=== PATIENT | male | born 1945 | race Caucasian/White ===

== ENCOUNTER 2016-03-27 18:28 | Inpatient (IN) | payer MEDICARE ==
[2016-03-27 18:58] LABS: ABSOLUTE EOSINOPHILS # (AUTO) 0.4 10^3/uL (0.0-0.6); ABSOLUTE LYMPHOCYTES (AUTO) 0.7 10^3/uL (0.5-4.7); ABSOLUTE MONOCYTES (AUTO) 0.3 10^3/uL (0.1-1.4); BASOPHILS % (AUTO) 0.5 % (0-2); EOSINOPHILS % (AUTO) 5.6 % (0-6); HEMATOCRIT 31.3 % (37.9-51.0); HEMOGLOBIN 9.9 g/dL (13.5-17.0); HGB HCT DIFFERENCE -1.6; LYMPHOCYTES % (AUTO) 9.7 % (13-45); MEAN CORPUSCULAR HEMOGLOBIN 27.8 pg (27.0-33.4); MEAN CORPUSCULAR HGB CONC 31.6 g/dL (32.0-36.0); MEAN CORPUSCULAR VOLUME 88 fl (80-97); MONOCYTES % (AUTO) 4.6 % (3-13); RED BLOOD COUNT 3.55 10^6/uL (4.35-5.55); RED CELL DISTRIBUTION WIDTH 18.8 % (11.5-14.0); SEGMENTED NEUTROPHILS % (AUTO) 79.6 % (42-78); WHITE BLOOD COUNT 7.5 10^3/uL (4.0-10.5)
[2016-03-27 19:14] LABS: ALANINE AMINOTRANSFERASE 18 U/L (21-72); ALKALINE PHOSPHATASE 86 U/L (38-126); ASPARTATE AMINO TRANSFERASE 13 U/L (17-59); BILIRUBIN,TOTAL 0.4 mg/dL (0.2-1.3); CALCIUM 8.6 mg/dL (8.4-10.2); CREATININE RESULT 7.34 mg/dL (0.52-1.25); GLUCOSE 103 mg/dL (75-110); LIPASE 347.8 U/L (23-300)
[2016-03-27 19:21] LABS: BLOOD UREA NITROGEN 122 mg/dL (7-20)
[2016-03-27 19:33] LABS: ANION GAP 19 (5-19); CARBON DIOXIDE 13 mmol/L (22-30); CHLORIDE 114 mmol/L (98-107); POTASSIUM 5.1 mmol/L (3.6-5.0); SODIUM 146.1 mmol/L (137-145)
[2016-03-27] MEDS ORDERED: NORMAL SALINE 1000 ML 2,000 ML IV PRN (19:41)
--- NOTE | 2016-03-27 20:00 | ER Document Report ---
ED General - General Chief Complaint: Pain All Over Stated Complaint: ALL OVER PAIN Time seen by provider: 19:57 Mode of Arrival: Ambulatory Information source: Patient TRAVEL OUTSIDE OF THE [place] IN LAST 30 DAYS: No - HPI Patient complains to provider of: generalized weakness Onset: Other - 2-3 days Onset/Duration: Persistent, Worse Quality of pain: Achy Severity: Mild Pain Level: 1 Associated symptoms: Body/muscle aches Exacerbated by: Denies Relieved by: Denies Similar symptoms previously: No Recently seen / treated by doctor: No Notes: Patient is a 70-year-old male presenting to the emergency room complaining of generalized weakness with general body aches, this is been gone on for the past week approximately, he also reports some "knots on rectum", which is been there for at least a year, he states they have been evaluated by a physician previously, he is unsure what the diagnosis is, they are painful at the present time, he reports bilateral leg pain, a nonhealing ulcer to the left foot, and is noted to have a blood pressure of 83/58 at time of my initial evaluation - Related Data Allergies/Adverse Reactions: No Known Allergies Allergy (Verified 03/27/16 18:42) Past Medical History - General Information source: Patient - Social History Smoking Status: Former Smoker Family History: DM, Hypertension - Past Medical History Cardiac Medical History: Reports: Hx Atrial Fibrillation, Hx Congestive Heart Failure, Hx Hypertension Endocrine Medical History: Reports: Hx Diabetes Mellitus Type 2 GI Medical History: Reports: Hx Diverticulitis Past Surgical History: Reports: Hx Abdominal Surgery - diverticulitis and lost about 10 inches of colon and second time unsure wha - Immunizations Hx Diphtheria, Pertussis, Tetanus Vaccination: Yes Review of Systems - Review of Systems Constitutional: See HPI EENT: No symptoms reported Cardiovascular: No symptoms reported Respiratory: No symptoms reported Gastrointestinal: No symptoms reported Genitourinary: No symptoms reported Male Genitourinary: No symptoms reported Musculoskeletal: See HPI Skin: See HPI Hematologic/Lymphatic: No symptoms reported Neurological/Psychological: No symptoms reported -: Yes All other systems reviewed and negative Physical Exam - Vital signs Vitals: Temp Pulse Resp BP Pulse Ox 97.9 F 90 20 92/49 L 98 03/27/16 18:30 03/27/16 18:30 03/27/16 18:30 03/27/16 18:30 03/27/16 18:30 Interpretation: Hypotensive - General General appearance: Alert - HEENT Head: Normocephalic, Atraumatic Eyes: Normal Pupils: PERRL - Respiratory Respiratory status: No respiratory distress Chest status: Nontender Breath sounds: Normal Chest palpation: Normal - Cardiovascular Rhythm: Regular Heart sounds: Normal auscultation Murmur: No - Abdominal Inspection: Other - Nonhealing wound to midline incision, approximately 1 cm, scabbed, no erythema or tenderness Distension: No distension Bowel sounds: Normal Tenderness: Nontender Organomegaly: No organomegaly - Back Back: Normal, Nontender - Extremities General upper extremity: Nontender, Normal ROM, Normal temperature, Other - Diffuse ecchymosis with excoriated skin General lower extremity: Edema, Normal ROM. No: Tarik's sign Foot: Other - Nonhealing ulcer to left foot - Neurological Neuro grossly intact: Yes Cognition: Normal Orientation: AAOx4 [place] Coma Scale Eye Opening: Spontaneous [place] Coma Scale Verbal: Oriented [place] Coma Scale Motor: Obeys Commands [place] Coma Scale Total: 15 Speech: Normal Motor strength normal: LUE, RUE, LLE, RLE Sensory: Normal - Psychological Associated symptoms: Normal affect, Normal mood - Skin Skin Temperature: Warm Skin Moisture: Dry Skin Color: Normal Course - Re-evaluation Re-evalutation: 03/27/16 22:11 Patient was discussed with primary care provider, Dr. Ng, specifically we discussed labs including acute renal failure with BUN/creatinine of 122 and 7.3 , he suggested we continue to hydrate patient, provide antibiotics for urinary tract infection, admit to telemetry floor for further evaluation and treatment - Vital Signs Vital signs: Temp Pulse Resp BP Pulse Ox 97.4 F 96 16 128/67 H 100 03/28/16 01:00 03/28/16 01:00 03/28/16 01:00 03/28/16 01:00 03/28/16 01:00 - Laboratory Result Diagrams: 03/27/16 18:45 03/27/16 18:45 Laboratory results interpreted by me: 03/27/16 03/27/16 03/27/16 18:45 18:45 21:32 RBC 3.55 L Hgb 9.9 L Hct 31.3 L MCHC 31.6 L RDW 18.8 H Seg Neutrophils % 79.6 H Lymphocytes % 9.7 L Sodium 146.1 H Potassium 5.1 H Chloride 114 H Carbon Dioxide 13 L BUN 122 H Creatinine 7.34 H Est GFR ( Amer) 9 L Est GFR (Non-Af Amer) 7 L AST 13 L ALT 18 L Total Protein 6.0 L Albumin 3.0 L Lipase 347.8 H Urine Blood MODERATE H Ur Leukocyte Esterase LARGE H - Diagnostic Test Radiology reviewed: Image reviewed, Reports reviewed Critical Care Note - Critical Care Note Total time excluding time spent on procedures (mins): 45 Comments: Patient persistently hypotensive with IV fluids administered, acute renal failure requiring admission for further evaluation and treatment Discharge - Discharge Clinical Impression: Acute renal failure Qualifiers: Acute renal failure type: unspecified Qualified Code(s): N17.9 - Acute kidney failure, unspecified Hypotension Qualifiers: Hypotension type: unspecified hypotension type Qualified Code(s): I95.9 - Hypotension, unspecified Urinary tract infection Qualifiers: Urinary tract infection type: site unspecified Hematuria presence: without hematuria Qualified Code(s): N39.0 - Urinary tract infection, site not specified Condition: Fair Disposition: ADMITTED INPATIENT Admitting Provider: Ng Unit Admitted: Telemetry
[2016-03-27 21:53] LABS: APPEARANCE,URINE SLIGHTLY-CLOUDY; BILIRUBIN,URINE NEGATIVE (NEGATIVE); GLUCOSE, URINE NEGATIVE (NEGATIVE); KETONES,URINE NEGATIVE (NEGATIVE); LEUKOCYTE ESTERASE,URINE LARGE (NEGATIVE); NITRITE,URINE NEGATIVE (NEGATIVE); PROTEIN,URINE NEGATIVE (NEGATIVE); URINE SPECIFIC GRAVITY 1.008; UROBILINOGEN,URINE NEGATIVE mg/dL (<2.0)
[2016-03-27] MEDS ORDERED: NORMAL SALINE 1000 ML 1,000 ML IV PRN (22:12)
[2016-03-27] MEDS ORDERED: CEFTRIAXONE INJ 1000 MG VIAL IV ONE (22:12)
[2016-03-28] MEDS ORDERED: 1/2 NORMAL SALINE 1,000 ML IV PRN ×2 (04:08→05:50)
[2016-03-28] MEDS ORDERED: DEXTROSE 50%-WATER SYRINGE 12.5 GM/25 ML DOSE IV PRN (04:16)
[2016-03-28] MEDS ORDERED: DEXTROSE 50%-WATER SYRINGE 25 GM/50 ML DOSE IV PRN (04:16)
[2016-03-28] MEDS ORDERED: DEXTROSE 40% GEL 15 GM TUBE X 2 PO PRN (04:16)
[2016-03-28] MEDS ORDERED: DEXTROSE 40% GEL 15 GM TUBE PO PRN (04:16)
[2016-03-28] MEDS ORDERED: INSULIN REG, HUMAN 100 UNIT/ML 3 ML VIAL (PYX) SUBCUT PRN (04:16)
[2016-03-28] MEDS ORDERED: GLUCAGON,HUMAN RECOMB 1 MG INJ IM PRN (04:16)
[2016-03-28] MEDS ORDERED: SODIUM BICARBONATE 8.4% INJ 50 MEQ/50 ML DISP.SYRIN ONE (06:15)
[2016-03-28] MEDS: DEXTROSE 5%-WATER 1000 ML 1,000 ML with SODIUM BICARBONATE 50 MEQ IV PRN ×4 (06:26→18:15)
--- NOTE | 2016-03-28 08:51 | PDOC H&P ---
History of Present Illness Admission Date/PCP: 03/28/16 04:33 BLANCHE BROWER MD Patient complains of: hurt all over History of Present Illness: AISHA PABLO is a 70 year old male with diffuse pain and weakness. Has been on diclofenac from ortho recently. ER found familia. 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 [id number] Malignancy Medical History: Reports: None GI Medical History: Reports: Diverticulitis, Gastroesophageal Reflux Disease, Peptic Ulcer Disease Musculoskeltal Medical History: Reports: Arthritis - severe djd RK. [place] say surgury too risky. Skin Medical History: Reports: Other - venous leg ulcers. Now home health unna booting L Psychiatric Medical History: Reports: None Traumatic Medical History: Reports: None Hematology: Reports: Anemia - iron. July Infectious Medical History: Reports: None Past Surgical History Past Surgical History: Reports: Other - diverticulitis, ventral hernia, Rcolectomy, cataracts, dorsal slit Social History Information Source: Dr. Rehman Lives with: Alone Smoking Status: Former Smoker Cigarettes Packs Per Day: 1 Number of Years Smokin Last Time Smoked: 1995 Frequency of Alcohol Use: None Hx Recreational Drug Use: No Drugs: None Hx Prescription Drug Abuse: No - Advance Directive Resuscitation Status: Do Not Resuscitate Family History Family History: DM, Hypertension Parental Family History Reviewed: Yes Children Family History Reviewed: Yes Sibling(s) Family History Reviewed.: Yes Medication/Allergy Home Medications: Misoprostol [Cytotec 0.2 mg Tablet] 200 mcg PO BID 01/08/14 Omeprazole 20 mg PO DAILY 01/08/14 Simvastatin 20 mg PO DAILY 01/08/14 Furosemide [Lasix 40 mg Tablet] 40 mg PO BID 08/08/15 Gabapentin 300 mg PO BID 08/08/15 Hydromorphone HCl 4 mg PO TID 08/08/15 Insulin Glargine,Hum.rec.anlog [Lantus] 10 unit SQ DAILY 08/08/15 Allopurinol [Zyloprim 300 mg Tablet] 300 mg PO DAILY 03/28/16 Clonidine HCl [Catapres] 0.1 mg PO Q12 03/28/16 Cyanocobalamin (Vitamin B-12) [Vitamin B-12 1000 Mcg Tablet] 1 tab PO DAILY Diclofenac Sodium [Voltaren 50 mg Tablet.dr] 50 mg PO BID 03/28/16 Ferrous Sulfate [Iron] 325 mg PO DAILY 03/28/16 Lisinopril [Prinivil 40 mg Tablet] 40 mg PO DAILY 03/28/16 Allergies/Adverse Reactions: No Known Allergies Allergy (Verified 03/27/16 18:42) Review of Systems Constitutional: PRESENT: chills, fatigue, weakness. ABSENT: weight loss Nose, Mouth, and Throat: ABSENT: sore throat Cardiovascular: PRESENT: dyspnea on exertion. ABSENT: chest pain, orthropnea Respiratory: ABSENT: cough Gastrointestinal: ABSENT: abdominal pain, constipation, diarrhea, hematochezia, melena, vomiting Genitourinary: PRESENT: dysuria. ABSENT: difficulty urinating, hematuria Musculoskeletal: PRESENT: as per HPI Integumentary: PRESENT: other - L ankle ulc 3cm under unna. ABSENT: rash Physical Exam Vital Signs: Temp Pulse Resp BP Pulse Ox 98.4 F 91 18 102/48 L 98 03/28/16 04:00 03/28/16 04:00 03/28/16 04:00 03/28/16 04:00 03/28/16 04:00 Intake & Output 03/26/16 03/27/16 03/28/16 07:59 07:59 07:59 Intake Total 379 Balance 379 General appearance: PRESENT: no acute distress Mouth exam: PRESENT: moist Neck exam: ABSENT: lymphadenopathy, tenderness, thyromegaly, tracheal deviation Respiratory exam: PRESENT: clear to auscultation dina Cardiovascular exam: ABSENT: diastolic murmur, irregular rhythm, systolic murmur GI/Abdominal exam: ABSENT: mass, organolmegaly, tenderness Extremities exam: ABSENT: pedal edema Neurological exam: PRESENT: oriented to situation Psychiatric exam: PRESENT: appropriate affect Skin exam: PRESENT: other - osterior L leg ulcer 3cm Results Laboratory Results: Abnormal - 24 hr 03/27/16 03/27/16 03/27/16 18:45 18:45 21:32 RBC 3.55 L Hgb 9.9 L Hct 31.3 L MCHC 31.6 L RDW 18.8 H Seg Neutrophils % 79.6 H Lymphocytes % 9.7 L Sodium 146.1 H Potassium 5.1 H Chloride 114 H Carbon Dioxide 13 L BUN 122 H Creatinine 7.34 H Est GFR ( Amer) 9 L Est GFR (Non-Af Amer) 7 L AST 13 L ALT 18 L Total Protein 6.0 L Albumin 3.0 L Lipase 347.8 H Urine Blood MODERATE H Ur Leukocyte Esterase LARGE H Impressions: Acute Abdomen Series 03/27/16 19:56 IMPRESSION: Nonspecific pattern. No significant bowel distention, however there are scattered air-fluid levels. Assessment & Plan - Diagnosis (1) Acute kidney failure with tubular necrosis Is this a current diagnosis for this admission?: YesPlan: Stop diclofenac & furosemide. A0baksks. Consult nephrology. (2) Acute tubulo-interstitial nephritis Is this a current diagnosis for this admission?: YesPlan: ceftriaxone
[2016-03-28] MEDS: FAMOTIDINE 20 MG TABLET PO SCH ×2 (11:05→22:15)
[2016-03-28] MEDS: HYDROMORPHONE HCL 2 MG TABLET PO SCH ×3 (11:06→18:15)
[2016-03-28] MEDS: CEFTRIAXONE 1 GM/D5W RTU 1 GM/50 ML RTUPB IV SCH (11:07)
[2016-03-28] MEDS: ENOXAPARIN SODIUM INJ 30 MG/0.3 ML DISP.SYRIN SUBCUT SCH (11:09)
[2016-03-28] MEDS ORDERED: NORMAL SALINE 1000 ML 1,000 ML IV PRN (18:54)
--- NOTE | 2016-03-28 19:37 | PDOC CONSULTATION ---
Consultation Consult Date: 03/28/16 Consult reason:: Acute on chronic kidney disease History of Present Illness Admission Date/PCP: 03/28/16 04:33 BLANCHE NG MD History of Present Illness: Rufus condon is 70 years old male with a history of long-standing, complicated diabetes mellitus with history of neuropathy and nephropathy the base creatinine of 1.5 last year, other comorbidities which includes sleep apnea , hypertension, congestive heart failure comes in with history of generalized weakness. He also got severe osteoarthritis for which she has been taking diclofenac 100 mg daily for the last many years. He denies any history of chest pain shortness of breath nausea and abdominal pains no history to indicate an GI bleeds. He denies orthostasis. He has got active diabetic ulcer affecting his right foot for the last 4-6 weeks and is being treated and by Dr. Kong Chadwick at the wound clinic. Evaluations in the hospital reveals that he is in acute renal failure with this creatinine at 7+. He states he has been feeling poorly over the last 1-2 weeks. He states he's been eating lately well and his fluid intake has been fair. He says his blood sugars are pretty well controlled and fasting sugars are around 100 to 120s. Past Medical History Cardiac Medical History: Reports: Atrial Fibrillation, Hyperlipidemia, Hypertension-primary Pulmonary Medical History: Reports: Sleep Apnea, Other - 1998 restrictive lung from bmi40 EENT Medical History: Reports: Nose - allergic rhinitis Neurological Medical History: Reports: Other - diabetic neuropathy Endocrine Medical History: Reports: Diabetes Mellitus Type 2 - 1997 Complications of Diabetes: Reports: Diabetic Foot Ulcer, Nephropathy, Other - Neuropathy Renal/ Medical History: Reports: Chronic Kidney Disease Stage III Malignancy Medical History: Reports: None GI Medical History: Reports: Diverticulitis, Gastroesophageal Reflux Disease, Peptic Ulcer Disease Musculoskeltal Medical History: Reports: Arthritis - severe djd RK. [place] say surgury too risky. Skin Medical History: Reports: Other - venous leg ulcers. Now home health unna booting L Psychiatric Medical History: Reports: None Traumatic Medical History: Reports: None Infectious Medical History: Reports: None Past Surgical History Past Surgical History: Reports: Other - diverticulitis, ventral hernia, Rcolectomy, cataracts, dorsal slit Social History Lives with: Alone Smoking Status: Former Smoker Cigarettes Packs Per Day: 1 Number of Years Smokin Last Time Smoked: 1995 Frequency of Alcohol Use: None Hx Recreational Drug Use: No Drugs: None Hx Prescription Drug Abuse: No - Advance Directive Resuscitation Status: Do Not Resuscitate Family History Parental Family History Reviewed: Yes - negative for ESRD Children Family History Reviewed: No Sibling(s) Family History Reviewed.: No Medication/Allergy Home Medications: Misoprostol [Cytotec 0.2 mg Tablet] 200 mcg PO BID 01/08/14 Omeprazole 20 mg PO DAILY 01/08/14 Simvastatin 20 mg PO DAILY 01/08/14 Furosemide [Lasix 40 mg Tablet] 40 mg PO BID 08/08/15 Gabapentin 300 mg PO BID 08/08/15 Hydromorphone HCl 4 mg PO TID 08/08/15 Insulin Glargine,Hum.rec.anlog [Lantus] 10 unit SQ DAILY 08/08/15 Allopurinol [Zyloprim 300 mg Tablet] 300 mg PO DAILY 03/28/16 Clonidine HCl [Catapres] 0.1 mg PO Q12 03/28/16 Cyanocobalamin (Vitamin B-12) [Vitamin B-12 1000 Mcg Tablet] 1 tab PO DAILY Diclofenac Sodium [Voltaren 50 mg Tablet.dr] 50 mg PO BID 03/28/16 Ferrous Sulfate [Iron] 325 mg PO DAILY 03/28/16 Lisinopril [Prinivil 40 mg Tablet] 40 mg PO DAILY 03/28/16 Allergies/Adverse Reactions: No Known Allergies Allergy (Verified 03/27/16 18:42) Review of Systems Review of Systems: Constitutional: PRESENT: as per HPI. ABSENT: chills, fever(s), headache(s), weight gain, weight loss Eyes: ABSENT: visual disturbances Ears: ABSENT: hearing changes Cardiovascular: ABSENT: chest pain, dyspnea on exertion, edema, orthropnea, palpitations Respiratory: ABSENT: cough, hemoptysis Gastrointestinal: ABSENT: abdominal pain, constipation, diarrhea, hematemesis, hematochezia, nausea, vomiting Genitourinary: ABSENT: dysuria, hematuria Musculoskeletal: ABSENT: joint swelling Integumentary: ABSENT: wounds Neurological: ABSENT: abnormal gait, abnormal speech, confusion, dizziness, focal weakness, syncope Psychiatric: ABSENT: anxiety, depression, homicidal ideation, suicidal ideation Endocrine: ABSENT: cold intolerance, heat intolerance, menstrual abnormalities, polydipsia, polyuria Hematologic/Lymphatic: ABSENT: easy bleeding, easy bruising, lymphadenopathy Physical Exam Vital Signs: Temp Pulse Resp BP Pulse Ox 98.1 F 88 18 109/55 L 100 03/28/16 16:48 03/28/16 16:48 03/28/16 16:48 03/28/16 16:48 03/28/16 16:48 Intake & Output 03/27/16 03/28/16 03/29/16 06:59 06:59 06:59 Intake Total 559 1072 Output Total 1075 Balance -516 1072 Weight 122.2 kg General appearance: PRESENT: no acute distress, disheveled Head exam: PRESENT: atraumatic Eye exam: PRESENT: conjunctiva pink, EOMI, PERRLA. ABSENT: nystagmus, periorbital swelling, scleral icterus Ear exam: PRESENT: normal external ear exam Mouth exam: PRESENT: moist, neck supple. ABSENT: dry mucosa Neck exam: ABSENT: lymphadenopathy, meningismus, tenderness, thyromegaly, tracheal deviation Respiratory exam: PRESENT: clear to auscultation dina, symmetrical, unlabored. ABSENT: crackles Cardiovascular exam: PRESENT: +S1, +S2, systolic murmur GI/Abdominal exam: PRESENT: soft. ABSENT: distended, firm, guarding, mass, tenderness Extremities exam: PRESENT: +2 edema Neurological exam: PRESENT: alert, awake, oriented to person, oriented to place , oriented to time, CN II-XII grossly intact Psychiatric exam: PRESENT: flat affect Skin exam: PRESENT: erythema, mottled - His venous stasis of both lower extremities. He has also got severe intertrigo., rash, vesicles Results Impressions: Acute Abdomen Series 03/27/16 19:56 IMPRESSION: Nonspecific pattern. No significant bowel distention, however there are scattered air-fluid levels. Assessment & Plan - Diagnosis (1) Diabetic foot infection Plan: Going to leave this to Dr. Ng. (2) Acute renal failure Qualifiers: Acute renal failure type: unspecified Qualified Code(s): N17.9 - Acute kidney failure, unspecified Plan: His last creatinine last last year was 1.6 indicating that he has diabetic nephropathy given his other complications. Obviously he has come in with an acute kidney injury on top of his underlying ckd stage III. Differentials includes NSAID nephropathy from usage of diclofenac, ATN from his diabetic foot , and acute rhabdo. Given his age and his other issues needs to rule out obstructive uropathy. We'll order appropriate labs and a renal ultrasound. Needs a Frank catheter introduced and I've given orders to the nurse. Electrolytes are stable. However has metabolic acidosis. Convert fluids to normal saline and start him on by mouth bicarbonate. (3) Hypotension Qualifiers: Hypotension type: unspecified hypotension type Qualified Code(s): I95.9 - Hypotension, unspecified Plan: Probably related to sepsis from his diabetic foot. Start him on normal saline. Monitor. (6) Eczema intertrigo Plan: Start him on nystatin and monitor. (7) Anemia Plan: Initiate workup (8) Metabolic acidosis Plan: Starting him on by mouth bicarbonate instead of the earlier orders (9) Acute renal failure due to rhabdomyolysis Plan: Treatment as for acute kidney injury.
[2016-03-28] MEDS: NORMAL SALINE 1000 ML 1,000 ML IV PRN (22:28)
[2016-03-29 05:39] LABS: ANION GAP 16 (5-19); BLOOD UREA NITROGEN 93 mg/dL (7-20); CALCIUM 8.6 mg/dL (8.4-10.2); CARBON DIOXIDE 16 mmol/L (22-30); CHLORIDE 115 mmol/L (98-107); CHOLESTEROL 76.06 mg/dL (0-200); CREATINE KINASE 172 U/L (55-170); CREATININE RESULT 4.86 mg/dL (0.52-1.25); Direct HDL 31 mg/dL (>40); GLUCOSE 92 mg/dL (75-110); LIPASE 694.7 U/L (23-300); MAGNESIUM 1.3 mg/dL (1.6-2.3); PHOSPHORUS 7.4 mg/dL (2.5-4.5); POTASSIUM 4.6 mmol/L (3.6-5.0); SODIUM 147.1 mmol/L (137-145); TRIGLYCERIDES 71 mg/dL (<150)
[2016-03-29 05:52] LABS: DIRECT LDL < 30 mg/dL (<100)
--- NOTE | 2016-03-29 08:02 | PDOC PROGRESS REPORT ---
Subjective Progress Note for:: 03/29/16 Subjective:: same. L lateral leg ulcer dressing was schuled for yesterday. Voltaren for 2y Physical Exam Vital Signs: Temp Pulse Resp BP Pulse Ox 97.9 F 90 20 100/59 L 100 03/29/16 05:09 03/29/16 05:09 03/29/16 05:09 03/29/16 05:09 03/29/16 05:09 Intake & Output 03/27/16 03/28/16 03/29/16 07:59 07:59 07:59 Intake Total 559 2692 Output Total 1075 1999 Balance -516 692 Weight 276 lb 0.3 oz General appearance: PRESENT: no acute distress, morbidly obese Respiratory exam: PRESENT: clear to auscultation dina Cardiovascular exam: ABSENT: diastolic murmur, irregular rhythm, systolic murmur GI/Abdominal exam: ABSENT: mass, organolmegaly, tenderness Rectal exam: PRESENT: other - L buttock soft irregular nodule 1cm ?old cyst scar. No tenderness or induration Extremities exam: ABSENT: pedal edema Neurological exam: PRESENT: oriented to situation Psychiatric exam: PRESENT: appropriate affect Results Laboratory Results: 03/29/16 05:03 03/29/16 03/29/16 03/29/16 05:03 05:03 05:03 Retic Count (auto) 0.61 L Absolute Retic 0.020 L Sodium 147.1 H Potassium 4.6 Chloride 115 H Carbon Dioxide 16 L Anion Gap 16 BUN 93 H Creatinine 4.86 H Est GFR ( Amer) 14 L Est GFR (Non-Af Amer) 12 L Glucose 92 Calcium 8.6 Phosphorus 7.4 H Magnesium 1.3 L Iron 74.1 TIBC 202 L % Saturation 37 Ferritin 62.30 Triglycerides 71 Cholesterol 76.06 LDL Cholesterol Direct < 30 VLDL Cholesterol 14.0 HDL Cholesterol 31 L Lipase 694.7 H Vitamin B12 > 1000.0 H Folate 12.70 TSH 2.72 03/29/16 05:03 Creatine Kinase 172 H Impressions: Acute Abdomen Series 03/27/16 19:56 IMPRESSION: Nonspecific pattern. No significant bowel distention, however there are scattered air-fluid levels. Renal Ultrasound 03/28/16 00:00 IMPRESSION: LIMITED STUDY WITH GROSSLY NORMAL RIGHT KIDNEY WITHOUT OBSTRUCTIVE UROPATHY. LEFT KIDNEY NOT VISUALIZED. Assessment & Plan - Diagnosis (1) Acute kidney failure with tubular necrosis Is this a current diagnosis for this admission?: YesPlan: no R hydronephrosis. CK almost normal. Improving. Continue NS125 (2) Acute tubulo-interstitial nephritis Is this a current diagnosis for this admission?: YesPlan: afebrile on ceftriaxone
[2016-03-29] MEDS: ENOXAPARIN SODIUM INJ 30 MG/0.3 ML DISP.SYRIN SUBCUT SCH (08:35)
[2016-03-29] MEDS: SODIUM BICARBONATE 650 MG TABLET PO SCH ×3 (08:35→16:15)
[2016-03-29] MEDS ORDERED: HYDROMORPHONE HCL 2 MG TABLET PO ONE (09:15)
[2016-03-29] MEDS: CEFTRIAXONE 1 GM/D5W RTU 1 GM/50 ML RTUPB IV SCH (12:03)
[2016-03-29] MEDS: FAMOTIDINE 20 MG TABLET PO SCH ×2 (12:07→21:38)
[2016-03-29] MEDS: NYSTATIN CREAM 15 GM TP SCH ×2 (12:08→17:12)
[2016-03-29] MEDS: NORMAL SALINE 1000 ML 1,000 ML IV PRN ×3 (15:37→21:38)
[2016-03-29] MEDS: HYDROMORPHONE HCL 2 MG TABLET PO SCH ×2 (15:40→23:13)
[2016-03-29] MEDS ORDERED: MAGNESIUM SULFATE INJ 8 MEQ/2 ML IV ONE (16:19)
--- NOTE | 2016-03-29 16:20 | PDOC PROGRESS REPORT ---
Subjective Progress Note for:: 03/29/16 Subjective:: He says he is feeling better today. He feels he has more energy and is less weak than before. He denies any history of chest pain shortness of breath no history of any fever chills. Making good urine output. Physical Exam Vital Signs: Temp Pulse Resp BP Pulse Ox 98.2 F 95 18 116/63 100 03/29/16 08:15 03/29/16 08:15 03/29/16 08:15 03/29/16 08:15 03/29/16 08:15 Intake & Output 03/28/16 03/29/16 03/30/16 06:59 06:59 06:59 Intake Total 559 2692 Output Total 1075 2000 Balance -516 692 Weight 125.2 kg General appearance: PRESENT: no acute distress Respiratory exam: PRESENT: clear to auscultation dina, symmetrical. ABSENT: crackles, rhonchi Cardiovascular exam: PRESENT: +S1, +S2, systolic murmur GI/Abdominal exam: PRESENT: soft. ABSENT: distended, firm, guarding, mass, tenderness Extremities exam: PRESENT: pedal edema - Trace Neurological exam: PRESENT: alert, awake, oriented to person, oriented to place , oriented to time Results Laboratory Results: 03/29/16 05:03 03/29/16 03/29/16 03/29/16 05:03 05:03 05:03 Retic Count (auto) 0.61 L Absolute Retic 0.020 L Sodium 147.1 H Potassium 4.6 Chloride 115 H Carbon Dioxide 16 L Anion Gap 16 BUN 93 H Creatinine 4.86 H Est GFR ( Amer) 14 L Est GFR (Non-Af Amer) 12 L Glucose 92 Calcium 8.6 Phosphorus 7.4 H Magnesium 1.3 L Iron 74.1 TIBC 202 L % Saturation 37 Ferritin 62.30 Triglycerides 71 Cholesterol 76.06 LDL Cholesterol Direct < 30 VLDL Cholesterol 14.0 HDL Cholesterol 31 L Lipase 694.7 H Vitamin B12 > 1000.0 H Folate 12.70 TSH 2.72 03/29/16 05:03 Creatine Kinase 172 H Impressions: Acute Abdomen Series 03/27/16 19:56 IMPRESSION: Nonspecific pattern. No significant bowel distention, however there are scattered air-fluid levels. Renal Ultrasound 03/28/16 00:00 IMPRESSION: LIMITED STUDY WITH GROSSLY NORMAL RIGHT KIDNEY WITHOUT OBSTRUCTIVE UROPATHY. LEFT KIDNEY NOT VISUALIZED. Assessment & Plan - Diagnosis (2) Acute renal failure Qualifiers: Acute renal failure type: unspecified Qualified Code(s): N17.9 - Acute kidney failure, unspecified Plan: Renal numbers are definitely improving with current plans. His blood pressure is still on the low end of the normal range and sometimes becomes hypotensive. We will adjust IV fluids accordingly. (3) Hypotension Qualifiers: Hypotension type: unspecified hypotension type Qualified Code(s): I95.9 - Hypotension, unspecified Plan: Adjust IV fluids. Do not see any need for pressors at the moment. Urine output is good (6) Eczema intertrigo Plan: Start Diflucan (8) Metabolic acidosis Plan: Stable. Continue on bicarbonate. (10) Hypomagnesemia Plan: Replace and monitor.
[2016-03-29] MEDS ORDERED: FLUCONAZOLE 100 MG TABLET PO ONE (16:30)
[2016-03-29] MEDS ORDERED: MAGNESIUM SULFATE/D5W 1 GM/100 ML RTUPB IV ONE (16:45)
[2016-03-30] MEDS: HYDROMORPHONE HCL 2 MG TABLET PO SCH (06:04)
[2016-03-30 07:21] LABS: ANION GAP 12 (5-19); BLOOD UREA NITROGEN 71 mg/dL (7-20); CALCIUM 8.6 mg/dL (8.4-10.2); CARBON DIOXIDE 19 mmol/L (22-30); CHLORIDE 118 mmol/L (98-107); CREATININE RESULT 3.44 mg/dL (0.52-1.25); GLUCOSE 75 mg/dL (75-110); MAGNESIUM 1.6 mg/dL (1.6-2.3); POTASSIUM 4.1 mmol/L (3.6-5.0); SODIUM 148.8 mmol/L (137-145)
--- NOTE | 2016-03-30 07:43 | PDOC PROGRESS REPORT ---
Subjective Progress Note for:: 03/30/16 Subjective:: better. No dyspnea or abdominal pain. Physical Exam Vital Signs: Temp Pulse Resp BP Pulse Ox 97.9 F 66 16 95/58 L 100 03/30/16 00:00 03/30/16 07:00 03/30/16 00:00 03/30/16 00:00 03/30/16 00:00 Intake & Output 03/28/16 03/29/16 03/30/16 07:59 07:59 07:59 Intake Total 559 2692 5400 Output Total 1075 2000 3650 Balance -119 531 7542 Weight 276 lb 0.3 oz 274 lb 4.081 oz General appearance: PRESENT: no acute distress Respiratory exam: PRESENT: wheezes - slight Cardiovascular exam: ABSENT: diastolic murmur, irregular rhythm, systolic murmur GI/Abdominal exam: ABSENT: mass, organolmegaly, tenderness Extremities exam: ABSENT: pedal edema Neurological exam: PRESENT: oriented to situation Psychiatric exam: PRESENT: appropriate affect Results Laboratory Results: 03/30/16 05:20 03/30/16 05:20 Sodium 148.8 H Potassium 4.1 Chloride 118 H Carbon Dioxide 19 L Anion Gap 12 BUN 71 H Creatinine 3.44 H Est GFR ( Amer) 21 L Est GFR (Non-Af Amer) 18 L Glucose 75 Calcium 8.6 Magnesium 1.6 Lipase 1087.0 H 03/29/16 05:03 Creatine Kinase 172 H Impressions: Acute Abdomen Series 03/27/16 19:56 IMPRESSION: Nonspecific pattern. No significant bowel distention, however there are scattered air-fluid levels. Renal Ultrasound 03/28/16 00:00 IMPRESSION: LIMITED STUDY WITH GROSSLY NORMAL RIGHT KIDNEY WITHOUT OBSTRUCTIVE UROPATHY. LEFT KIDNEY NOT VISUALIZED. Assessment & Plan - Diagnosis (1) Acute kidney failure with tubular necrosis Is this a current diagnosis for this admission?: YesPlan: bun & creatinine improving slowly. Slight wheeze on NS150 but denies dyspnea. (2) Acute tubulo-interstitial nephritis Is this a current diagnosis for this admission?: YesPlan: culture pending. Afebrile on ceftriaxone (3) Pancreatitis, acute Qualifiers: Pancreatitis type: idiopathic Acute pancreatitis complication: no infection or necrosis Qualified Code(s): K85.00 - Idiopathic acute pancreatitis without necrosis or infection Is this a current diagnosis for this admission?: YesPlan: lipase climbing. ?ct with oral contrast only. Furosemide can cause it. Will try USgb first
[2016-03-30] MEDS: ENOXAPARIN SODIUM INJ 30 MG/0.3 ML DISP.SYRIN SUBCUT SCH (09:31)
[2016-03-30] MEDS: SODIUM BICARBONATE 650 MG TABLET PO SCH ×3 (09:31→17:31)
[2016-03-30] MEDS: CEFTRIAXONE 1 GM/D5W RTU 1 GM/50 ML RTUPB IV SCH (09:32)
[2016-03-30] MEDS: FLUCONAZOLE 100 MG TABLET PO SCH (09:35)
[2016-03-30] MEDS: NYSTATIN CREAM 15 GM TP SCH ×2 (09:35→17:32)
[2016-03-30] MEDS: FAMOTIDINE 20 MG TABLET PO SCH ×2 (09:35→21:52)
[2016-03-30] MEDS: NORMAL SALINE 1000 ML 1,000 ML IV PRN ×2 (12:32→21:52)
--- NOTE | 2016-03-30 17:11 | PDOC PROGRESS REPORT ---
Subjective Progress Note for:: 03/30/16 Subjective:: Patient was seen in the hospital today. He remains quite asymptomatic. He denies any history of chest pain shortness of breath. He denies any history of abdominal pains. He is tolerating p.o. food without any complaints of nausea vomiting abdominal pains fever or chills. However noted that his lipase is increasing and I reviewed the ultrasound of the abdomen ordered by Dr. Ng. It shows he has got dilated bile ducts and CBD suggestive of possible stricture/ gallstone at the end of the CBD. However it is quite surprising that the patient remains quite asymptomatic and it continues to tolerate normal diet. Meanwhile he has developed diarrhea. No history of any bloody stools. Obviously he is also on antibiotics and one needs to exclude the possibility of C. difficile. Physical Exam Vital Signs: Temp Pulse Resp BP Pulse Ox 97.9 F 78 18 97/57 L 99 03/30/16 16:12 03/30/16 16:12 03/30/16 16:12 03/30/16 16:12 03/30/16 16:12 Intake & Output 03/29/16 03/30/16 03/31/16 06:59 06:59 06:59 Intake Total 2692 5400 1111 Output Total 1999 3650 1400 Balance 692 1750 -289 Weight 125.2 kg 124.4 kg General appearance: PRESENT: no acute distress Respiratory exam: PRESENT: clear to auscultation dina, symmetrical. ABSENT: crackles, rhonchi Cardiovascular exam: PRESENT: +S1, +S2, systolic murmur GI/Abdominal exam: PRESENT: normal bowel sounds, soft. ABSENT: distended, firm , guarding, mass, organomegaly, tenderness Extremities exam: ABSENT: pedal edema Neurological exam: PRESENT: alert, awake, oriented to person, oriented to place , oriented to time Results Laboratory Results: 03/30/16 05:20 03/30/16 05:20 Sodium 148.8 H Potassium 4.1 Chloride 118 H Carbon Dioxide 19 L Anion Gap 12 BUN 71 H Creatinine 3.44 H Est GFR ( Amer) 21 L Est GFR (Non-Af Amer) 18 L Glucose 75 Calcium 8.6 Magnesium 1.6 Lipase 1087.0 H 03/29/16 05:03 Creatine Kinase 172 H Impressions: Acute Abdomen Series 03/27/16 19:56 IMPRESSION: Nonspecific pattern. No significant bowel distention, however there are scattered air-fluid levels. Renal Ultrasound 03/28/16 00:00 IMPRESSION: LIMITED STUDY WITH GROSSLY NORMAL RIGHT KIDNEY WITHOUT OBSTRUCTIVE UROPATHY. LEFT KIDNEY NOT VISUALIZED. Abdomen Ultrasound 03/30/16 00:00 IMPRESSION: Intra and extrahepatic biliary ductal dilatation. Distal most common duct not well seen due to midline bowel gas. Distal ductal stone or stricture could not be excluded. 2 cm stone in the gallbladder without gallbladder wall thickening or pericholecystic fluid. Pancreas not visualized Assessment & Plan - Diagnosis (2) Acute renal failure Qualifiers: Acute renal failure type: unspecified Qualified Code(s): N17.9 - Acute kidney failure, unspecified Plan: Renal numbers are definitely improving with current plans. His blood pressure is still on the low end of the normal range and sometimes becomes hypotensive.This could be now because of his progressive pancreatitis. Needs to be looked at by gastroenterology/surgery. It needs further delineation by a CT scan without IV contrast but okay with oral contrast. He obviously would need to have an ERCP ideally. We will adjust IV fluids accordingly. (3) Hypotension Qualifiers: Hypotension type: unspecified hypotension type Qualified Code(s): I95.9 - Hypotension, unspecified Plan: As mentioned earlier this is possibly compounded by his pancreatitis which shows progressive rising lipase.Monitor (8) Metabolic acidosis Plan: Stable on replacements. Continue on the same. (10) Hypomagnesemia Plan: Stable (11) Pancreatitis, acute Qualifiers: Pancreatitis type: idiopathic Acute pancreatitis complication: no infection or necrosis Qualified Code(s): K85.00 - Idiopathic acute pancreatitis without necrosis or infection Is this a current diagnosis for this admission?: YesPlan: Reviewed the abdominal ultrasound which shows dilated bile ducts and CBD. Will place an order for CT scan with oral contrast only. Ideally needs to have an ERCP and will consult with Dr. Moran who I believe is the only one who does want in the hospital. Unsure of others are doing it and will see was dice table person for tomorrow. Meanwhile place him on clear liquids discussed this with patient and the treating nurse. (12) Diarrhea Plan: Rule out C. difficile. Orders placed.
[2016-03-30 17:36] LABS: TRANSFERRIN 152 mg/dL (200-370)
[2016-03-30] MEDS: HYDROMORPHONE HCL 2 MG TABLET PO PRN (23:57)
[2016-03-31] MEDS: NORMAL SALINE 1000 ML 1,000 ML IV PRN ×2 (04:44→21:14)
[2016-03-31 05:34] LABS: ANION GAP 10 (5-19); BLOOD UREA NITROGEN 52 mg/dL (7-20); CALCIUM 8.4 mg/dL (8.4-10.2); CARBON DIOXIDE 19 mmol/L (22-30); CHLORIDE 117 mmol/L (98-107); CREATININE RESULT 2.47 mg/dL (0.52-1.25); GLUCOSE 69 mg/dL (75-110); LIPASE 677.2 U/L (23-300); POTASSIUM 3.8 mmol/L (3.6-5.0); SODIUM 146.4 mmol/L (137-145)
[2016-03-31 05:46] LABS: HEMATOCRIT 26.5 % (37.9-51.0); HEMOGLOBIN 8.5 g/dL (13.5-17.0); MEAN CORPUSCULAR HEMOGLOBIN 28.1 pg (27.0-33.4); MEAN CORPUSCULAR HGB CONC 32.2 g/dL (32.0-36.0); MEAN CORPUSCULAR VOLUME 87 fl (80-97); RED BLOOD COUNT 3.03 10^6/uL (4.35-5.55); RED CELL DISTRIBUTION WIDTH 18.4 % (11.5-14.0); WHITE BLOOD COUNT 7.1 10^3/uL (4.0-10.5)
[2016-03-31 06:38] LABS: ALBUMIN 2.6 g/dL (3.5-5.0); BILIRUBIN,TOTAL 0.4 mg/dL (0.2-1.3)
[2016-03-31 07:12] LABS: PTH INTACT 295 pg/mL (15-65)
--- NOTE | 2016-03-31 07:57 | PDOC PROGRESS REPORT ---
Subjective Progress Note for:: 03/31/16 Subjective:: uncomfortable in regular size bed. No abdominal pain. Smoked 30y till 20y ago Physical Exam Vital Signs: Temp Pulse Resp BP Pulse Ox 97.3 F 63 20 110/56 L 98 03/31/16 04:24 03/31/16 07:00 03/31/16 04:24 03/31/16 04:24 03/31/16 04:24 Intake & Output 03/29/16 03/30/16 03/31/16 07:59 07:59 07:59 Intake Total 2692 5400 5771 Output Total 1999 3650 2950 Balance 692 1750 2821 Weight 276 lb 0.3 oz 274 lb 4.081 oz 279 lb 5.211 oz General appearance: PRESENT: no acute distress Respiratory exam: PRESENT: wheezes - slight Cardiovascular exam: ABSENT: diastolic murmur, irregular rhythm, systolic murmur GI/Abdominal exam: ABSENT: mass, organolmegaly, tenderness Extremities exam: ABSENT: pedal edema Neurological exam: PRESENT: oriented to situation Psychiatric exam: PRESENT: appropriate affect Results Laboratory Results: 03/31/16 03:58 03/31/16 03:58 03/29/16 03/31/16 03/31/16 05:03 03:58 03:58 WBC 7.1 RBC 3.03 L Hgb 8.5 L Hct 26.5 L MCV 87 MCH 28.1 MCHC 32.2 RDW 18.4 H Plt Count 155 Sodium 146.4 H Potassium 3.8 Chloride 117 H Carbon Dioxide 19 L Anion Gap 10 BUN 52 H Creatinine 2.47 H Est GFR ( Amer) 31 L Est GFR (Non-Af Amer) 26 L Glucose 69 L Calcium 8.4 Transferrin 152 L Total Bilirubin AST ALT Alkaline Phosphatase Total Protein Albumin Lipase 677.2 H PTH Intact 295 H 03/31/16 03:58 WBC RBC Hgb Hct MCV MCH MCHC RDW Plt Count Sodium Potassium Chloride Carbon Dioxide Anion Gap BUN Creatinine Est GFR ( Amer) Est GFR (Non-Af Amer) Glucose Calcium Transferrin Total Bilirubin 0.4 AST 18 ALT 21 Alkaline Phosphatase 66 Total Protein 5.0 L Albumin 2.6 L Lipase PTH Intact 03/29/16 05:03 Creatine Kinase 172 H Impressions: Acute Abdomen Series 03/27/16 19:56 IMPRESSION: Nonspecific pattern. No significant bowel distention, however there are scattered air-fluid levels. Renal Ultrasound 03/28/16 00:00 IMPRESSION: LIMITED STUDY WITH GROSSLY NORMAL RIGHT KIDNEY WITHOUT OBSTRUCTIVE UROPATHY. LEFT KIDNEY NOT VISUALIZED. Abdomen Ultrasound 03/30/16 00:00 IMPRESSION: Intra and extrahepatic biliary ductal dilatation. Distal most common duct not well seen due to midline bowel gas. Distal ductal stone or stricture could not be excluded. 2 cm stone in the gallbladder without gallbladder wall thickening or pericholecystic fluid. Pancreas not visualized Abdomen/Pelvis CT 03/30/16 16:05 IMPRESSION: 1. A right lower lobe pulmonary nodule has developed and needs further followup. Full chest CT may be warranted to assess for other lesions. 2. Somewhat limited abdominopelvic evaluation. No suggestion of overt peripancreatic inflammatory changes or pancreatic calcification. This does not exclude pancreatitis. Cholelithiasis is present. FLEISCHNER CRITERIA FOR FOLLOW-UP OF PULMONARY NODULES Incidentally detected new nodules in persons 35 or older. HIGH RISK: History of smoking or other known risk factors. LOW RISK PATIENTS: >8 mm 3, 9, 24 mo. Follow-up. Consider PET/biopsy HIGH RISK PATIENTS: >8 mm same as low risk recommendations above. Assessment & Plan - Diagnosis (1) Acute kidney failure with tubular necrosis Is this a current diagnosis for this admission?: YesPlan: bun,cr coming down (2) Acute tubulo-interstitial nephritis Is this a current diagnosis for this admission?: Yes (3) Pancreatitis, acute Qualifiers: Pancreatitis type: biliary Acute pancreatitis complication: no infection or necrosis Qualified Code(s): K85.10 - Biliary acute pancreatitis without necrosis or infection Is this a current diagnosis for this admission?: YesPlan: US showed 2cm fundal stone. CBD 12mm. CT no pancreatic inflammation. LFT normal. Lipase down to 677. GI consult pending. (4) Nodule of right lung Is this a current diagnosis for this admission?: YesPlan: 15mm. Repeat ct in 3m. Told
[2016-03-31] MEDS: CEFTRIAXONE 1 GM/D5W RTU 1 GM/50 ML RTUPB IV SCH (08:54)
[2016-03-31] MEDS: HYDROMORPHONE HCL 2 MG TABLET PO PRN ×2 (08:54→16:42)
[2016-03-31] MEDS: SODIUM BICARBONATE 650 MG TABLET PO SCH ×3 (08:55→16:38)
[2016-03-31] MEDS: FLUCONAZOLE 100 MG TABLET PO SCH (08:55)
[2016-03-31] MEDS: FAMOTIDINE 20 MG TABLET PO SCH ×2 (08:55→21:13)
[2016-03-31] MEDS: ENOXAPARIN SODIUM INJ 30 MG/0.3 ML DISP.SYRIN SUBCUT SCH (08:55)
[2016-03-31] MEDS: NYSTATIN CREAM 15 GM TP SCH ×2 (08:56→18:20)
[2016-03-31 16:38] LABS: A/G RATIO 1.2 (0.7-1.7); ALPHA-1-GLOBULIN 2 0.2 g/dL (0.0-0.4); GAMMA GLOBULIN 0.7 g/dL (0.4-1.8); PROTEIN TOTAL SERUM 5.5 g/dL (6.0-8.5)
[2016-04-01] MEDS: HYDROMORPHONE HCL 2 MG TABLET PO PRN ×3 (03:39→21:07)
[2016-04-01 05:41] LABS: ANION GAP 9 (5-19); BLOOD UREA NITROGEN 34 mg/dL (7-20); CALCIUM 8.7 mg/dL (8.4-10.2); CARBON DIOXIDE 20 mmol/L (22-30); CHLORIDE 118 mmol/L (98-107); CREATININE RESULT 1.99 mg/dL (0.52-1.25); GLUCOSE 71 mg/dL (75-110); POTASSIUM 3.8 mmol/L (3.6-5.0); SODIUM 147.2 mmol/L (137-145)
--- NOTE | 2016-04-01 06:50 | PDOC PROGRESS REPORT ---
Subjective Progress Note for:: 04/01/16 Subjective:: hungry on clear liquids. No dyspnea or abdominal pain Physical Exam Vital Signs: Temp Pulse Resp BP Pulse Ox 97.4 F 59 L 19 118/62 100 04/01/16 03:24 04/01/16 03:24 04/01/16 03:24 04/01/16 03:24 04/01/16 03:24 Intake & Output 03/30/16 03/31/16 04/01/16 07:59 07:59 07:59 Intake Total 5400 5771 4185 Output Total 3650 2950 1700 Balance 1750 2821 2485 Weight 274 lb 4.081 oz 279 lb 5.211 oz 280 lb 6.848 oz General appearance: PRESENT: no acute distress Respiratory exam: PRESENT: wheezes - slight Cardiovascular exam: ABSENT: diastolic murmur, irregular rhythm, systolic murmur GI/Abdominal exam: ABSENT: mass, organolmegaly, tenderness Extremities exam: ABSENT: pedal edema Neurological exam: PRESENT: oriented to situation Psychiatric exam: PRESENT: appropriate affect Results Laboratory Results: 03/31/16 03:58 04/01/16 04:30 03/29/16 04/01/16 05:03 04:30 Sodium 147.2 H Potassium 3.8 Chloride 118 H Carbon Dioxide 20 L Anion Gap 9 BUN 34 H Creatinine 1.99 H Est GFR ( Amer) 40 L Est GFR (Non-Af Amer) 33 L Glucose 71 L Calcium 8.7 Transferrin 152 L PTH Intact 295 H 03/29/16 05:03 Creatine Kinase 172 H Impressions: Acute Abdomen Series 03/27/16 19:56 IMPRESSION: Nonspecific pattern. No significant bowel distention, however there are scattered air-fluid levels. Renal Ultrasound 03/28/16 00:00 IMPRESSION: LIMITED STUDY WITH GROSSLY NORMAL RIGHT KIDNEY WITHOUT OBSTRUCTIVE UROPATHY. LEFT KIDNEY NOT VISUALIZED. Abdomen Ultrasound 03/30/16 00:00 IMPRESSION: Intra and extrahepatic biliary ductal dilatation. Distal most common duct not well seen due to midline bowel gas. Distal ductal stone or stricture could not be excluded. 2 cm stone in the gallbladder without gallbladder wall thickening or pericholecystic fluid. Pancreas not visualized Abdomen/Pelvis CT 03/30/16 16:05 IMPRESSION: 1. A right lower lobe pulmonary nodule has developed and needs further followup. Full chest CT may be warranted to assess for other lesions. 2. Somewhat limited abdominopelvic evaluation. No suggestion of overt peripancreatic inflammatory changes or pancreatic calcification. This does not exclude pancreatitis. Cholelithiasis is present. FLEISCHNER CRITERIA FOR FOLLOW-UP OF PULMONARY NODULES Incidentally detected new nodules in persons 35 or older. HIGH RISK: History of smoking or other known risk factors. LOW RISK PATIENTS: >8 mm 3, 9, 24 mo. Follow-up. Consider PET/biopsy HIGH RISK PATIENTS: >8 mm same as low risk recommendations above. Assessment & Plan - Diagnosis (1) Acute kidney failure with tubular necrosis Is this a current diagnosis for this admission?: YesPlan: approaching baseline (2) Acute tubulo-interstitial nephritis Is this a current diagnosis for this admission?: YesPlan: cultured 40k mixed. Stop ceftriaxone (3) Pancreatitis, acute Qualifiers: Pancreatitis type: biliary Acute pancreatitis complication: no infection or necrosis Qualified Code(s): K85.10 - Biliary acute pancreatitis without necrosis or infection Is this a current diagnosis for this admission?: YesPlan: lipase down to 677 yesterday. Pending. Resume solid food. (4) Nodule of right lung Is this a current diagnosis for this admission?: Yes
[2016-04-01] MEDS: ENOXAPARIN SODIUM INJ 30 MG/0.3 ML DISP.SYRIN SUBCUT SCH (07:34)
[2016-04-01] MEDS: SODIUM BICARBONATE 650 MG TABLET PO SCH ×3 (07:34→16:48)
[2016-04-01] MEDS: FAMOTIDINE 20 MG TABLET PO SCH ×2 (09:22→21:07)
[2016-04-01] MEDS: FLUCONAZOLE 100 MG TABLET PO SCH (09:22)
[2016-04-01] MEDS: NYSTATIN CREAM 15 GM TP SCH ×2 (11:59→17:36)
[2016-04-01] MEDS: NORMAL SALINE 1000 ML 1,000 ML IV PRN (12:00)
--- NOTE | 2016-04-01 14:16 | PDOC PROGRESS REPORT ---
Subjective Progress Note for:: 04/01/16 Subjective:: Patient is doing better. He denies any chest pain shortness of breath no. No severe abdominal pains nausea vomiting. I note that his pancreatic enzymes are getting better and Dr. Ng has put him back on regular food. Reviewed labs with him which shows renal numbers are almost getting back to baseline. Physical Exam Vital Signs: Temp Pulse Resp BP Pulse Ox 97.4 F 63 19 118/62 100 04/01/16 03:24 04/01/16 07:00 04/01/16 03:24 04/01/16 03:24 04/01/16 03:24 Intake & Output 03/31/16 04/01/16 04/02/16 06:59 06:59 06:59 Intake Total 5771 4185 100 Output Total 2950 1700 500 Balance 2821 2485 -400 Weight 126.7 kg 127.2 kg General appearance: PRESENT: no acute distress Respiratory exam: PRESENT: clear to auscultation dina. ABSENT: crackles, rhonchi Cardiovascular exam: PRESENT: +S1, +S2, systolic murmur GI/Abdominal exam: PRESENT: normal bowel sounds, soft. ABSENT: distended, firm , guarding, mass, organomegaly, tenderness Extremities exam: ABSENT: pedal edema Results Laboratory Results: 03/31/16 03:58 04/01/16 04:30 03/29/16 04/01/16 04/01/16 05:03 04:30 04:30 Sodium 147.2 H Potassium 3.8 Chloride 118 H Carbon Dioxide 20 L Anion Gap 9 BUN 34 H Creatinine 1.99 H Est GFR ( Amer) 40 L Est GFR (Non-Af Amer) 33 L Glucose 71 L Calcium 8.7 Transferrin 152 L Total Protein 5.5 L Albumin 3.0 Lipase 463.1 H PTH Intact 295 H 03/29/16 05:03 Creatine Kinase 172 H Impressions: Acute Abdomen Series 03/27/16 19:56 IMPRESSION: Nonspecific pattern. No significant bowel distention, however there are scattered air-fluid levels. Renal Ultrasound 03/28/16 00:00 IMPRESSION: LIMITED STUDY WITH GROSSLY NORMAL RIGHT KIDNEY WITHOUT OBSTRUCTIVE UROPATHY. LEFT KIDNEY NOT VISUALIZED. Abdomen Ultrasound 03/30/16 00:00 IMPRESSION: Intra and extrahepatic biliary ductal dilatation. Distal most common duct not well seen due to midline bowel gas. Distal ductal stone or stricture could not be excluded. 2 cm stone in the gallbladder without gallbladder wall thickening or pericholecystic fluid. Pancreas not visualized Abdomen/Pelvis CT 03/30/16 16:05 IMPRESSION: 1. A right lower lobe pulmonary nodule has developed and needs further followup. Full chest CT may be warranted to assess for other lesions. 2. Somewhat limited abdominopelvic evaluation. No suggestion of overt peripancreatic inflammatory changes or pancreatic calcification. This does not exclude pancreatitis. Cholelithiasis is present. FLEISCHNER CRITERIA FOR FOLLOW-UP OF PULMONARY NODULES Incidentally detected new nodules in persons 35 or older. HIGH RISK: History of smoking or other known risk factors. LOW RISK PATIENTS: >8 mm 3, 9, 24 mo. Follow-up. Consider PET/biopsy HIGH RISK PATIENTS: >8 mm same as low risk recommendations above. Assessment & Plan - Diagnosis (2) Acute renal failure Qualifiers: Acute renal failure type: unspecified Qualified Code(s): N17.9 - Acute kidney failure, unspecified Plan: Renal numbers are definitely improving with current plans. his renal numbers are almost back to baseline and I am going to sign off and. Please call on a as needed basis. In the meanwhile I am going to cut back his normal saline to 125 an hour. (3) Hypotension Qualifiers: Hypotension type: unspecified hypotension type Qualified Code(s): I95.9 - Hypotension, unspecified (8) Metabolic acidosis Plan: Stable on replacements. Continue on the same. (11) Pancreatitis, acute Qualifiers: Pancreatitis type: biliary Acute pancreatitis complication: no infection or necrosis Qualified Code(s): K85.10 - Biliary acute pancreatitis without necrosis or infection Is this a current diagnosis for this admission?: Yes
[2016-04-02 06:13] LABS: PROTHROMBIN TIME 17.6 SEC (11.4-15.4)
[2016-04-02 06:34] LABS: ANION GAP 10 (5-19); BLOOD UREA NITROGEN 24 mg/dL (7-20); CALCIUM 8.5 mg/dL (8.4-10.2); CARBON DIOXIDE 19 mmol/L (22-30); CHLORIDE 116 mmol/L (98-107); CREATININE RESULT 1.73 mg/dL (0.52-1.25); GLUCOSE 75 mg/dL (75-110); LIPASE 326.2 U/L (23-300); SODIUM 145.3 mmol/L (137-145)
[2016-04-02 06:54] LABS: POTASSIUM 3.9 mmol/L (3.6-5.0)
--- NOTE | 2016-04-02 07:25 | PDOC PROGRESS REPORT ---
Subjective Progress Note for:: 04/02/16 Subjective:: OK but cant walk enough for home alone. PT few steps with 2 assistants. Physical Exam Vital Signs: Temp Pulse Resp BP Pulse Ox 97.8 F 59 L 19 113/87 H 100 04/02/16 04:00 04/02/16 07:00 04/02/16 04:30 04/02/16 04:30 04/02/16 04:30 Intake & Output 03/31/16 04/01/16 04/02/16 07:59 07:59 07:59 Intake Total 5771 4185 3625 Output Total 2950 1700 800 Balance 2821 2485 2825 Weight 279 lb 5.211 oz 280 lb 6.848 oz 285 lb 0.923 oz General appearance: PRESENT: no acute distress Respiratory exam: PRESENT: clear to auscultation dina GI/Abdominal exam: ABSENT: mass, organolmegaly, tenderness Extremities exam: ABSENT: pedal edema Neurological exam: PRESENT: oriented to situation Psychiatric exam: PRESENT: appropriate affect Results Laboratory Results: 03/31/16 03:58 04/02/16 05:06 04/01/16 04/02/16 04/02/16 04:30 05:06 05:06 Sodium 145.3 H Potassium 3.9 Chloride 116 H Carbon Dioxide 19 L Anion Gap 10 BUN 24 H Creatinine 1.73 H Est GFR ( Amer) 47 L Est GFR (Non-Af Amer) 39 L Glucose 75 Calcium 8.5 Lipase 463.1 H 326.2 H Cancelled 03/29/16 05:03 Creatine Kinase 172 H Impressions: Acute Abdomen Series 03/27/16 19:56 IMPRESSION: Nonspecific pattern. No significant bowel distention, however there are scattered air-fluid levels. Renal Ultrasound 03/28/16 00:00 IMPRESSION: LIMITED STUDY WITH GROSSLY NORMAL RIGHT KIDNEY WITHOUT OBSTRUCTIVE UROPATHY. LEFT KIDNEY NOT VISUALIZED. Abdomen Ultrasound 03/30/16 00:00 IMPRESSION: Intra and extrahepatic biliary ductal dilatation. Distal most common duct not well seen due to midline bowel gas. Distal ductal stone or stricture could not be excluded. 2 cm stone in the gallbladder without gallbladder wall thickening or pericholecystic fluid. Pancreas not visualized Abdomen/Pelvis CT 03/30/16 16:05 IMPRESSION: 1. A right lower lobe pulmonary nodule has developed and needs further followup. Full chest CT may be warranted to assess for other lesions. 2. Somewhat limited abdominopelvic evaluation. No suggestion of overt peripancreatic inflammatory changes or pancreatic calcification. This does not exclude pancreatitis. Cholelithiasis is present. FLEISCHNER CRITERIA FOR FOLLOW-UP OF PULMONARY NODULES Incidentally detected new nodules in persons 35 or older. HIGH RISK: History of smoking or other known risk factors. LOW RISK PATIENTS: >8 mm 3, 9, 24 mo. Follow-up. Consider PET/biopsy HIGH RISK PATIENTS: >8 mm same as low risk recommendations above. Assessment & Plan - Diagnosis (1) Acute kidney failure with tubular necrosis Is this a current diagnosis for this admission?: YesPlan: baseline. Stop IVF (2) Acute tubulo-interstitial nephritis Is this a current diagnosis for this admission?: Yes (3) Pancreatitis, acute Qualifiers: Pancreatitis type: biliary Acute pancreatitis complication: no infection or necrosis Qualified Code(s): K85.10 - Biliary acute pancreatitis without necrosis or infection Is this a current diagnosis for this admission?: YesPlan: lipase baseline. Dr Moran planning ercp tonight. (4) Nodule of right lung Is this a current diagnosis for this admission?: Yes (5) Primary osteoarthritis of both knees Is this a current diagnosis for this admission?: YesPlan: rehab. Can barely walk on a good day but resists [facility].
[2016-04-02] MEDS: ENOXAPARIN SODIUM INJ 30 MG/0.3 ML DISP.SYRIN SUBCUT SCH (07:29)
[2016-04-02] MEDS ORDERED: NORMAL SALINE 1000 ML 1,000 ML IV PRN (07:31)
[2016-04-02] MEDS: FLUCONAZOLE 100 MG TABLET PO SCH (11:26)
[2016-04-02] MEDS: HYDROMORPHONE HCL 2 MG TABLET PO PRN ×2 (11:27→19:54)
[2016-04-02] MEDS: FAMOTIDINE 20 MG TABLET PO SCH ×2 (11:27→21:01)
[2016-04-02] MEDS: NYSTATIN CREAM 15 GM TP SCH ×2 (15:37→18:21)
[2016-04-02] MEDS ORDERED: NALOXONE HCL INJ/PF 0.4 MG/1 ML SDV ONE (16:58)
[2016-04-02] MEDS ORDERED: PROMETHAZINE HCL INJ 25 MG/1 ML VIAL ONE (16:59)
[2016-04-02] MEDS ORDERED: MIDAZOLAM 2 MG/2 ML INJ ONE (16:59)
[2016-04-02] MEDS ORDERED: FENTANYL CITRATE INJ/PF 100 MCG/2 ML AMPUL ONE (16:59)
[2016-04-02] MEDS ORDERED: GLUCAGON,HUMAN RECOMB 1 MG INJ ONE (17:00)
[2016-04-02] MEDS ORDERED: EPINEPHRINE INJ 1 MG/10 ML DISP.SYRIN ONE (17:00)
[2016-04-02] MEDS ORDERED: FLUMAZENIL INJ 0.5 MG/5 ML VIAL IV ONE (17:00)
--- NOTE | 2016-04-02 18:31 | PDOC CONSULTATION ---
Consultation Consult Date: 04/02/16 History of Present Illness Admission Date/PCP: 03/28/16 04:33 BLANCHE BROWER MD History of Present Illness: This is a 70-year-old patient who was admitted on 03/28/2016 with diffuse pain, weakness, and acute renal failure. 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 His renal function has improved and he continues to be seen by Dr. Dailey. On admission his lipase was slightly elevated at 380 but it went up to 1087 on 03/30/2016. He had a CAT scan of the abdomen without IV contrast and this did not show evidence for acute pancreatitis. Consultation was requested for possible biliary disease. He had an ultrasound of the abdomen on 03/30/2016 that showed dilation of the proximal common bile duct up to 12 mm, dilated intrahepatic ducts and the distal common bile duct not well seen. A stricture or distal common bile duct stone could not be ruled out. He currently denies abdominal pain. 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 [id number] Malignancy Medical History: Reports: None GI Medical History: Reports: Diverticulitis, Gastroesophageal Reflux Disease, Peptic Ulcer Disease Musculoskeltal Medical History: Reports: Arthritis - severe djd RK. [place] say surgury too risky. Skin Medical History: Reports: Other - venous leg ulcers. Now home health [facility] Psychiatric Medical History: Reports: None Traumatic Medical History: Reports: None Hematology: Reports: Anemia - iron. July Infectious Medical History: Reports: None, Other - Neuropathy Past Surgical History Past Surgical History: Reports: Other - diverticulitis, ventral hernia, Rcolectomy, cataracts, dorsal slit Social History Lives with: Alone Smoking Status: Former Smoker Cigarettes Packs Per Day: 1 Number of Years Smokin Last Time Smoked: 1995 Frequency of Alcohol Use: None Hx Recreational Drug Use: No Drugs: None Hx Prescription Drug Abuse: No - Advance Directive Resuscitation Status: Do Not Resuscitate Family History Family History: DM, Hypertension Parental Family History Reviewed: No Children Family History Reviewed: NA Sibling(s) Family History Reviewed.: NA Medication/Allergy Home Medications: Simvastatin 20 mg PO DAILY 01/08/14 Gabapentin 300 mg PO BID 08/08/15 Hydromorphone HCl 4 mg PO TID 08/08/15 Insulin Glargine,Hum.rec.anlog [Lantus] 10 unit SQ DAILY 08/08/15 Allopurinol [Zyloprim 300 mg Tablet] 300 mg PO DAILY 03/28/16 Cyanocobalamin (Vitamin B-12) [Vitamin B-12 1000 mcg Tablet] 1 tab PO DAILY Ferrous Sulfate [Iron] 325 mg PO DAILY 03/28/16 Famotidine [Pepcid 20 mg Tablet] 20 mg PO Q12 #60 tablet 04/02/16 Nystatin [Mycostatin Cream 15 gm] 1 applic TP BID #2 tube 04/02/16 Allergies/Adverse Reactions: No Known Allergies Allergy (Verified 03/27/16 18:42) Review of Systems All systems: reviewed and no additional remarkable complaints except as stated Physical Exam Vital Signs: Temp Pulse Resp BP Pulse Ox 98.2 F 48 L 20 125/87 H 98 04/02/16 16:00 04/02/16 17:40 04/02/16 17:40 04/02/16 17:40 04/02/16 17:40 Intake & Output 04/01/16 04/02/16 04/03/16 06:59 06:59 06:59 Intake Total 4185 3625 2272 Output Total 1700 800 925 Balance 2485 2825 1347 Weight 127.2 kg 129.3 kg Exam: General: Patient is alert. He is obese HEENT: There is no pallor or jaundice. PERRLA. Oropharynx normal Respiratory: Mild kyphosis. No respiratory distress. Chest wall palpitation was unremarkable. Breath sounds were normal Cardiovascular: Heart sounds 1 and 2 normal with no murmurs. Abdominal: Not distended. Soft and nontender. Difficult to feel for masses. No ascites demonstrated. Bowel sounds active. Rectal examination was deferred. Extremities: No edema Neurological: Alert and oriented x4. Grossly nonfocal. Normal speech Skin: No significant rash Psychological: Normal affect Results Laboratory Results: 03/31/16 03:58 02/22/17 05:06 04/02/16 04/02/16 05:06 05:06 Sodium 145.3 H Potassium 3.9 Chloride 116 H Carbon Dioxide 19 L Anion Gap 10 BUN 24 H Creatinine 1.73 H Est GFR ( Amer) 47 L Est GFR (Non-Af Amer) 39 L Glucose 75 Calcium 8.5 Lipase 326.2 H Cancelled 03/29/16 05:03 Creatine Kinase 172 H Impressions: Acute Abdomen Series 03/27/16 19:56 IMPRESSION: Nonspecific pattern. No significant bowel distention, however there are scattered air-fluid levels. Renal Ultrasound 03/28/16 00:00 IMPRESSION: LIMITED STUDY WITH GROSSLY NORMAL RIGHT KIDNEY WITHOUT OBSTRUCTIVE UROPATHY. LEFT KIDNEY NOT VISUALIZED. Abdomen Ultrasound 03/30/16 00:00 IMPRESSION: Intra and extrahepatic biliary ductal dilatation. Distal most common duct not well seen due to midline bowel gas. Distal ductal stone or stricture could not be excluded. 2 cm stone in the gallbladder without gallbladder wall thickening or pericholecystic fluid. Pancreas not visualized Abdomen/Pelvis CT 03/30/16 16:05 IMPRESSION: 1. A right lower lobe pulmonary nodule has developed and needs further followup. Full chest CT may be warranted to assess for other lesions. 2. Somewhat limited abdominopelvic evaluation. No suggestion of overt peripancreatic inflammatory changes or pancreatic calcification. This does not exclude pancreatitis. Cholelithiasis is present. FLEISCHNER CRITERIA FOR FOLLOW-UP OF PULMONARY NODULES Incidentally detected new nodules in persons 35 or older. HIGH RISK: History of smoking or other known risk factors. LOW RISK PATIENTS: >8 mm 3, 9, 24 mo. Follow-up. Consider PET/biopsy HIGH RISK PATIENTS: >8 mm same as low risk recommendations above. Assessment & Plan - Diagnosis (1) Biliary disease with obstruction Is this a current diagnosis for this admission?: YesPlan: He has dilated intra-and extrahepatic biliary ducts with normal liver function tests. He also had chemical evidence for acute pancreatitis though his pancreas appeared normal on a limited CAT scan. The need for an ERCP was explained to the patient and he is in agreement. Further management will depend the results of the ERCP (2) Abnormal findings on radiological examination of gastrointestinal tract Is this a current diagnosis for this admission?: Yes (3) Pancreatitis, acute Qualifiers: Pancreatitis type: biliary Acute pancreatitis complication: no infection or necrosis Qualified Code(s): K85.10 - Biliary acute pancreatitis without necrosis or infection Is this a current diagnosis for this admission?: Yes (4) Gallstone Is this a current diagnosis for this admission?: YesPlan: He does have a large 2 cm gallstone
--- NOTE | 2016-04-02 18:36 | Operative Report ---
Operative Report DATE OF SURGERY: 04/02/16 Operative Report: Pre-op diagnosis: Dilated biliary tree on ultrasound with gallstone Post-op diagnosis: 1. Marked dilation of the common bile duct and intrahepatic ducts 2. 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 The ERCP endoscope was then inserted into the esophagus blindly and advanced into the stomach. The duodenum was entered and the ampulla was identified. There was a villous lesion involving most of the ampulla and part of the duodenal wall. Using the triple-lumen sphincterotomy catheter the common bile duct was freely cannulated. The opening into the bile duct was wide open. Patient tolerated procedure well. Findings Ampulla: Villous looking sessile polyp extending to involve part of the duodenum. The CBD opening was patulous. Biopsy was taken Common bile duct: There was marked dilation of the common bile duct, hepatic ducts and intrahepatic ducts. No definite filling defects was identified within the bile duct. Intrahepatic ducts: Dilated Pancreatic duct: Not cannulated Plan: Await pathology and refer to [place] or [facility] for further management of his ampullary polyp OPERATION: .
[2016-04-03 04:47] LABS: ANION GAP 10 (5-19); BLOOD UREA NITROGEN 21 mg/dL (7-20); CALCIUM 8.5 mg/dL (8.4-10.2); CARBON DIOXIDE 19 mmol/L (22-30); CHLORIDE 115 mmol/L (98-107); CREATININE RESULT 1.55 mg/dL (0.52-1.25); GLUCOSE 71 mg/dL (75-110); POTASSIUM 3.7 mmol/L (3.6-5.0); SODIUM 143.6 mmol/L (137-145)
[2016-04-03] MEDS: HYDROMORPHONE HCL 2 MG TABLET PO PRN ×2 (05:19→21:14)
[2016-04-03 06:42] LABS: APPEARANCE,URINE CLEAR; BILIRUBIN,URINE NEGATIVE (NEGATIVE); GLUCOSE, URINE NEGATIVE (NEGATIVE); KETONES,URINE TRACE mg/dL (NEGATIVE); LEUKOCYTE ESTERASE,URINE NEGATIVE (NEGATIVE); NITRITE,URINE NEGATIVE (NEGATIVE); PROTEIN,URINE NEGATIVE (NEGATIVE); URINE SPECIFIC GRAVITY 1.009; UROBILINOGEN,URINE NEGATIVE mg/dL (<2.0)
--- NOTE | 2016-04-03 07:30 | PDOC DISCHARGE SUMMARY ---
General - Admit/Disc Date/PCP Admission Date/Primary Care Provider: 03/28/16 04:33 BLANCHE BROWER MD Discharge Date: 04/03/16 - Discharge Diagnosis (1) Acute kidney failure with tubular necrosis Is this a current diagnosis for this admission?: YesSummary: creatinine back to baseline after long IVF resusitation. Voltaren stopped. Warned no more nsaids. (2) Acute tubulo-interstitial nephritis Is this a current diagnosis for this admission?: YesSummary: had pyuria but culture 40k mixed. Stopped ceftriaxone (3) Pancreatitis, acute Is this a current diagnosis for this admission?: YesSummary: lipase went from 348 to 1087 then back to 225. USct showed fundal gall stone & big ducts. 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 Path pending. Suggested [facility] or [place]. (4) Nodule of right lung Is this a current diagnosis for this admission?: YesSummary: 15mm. Suggested 3m ct (5) Primary osteoarthritis of both knees Is this a current diagnosis for this admission?: YesSummary: Could barely walk with bad inoperable djd R knee before. Now needs 2 assistants to transfer. To SNF rehab. - Additional Information Resuscitation Status: Do Not Resuscitate Discharge Diet: Cardiac, Diabetic Discharge Activity: Activity As Tolerated Home Medications: Simvastatin 20 mg PO DAILY 01/08/14 Gabapentin 300 mg PO BID 08/08/15 Insulin Glargine,Hum.rec.anlog [Lantus] 10 unit SQ DAILY 08/08/15 Allopurinol [Zyloprim 300 mg Tablet] 300 mg PO DAILY 03/28/16 Cyanocobalamin (Vitamin B-12) [Vitamin B-12 1000 mcg Tablet] 1 tab PO DAILY Ferrous Sulfate [Iron] 325 mg PO DAILY 03/28/16 Famotidine [Pepcid 20 mg Tablet] 20 mg PO Q12 #60 tablet 04/02/16 Nystatin [Mycostatin Cream 15 gm] 1 applic TP BID #2 tube 04/02/16 Hydromorphone HCl 4 mg PO TID #90 tablet 04/03/16 History of Present Illness Patient complains of: weakness History of Present Illness: AISHA PABLO is a 70 year old male with diffuse pain and weakness. Has been on diclofenac from ortho recently. ER found familia. Hospital Course Hospital Course: see problem list Physical Exam Vital Signs: Temp Pulse Resp BP Pulse Ox 97.8 F 69 19 125/67 98 04/03/16 03:42 04/03/16 03:42 04/03/16 03:42 04/03/16 03:42 04/03/16 03:42 Intake & Output 04/01/16 04/02/16 04/03/16 07:59 07:59 07:59 Intake Total 4185 3625 3418 Output Total 0676 303 8992 Balance 2485 2825 1293 Weight 280 lb 6.848 oz 285 lb 0.923 oz 283 lb 1.176 oz General appearance: PRESENT: no acute distress Respiratory exam: PRESENT: clear to auscultation dina Cardiovascular exam: ABSENT: diastolic murmur, irregular rhythm, systolic murmur GI/Abdominal exam: ABSENT: mass, organolmegaly, tenderness Extremities exam: ABSENT: pedal edema Skin exam: PRESENT: other - lateral venous L leg ulcer 3cm Results Laboratory Results: 03/31/16 03:58 04/03/16 04:13 04/03/16 04/03/16 04/03/16 04:13 04:13 06:02 Sodium 143.6 Potassium 3.7 Chloride 115 H Carbon Dioxide 19 L Anion Gap 10 BUN 21 H Creatinine 1.55 H Est GFR ( Amer) 54 L Est GFR (Non-Af Amer) 44 L Glucose 71 L Calcium 8.5 Lipase 224.8 Urine Color YELLOW Urine Appearance CLEAR Urine pH 5.0 Ur Specific Wing 1.009 Urine Protein NEGATIVE Urine Glucose (UA) NEGATIVE Urine Ketones TRACE H Urine Blood SMALL H Urine Nitrite NEGATIVE Ur Leukocyte Esterase NEGATIVE Urine WBC (Auto) 2 Urine RBC (Auto) 3 03/29/16 05:03 Creatine Kinase 172 H Impressions: Acute Abdomen Series 03/27/16 19:56 IMPRESSION: Nonspecific pattern. No significant bowel distention, however there are scattered air-fluid levels. Renal Ultrasound 03/28/16 00:00 IMPRESSION: LIMITED STUDY WITH GROSSLY NORMAL RIGHT KIDNEY WITHOUT OBSTRUCTIVE UROPATHY. LEFT KIDNEY NOT VISUALIZED. Abdomen Ultrasound 03/30/16 00:00 IMPRESSION: Intra and extrahepatic biliary ductal dilatation. Distal most common duct not well seen due to midline bowel gas. Distal ductal stone or stricture could not be excluded. 2 cm stone in the gallbladder without gallbladder wall thickening or pericholecystic fluid. Pancreas not visualized Abdomen/Pelvis CT 03/30/16 16:05 IMPRESSION: 1. A right lower lobe pulmonary nodule has developed and needs further followup. Full chest CT may be warranted to assess for other lesions. 2. Somewhat limited abdominopelvic evaluation. No suggestion of overt peripancreatic inflammatory changes or pancreatic calcification. This does not exclude pancreatitis. Cholelithiasis is present. FLEISCHNER CRITERIA FOR FOLLOW-UP OF PULMONARY NODULES Incidentally detected new nodules in persons 35 or older. HIGH RISK: History of smoking or other known risk factors. LOW RISK PATIENTS: >8 mm 3, 9, 24 mo. Follow-up. Consider PET/biopsy HIGH RISK PATIENTS: >8 mm same as low risk recommendations above. Catheter Placement 04/02/16 00:00 IMPRESSION: IMAGE(S) OBTAINED DURING PROCEDURE. Fluoroscopy 04/02/16 00:00 IMPRESSION: IMAGE(S) OBTAINED DURING PROCEDURE. Qualifiers PATEINT BEING DISCHARGED WITH ANY OF THE FOLLOWING DIAGNOSIS?: No Plan Discharge Plan: rehab SNF. I will follow. Farida kerns weekly
[2016-04-03] MEDS: FLUCONAZOLE 100 MG TABLET PO SCH (10:13)
[2016-04-03] MEDS: FAMOTIDINE 20 MG TABLET PO SCH ×2 (10:13→21:14)
[2016-04-03] MEDS: NYSTATIN CREAM 15 GM TP SCH ×2 (10:16→17:49)
[2016-04-03 21:00] VITALS: BP 134/54
== END 2016-04-03 22:50 | DRG 682 ==
LOC: ER 18:28 → UNDOADMIN 22:22 → EH 22:22 → 4N 03-28 01:10 → EH 03-28 01:10 → 4N 03-28 04:33 → EH 03-28 04:33
PROVIDERS: ADMIT Family Medicine; ATTEND Family Medicine
PROC: BF101ZZ Fluoroscopy of Bile Ducts using Low Osmolar Contrast (ICD-10-PCS; 2016-04-02)
PROC: 0FBC8ZX Excision of Ampulla of Vater, Via Natural or Artificial Opening Endoscopic, Diagnostic (ICD-10-PCS; principal; 2016-04-02 18:00)
DX: N17.0 Acute kidney failure with tubular necrosis (principal); K85.00 Idiopathic acute pancreatitis without necrosis or infection; E87.2 Acidosis; I13.0 Hypertensive heart and chronic kidney disease with heart failure and stage 1 through stage 4 chronic kidney disease, or unspecified chronic kidney disease; M62.82 Rhabdomyolysis; K31.7 Polyp of stomach and duodenum; E78.5 Hyperlipidemia, unspecified; E11.40 Type 2 diabetes mellitus with diabetic neuropathy, unspecified; E11.621 Type 2 diabetes mellitus with foot ulcer; L97.519 Non-pressure chronic ulcer of other part of right foot with unspecified severity; E11.22 Type 2 diabetes mellitus with diabetic chronic kidney disease; N18.3 Chronic kidney disease, stage 3 (moderate); K21.9 Gastro-esophageal reflux disease without esophagitis; T39.395A Adverse effect of other nonsteroidal anti-inflammatory drugs [NSAID], initial encounter; M19.90 Unspecified osteoarthritis, unspecified site; Z66 Do not resuscitate; I95.9 Hypotension, unspecified; L30.4 Erythema intertrigo; E83.42 Hypomagnesemia; R91.1 Solitary pulmonary nodule; M17.0 Bilateral primary osteoarthritis of knee; E11.21 Type 2 diabetes mellitus with diabetic nephropathy; I50.9 Heart failure, unspecified; I48.91 Unspecified atrial fibrillation; I87.8 Other specified disorders of veins; G47.30 Sleep apnea, unspecified; J30.9 Allergic rhinitis, unspecified; Z87.11 Personal history of peptic ulcer disease; Z90.49 Acquired absence of other specified parts of digestive tract; Z87.891 Personal history of nicotine dependence; Z79.4 Long term (current) use of insulin; Z82.49 Family history of ischemic heart disease and other diseases of the circulatory system; Z83.3 Family history of diabetes mellitus; Z79.899 Other long term (current) drug therapy
CPT/HCPCS: 36415; 43261; 74022; 74176; 74328; 76705; 76775; 80048; 80053; 80061; 80076; 81001; 82550; 82607; 82728; 82746; 82962; 83036; 83540; 83550; 83690; 83735; 83970; 84100; 84165; 84443; 84466; 85025; 85027; 85045; 85610; 87040; 87086; 87493; 88305; 96360; 99291; G8978-GP; G8979-GP; J0171; J0696; J1610; J1650; J2250; J2310; J2550; J3010; J3475; J3490; J7030; J7060

== ENCOUNTER 2016-12-13 11:52 | Inpatient (IN) | payer MEDICARE, OTHER ==
[2016-12-13] MEDS ORDERED: NORMAL SALINE 1000 ML 1,000 ML IV ONE ×2 (12:07→13:00)
[2016-12-13 12:19] LABS: HEMATOCRIT 37.7 % (37.9-51.0); HEMOGLOBIN 12.3 g/dL (13.5-17.0); MEAN CORPUSCULAR HGB CONC 32.6 g/dL (32.0-36.0); MEAN CORPUSCULAR VOLUME 89 fl (80-97); PLATELET COUNT 154 10^3/uL (150-450); RED BLOOD COUNT 4.24 10^6/uL (4.35-5.55); RED CELL DISTRIBUTION WIDTH 17.6 % (11.5-14.0); WHITE BLOOD COUNT 14.8 10^3/uL (4.0-10.5)
[2016-12-13 12:40] LABS: ABSOLUTE LYMPHOCYTES# (MANUAL) 0.4 10^3/uL (0.5-4.7); ABSOLUTE NEUTROPHILS# (MANUAL) 14.4 10^3/uL (1.7-8.2); BASOPHILS % (MANUAL) 0 % (0-2); EOSINOPHILS % (MANUAL) 0 % (0-6); LYMPHOCYTES % (MANUAL) 3 % (13-45); METAMYELOCYTES % (MANUAL) 2 % (0); MONOCYTES % (MANUAL) 0 % (3-13); SEGMENTED NEUTROPHILS % (MAN) 75 % (42-78); TOTAL CELLS COUNTED 100
[2016-12-13 12:41] LABS: ANISOCYTOSIS 1+; HYPOCHROMASIA SLIGHT; OVALOCYTES SLIGHT; POIKILOCYTOSIS SLIGHT
[2016-12-13 12:42] LABS: ALANINE AMINOTRANSFERASE 254 U/L (21-72); ALBUMIN 3.4 g/dL (3.5-5.0); ALKALINE PHOSPHATASE 206 U/L (38-126); ANION GAP 16 (5-19); ASPARTATE AMINO TRANSFERASE 473 U/L (17-59); BAND NEUTROPHILS % (MANUAL) 20 % (3-5); BILIRUBIN,DIRECT 1.2 mg/dL (0.0-0.4); BILIRUBIN,TOTAL 1.6 mg/dL (0.2-1.3); BLOOD UREA NITROGEN 35 mg/dL (7-20); CALCIUM 9.2 mg/dL (8.4-10.2); CARBON DIOXIDE 19 mmol/L (22-30); CHLORIDE 107 mmol/L (98-107); GLUCOSE 135 mg/dL (75-110); LIPASE 181.8 U/L (23-300); PLATELET CLUMPS PRESENT; PLATELET COMMENT ADEQUATE; POTASSIUM 3.1 mmol/L (3.6-5.0); SODIUM 142.4 mmol/L (137-145); TOTAL PROTEIN 6.2 g/dL (6.3-8.2)
[2016-12-13 12:54] LABS: CREATINE KINASE MB 0.77 ng/mL (<4.55)
[2016-12-13 13:01] LABS: TROPONIN I 0.168 ng/mL
[2016-12-13] MEDS ORDERED: CEFTRIAXONE 1 GM/D5W RTU 1 GM/50 ML RTUPB IV ONE (13:01)
[2016-12-13 13:18] LABS: VENOUS BLOOD BASE EXCESS -2.9 mmol/L; VENOUS BLOOD HCO3 19.6 mmol/L (20-32); VENOUS BLOOD PCO2 28.1 mmHg (35-63); VENOUS BLOOD PH 7.46 (7.30-7.42)
[2016-12-13] MEDS ORDERED: DEXTROSE 5%-WATER 250 ML with NOREPINEPHRINE BITARTRATE 4 MG IV PRN ×2 (13:18)
--- NOTE | 2016-12-13 13:22 | RADIOLOGY REPORT (SQ) ---
EXAM DESCRIPTION: CHEST SINGLE VIEW COMPLETED DATE/TIME: 12/13/2016 12:41 pm REASON FOR STUDY: Shortness of breath and low blood pressure, Hx CHF COMPARISON: CT abdomen pelvis 03/30/2016 Three-way abdomen series 03/27/2016 EXAM PARAMETERS: NUMBER OF VIEWS: One view. TECHNIQUE: Single frontal radiographic view of the chest acquired. RADIATION DOSE: NA LIMITATIONS: None. FINDINGS: LUNGS AND PLEURA: Nodule in the right lateral costophrenic sulcus seen on CT exam 7 is not apparent by plain film. There is right basilar airspace disease worrisome for pneumonia. Left lung clear. No right or left pleural effusion. No pneumothorax. MEDIASTINUM AND HILAR STRUCTURES: No masses. Contour normal. HEART AND VASCULAR STRUCTURES: Mild stable cardiomegaly BONES: Osteoporotic with advanced degenerative changes of both shoulders HARDWARE: None in the chest. OTHER: No other significant finding. IMPRESSION: Patchy right basilar airspace disease worrisome for pneumonia TECHNICAL DOCUMENTATION: JOB ID: [id number]- All Rights Reserved
[2016-12-13] MEDS ORDERED: LIDOCAINE 2% URO-JET 5 ML KIT MM ONE (13:57)
--- NOTE | 2016-12-13 14:30 | PDOC CONSULTATION ---
Consultation Consult Date: 12/13/16 Consult reason:: Unable to pass soto History of Present Illness Admission Date/PCP: BLANCHE BROWER MD History of Present Illness: AISHA PABLO is a 71 year old male Past Medical History Cardiac Medical History: Reports: Atrial Fibrillation, Congestive Heart Failure , Hyperlipidema, Hypertension Pulmonary Medical History: Reports: Sleep Apnea Neurological Medical History: Denies: Seizures Endocrine Medical History: Reports: Diabetes Mellitus Type 2 - 1997 GI Medical History: Reports: Diverticulitis, Gastroesophageal Reflux Disease Musculoskeltal Medical History: Reports: Arthritis - severe djd RK. [place] say surgury too risky. Hematology: Reports: Anemia - iron. July Past Surgical History Past Surgical History: Reports: Other - diverticulitis, ventral hernia, Rcolectomy, cataracts, dorsal slit Social History Information Source: Patient Lives with: Other - unknown Smoking Status: Unknown if Ever Smoked Frequency of Alcohol Use: None Hx Recreational Drug Use: No Drugs: None Hx Prescription Drug Abuse: No Family History Family History: DM, Hypertension Parental Family History Reviewed: No Children Family History Reviewed: No Sibling(s) Family History Reviewed.: No Medication/Allergy Home Medications: Simvastatin 20 mg PO DAILY 01/08/14 Gabapentin 300 mg PO BID 08/08/15 Insulin Glargine,Hum.rec.anlog [Lantus] 10 unit SQ DAILY 08/08/15 Allopurinol [Zyloprim 300 mg Tablet] 300 mg PO DAILY 03/28/16 Cyanocobalamin (Vitamin B-12) [Vitamin B-12 1000 mcg Tablet] 1 tab PO DAILY Ferrous Sulfate [Iron] 325 mg PO DAILY 03/28/16 Famotidine [Pepcid 20 mg Tablet] 20 mg PO Q12 #60 tablet 04/02/16 Nystatin [Mycostatin Cream 15 gm] 1 applic TP BID #2 tube 04/02/16 Hydromorphone HCl 4 mg PO TID #90 tablet 04/03/16 Allergies/Adverse Reactions: No Known Allergies Allergy (Verified 03/27/16 18:42) Physical Exam Vital Signs: Temp Pulse Resp BP Pulse Ox 33 H 91/53 L 98 12/13/16 14:16 12/13/16 14:16 12/13/16 14:16 Intake & Output 12/12/16 12/13/16 12/14/16 06:59 06:59 05:59 Weight 119.8 kg Results Laboratory Results: 12/13/16 11:55 12/13/16 11:55 12/13/16 12/13/16 12/13/16 11:55 11:55 11:55 WBC 14.8 H RBC 4.24 L Hgb 12.3 L Hct 37.7 L MCV 89 MCH 29.0 MCHC 32.6 RDW 17.6 H Plt Count 154 Seg Neutrophils % Not Reportable Lymphocytes % Not Reportable Monocytes % Not Reportable Eosinophils % Not Reportable Basophils % Not Reportable Absolute Neutrophils Not Reportable Absolute Lymphocytes Not Reportable Absolute Monocytes Not Reportable Absolute Eosinophils Not Reportable Absolute Basophils Not Reportable VBG pH VBG pCO2 VBG HCO3 VBG Base Excess Sodium 142.4 Potassium 3.1 L Chloride 107 Carbon Dioxide 19 L Anion Gap 16 BUN 35 H Creatinine 1.79 H Est GFR ( Amer) 45 L Est GFR (Non-Af Amer) 37 L Glucose 135 H Lactic Acid 5.0 H Calcium 9.2 Total Bilirubin 1.6 H AST 473 H ALT 254 H Alkaline Phosphatase 206 H Total Protein 6.2 L Albumin 3.4 L Lipase 181.8 12/13/16 11:55 WBC RBC Hgb Hct MCV MCH MCHC RDW Plt Count Seg Neutrophils % Lymphocytes % Monocytes % Eosinophils % Basophils % Absolute Neutrophils Absolute Lymphocytes Absolute Monocytes Absolute Eosinophils Absolute Basophils VBG pH 7.46 H VBG pCO2 28.1 L VBG HCO3 19.6 L VBG Base Excess -2.9 Sodium Potassium Chloride Carbon Dioxide Anion Gap BUN Creatinine Est GFR ( Amer) Est GFR (Non-Af Amer) Glucose Lactic Acid Calcium Total Bilirubin AST ALT Alkaline Phosphatase Total Protein Albumin Lipase 12/13/16 11:55 CK-MB (CK-2) 0.77 Troponin I 0.168 Impressions: Chest X-Ray 12/13/16 12:06 IMPRESSION: Patchy right basilar airspace disease worrisome for pneumonia Assessment & Plan - Diagnosis (1) Acquired phimosis Is this a current diagnosis for this admission?: Yes Plan: The patient was prepped and [place] Sounds were used to dilate the foreskin until an 18F sound could be passed into the urethra. Using a catheter guide, a 16F Soto was placed into the bladder and the balloon inflated. Yellow urine was obtained anf sent for culture
--- NOTE | 2016-12-13 14:39 | ER Document Report ---
ED General - General Chief Complaint: Low Blood Pressure Stated Complaint: ABDOMINAL PAIN Time Seen by Provider: 12/13/16 12:06 Notes: Patient was at home today and had a problem with his lift chair and apparently ended up falling out of the chair and unable to get back into the chair himself so EMS was called to assist him and lifting him back into his chair. When they checked the patient they found his blood pressure to be 80/40 with a heart rate of 140 and they recommended he be evaluated here. Patient denies any symptoms except some epigastric discomfort which he says he has had for years. Denies any chest pains. Denies any difficulty breathing or shortness of breath. Has not been vomiting and had no diarrhea. No cough or cold or chest congestion. Denies any fevers. He has a history of chronic congestive heart failure and bilateral pitting edema both feet which is always there, according to the patient. His pain in his abdomen is located where he has had previous surgery for a hernia with insertion of mesh. Patient has a history of insulin-dependent diabetes, heart disease. TRAVEL OUTSIDE OF THE [place] IN LAST 30 DAYS: No - Related Data Allergies/Adverse Reactions: No Known Allergies Allergy (Verified 03/27/16 18:42) Home Medications: Current Home Medications Furosemide [Lasix 40 mg Tablet] 40 mg PO BID 12/13/16 [History] Gabapentin [Neurontin 300 mg Capsule] 300 mg PO Q12HP 12/13/16 [History] Hydromorphone HCl [Dilaudid] 4 mg PO Q8 12/13/16 [History] Insulin Glargine,Hum.rec.anlog [Lantus] 10 units SQ DAILY 12/13/16 [History] Omeprazole 20 mg PO DAILY 12/13/16 [History] Allopurinol [Zyloprim 300 mg Tablet] 300 mg PO DAILY 12/14/16 [History] Atorvastatin Calcium [Lipitor 10 mg Tablet] 10 mg PO QHS 12/14/16 [History] Past Medical History - Social History Smoking Status: Unknown if Ever Smoked Lives with: Other - unknown Family History: DM, Hypertension - Past Medical History Cardiac Medical History: Reports: Hx Atrial Fibrillation, Hx Congestive Heart Failure, Hx Hypercholesterolemia, Hx Hypertension Pulmonary Medical History: Reports: Hx Sleep Apnea Endocrine Medical History: Reports: Hx Diabetes Mellitus Type 1, Hx Diabetes Mellitus Type 2 - 1997 GI Medical History: Reports: Hx Diverticulitis, Hx Gastroesophageal Reflux Disease Musculoskeltal Medical History: Reports Hx Arthritis - severe djd RK. [place] say surgury too risky. Past Surgical History: Reports: Hx Abdominal Surgery - diverticulitis and lost about 10 inches of colon and second time unsure wha, Hx Herniorrhaphy - Hernia repair with mesh insertion., Other - diverticulitis, ventral hernia, Rcolectomy , cataracts, dorsal slit - Immunizations Hx Diphtheria, Pertussis, Tetanus Vaccination: Yes Hx Pneumococcal Vaccination: 02/09/15 Review of Systems - Review of Systems Notes: REVIEW OF SYSTEMS: CONSTITUTIONAL : Denies fever. EENT: Denies eye, ear, nose or mouth or throat pain or other symptoms. CARDIOVASCULAR: Denies chest pain. RESPIRATORY: Denies cough, chest congestion, or shortness of breath. GASTROINTESTINAL: Epigastric abdominal pain present for years. Denies nausea, vomiting, or diarrhea. GENITOURINARY: Denies difficulty or painful urinating, urinary frequency, blood in urine. MUSCULOSKELETAL: Denies back or neck pain. Denies joint pain or swelling. SKIN: Denies rash or skin lesions. NEUROLOGICAL: Denies LOC or altered mental status. Denies headache. Denies sensory loss or motor deficits. Unable to ambulate due to chronic disease and patient's size. ALL OTHER SYSTEMS REVIEWED AND NEGATIVE. Physical Exam - Vital signs Vitals: Resp 16 12/13/16 11:57 Interpretation: Hypotensive - 80/40, Tachycardic - 100, Febrile - Rectal temp was elevated at about 102. - Notes Notes: PHYSICAL EXAMINATION: GENERAL: Well-appearing, in no acute distress. Patient has no complaints. Color is pink and O2 sat is 97%. HEAD: Atraumatic, normocephalic. EYES: Pupils equal round and reactive to light, extraocular movements intact. ENT: oropharynx clear without exudates. Moist mucous membranes. NECK: Normal range of motion, supple. LUNGS: Breath sounds clear and equal bilaterally. HEART: Regular rate and rhythm without murmurs. Heart sounds are questionable and difficult to hear likely because patient is so obese that he has a large layer of adipose tissue across the anterior chest which is insulating the heart sounds and, the patient has a very large heart which is likely having low contractility, and these 2 factors combining make his heart and audible. He has carotid pulses that I can palpate, even though his blood pressure is only at 90 systolic. His color is pink and these able to hear and answer questions put to him. ABDOMEN: Soft, tender in the epigastrium but nontender anywhere else. No guarding or rebound. No masses. No bruits heard. Scar in the epigastrium from prior surgery. BACK: No tenderness throughout entire back. EXTREMITIES: Normal range of motion without pain. Both lower extremities are very edematous, pitting at +3. Chronic color changes of the ankle regions bilaterally suggest chronic stasis dermatitis. Negative Homans bilaterally. NEUROLOGICAL: Normal speech. Awake, alert, and oriented x3. SKIN: Warm, dry, no rashes. Course - Re-evaluation Re-evalutation: 12/13/16 14:43 Patient's white count with 20 bands suggest infection somewhere so patient has been empirically given a gram of Rocephin IV. Do not have patient's urine back yet because we had to get urology to insert a Frank catheter. Chest x-ray shows patchy infiltrate in the right base, but it is very minimal. Huge heart. No evidence of failure at this time to me. Patient's blood pressure was low in the systolics of 70s and 80s. He was given normal saline 500 mL repeated 500 mL and then 1 L IV. After 2 L of saline, his blood pressure had not responded so he was started on a Levophed drip at 8 mcg, increased to 12, and his blood pressure improved somewhat to a systolic about 90. I spoke with Dr. Ng, patient's private doctor who will admit him to ICU. - Vital Signs Vital signs: Temp Pulse Resp BP Pulse Ox 99.6 F 96 20 107/65 97 12/14/16 10:00 12/14/16 10:00 12/14/16 10:24 12/14/16 10:24 12/14/16 10:24 - Laboratory Result Diagrams: 12/14/16 04:30 12/14/16 04:30 Laboratory results interpreted by me: 12/13/16 12/13/16 12/13/16 11:55 11:55 11:55 WBC 14.8 H RBC 4.24 L Hgb 12.3 L Hct 37.7 L RDW 17.6 H Band Neutrophils % 20 H Lymphocytes % (Manual) 3 L Monocytes % (Manual) 0 L Metamyelocytes % 2 H Abs Neuts (Manual) 14.4 H Abs Lymphs (Manual) 0.4 L Abs Monocytes (Manual) 0.0 L VBG pH VBG pCO2 VBG HCO3 Potassium 3.1 L Carbon Dioxide 19 L BUN 35 H Creatinine 1.79 H Est GFR ( Amer) 45 L Est GFR (Non-Af Amer) 37 L Glucose 135 H Lactic Acid 5.0 H Total Bilirubin 1.6 H Direct Bilirubin 1.2 H AST 473 H ALT 254 H Alkaline Phosphatase 206 H Total Protein 6.2 L Albumin 3.4 L Urine Protein Urine Blood Urine Urobilinogen Ur Leukocyte Esterase 12/13/16 12/13/16 12/13/16 11:55 14:07 15:38 WBC RBC Hgb Hct RDW Band Neutrophils % Lymphocytes % (Manual) Monocytes % (Manual) Metamyelocytes % Abs Neuts (Manual) Abs Lymphs (Manual) Abs Monocytes (Manual) VBG pH 7.46 H VBG pCO2 28.1 L VBG HCO3 19.6 L Potassium Carbon Dioxide BUN Creatinine Est GFR ( Amer) Est GFR (Non-Af Amer) Glucose Lactic Acid 2.3 H Total Bilirubin Direct Bilirubin AST ALT Alkaline Phosphatase Total Protein Albumin Urine Protein 30 H Urine Blood LARGE H Urine Urobilinogen 4.0 H Ur Leukocyte Esterase LARGE H - EKG Interpretation by Id EKG shows normal: Sinus rhythm Rate: Tachycardia Rhythm: NSR [place]/QRS: RBBB Critical Care Note - Critical Care Note Total time excluding time spent on procedures (mins): 85 Discharge - Discharge Clinical Impression: Pneumonia Sepsis Qualifiers: Sepsis type: sepsis due to unspecified organism Qualified Code(s): A41.9 - Sepsis, unspecified organism Condition: Serious Disposition: ADMITTED INPATIENT Admitting Provider: Ng Unit Admitted: ICU
[2016-12-13 14:41] LABS: AMORPHOUS SEDIMENT,URINE TRACE /HPF; APPEARANCE,URINE CLOUDY; BILIRUBIN,URINE NEGATIVE (NEGATIVE); GLUCOSE, URINE NEGATIVE (NEGATIVE); KETONES,URINE NEGATIVE (NEGATIVE); LEUKOCYTE ESTERASE,URINE LARGE (NEGATIVE); NITRITE,URINE NEGATIVE (NEGATIVE); PROTEIN,URINE 30 mg/dL (NEGATIVE); URINE SPECIFIC GRAVITY 1.014
[2016-12-13 14:42] LABS: COLOR,URINE DARK YELLOW
[2016-12-13] MEDS ORDERED: GLUCAGON,HUMAN RECOMB 1 MG INJ SUBCUT PRN (15:55)
[2016-12-13] MEDS ORDERED: DEXTROSE 40% GEL 15 GM TUBE PO PRN ×2 (15:55)
[2016-12-13] MEDS ORDERED: DEXTROSE 50%-WATER 25 GM/50 ML DISP.SYRIN IV PRN ×2 (15:55)
--- NOTE | 2016-12-13 15:55 | PDOC H&P ---
History of Present Illness Admission Date/PCP: 12/13/16 14:50 BLANCHE BROWER MD Patient complains of: slid off lift chair and could not get up today History of Present Illness: AISHA PABLO is a 71 year old male wheel chair bound because of djd R knee for which he has refused surgery many times. [facility] [place] was called to help him up to chair. BP 70s caused them to bring him in. After 2L NS and levophed 12mcg his pressure has come from [address] Saeed placed soto for phimosis and he has pyuria. Ceftri was started. Past Medical History Cardiac Medical History: Reports: Congestive Heart Failure - chronic diastolic and systolic with DDF and ej44, Hyperlipidema, Hypertension Pulmonary Medical History: Reports: Sleep Apnea - 1995 refused CPAP, Other - chronic extrinsic restriction from morbid obesity [id number] EENT Medical History: Reports: Other - allergic rhinitis Neurological Medical History: Reports: Other - diabetic neuropathy vertigo paroxysmal Denies: Seizures Endocrine Medical History: Reports: Diabetes Mellitus Type 1, Diabetes Mellitus Type 2 - 1997 Renal/ Medical History: Reports: None Malignancy Medical History: Reports: None GI Medical History: Reports: Diverticulitis, Gastroesophageal Reflux Disease, Other - may [facility] 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 [place] say surgury too risky. Skin Medical History: Reports: Other - venous leg ulcers Psychiatric Medical History: Reports: None Hematology: Reports: Anemia - iron. July Past Surgical History Past Surgical History: Reports: Herniorrhaphy - Hernia repair with mesh insertion., Other - diverticulitis, ventral hernia, Rcolectomy, cataracts, 2016 dorsal slit Social History Information Source: Dr. Rehman Lives with: Alone, Other - unknown Smoking Status: Unknown if Ever Smoked Number of Years Smokin Last Time Smoked: 1995 Frequency of Alcohol Use: None Hx Recreational Drug Use: No Drugs: None Hx Prescription Drug Abuse: No - Advance Directive Resuscitation Status: Do Not Resuscitate - [id number]:no cpr or vent ever Family History Family History: DM, Hypertension Parental Family History Reviewed: Yes Children Family History Reviewed: Yes Sibling(s) Family History Reviewed.: Yes Medication/Allergy Home Medications: Allopurinol [Zyloprim 300 mg Tablet] 300 mg PO DAILY 12/13/16 Atorvastatin Calcium [Lipitor 10 mg Tablet] 10 mg PO DAILY 12/13/16 Diclofenac Sodium [Voltaren 50 mg Tablet.dr] 50 mg PO BIDBS 12/13/16 Ferrous Sulfate [Feosol 325 mg Tablet] 325 mg PO DAILY 12/13/16 Furosemide [Lasix 40 mg Tablet] 40 mg PO BID 12/13/16 Gabapentin [Neurontin 300 mg Capsule] 300 mg PO Q12HP PRN 12/13/16 Hydromorphone HCl [Dilaudid] 4 mg PO Q8 12/13/16 Insulin Glargine,Hum.rec.anlog [Lantus] 10 units SQ QPM 12/13/16 Misoprostol [Cytotec 0.2 mg Tablet] 0.2 mg PO BID 12/13/16 Omeprazole 20 mg PO DAILY 12/13/16 Triamcinolone Acetonide [Aristocort 0.1% Cream] 1 applic TOP BIDP PRN 12/13/16 Allergies/Adverse Reactions: No Known Allergies Allergy (Verified 03/27/16 18:42) Review of Systems Constitutional: ABSENT: fever(s), headache(s), weight loss Nose, Mouth, and Throat: ABSENT: sore throat Cardiovascular: ABSENT: chest pain, dyspnea on exertion, orthropnea Respiratory: ABSENT: cough, dyspnea Gastrointestinal: ABSENT: abdominal pain, constipation, diarrhea, hematochezia, melena, vomiting Genitourinary: ABSENT: dysuria, hematuria Musculoskeletal: PRESENT: other - R knee Physical Exam Vital Signs: Temp Pulse Resp BP Pulse Ox 23 H 89/53 L 95 12/13/16 15:06 12/13/16 15:06 12/13/16 15:06 General appearance: PRESENT: no acute distress Neck exam: ABSENT: lymphadenopathy, tenderness, thyromegaly, tracheal deviation Respiratory exam: PRESENT: rales - L base Cardiovascular exam: ABSENT: diastolic murmur, irregular rhythm, systolic murmur GI/Abdominal exam: ABSENT: mass, organolmegaly, tenderness Extremities exam: PRESENT: pedal edema - 1+ ankles 2+ feet Musculoskeletal exam: ABSENT: ambulatory Neurological exam: PRESENT: oriented to situation. ABSENT: oriented to time Psychiatric exam: PRESENT: appropriate affect Skin exam: PRESENT: pallor Results Laboratory Results: Abnormal - 24 hr 12/13/16 12/13/16 12/13/16 11:55 11:55 11:55 WBC 14.8 H RBC 4.24 L Hgb 12.3 L Hct 37.7 L RDW 17.6 H Band Neutrophils % 20 H Lymphocytes % (Manual) 3 L Monocytes % (Manual) 0 L Metamyelocytes % 2 H Abs Neuts (Manual) 14.4 H Abs Lymphs (Manual) 0.4 L Abs Monocytes (Manual) 0.0 L VBG pH VBG pCO2 VBG HCO3 Potassium 3.1 L Carbon Dioxide 19 L BUN 35 H Creatinine 1.79 H Est GFR ( Amer) 45 L Est GFR (Non-Af Amer) 37 L Glucose 135 H Lactic Acid 5.0 H Total Bilirubin 1.6 H Direct Bilirubin 1.2 H AST 473 H ALT 254 H Alkaline Phosphatase 206 H Total Protein 6.2 L Albumin 3.4 L Urine Protein Urine Blood Urine Urobilinogen Ur Leukocyte Esterase 12/13/16 12/13/16 11:55 14:07 WBC RBC Hgb Hct RDW Band Neutrophils % Lymphocytes % (Manual) Monocytes % (Manual) Metamyelocytes % Abs Neuts (Manual) Abs Lymphs (Manual) Abs Monocytes (Manual) VBG pH 7.46 H VBG pCO2 28.1 L VBG HCO3 19.6 L Potassium Carbon Dioxide BUN Creatinine Est GFR ( Amer) Est GFR (Non-Af Amer) Glucose Lactic Acid Total Bilirubin Direct Bilirubin AST ALT Alkaline Phosphatase Total Protein Albumin Urine Protein 30 H Urine Blood LARGE H Urine Urobilinogen 4.0 H Ur Leukocyte Esterase LARGE H Impressions: Chest X-Ray 12/13/16 12:06 IMPRESSION: Patchy right basilar airspace disease worrisome for pneumonia Assessment & Plan - Diagnosis (1) Sepsis Qualifiers: Sepsis type: sepsis due to unspecified organism Qualified Code(s): A41.9 - Sepsis, unspecified organism Is this a current diagnosis for this admission?: Yes Plan: 3rd liter NS. Ertapenem. Continue levo 12mcg (2) Type 2 diabetes mellitus with diabetic chronic kidney disease Qualifiers: Diabetes mellitus termination clerk insulin use: with termination clerk use Chronic kidney disease stage: stage 3 (moderate) Qualified Code(s): E11.22 - Type 2 diabetes mellitus with diabetic chronic kidney disease; N18.3 - Chronic kidney disease, stage 3 (moderate); N18.3 - Chronic kidney disease, stage 3 (moderate); Z79.4 - [facility]CC (current) use of insulin; Z79.4 - MCC (current) use of insulin; Z79.4 - MCC (current) use of insulin; Z79.4 - [facility] (current) use of insulin Is this a current diagnosis for this admission?: Yes (3) Chronic combined systolic and diastolic heart failure Is this a current diagnosis for this admission?: Yes (4) Other secondary chronic gout, multiple sites, without tophus (tophi) Is this a current diagnosis for this admission?: Yes - Inpatient Certification Based on my medical assessment, after consideration of the patient's comorbidities, presenting symptoms, or acuity I expect that the services needed warrant INPATIENT care.: Yes I certify that my determination is in accordance with my understanding of Medicare's requirements for reasonable and necessary INPATIENT services [42 CFR 412.3e].: Yes Medical Necessity: Failure to Improve With Outpatient Therapy, Significant Comorbidiites Make Outpatient Treatment Too Risky, Need Close Monitoring Due to Risk of Patient Decompensation, Need For IV Fluids, Need For Continuous Telemetry Monitoring, Need for IV Antibiotics, Risk of Complication if Not Cared For in Hospital, Risk of Diagnosis Which Will Require Inpatient Eval/Care/ Monitoring
[2016-12-13] MEDS: NORMAL SALINE 1000 ML 1,000 ML IV PRN ×2 (16:26→18:30)
[2016-12-13] MEDS ORDERED: FAMOTIDINE INJ/PF 20 MG/2 ML SDV IV ONE (17:00)
[2016-12-13] MEDS: ERTAPENEM SODIUM 1 GM in NORMAL SALINE 50 ML IV SCH (18:15)
[2016-12-13] MEDS ORDERED: PHENYLEPHRINE HCL INJ/PF 10 MG/1 ML SDV ONE ×2 (18:20→20:12)
[2016-12-13] MEDS: DEXTROSE 5%-WATER 250 ML with PHENYLEPHRINE HCL 40 MG IV PRN ×4 (18:28→20:17)
[2016-12-14 04:49] LABS: HEMATOCRIT 36.7 % (37.9-51.0); HEMOGLOBIN 11.9 g/dL (13.5-17.0); MEAN CORPUSCULAR HGB CONC 32.3 g/dL (32.0-36.0); MEAN CORPUSCULAR VOLUME 90 fl (80-97); PLATELET COUNT 110 10^3/uL (150-450); RED BLOOD COUNT 4.09 10^6/uL (4.35-5.55); RED CELL DISTRIBUTION WIDTH 17.1 % (11.5-14.0)
[2016-12-14 04:55] LABS: WHITE BLOOD COUNT 33.7 10^3/uL (4.0-10.5)
[2016-12-14 05:08] LABS: ABSOLUTE NEUTROPHILS# (MANUAL) 29.7 10^3/uL (1.7-8.2); BAND NEUTROPHILS % (MANUAL) 28 % (3-5); BASOPHILS % (MANUAL) 0 % (0-2); EOSINOPHILS % (MANUAL) 0 % (0-6); LYMPHOCYTES % (MANUAL) 3 % (13-45); MONOCYTES % (MANUAL) 9 % (3-13); SEGMENTED NEUTROPHILS % (MAN) 60 % (42-78); TOTAL CELLS COUNTED 100
[2016-12-14 05:10] LABS: ANISOCYTOSIS 1+; OVALOCYTES SLIGHT; PLATELET COMMENT ADEQUATE; POIKILOCYTOSIS SLIGHT; POLYCHROMASIA SLIGHT; SCHISTOCYTES SLIGHT; TOXIC GRANULATION SLIGHT
[2016-12-14] MEDS ORDERED: PHENYLEPHRINE HCL INJ/PF 10 MG/1 ML SDV ONE (05:22)
--- NOTE | 2016-12-14 05:28 | PDOC PROGRESS REPORT ---
Subjective Progress Note for:: 12/14/16 Subjective:: better Physical Exam Vital Signs: Temp Pulse Resp BP Pulse Ox 99.1 F 88 21 H 105/57 L 97 12/14/16 04:00 12/13/16 21:58 12/14/16 05:15 12/14/16 05:09 12/14/16 05:15 Intake & Output 12/12/16 12/13/16 12/14/16 07:59 07:59 06:59 Output Total 1450 Balance -1450 Weight 259 lb 11.272 oz General appearance: PRESENT: no acute distress Respiratory exam: PRESENT: clear to auscultation dina Cardiovascular exam: ABSENT: diastolic murmur, irregular rhythm, systolic murmur GI/Abdominal exam: ABSENT: mass, organolmegaly, tenderness Extremities exam: PRESENT: pedal edema - R 1+ Neurological exam: PRESENT: oriented to situation Psychiatric exam: PRESENT: appropriate affect Results Laboratory Results: 12/14/16 04:30 Abnormal - 24 hr 12/13/16 12/13/16 12/13/16 11:55 11:55 11:55 WBC 14.8 H RBC 4.24 L Hgb 12.3 L Hct 37.7 L RDW 17.6 H Plt Count Band Neutrophils % 20 H Lymphocytes % (Manual) 3 L Monocytes % (Manual) 0 L Metamyelocytes % 2 H Abs Neuts (Manual) 14.4 H Abs Lymphs (Manual) 0.4 L Abs Monocytes (Manual) 0.0 L VBG pH VBG pCO2 VBG HCO3 Potassium 3.1 L Carbon Dioxide 19 L BUN 35 H Creatinine 1.79 H Est GFR ( Amer) 45 L Est GFR (Non-Af Amer) 37 L Glucose 135 H POC Glucose Lactic Acid 5.0 H Total Bilirubin 1.6 H Direct Bilirubin 1.2 H AST 473 H ALT 254 H Alkaline Phosphatase 206 H Total Protein 6.2 L Albumin 3.4 L Urine Protein Urine Blood Urine Urobilinogen Ur Leukocyte Esterase 12/13/16 12/13/16 12/13/16 11:55 14:07 15:38 WBC RBC Hgb Hct RDW Plt Count Band Neutrophils % Lymphocytes % (Manual) Monocytes % (Manual) Metamyelocytes % Abs Neuts (Manual) Abs Lymphs (Manual) Abs Monocytes (Manual) VBG pH 7.46 H VBG pCO2 28.1 L VBG HCO3 19.6 L Potassium Carbon Dioxide BUN Creatinine Est GFR ( Amer) Est GFR (Non-Af Amer) Glucose POC Glucose Lactic Acid 2.3 H Total Bilirubin Direct Bilirubin AST ALT Alkaline Phosphatase Total Protein Albumin Urine Protein 30 H Urine Blood LARGE H Urine Urobilinogen 4.0 H Ur Leukocyte Esterase LARGE H 12/14/16 12/14/16 12/14/16 00:33 02:02 04:30 WBC 33.7 H* D RBC 4.09 L Hgb 11.9 L Hct 36.7 L RDW 17.1 H Plt Count 110 L Band Neutrophils % 28 H Lymphocytes % (Manual) 3 L Monocytes % (Manual) Metamyelocytes % Abs Neuts (Manual) 29.7 H Abs Lymphs (Manual) Abs Monocytes (Manual) 3.0 H VBG pH VBG pCO2 VBG HCO3 Potassium Carbon Dioxide BUN Creatinine Est GFR ( Amer) Est GFR (Non-Af Amer) Glucose POC Glucose 62 L 69 L Lactic Acid Total Bilirubin Direct Bilirubin AST ALT Alkaline Phosphatase Total Protein Albumin Urine Protein Urine Blood Urine Urobilinogen Ur Leukocyte Esterase Impressions: Chest X-Ray 12/13/16 12:06 IMPRESSION: Patchy right basilar airspace disease worrisome for pneumonia Assessment & Plan - Diagnosis (1) Sepsis Qualifiers: Sepsis type: sepsis due to unspecified organism Qualified Code(s): A41.9 - Sepsis, unspecified organism Is this a current diagnosis for this admission?: Yes Plan: urine output improved after 3rd liter NS. Bands amd wbc higher. Continue ertapenem (2) Type 2 diabetes mellitus with diabetic chronic kidney disease Qualifiers: Diabetes mellitus custodial insulin use: with research epidemiologist use Chronic kidney disease stage: stage 3 (moderate) Qualified Code(s): E11.22 - Type 2 diabetes mellitus with diabetic chronic kidney disease; N18.3 - Chronic kidney disease, stage 3 (moderate); N18.3 - Chronic kidney disease, stage 3 (moderate); Z79.4 - etl analyst (current) use of insulin; Z79.4 - etl analyst (current) use of insulin; Z79.4 - skilled nursing (current) use of insulin; Z79.4 - etl analyst (current) use of insulin Is this a current diagnosis for this admission?: Yes (3) Chronic combined systolic and diastolic heart failure Is this a current diagnosis for this admission?: Yes (4) Other secondary chronic gout, multiple sites, without tophus (tophi) Is this a current diagnosis for this admission?: Yes - Inpatient Certification Medical Necessity: Significant Comorbidiites Make Outpatient Treatment Too Risky , Need Close Monitoring Due to Risk of Patient Decompensation, Need For IV Fluids, Need For Continuous Telemetry Monitoring, Need for IV Antibiotics, Risk of Complication if Not Cared For in Hospital, Risk of Diagnosis Which Will Require Inpatient Eval/Care/Monitoring
[2016-12-14 05:33] LABS: ANION GAP 12 (5-19); BLOOD UREA NITROGEN 36 mg/dL (7-20); CALCIUM 8.4 mg/dL (8.4-10.2); CARBON DIOXIDE 23 mmol/L (22-30); CHLORIDE 111 mmol/L (98-107); GLUCOSE 79 mg/dL (75-110); POTASSIUM 3.5 mmol/L (3.6-5.0); SODIUM 146.2 mmol/L (137-145)
[2016-12-14] MEDS: DEXTROSE 5%-WATER 250 ML with PHENYLEPHRINE HCL 40 MG IV PRN ×2 (06:05)
[2016-12-14] MEDS ORDERED: POTASSIUM CHLORIDE 10 MEQ TABLET.SA PO SCH (10:00)
[2016-12-14] MEDS ORDERED: ACETAMINOPHEN 325 MG TABLET ONE (10:47)
[2016-12-14] MEDS: FAMOTIDINE INJ/PF 20 MG/2 ML SDV IV SCH (11:00)
[2016-12-14] MEDS: ENOXAPARIN SODIUM INJ 30 MG/0.3 ML DISP.SYRIN SUBCUT SCH (11:02)
[2016-12-14] MEDS ORDERED: POTASSIUM CHLORIDE 20 MEQ/15 ML UDCUP PO ONE (12:00)
--- NOTE | 2016-12-14 14:57 | EKG REPORT ---
SEVERITY:- ABNORMAL ECG - SINUS TACHYCARDIA RIGHT BUNDLE BRANCH BLOCK : Confirmed by: Jay Ruggiero 14-Dec-2016 14:56:39
[2016-12-14] MEDS: ERTAPENEM SODIUM 1 GM in NORMAL SALINE 50 ML IV SCH (17:01)
[2016-12-14] MEDS: POTASSIUM CHLORIDE 20 MEQ/15 ML UDCUP PO SCH (22:12)
[2016-12-15 07:17] LABS: ALANINE AMINOTRANSFERASE 173 U/L (21-72); ALBUMIN 2.5 g/dL (3.5-5.0); ALKALINE PHOSPHATASE 170 U/L (38-126); ASPARTATE AMINO TRANSFERASE 99 U/L (17-59); BILIRUBIN,DIRECT 0.4 mg/dL (0.0-0.4); BILIRUBIN,TOTAL 0.8 mg/dL (0.2-1.3); TOTAL PROTEIN 5.1 g/dL (6.3-8.2)
--- NOTE | 2016-12-15 08:05 | PDOC PROGRESS REPORT ---
Subjective Progress Note for:: 12/15/16 Subjective:: diarrhea*5. RLQ pain. Physical Exam Vital Signs: Temp Pulse Resp BP Pulse Ox 97.8 F 104 H 27 H 106/69 94 12/15/16 03:57 12/14/16 19:00 12/15/16 06:30 12/15/16 06:11 12/15/16 06:30 Intake & Output 12/14/16 12/15/16 12/16/16 07:59 07:59 07:59 Intake Total 1576 Output Total 2755 Balance -1179 Weight 259 lb 7.745 oz General appearance: PRESENT: no acute distress Respiratory exam: PRESENT: clear to auscultation dina Cardiovascular exam: ABSENT: diastolic murmur, irregular rhythm, systolic murmur GI/Abdominal exam: PRESENT: tenderness - mild RLQ. ABSENT: guarding, mass, organolmegaly Extremities exam: ABSENT: pedal edema Neurological exam: PRESENT: oriented to situation Psychiatric exam: PRESENT: appropriate affect Results Laboratory Results: 12/14/16 04:30 12/14/16 04:30 12/15/16 06:47 Total Bilirubin 0.8 AST 99 H ALT 173 H Alkaline Phosphatase 170 H Total Protein 5.1 L Albumin 2.5 L Impressions: Chest X-Ray 12/13/16 12:06 IMPRESSION: Patchy right basilar airspace disease worrisome for pneumonia Assessment & Plan - Diagnosis (1) Sepsis Qualifiers: Sepsis type: sepsis due to unspecified organism Qualified Code(s): A41.9 - Sepsis, unspecified organism Is this a current diagnosis for this admission?: Yes Plan: urine growing gram+ clusters. ID due at noon. Switching ertapenem to vanc. May help diarrhea. Cdiff negative. (2) Type 2 diabetes mellitus with diabetic chronic kidney disease Qualifiers: Diabetes mellitus termite control servicer insulin use: with termite control servicer use Chronic kidney disease stage: stage 3 (moderate) Qualified Code(s): E11.22 - Type 2 diabetes mellitus with diabetic chronic kidney disease; N18.3 - Chronic kidney disease, stage 3 (moderate); N18.3 - Chronic kidney disease, stage 3 (moderate); Z79.4 - buttermaker continuous churn (current) use of insulin; Z79.4 - buttermaker continuous churn (current) use of insulin; Z79.4 - skilled nursing (current) use of insulin; Z79.4 - buttermaker continuous churn (current) use of insulin Is this a current diagnosis for this admission?: Yes Plan: advance diet. (3) Chronic combined systolic and diastolic heart failure Is this a current diagnosis for this admission?: Yes (4) Other secondary chronic gout, multiple sites, without tophus (tophi) Is this a current diagnosis for this admission?: Yes - Inpatient Certification Medical Necessity: Significant Comorbidiites Make Outpatient Treatment Too Risky , Need Close Monitoring Due to Risk of Patient Decompensation, Need For Continuous Telemetry Monitoring, Need for IV Antibiotics, Risk of Complication if Not Cared For in Hospital, Risk of Diagnosis Which Will Require Inpatient Eval/Care/Monitoring
[2016-12-15] MEDS ORDERED: VANCOMYCIN HCL 0 MG in DEXTROSE 5%-WATER 250 ML IV NR (08:15)
[2016-12-15 10:26] LABS: PATH REVIEW PATHOLOGIST REVIEWED
[2016-12-15 10:28] LABS: PATH REVIEW PATHOLOGIST REVIEWED
[2016-12-15] MEDS: ENOXAPARIN SODIUM INJ 30 MG/0.3 ML DISP.SYRIN SUBCUT SCH (11:00)
[2016-12-15] MEDS: POTASSIUM CHLORIDE 20 MEQ/15 ML UDCUP PO SCH ×2 (11:00→22:03)
[2016-12-15] MEDS: FAMOTIDINE INJ/PF 20 MG/2 ML SDV IV SCH (11:01)
[2016-12-15] MEDS: VANCOMYCIN HCL 1,000 MG in DEXTROSE 5%-WATER 250 ML IV SCH ×2 (11:01→21:58)
[2016-12-15] MEDS: ACETAMINOPHEN 325 MG TABLET PO PRN (20:15)
--- NOTE | 2016-12-15 21:23 | RADIOLOGY REPORT (SQ) ---
EXAM DESCRIPTION: KUB/ABDOMEN (SINGLE VIEW) COMPLETED DATE/TIME: 12/15/2016 9:11 pm REASON FOR STUDY: Vomitting COMPARISON: 03/27/2016 NUMBER OF VIEWS: One view. TECHNIQUE: Supine radiographic image of the abdomen acquired. LIMITATIONS: None. FINDINGS: BOWEL GAS PATTERN: Nonobstructive bowel gas pattern with stable gas distended loops of bot h small and large bowel. CALCIFICATIONS: No suspicious calcifications. SOFT TISSUES: No gross mass or suggestion of organomegaly. HARDWARE: Stable. BONES: No acute fracture. No worrisome bone lesions. OTHER: No other significant finding. IMPRESSION: NONOBSTRUCTIVE BOWEL GAS PATTERN WITH STABLE GAS DISTENSION OF BOTH SMALL AND LARGE MORRIS L LOOPS MAY REPRESENT ILEUS. TECHNICAL DOCUMENTATION: JOB ID: [id number] [employer]- All Rights Reserved
[2016-12-15] MEDS ORDERED: HYDROMORPHONE HCL 2 MG TABLET PO SCH (22:00)
[2016-12-15] MEDS: HYDROMORPHONE HCL INJ/PF 2 MG/ML AMPULE IV SCH (23:20)
[2016-12-16] MEDS ORDERED: POTASSI CL 20 MEQ/1/2NS 1L 20 MEQ/1,000 ML RTUINJ IV PRN (05:02)
[2016-12-16] MEDS: HYDROMORPHONE HCL INJ/PF 2 MG/ML AMPULE IV SCH ×3 (05:06→21:50)
[2016-12-16 06:28] LABS: HEMATOCRIT 37.8 % (37.9-51.0); HEMOGLOBIN 12.3 g/dL (13.5-17.0); MEAN CORPUSCULAR HEMOGLOBIN 28.9 pg (27.0-33.4); MEAN CORPUSCULAR HGB CONC 32.5 g/dL (32.0-36.0); MEAN CORPUSCULAR VOLUME 89 fl (80-97); RED BLOOD COUNT 4.25 10^6/uL (4.35-5.55); RED CELL DISTRIBUTION WIDTH 17.5 % (11.5-14.0); WHITE BLOOD COUNT 25.2 10^3/uL (4.0-10.5)
[2016-12-16 06:31] LABS: ANION GAP 10 (5-19); BLOOD UREA NITROGEN 26 mg/dL (7-20); CALCIUM 8.6 mg/dL (8.4-10.2); CARBON DIOXIDE 24 mmol/L (22-30); CHLORIDE 115 mmol/L (98-107); GLUCOSE 89 mg/dL (75-110); POTASSIUM 3.9 mmol/L (3.6-5.0); SODIUM 148.9 mmol/L (137-145)
--- NOTE | 2016-12-16 06:31 | PDOC PROGRESS REPORT ---
Subjective Progress Note for:: 12/16/16 Subjective:: 5d diffuse abdominal pain. Vomited twice yesterday. Diarrhea slowed down after IV dilaudid. Physical Exam Vital Signs: Temp Pulse Resp BP Pulse Ox 98.0 F 99 21 H 111/60 95 12/16/16 04:00 12/15/16 19:00 12/16/16 03:00 12/16/16 02:12 12/16/16 03:00 Intake & Output 12/14/16 12/15/16 12/16/16 07:59 07:59 07:59 Intake Total 1576 250 Output Total 2755 1077 Balance -1179 -827 Weight 259 lb 7.745 oz General appearance: PRESENT: no acute distress Respiratory exam: PRESENT: clear to auscultation dina Cardiovascular exam: ABSENT: diastolic murmur, irregular rhythm, systolic murmur GI/Abdominal exam: PRESENT: hyperactive bowel sounds, tenderness - moderate RLQ. ABSENT: distended, guarding, mass, organolmegaly, rebound Extremities exam: ABSENT: pedal edema Neurological exam: PRESENT: oriented to situation Psychiatric exam: PRESENT: appropriate affect Results Laboratory Results: 12/15/16 06:47 Total Bilirubin 0.8 AST 99 H ALT 173 H Alkaline Phosphatase 170 H Total Protein 5.1 L Albumin 2.5 L Impressions: Chest X-Ray 12/13/16 12:06 IMPRESSION: Patchy right basilar airspace disease worrisome for pneumonia KUB X-Ray 12/15/16 20:37 IMPRESSION: NONOBSTRUCTIVE BOWEL GAS PATTERN WITH STABLE GAS DISTENSION OF BOTH SMALL AND LARGE BOWEL LOOPS MAY REPRESENT ILEUS. Assessment & Plan - Diagnosis (1) Sepsis Qualifiers: Sepsis type: methicillin susceptible Staphylococcus aureus Qualified Code(s ): A41.01 - Sepsis due to Methicillin susceptible Staphylococcus aureus Is this a current diagnosis for this admission?: Yes Plan: switch vanc to ceftri 2g daily (2) Type 2 diabetes mellitus with diabetic chronic kidney disease Qualifiers: Diabetes mellitus mcfp insulin use: with mcfp use Chronic kidney disease stage: stage 3 (moderate) Qualified Code(s): E11.22 - Type 2 diabetes mellitus with diabetic chronic kidney disease; N18.3 - Chronic kidney disease, stage 3 (moderate); N18.3 - Chronic kidney disease, stage 3 (moderate); Z79.4 - tank terminal gauger (current) use of insulin; Z79.4 - tank terminal gauger (current) use of insulin; Z79.4 - snf (current) use of insulin; Z79.4 - snf (current) use of insulin Is this a current diagnosis for this admission?: Yes (3) Chronic combined systolic and diastolic heart failure Is this a current diagnosis for this admission?: Yes (4) Other secondary chronic gout, multiple sites, without tophus (tophi) Is this a current diagnosis for this admission?: Yes (5) Abdominal pain, suprapubic Is this a current diagnosis for this admission?: Yes Plan: ct - Inpatient Certification Medical Necessity: Failure to Improve With Outpatient Therapy, Significant Comorbidiites Make Outpatient Treatment Too Risky, Need Close Monitoring Due to Risk of Patient Decompensation, Need For IV Fluids, Need For Continuous Telemetry Monitoring, Need for Pain Control, Need for IV Antibiotics, Risk of Complication if Not Cared For in Hospital, Risk of Diagnosis Which Will Require Inpatient Eval/Care/Monitoring
[2016-12-16 07:08] LABS: PLATELET COUNT 97 10^3/uL (150-450)
[2016-12-16] MEDS: FAMOTIDINE INJ/PF 20 MG/2 ML SDV IV SCH (09:20)
[2016-12-16] MEDS: ENOXAPARIN SODIUM INJ 30 MG/0.3 ML DISP.SYRIN SUBCUT SCH (09:21)
[2016-12-16] MEDS: CEFTRIAXONE 2 GM/D5W RTU 2 GM/50 ML RTUPB IV SCH (09:38)
--- NOTE | 2016-12-16 10:38 | RADIOLOGY REPORT (SQ) ---
EXAM DESCRIPTION: CT ABD/PELVIS WITH IV ORAL COMPLETED DATE/TIME: 12/16/2016 10:06 am REASON FOR STUDY: 5d RLQ pain tenderness. MSSA uti and sepsis. Ileus COMPARISON: CT abdomen and pelvis 06/25/2014, 03/30/2016 Abdominal ultrasound 03/30/2016 Renal ultrasound 03/28/2016 TECHNIQUE: CT scan of the abdomen and pelvis performed using helical scanning technique with dynamic intravenous contrast injection. Patient drank oral contrast. Images reviewed with lung, soft tissue , and bone windows. Reconstructed coronal and sagittal MPR images reviewed. Delayed images for evalua tion of the urinary system also acquired. All images stored on PACS. All CT scanners at this facility use dose modulation, iterative reconstruction, and/or weight based d osing when appropriate to reduce radiation dose to as low as reasonably achievable (ALARA). [facility]: Dose Right [facility]: CareDose [facility]: Dose Right [facility]: Teradose 4D [facility]: [employer] CONTRAST TYPE AND DOSE: contrast/concentration: Isovue 370.00 mg/ml; Total Contrast Delivered: 100.0 ml; Total Saline Delivered: 72.0 ml RENAL FUNCTION: Creatinine 0.89 RADIATION DOSE: Up-to-date CT equipment and radiation dose reduction techniques were employed. CTDIv ol: 25.8 - 29.5 mGy. DLP: 2770 mGy-cm.. LIMITATIONS: None. FINDINGS: LOWER CHEST: The patient has a right lower lobe pulmonary nodule 2.3 cm in size on axial i mage 8 (was 1.5 cm diameter on 03/30/2016). LIVER: Normal size. No masses. No dilated ducts. SPLEEN: Normal size. No focal lesions. PANCREAS: No masses. No significant calcifications. No adjacent inflammation or peripancreatic fluid collections. Pancreatic duct not dilated. GALLBLADDER: Distended, 16 cm in length with pericholecystic fluid worrisome for cholecystitis. Ther e are small stones in the gallbladder fundus and body. There is a tiny air bubble along common duct, and there are few air bubbles along the left lobe liver likely in bile ducts. Report called to Dr Ng, 1015 hours 12/16/2016 ADRENAL GLANDS: Benign-appearing fatty 3.8 cm left adrenal nodule RIGHT KIDNEY AND URETER: No solid masses. No significant calcifications. No hydronephrosis or hyd roureter. LEFT KIDNEY AND URETER: No solid masses. No significant calcifications. No hydronephrosis or hydr oureter. AORTA AND VESSELS: No aneurysm. No dissection. Renal arteries, SMA, celiac without stenosis. RETROPERITONEUM: No retroperitoneal adenopathy, hemorrhage or masses. BOWEL AND PERITONEAL CAVITY: No masses or inflammatory changes. No free fluid or peritoneal masses. Patient drank oral contrast. No CT evidence of bowel obstruction. APPENDIX: Not identified Frank catheter draining the urinary bladder PELVIS: No mass. No free fluid. Frank catheter drains the bladder. ABDOMINAL WALL: No masses. No hernias. BONES: Diffuse thoracic spine ankylosis. Advanced arthritis left hip joint OTHER: No other significant finding. IMPRESSION: Distended gallbladder with stones and pericholecystic fluid. Findings are worrisome for cholecystitis. Findings discussed with Dr Ng Enlarging nodule lateral right lung base. TECHNICAL DOCUMENTATION: JOB ID: [id number] Quality ID # [id number]: Final reports with documentation of one or more dose reduction techniques (e.g., Au tomated exposure control, adjustment of the mA and/or kV according to patient size, use of iterative reconstruction technique) 2010 [employer]- All Rights Reserved
--- NOTE | 2016-12-16 12:32 | PDOC CONSULTATION ---
History of Present Illness Admission Date/PCP: 12/13/16 15:55 BLANCHE BROWER MD History of Present Illness: This is a 71-year-old male admitted by Dr. Brower with urosepsis. He grew MRSA in the urine. He was admitted to the ICU with sepsis and treated with broad- spectrum antibiotics initially. He required vasopressor support with Levophed. He is now off of Levophed, is no longer hypotensive or tachycardic. Urine culture revealed MRSA. He has had a persistent leukocytosis and a CT scan revealed evidence of a distended gallbladder with pericholecystic fluid. I was asked to see him in consultation regarding acute cholecystitis. 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 He was noted to have air within the common bile duct as well as in the intrahepatic radicles. He does not relate to be a history of prior episodes of postprandial food intolerance. He has not had no prior episodes of acute cholecystitis. He does not have findings suggestive of cholangitis. His white blood cell count has trended downward in the past couple of days and was 25,000 today. His white blood cell count 2 days ago was 33,000. Bilirubin is normal. Alkaline phosphatase yesterday was mildly elevated at 170. He does not have the intrahepatic biliary ductal dilation. He has not had a HIDA scan. Past Medical History Cardiac Medical History: Reports: Atrial Fibrillation, Congestive Heart Failure , Hyperlipidema, Hypertension Pulmonary Medical History: Reports: Sleep Apnea, Other - chronic extrinsic restriction from morbid obesity [id number] EENT Medical History: Reports: Other - allergic rhinitis Neurological Medical History: Reports: Other - diabetic neuropathy vertigo paroxysmal Denies: Seizures Endocrine Medical History: Reports: Diabetes Mellitus Type 1, Diabetes Mellitus Type 2 - 1997 Renal/ Medical History: Reports: None Malignancy Medical History: Reports: None GI Medical History: Reports: Diverticulitis, Gastroesophageal Reflux Disease, Other - may [facility] 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 [place] say surgury too risky. Skin Medical History: Reports: Other - venous leg ulcers Psychiatric Medical History: Reports: None Denies: Depression Hematology: Reports: Anemia - iron. July, Other - allergic rhinitis Past Surgical History Past Surgical History: Reports: Herniorrhaphy - Hernia repair with mesh insertion., Other - diverticulitis, ventral hernia, Rcolectomy, cataracts, ERCP Social History Lives with: Other - unknown Smoking Status: Unknown if Ever Smoked Number of Years Smokin Last Time Smoked: 1995 Frequency of Alcohol Use: None Hx Recreational Drug Use: No Drugs: None Hx Prescription Drug Abuse: No - Advance Directive Resuscitation Status: Full Code Family History Family History: DM, Hypertension Parental Family History Reviewed: Yes Children Family History Reviewed: Yes Sibling(s) Family History Reviewed.: Yes Medication/Allergy Home Medications: Furosemide [Lasix 40 mg Tablet] 40 mg PO BID 12/13/16 Gabapentin [Neurontin 300 mg Capsule] 300 mg PO Q12HP 12/13/16 Hydromorphone HCl [Dilaudid] 4 mg PO Q8 12/13/16 Insulin Glargine,Hum.rec.anlog [Lantus] 10 units SQ DAILY 12/13/16 Omeprazole 20 mg PO DAILY 12/13/16 Allopurinol [Zyloprim 300 mg Tablet] 300 mg PO DAILY 12/14/16 Atorvastatin Calcium [Lipitor 10 mg Tablet] 10 mg PO QHS 12/14/16 Allergies/Adverse Reactions: No Known Allergies Allergy (Verified 03/27/16 18:42) Physical Exam Vital Signs: Temp Pulse Resp BP Pulse Ox 98.6 F 84 25 H 96/67 L 97 12/16/16 08:00 12/16/16 08:00 12/16/16 08:00 12/16/16 08:00 12/16/16 08:00 Intake & Output 12/15/16 12/16/16 12/17/16 06:59 06:59 06:59 Intake Total 1576 500 946 Output Total 8157 1177 250 Balance -1179 -331 696 Weight 117.7 kg 117.8 kg Results Laboratory Results: 12/16/16 05:55 12/16/16 05:55 12/16/16 12/16/16 05:55 05:55 WBC 25.2 H RBC 4.25 L Hgb 12.3 L Hct 37.8 L MCV 89 MCH 28.9 MCHC 32.5 RDW 17.5 H Plt Count 97 L Sodium 148.9 H Potassium 3.9 Chloride 115 H Carbon Dioxide 24 Anion Gap 10 BUN 26 H Creatinine 0.89 Est GFR ( Amer) > 60 Est GFR (Non-Af Amer) > 60 Glucose 89 Calcium 8.6 Impressions: Chest X-Ray 12/13/16 12:06 IMPRESSION: Patchy right basilar airspace disease worrisome for pneumonia KUB X-Ray 12/15/16 20:37 IMPRESSION: NONOBSTRUCTIVE BOWEL GAS PATTERN WITH STABLE GAS DISTENSION OF BOTH SMALL AND LARGE BOWEL LOOPS MAY REPRESENT ILEUS. Abdomen/Pelvis CT 12/16/16 00:00 IMPRESSION: Distended gallbladder with stones and pericholecystic fluid. Findings are worrisome for cholecystitis. Findings discussed with Dr Brower Enlarging nodule lateral right lung base. Assessment & Plan - Diagnosis (1) Acute cholecystitis Is this a current diagnosis for this admission?: Yes Plan: The CT scan demonstrates pericholecystic fluid. He does have some tenderness on exam but does not have an acute abdomen. Though he has a leukocytosis, the white blood cell count is trending downward. He is not septic and has a normal blood pressure and heart rate off of vasopressor therapy. He is mildly thrombocytopenic. I would recommend that we obtain a HIDA scan prior to consideration of percutaneous cholecystostomy. If he should come to need surgery this would likely need to be done in an open fashion. I anticipate that he would have a hostile abdomen given his prior surgeries with a large piece of mesh placed at prior repair of incisional hernia. I will follow-up on the HIDA scan. I have asked the radiology department to do this today. If he needs percutaneous cholecystostomy we could schedule it for tomorrow. Discussed with Dr. Stein.
[2016-12-16] MEDS ORDERED: MORPHINE SULFATE 10 MG/ML INJ ONE (14:18)
--- NOTE | 2016-12-16 15:27 | RADIOLOGY REPORT (SQ) ---
EXAM DESCRIPTION: NM HIDA SCAN COMPLETED DATE/TIME: 12/16/2016 3:09 pm REASON FOR STUDY: acute cholecystitis COMPARISON: None. RADIONUCLIDE AND DOSE: DOSAGE RADIONUCLIDE: 6.2 millicuries Tc99m Mebrofenin. DOSAGE MORPHINE: 4.8 mg IV morphine The route of agent administration: Intravenous TECHNIQUE: Serial imaging right upper quadrant up to 60 minutes following injection of radionuclide. Patient imaged AP and Right Lateral. LIMITATIONS: None. FINDINGS: Prompt homogeneous uptake throughout the liver. At 45 to 50 minutes, common bile duct and duodenum activity is present. Imaging up to 60 minutes was performed. No gallbladder activity was identified. Patient was given a booster dose of mebrofenin and IV morphine, and further imaged for 20 minutes. N o gallbladder activity was identified. IMPRESSION: No visualization of the gallbladder on immediate or delayed hepatobiliary imaging TECHNICAL DOCUMENTATION: JOB ID: [id number] [employer]- All Rights Reserved
[2016-12-16] MEDS: DEXTROSE 5%-WATER 1000 ML 1,000 ML with POTASSIUM CHLORIDE 20 MEQ IV PRN ×2 (16:08)
[2016-12-16] MEDS: ACETAMINOPHEN 325 MG TABLET PO PRN (16:17)
[2016-12-16] MEDS ORDERED: MORPHINE SULFATE 10 MG/ML INJ INJ ONE (18:00)
[2016-12-16 22:29] LABS: VANCOMYCIN,TROUGH 7.6 ug/mL (5.0-20.0)
[2016-12-17] MEDS: HYDROMORPHONE HCL INJ/PF 2 MG/ML AMPULE IV SCH ×3 (05:39→21:00)
[2016-12-17 05:40] LABS: HEMATOCRIT 36.1 % (37.9-51.0); HEMOGLOBIN 11.6 g/dL (13.5-17.0); MEAN CORPUSCULAR HEMOGLOBIN 28.9 pg (27.0-33.4); MEAN CORPUSCULAR HGB CONC 32.2 g/dL (32.0-36.0); MEAN CORPUSCULAR VOLUME 90 fl (80-97); RED BLOOD COUNT 4.02 10^6/uL (4.35-5.55); RED CELL DISTRIBUTION WIDTH 17.3 % (11.5-14.0); WHITE BLOOD COUNT 18.2 10^3/uL (4.0-10.5)
[2016-12-17 05:47] LABS: ANION GAP 10 (5-19); BLOOD UREA NITROGEN 22 mg/dL (7-20); CALCIUM 8.6 mg/dL (8.4-10.2); CARBON DIOXIDE 25 mmol/L (22-30); CHLORIDE 113 mmol/L (98-107); GLUCOSE 86 mg/dL (75-110); POTASSIUM 3.8 mmol/L (3.6-5.0); SODIUM 147.7 mmol/L (137-145)
[2016-12-17 06:00] LABS: PLATELET COUNT 97 10^3/uL (150-450)
--- NOTE | 2016-12-17 07:29 | PDOC PROGRESS REPORT ---
Subjective Progress Note for:: 12/17/16 Subjective:: still moderate RUQ pain. Leaning towards tube drainage rather than surgery. Physical Exam Vital Signs: Temp Pulse Resp BP Pulse Ox 98 F 75 20 113/60 98 12/16/16 23:52 12/16/16 19:00 12/17/16 06:00 12/17/16 04:49 12/17/16 06:00 Intake & Output 12/15/16 12/16/16 12/17/16 07:59 07:59 07:59 Intake Total 0171 744 5198 Output Total 2755 1277 1465 Balance -1179 777 1155 Weight 259 lb 7.745 oz 259 lb 11.272 oz 261 lb 7.492 oz General appearance: PRESENT: no acute distress Respiratory exam: PRESENT: clear to auscultation dina Cardiovascular exam: ABSENT: diastolic murmur, irregular rhythm, systolic murmur GI/Abdominal exam: PRESENT: tenderness - moderate RUQ. ABSENT: guarding, mass, organolmegaly Extremities exam: ABSENT: pedal edema Neurological exam: PRESENT: oriented to situation Psychiatric exam: PRESENT: appropriate affect Results Laboratory Results: 12/17/16 05:27 12/17/16 05:27 12/17/16 12/17/16 05:27 05:27 WBC 18.2 H RBC 4.02 L Hgb 11.6 L Hct 36.1 L MCV 90 MCH 28.9 MCHC 32.2 RDW 17.3 H Plt Count 97 L Sodium 147.7 H Potassium 3.8 Chloride 113 H Carbon Dioxide 25 Anion Gap 10 BUN 22 H Creatinine 0.87 Est GFR ( Amer) > 60 Est GFR (Non-Af Amer) > 60 Glucose 86 Calcium 8.6 Impressions: Chest X-Ray 12/13/16 12:06 IMPRESSION: Patchy right basilar airspace disease worrisome for pneumonia KUB X-Ray 12/15/16 20:37 IMPRESSION: NONOBSTRUCTIVE BOWEL GAS PATTERN WITH STABLE GAS DISTENSION OF BOTH SMALL AND LARGE BOWEL LOOPS MAY REPRESENT ILEUS. Abdomen/Pelvis CT 12/16/16 00:00 IMPRESSION: Distended gallbladder with stones and pericholecystic fluid. Findings are worrisome for cholecystitis. Findings discussed with Dr Ng Enlarging nodule lateral right lung base. Hepatobiliary Scan Nuclear Medicine 12/16/16 00:00 IMPRESSION: No visualization of the gallbladder on immediate or delayed hepatobiliary imaging Assessment & Plan - Diagnosis (1) Sepsis Qualifiers: Sepsis type: methicillin susceptible Staphylococcus aureus Qualified Code(s ): A41.01 - Sepsis due to Methicillin susceptible Staphylococcus aureus Is this a current diagnosis for this admission?: Yes (2) Type 2 diabetes mellitus with diabetic chronic kidney disease Qualifiers: Diabetes mellitus alf insulin use: with alf use Chronic kidney disease stage: stage 3 (moderate) Qualified Code(s): E11.22 - Type 2 diabetes mellitus with diabetic chronic kidney disease; N18.3 - Chronic kidney disease, stage 3 (moderate); N18.3 - Chronic kidney disease, stage 3 (moderate); Z79.4 - meterman (current) use of insulin; Z79.4 - meterman (current) use of insulin; Z79.4 - meterman (current) use of insulin; Z79.4 - [facility] (current) use of insulin Is this a current diagnosis for this admission?: Yes (3) Chronic combined systolic and diastolic heart failure Is this a current diagnosis for this admission?: Yes (4) Other secondary chronic gout, multiple sites, without tophus (tophi) Is this a current diagnosis for this admission?: Yes (5) Abdominal pain, suprapubic Is this a current diagnosis for this admission?: Yes (6) Acute cholecystitis Is this a current diagnosis for this admission?: Yes Plan: hida+. Will procede to transcutaneous transhepatic tube cholecystostomy unless Dr Dunn wants to operate. - Inpatient Certification Medical Necessity: Significant Comorbidiites Make Outpatient Treatment Too Risky , Need Close Monitoring Due to Risk of Patient Decompensation, Need For IV Fluids, Need For Continuous Telemetry Monitoring, Need for Pain Control, Need for IV Antibiotics, Risk of Complication if Not Cared For in Hospital, Risk of Diagnosis Which Will Require Inpatient Eval/Care/Monitoring
--- NOTE | 2016-12-17 09:04 | PDOC PROGRESS REPORT ---
Subjective Progress Note for:: 12/17/16 Subjective:: No nausea or vomiting overnight. Abdominal pain somewhat better by his report. He has had no fevers. White count is trending down. Heart rate is normal. No hypertension. Physical Exam Vital Signs: Temp Pulse Resp BP Pulse Ox 97.7 F 75 13 109/64 95 12/17/16 08:00 12/16/16 19:00 12/17/16 08:45 12/17/16 08:32 12/17/16 08:45 Intake & Output 12/16/16 12/17/16 12/18/16 06:59 06:59 06:59 Intake Total 500 2620 Output Total 1177 1565 Balance -677 1055 Weight 117.8 kg 118.6 kg Exam: Awake, alert, oriented Lungs: Clear bilaterally. No wheezes noted. Cardiovascular: Regular rate. Abdomen: Soft, mild right upper quadrant tenderness without overt guarding or peritoneal signs. He does have some bowel sounds. Results Laboratory Results: 12/17/16 05:27 12/17/16 05:27 12/17/16 12/17/16 05:27 05:27 WBC 18.2 H RBC 4.02 L Hgb 11.6 L Hct 36.1 L MCV 90 MCH 28.9 MCHC 32.2 RDW 17.3 H Plt Count 97 L Sodium 147.7 H Potassium 3.8 Chloride 113 H Carbon Dioxide 25 Anion Gap 10 BUN 22 H Creatinine 0.87 Est GFR ( Amer) > 60 Est GFR (Non-Af Amer) > 60 Glucose 86 Calcium 8.6 Impressions: Chest X-Ray 12/13/16 12:06 IMPRESSION: Patchy right basilar airspace disease worrisome for pneumonia KUB X-Ray 12/15/16 20:37 IMPRESSION: NONOBSTRUCTIVE BOWEL GAS PATTERN WITH STABLE GAS DISTENSION OF BOTH SMALL AND LARGE BOWEL LOOPS MAY REPRESENT ILEUS. Abdomen/Pelvis CT 12/16/16 00:00 IMPRESSION: Distended gallbladder with stones and pericholecystic fluid. Findings are worrisome for cholecystitis. Findings discussed with Dr Ng Enlarging nodule lateral right lung base. Hepatobiliary Scan Nuclear Medicine 12/16/16 00:00 IMPRESSION: No visualization of the gallbladder on immediate or delayed hepatobiliary imaging Assessment & Plan - Diagnosis (1) Acute cholecystitis Is this a current diagnosis for this admission?: Yes (2) Hypernatremia Is this a current diagnosis for this admission?: Yes Plan: 71-year-old male with acute cholecystitis. He has a resolving MRSA urine infection. He is now off all pressors and is stable hemodynamically. His white count has trended downward from 33 2days ago to 18.2 today. Though his HIDA scan is positive he seems to be responding clinically to conservative measures with antibiotics and bowel rest. There are liver function test pending for this morning. I have discussed this with Dr. Johns and we are going to wait another day to see if he continues to improve clinically. I have asked that we place a PICC line today and start TPN. Free water can be adjusted to correct his mild hypernatremia. Repeat CMP in the morning. - Time Time Spent with patient: 35 or more minutes
[2016-12-17] MEDS ORDERED: AMINO ACIDS 5%/D25W 1,000 ML IV PRN (09:13)
[2016-12-17] MEDS ORDERED: DEXTROSE 10%-WATER 1,000 ML IV PRN (09:13)
[2016-12-17] MEDS: CEFTRIAXONE 2 GM/D5W RTU 2 GM/50 ML RTUPB IV SCH (09:24)
[2016-12-17] MEDS: FAMOTIDINE INJ/PF 20 MG/2 ML SDV IV SCH (09:24)
[2016-12-17 09:31] LABS: INTERNATIONAL RATION (INR) 1.09; PROTHROMBIN TIME 14.9 SEC (11.4-15.4)
[2016-12-17 09:32] LABS: PARTIAL THROMBOPLASTIN TIME 37.9 SEC (23.5-35.8)
[2016-12-17 09:43] LABS: ALANINE AMINOTRANSFERASE 103 U/L (21-72); ALBUMIN 2.5 g/dL (3.5-5.0); ALKALINE PHOSPHATASE 171 U/L (38-126); ASPARTATE AMINO TRANSFERASE 39 U/L (17-59); BILIRUBIN,DIRECT 0.4 mg/dL (0.0-0.4); BILIRUBIN,TOTAL 0.6 mg/dL (0.2-1.3)
[2016-12-17 10:11] LABS: MAGNESIUM 2.7 mg/dL (1.6-2.3); PHOSPHORUS 3.5 mg/dL (2.5-4.5)
[2016-12-17 10:23] LABS: PREALBUMIN 4.7 mg/dL (17.6-36.0)
--- NOTE | 2016-12-17 12:37 | RADIOLOGY REPORT (SQ) ---
EXAM DESCRIPTION: PICC INSERTION; FLUORO/CV PLACEMENT; U/S GUIDE FOR VASCULAR ACCESS COMPLETED DATE/TIME: 12/17/2016 11:14 am REASON FOR STUDY: IV Nutrition; IV NUTRITION; IV ACCESS COMPARISON: AP chest 12/13/2016 FLUOROSCOPY TIME: 32 seconds 1 minutes digital chest fluoro image and 1 ultrasound images saved to PACS. TECHNIQUE: Fluoroscopic and ultrasound guided PICC placement. LIMITATIONS: None. PROCEDURE: After written consent and assessment were obtained, the patient was brought into the fluo roscopy room and place supine on the table. Ultrasound was used on the patient's left arm for PICC a ccess. The left arm was prepped and draped in a sterile fashion along with the ultrasound probe. The entry site was anesthetized with 3.5 mL of 1% lidocaine. A 21 gauge 7 cm needle was advanced through the skin and into the basilic vein under live ultrasound guidance. An ultrasound image was saved to PACS confirming access site. A .018 guide wire was then inserted through the needle and into the melania ous system. The needle was the removed and an 11 blade scalpel was used to make a 1cm skin incision. A 5 fr peel-away sheath was advanced over the wire and into the venous system. A measurement was the n made using the existing wire and live fluoroscopic guidance. The wire was then removed and the trim med. The PICC was advanced through the peel-away sheath and into the venous system. The peel-away she ath was removed and the catheter was adhered to the patients arm with a stat lock. The catheter was t hen aspirated and flushed and a sterile bandage was placed over the access site. A fluoroscopic spot image was saved to PACS confirming the catheter tip within the superior vena cava. IMPRESSION: SUCCESSFUL PLACEMENT OF A 5 FR DUAL LUMEN 48 CM PICC IN THE LEFT BASILIC VEIN. COMMENT: Patient medication list reviewed: Yes- Quality ID# [id number]:Eligible professional attests to doc umenting in the medical record they obtained, updated, or reviewed the patient's current medications. . Quality ID 145: Final reports for procedures using fluoroscopy that document radiation exposure singh meño, or exposure time and number of fluorographic images (if radiation exposure indices are not avail able) Quality ID #[id number]: The patient was prepped and draped using maximum sterile barrier technique including cap, mask, sterile gown, sterile gloves, a large sterile sheet, hand hygiene, and 2% Chlorhexidine fo r cutaneous antisepsis. When ultrasound is used, sterile ultrasound techniques are followed requiring sterile gel and sterile probes. TECHNICAL DOCUMENTATION: JOB ID: [id number] [employer]- All Rights Reserved
[2016-12-17] MEDS ORDERED: NORMAL SALINE 10 ML SDV (AFTER EACH USE) IV PRN (13:09)
[2016-12-17] MEDS: DEXTROSE 5%-WATER 1000 ML 1,000 ML with POTASSIUM CHLORIDE 20 MEQ IV PRN ×2 (17:39)
[2016-12-17] MEDS: AMINO ACIDS 5%/D25W 1,000 ML IV PRN (19:08)
[2016-12-17] MEDS: NORMAL SALINE 10 ML SDV (SCHEDULED) IV SCH (22:01)
[2016-12-17] MEDS: ACETAMINOPHEN 325 MG TABLET PO PRN (22:02)
[2016-12-18] MEDS: HYDROMORPHONE HCL INJ/PF 2 MG/ML AMPULE IV SCH ×5 (01:39→23:36)
--- NOTE | 2016-12-18 06:56 | PDOC PROGRESS REPORT ---
Subjective Progress Note for:: 12/18/16 Subjective:: RUQ pain worse Physical Exam Vital Signs: Temp Pulse Resp BP Pulse Ox 98.2 F 74 18 107/71 97 12/18/16 02:50 12/18/16 02:50 12/18/16 02:50 12/18/16 02:50 12/18/16 02:50 Intake & Output 12/16/16 12/17/16 12/18/16 07:59 07:59 07:59 Intake Total 500 2620 925 Output Total 1277 1465 1770 Balance -777 1155 -845 Weight 259 lb 11.272 oz 261 lb 7.492 oz 261 lb 7.492 oz General appearance: PRESENT: mild distress Respiratory exam: PRESENT: clear to auscultation dina Cardiovascular exam: ABSENT: diastolic murmur, irregular rhythm, systolic murmur GI/Abdominal exam: PRESENT: guarding, tenderness - RUQ marked with swelling. ABSENT: mass, organolmegaly Extremities exam: ABSENT: pedal edema Neurological exam: PRESENT: oriented to situation Psychiatric exam: PRESENT: appropriate affect Results Laboratory Results: 12/18/16 04:29 12/18/16 04:29 Abnormal - 24 hr 12/17/16 12/17/16 12/17/16 09:13 09:13 09:13 APTT 37.9 H POC Glucose Magnesium 2.7 H ALT 103 H Alkaline Phosphatase 171 H Total Protein 5.0 L Albumin 2.5 L Prealbumin 4.7 L 12/18/16 12/18/16 01:48 06:32 APTT POC Glucose 122 H 133 H Magnesium ALT Alkaline Phosphatase Total Protein Albumin Prealbumin Impressions: Chest X-Ray 12/13/16 12:06 IMPRESSION: Patchy right basilar airspace disease worrisome for pneumonia KUB X-Ray 12/15/16 20:37 IMPRESSION: NONOBSTRUCTIVE BOWEL GAS PATTERN WITH STABLE GAS DISTENSION OF BOTH SMALL AND LARGE BOWEL LOOPS MAY REPRESENT ILEUS. Abdomen/Pelvis CT 12/16/16 00:00 IMPRESSION: Distended gallbladder with stones and pericholecystic fluid. Findings are worrisome for cholecystitis. Findings discussed with Dr Ng Enlarging nodule lateral right lung base. Hepatobiliary Scan Nuclear Medicine 12/16/16 00:00 IMPRESSION: No visualization of the gallbladder on immediate or delayed hepatobiliary imaging Guidance Fluoroscopy 12/17/16 00:00 IMPRESSION: SUCCESSFUL PLACEMENT OF A 5 FR DUAL LUMEN 48 CM PICC IN THE LEFT BASILIC VEIN. Interventional Vascular Procedure 12/17/16 00:00 IMPRESSION: SUCCESSFUL PLACEMENT OF A 5 FR DUAL LUMEN 48 CM PICC IN THE LEFT BASILIC VEIN. PICC Line Insertion 12/17/16 09:00 IMPRESSION: SUCCESSFUL PLACEMENT OF A 5 FR DUAL LUMEN 48 CM PICC IN THE LEFT BASILIC VEIN. Assessment & Plan - Diagnosis (1) Sepsis Qualifiers: Sepsis type: methicillin susceptible Staphylococcus aureus Qualified Code(s ): A41.01 - Sepsis due to Methicillin susceptible Staphylococcus aureus Is this a current diagnosis for this admission?: Yes (2) Type 2 diabetes mellitus with diabetic chronic kidney disease Qualifiers: Diabetes mellitus keno terminal operator insulin use: with keno terminal operator use Chronic kidney disease stage: stage 3 (moderate) Qualified Code(s): E11.22 - Type 2 diabetes mellitus with diabetic chronic kidney disease; N18.3 - Chronic kidney disease, stage 3 (moderate); N18.3 - Chronic kidney disease, stage 3 (moderate); Z79.4 - group home (current) use of insulin; Z79.4 - superintendent marine oil terminal (current) use of insulin; Z79.4 - group home (current) use of insulin; Z79.4 - group home (current) use of insulin Is this a current diagnosis for this admission?: Yes (3) Chronic combined systolic and diastolic heart failure Is this a current diagnosis for this admission?: Yes (4) Other secondary chronic gout, multiple sites, without tophus (tophi) Is this a current diagnosis for this admission?: Yes (5) Abdominal pain, suprapubic Is this a current diagnosis for this admission?: Yes (6) Acute cholecystitis Is this a current diagnosis for this admission?: Yes Plan: now worsening. He said surgeon was in and scheduled surgery. - Inpatient Certification Medical Necessity: Significant Comorbidiites Make Outpatient Treatment Too Risky , Need Close Monitoring Due to Risk of Patient Decompensation, Need For IV Fluids, Need For Continuous Telemetry Monitoring, Need for Pain Control, Need for IV Antibiotics, Need for Surgery, Risk of Complication if Not Cared For in Hospital, Risk of Diagnosis Which Will Require Inpatient Eval/Care/Monitoring
[2016-12-18 08:44] LABS: ABSOLUTE EOSINOPHILS # (AUTO) 0.1 10^3/uL (0.0-0.6); ABSOLUTE LYMPHOCYTES (AUTO) 0.8 10^3/uL (0.5-4.7); ABSOLUTE MONOCYTES (AUTO) 0.9 10^3/uL (0.1-1.4); ABSOLUTE NEUT (AUTO) 12.1 10^3/uL (1.7-8.2); BASOPHILS % (AUTO) 0.1 % (0-2); HEMATOCRIT 35.1 % (37.9-51.0); HEMOGLOBIN 11.2 g/dL (13.5-17.0); LYMPHOCYTES % (AUTO) 5.6 % (13-45); MEAN CORPUSCULAR HEMOGLOBIN 28.6 pg (27.0-33.4); MEAN CORPUSCULAR HGB CONC 31.8 g/dL (32.0-36.0); MEAN CORPUSCULAR VOLUME 90 fl (80-97); MONOCYTES % (AUTO) 6.6 % (3-13); PLATELET COUNT 121 10^3/uL (150-450); RED CELL DISTRIBUTION WIDTH 17.4 % (11.5-14.0); SEGMENTED NEUTROPHILS % (AUTO) 86.7 % (42-78); TOTAL CELLS COUNTED % (AUTO) 100 %; WHITE BLOOD COUNT 13.9 10^3/uL (4.0-10.5)
[2016-12-18 09:07] LABS: ALANINE AMINOTRANSFERASE 69 U/L (21-72); ALBUMIN 2.3 g/dL (3.5-5.0); ALKALINE PHOSPHATASE 161 U/L (38-126); ANION GAP 9 (5-19); ASPARTATE AMINO TRANSFERASE 21 U/L (17-59); BILIRUBIN,DIRECT 0.5 mg/dL (0.0-0.4); BILIRUBIN,TOTAL 0.6 mg/dL (0.2-1.3); BLOOD UREA NITROGEN 20 mg/dL (7-20); CALCIUM 8.4 mg/dL (8.4-10.2); CARBON DIOXIDE 26 mmol/L (22-30); CHLORIDE 114 mmol/L (98-107); GLUCOSE 135 mg/dL (75-110); MAGNESIUM 2.9 mg/dL (1.6-2.3); PHOSPHORUS 2.7 mg/dL (2.5-4.5); POTASSIUM 3.8 mmol/L (3.6-5.0); SODIUM 149.4 mmol/L (137-145); TOTAL PROTEIN 4.9 g/dL (6.3-8.2)
--- NOTE | 2016-12-18 09:11 | PDOC PROGRESS REPORT ---
Subjective Progress Note for:: 12/18/16 Subjective:: Right upper quadrant abdominal pain. Physical Exam Vital Signs: Temp Pulse Resp BP Pulse Ox 99.3 F 75 16 112/64 97 12/18/16 07:05 12/18/16 07:05 12/18/16 07:05 12/18/16 07:05 12/18/16 07:05 Intake & Output 12/17/16 12/18/16 12/19/16 06:59 06:59 06:59 Intake Total 2620 925 Output Total 1565 1770 Balance 1055 -845 Weight 118.6 kg 118.6 kg General appearance: PRESENT: no acute distress, cooperative Respiratory exam: PRESENT: clear to auscultation dina Cardiovascular exam: PRESENT: RRR GI/Abdominal exam: PRESENT: other - Mildly distended, tender to palpation in the right upper quadrant Results Laboratory Results: 12/17/16 12/17/16 12/17/16 09:13 09:13 09:13 WBC RBC Hgb Hct MCV MCH MCHC RDW Plt Count Seg Neutrophils % Lymphocytes % Monocytes % Eosinophils % Basophils % Absolute Neutrophils Absolute Lymphocytes Absolute Monocytes Absolute Eosinophils Absolute Basophils Sodium Potassium Chloride Carbon Dioxide Anion Gap BUN Creatinine Est GFR ( Amer) Est GFR (Non-Af Amer) Glucose Calcium Phosphorus 3.5 Magnesium 2.7 H Total Bilirubin 0.6 AST 39 ALT 103 H Alkaline Phosphatase 171 H Total Protein 5.0 L Albumin 2.5 L Prealbumin 4.7 L Triglycerides 120 Cancelled 12/18/16 12/18/16 12/18/16 04:29 04:29 06:47 WBC Cancelled RBC Cancelled Hgb Cancelled Hct Cancelled MCV Cancelled MCH Cancelled MCHC Cancelled RDW Cancelled Plt Count Cancelled Seg Neutrophils % Cancelled Lymphocytes % Cancelled Monocytes % Cancelled Eosinophils % Cancelled Basophils % Cancelled Absolute Neutrophils Cancelled Absolute Lymphocytes Cancelled Absolute Monocytes Cancelled Absolute Eosinophils Cancelled Absolute Basophils Cancelled Sodium Cancelled Cancelled Potassium Cancelled Cancelled Chloride Cancelled Cancelled Carbon Dioxide Cancelled Cancelled Anion Gap Cancelled Cancelled BUN Cancelled Cancelled Creatinine Cancelled Cancelled Est GFR ( Amer) Cancelled Cancelled Est GFR (Non-Af Amer) Cancelled Cancelled Glucose Cancelled Cancelled Calcium Cancelled Cancelled Phosphorus Cancelled Cancelled Magnesium Cancelled Cancelled Total Bilirubin Cancelled Cancelled AST Cancelled Cancelled ALT Cancelled Cancelled Alkaline Phosphatase Cancelled Cancelled Total Protein Cancelled Cancelled Albumin Cancelled Cancelled Prealbumin Cancelled Cancelled Triglycerides 12/18/16 06:47 WBC Cancelled RBC Cancelled Hgb Cancelled Hct Cancelled MCV Cancelled MCH Cancelled MCHC Cancelled RDW Cancelled Plt Count Cancelled Seg Neutrophils % Cancelled Lymphocytes % Cancelled Monocytes % Cancelled Eosinophils % Cancelled Basophils % Cancelled Absolute Neutrophils Cancelled Absolute Lymphocytes Cancelled Absolute Monocytes Cancelled Absolute Eosinophils Cancelled Absolute Basophils Cancelled Sodium Potassium Chloride Carbon Dioxide Anion Gap BUN Creatinine Est GFR ( Amer) Est GFR (Non-Af Amer) Glucose Calcium Phosphorus Magnesium Total Bilirubin AST ALT Alkaline Phosphatase Total Protein Albumin Prealbumin Triglycerides Impressions: Chest X-Ray 12/13/16 12:06 IMPRESSION: Patchy right basilar airspace disease worrisome for pneumonia KUB X-Ray 12/15/16 20:37 IMPRESSION: NONOBSTRUCTIVE BOWEL GAS PATTERN WITH STABLE GAS DISTENSION OF BOTH SMALL AND LARGE BOWEL LOOPS MAY REPRESENT ILEUS. Abdomen/Pelvis CT 12/16/16 00:00 IMPRESSION: Distended gallbladder with stones and pericholecystic fluid. Findings are worrisome for cholecystitis. Findings discussed with Dr Ng Enlarging nodule lateral right lung base. Hepatobiliary Scan Nuclear Medicine 12/16/16 00:00 IMPRESSION: No visualization of the gallbladder on immediate or delayed hepatobiliary imaging Guidance Fluoroscopy 12/17/16 00:00 IMPRESSION: SUCCESSFUL PLACEMENT OF A 5 FR DUAL LUMEN 48 CM PICC IN THE LEFT BASILIC VEIN. Interventional Vascular Procedure 12/17/16 00:00 IMPRESSION: SUCCESSFUL PLACEMENT OF A 5 FR DUAL LUMEN 48 CM PICC IN THE LEFT BASILIC VEIN. PICC Line Insertion 12/17/16 09:00 IMPRESSION: SUCCESSFUL PLACEMENT OF A 5 FR DUAL LUMEN 48 CM PICC IN THE LEFT BASILIC VEIN. Assessment & Plan - Diagnosis (1) Acute cholecystitis Is this a current diagnosis for this admission?: Yes Plan: In high risk surgical patient with hostile abdomen. Will place cholecystostomy tube today.
[2016-12-18 09:14] LABS: PREALBUMIN 4.2 mg/dL (17.6-36.0)
[2016-12-18] MEDS ORDERED: MIDAZOLAM 2 MG/2 ML INJ ONE (10:33)
[2016-12-18] MEDS ORDERED: FENTANYL CITRATE INJ/PF 100 MCG/2 ML AMPUL ONE (10:34)
[2016-12-18] MEDS: CEFTRIAXONE 2 GM/D5W RTU 2 GM/50 ML RTUPB IV SCH (13:06)
[2016-12-18] MEDS: NORMAL SALINE 10 ML SDV (SCHEDULED) IV SCH ×2 (13:11→22:00)
--- NOTE | 2016-12-18 13:11 | RADIOLOGY REPORT (SQ) ---
EXAM DESCRIPTION: CT PERC CHOLECYSTOSTOMY COMPLETED DATE/TIME: 12/18/2016 12:37 pm REASON FOR STUDY: Transhepatic Cholecystomy Tube Placement COMPARISON: Hepatobiliary scan 12/16/2016 CT abdomen pelvis 12/16/2016 TECHNIQUE: After obtaining informed consent, the patient was brought to the CT suite and was placed supine on the CT gurney. The patient was prepped and draped in the usual sterile fashion . Axial pollo ges were obtained for targeting of thegallbladder from a transhepatic approach. An appropriate access site was selected. IV conscious sedation was administered and physician direction by the registered nurse using 1 millig guillermina of Versed and 100 micrograms of fentanyl. Physiologic monitoring was provided before, during, an d after sedation. The total sedation time was 30 minutes. Documentation face to face time, the performing proceduralist, spent monitoring the patient: 15minute s. Noncontrasted CT of the liver was performed to localize a transhepatic approach to the gallbladder. A percutaneous site was marked. Time out was performed. After skin prep and local lidocaine for skin and deep tissue anesthesia, an 18 gauge needle was used to access the gallbladder through a transhepatic approach. There was prompt return of purulent bile , a specimen was sent to the lab for Gram stain culture and sensitivity. A 0.38 Odom wire was placed through the needle, with the wire coiling in the gallbladder. Needle r emoved, tract dilated with a 7 Macanese dilator. An 8 Macanese locking pigtail catheter was placed, with the pigtail loop in the gallbladder. Catheter was locked into position. Catheter placement was con firmed by a limited postprocedure CT. Catheter tip is adjacent to a 1 cm gallstone in the gallbladde r. No immediate postprocedure complications. The catheter was placed to a vacuum accordion suction bag. Total of 3.[address] fluoro was used. Total accumulated radiation dose [address] scanners at this facility use dose modulation, iterative reconstruction, and/or weight based d osing when appropriate to reduce radiation dose to as low as reasonably achievable (ALARA). [facility]: Dose Right [facility]: CareDose [facility]: Dose Right [facility]: Teradose 4D [facility]: [employer] RADIATION DOSE: Up-to-date CT equipment and radiation dose reduction techniques were employed. CTDIv ol: 20.2 - 20.3 mGy. DLP: 1843 mGy-cm. mGy. LIMITATIONS: None. FINDINGS: CT guided percutaneous cholecystostomy tube placement IMPRESSION: CT GUIDED CHOLECYSTOSTOMY TUBE PLACEMENT UNDER CT GUIDANCE, WITH CONSCIOUS SEDATION. N O IMMEDIATE COMPLICATIONS. COMMENT: Patient medication list reviewed:Yes- Quality ID# [id number]:Eligible professional attests to docu menting in the medical record they obtained, updated, or reviewed the patient's current medications.. Quality ID [id number]: Final reports for procedures using fluoroscopy that document radiation exposure singh meño, or exposure time and number of fluorographic images (if radiation exposure indices are not avail able) TECHNICAL DOCUMENTATION: JOB ID: [id number] Quality ID # [id number]: Final reports with documentation of one or more dose reduction techniques (e.g., A utomated exposure control, adjustment of the mA and/or kV according to patient size, use of iterative reconstruction technique) 2010 [email or web address]- All Rights Reserved
[2016-12-18] MEDS: FAT EMULSIONS 250 ML IV SCH (15:22)
[2016-12-18] MEDS: AMINO ACIDS 5%/D25W 1,000 ML IV PRN (19:46)
[2016-12-19] MEDS: HYDROMORPHONE HCL INJ/PF 2 MG/ML AMPULE IV SCH ×4 (06:27→23:59)
--- NOTE | 2016-12-19 06:31 | PDOC PROGRESS REPORT ---
Subjective Progress Note for:: 12/19/16 Subjective:: less RUQ pain after drain Physical Exam Vital Signs: Temp Pulse Resp BP Pulse Ox 97.7 F 86 20 116/69 99 12/19/16 04:52 12/19/16 04:52 12/19/16 04:52 12/19/16 04:52 12/19/16 04:52 Intake & Output 12/17/16 12/18/16 12/19/16 07:59 07:59 07:59 Intake Total 2620 925 1605 Output Total 1465 1770 2370 Balance 1155 -845 -765 Weight 261 lb 7.492 oz 261 lb 7.492 oz 293 lb 3.437 oz General appearance: PRESENT: no acute distress Respiratory exam: PRESENT: clear to auscultation dina Cardiovascular exam: ABSENT: diastolic murmur, irregular rhythm, systolic murmur GI/Abdominal exam: PRESENT: tenderness - mild RUQ. ABSENT: mass, organolmegaly Extremities exam: ABSENT: pedal edema Neurological exam: PRESENT: oriented to situation Psychiatric exam: PRESENT: appropriate affect Results Laboratory Results: 12/18/16 08:23 Abnormal - 24 hr 12/18/16 12/18/16 12/18/16 06:32 08:23 08:23 WBC 13.9 H RBC 3.90 L Hgb 11.2 L Hct 35.1 L MCHC 31.8 L RDW 17.4 H Plt Count 121 L Seg Neutrophils % 86.7 H Lymphocytes % 5.6 L Absolute Neutrophils 12.1 H Sodium 149.4 H Chloride 114 H Glucose 135 H POC Glucose 133 H Magnesium 2.9 H Direct Bilirubin 0.5 H Alkaline Phosphatase 161 H Total Protein 4.9 L Albumin 2.3 L Prealbumin 4.2 L 12/18/16 12/18/16 12/19/16 13:15 18:10 00:57 WBC RBC Hgb Hct MCHC RDW Plt Count Seg Neutrophils % Lymphocytes % Absolute Neutrophils Sodium Chloride Glucose POC Glucose 127 H 150 H 143 H Magnesium Direct Bilirubin Alkaline Phosphatase Total Protein Albumin Prealbumin 12/19/16 05:16 WBC RBC Hgb Hct MCHC RDW Plt Count Seg Neutrophils % Lymphocytes % Absolute Neutrophils Sodium Chloride Glucose POC Glucose 134 H Magnesium Direct Bilirubin Alkaline Phosphatase Total Protein Albumin Prealbumin Impressions: Chest X-Ray 12/13/16 12:06 IMPRESSION: Patchy right basilar airspace disease worrisome for pneumonia KUB X-Ray 12/15/16 20:37 IMPRESSION: NONOBSTRUCTIVE BOWEL GAS PATTERN WITH STABLE GAS DISTENSION OF BOTH SMALL AND LARGE BOWEL LOOPS MAY REPRESENT ILEUS. Abdomen/Pelvis CT 12/16/16 00:00 IMPRESSION: Distended gallbladder with stones and pericholecystic fluid. Findings are worrisome for cholecystitis. Findings discussed with Dr Ng Enlarging nodule lateral right lung base. Hepatobiliary Scan Nuclear Medicine 12/16/16 00:00 IMPRESSION: No visualization of the gallbladder on immediate or delayed hepatobiliary imaging Guidance Fluoroscopy 12/17/16 00:00 IMPRESSION: SUCCESSFUL PLACEMENT OF A 5 FR DUAL LUMEN 48 CM PICC IN THE LEFT BASILIC VEIN. Interventional Vascular Procedure 12/17/16 00:00 IMPRESSION: SUCCESSFUL PLACEMENT OF A 5 FR DUAL LUMEN 48 CM PICC IN THE LEFT BASILIC VEIN. PICC Line Insertion 12/17/16 09:00 IMPRESSION: SUCCESSFUL PLACEMENT OF A 5 FR DUAL LUMEN 48 CM PICC IN THE LEFT BASILIC VEIN. Cholecystostomy 12/18/16 08:00 IMPRESSION: CT GUIDED CHOLECYSTOSTOMY TUBE PLACEMENT UNDER CT GUIDANCE, WITH CONSCIOUS SEDATION. NO IMMEDIATE COMPLICATIONS. 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 Chronic kidney disease stage: stage 3 (moderate) Qualified Code(s): E11.22 - Type 2 diabetes mellitus with diabetic chronic kidney disease; N18.3 - Chronic kidney disease, stage 3 (moderate); N18.3 - Chronic kidney disease, stage 3 (moderate); Z79.4 - [facility] (current) use of insulin; Z79.4 - [facility] (current) use of insulin; Z79.4 - [facility] (current) use of insulin; Z79.4 - terminal computer operator (current) use of insulin Is this a current diagnosis for this admission?: Yes (3) Chronic combined systolic and diastolic heart failure Is this a current diagnosis for this admission?: Yes (4) Other secondary chronic gout, multiple sites, without tophus (tophi) Is this a current diagnosis for this admission?: Yes (5) Abdominal pain, suprapubic Is this a current diagnosis for this admission?: Yes (6) Acute cholecystitis Is this a current diagnosis for this admission?: Yes Plan: drained 20ml pus. Culture pending. (7) Acquired phimosis Is this a current diagnosis for this admission?: Yes Plan: I wonder if needs another dorsal slit. Consult Dr Saeed. - Inpatient Certification Medical Necessity: Significant Comorbidiites Make Outpatient Treatment Too Risky , Need Close Monitoring Due to Risk of Patient Decompensation, Need For IV Fluids, Need For Continuous Telemetry Monitoring, Need for Pain Control, Need for IV Antibiotics, Risk of Complication if Not Cared For in Hospital, Risk of Diagnosis Which Will Require Inpatient Eval/Care/Monitoring
[2016-12-19 09:00] LABS: ALANINE AMINOTRANSFERASE 75 U/L (21-72); ALBUMIN 2.5 g/dL (3.5-5.0); ALKALINE PHOSPHATASE 205 U/L (38-126); ANION GAP 11 (5-19); ASPARTATE AMINO TRANSFERASE 35 U/L (17-59); BILIRUBIN,DIRECT 0.6 mg/dL (0.0-0.4); BILIRUBIN,TOTAL 0.7 mg/dL (0.2-1.3); BLOOD UREA NITROGEN 19 mg/dL (7-20); CALCIUM 8.5 mg/dL (8.4-10.2); CARBON DIOXIDE 26 mmol/L (22-30); CHLORIDE 113 mmol/L (98-107); GLUCOSE 178 mg/dL (75-110); PHOSPHORUS 2.8 mg/dL (2.5-4.5); POTASSIUM 3.9 mmol/L (3.6-5.0); SODIUM 149.9 mmol/L (137-145); TOTAL PROTEIN 5.3 g/dL (6.3-8.2)
[2016-12-19] MEDS: NORMAL SALINE 10 ML SDV (SCHEDULED) IV SCH ×2 (10:41→21:25)
[2016-12-19] MEDS: CEFTRIAXONE 2 GM/D5W RTU 2 GM/50 ML RTUPB IV SCH (10:41)
[2016-12-19] MEDS: AMINO ACIDS 5%/D25W 1,000 ML IV PRN (16:28)
--- NOTE | 2016-12-19 17:00 | PDOC PROGRESS REPORT ---
Subjective Progress Note for:: 12/19/16 Subjective:: Denies any pains Physical Exam Vital Signs: Temp Pulse Resp BP Pulse Ox 98.9 F 92 18 124/68 98 12/19/16 11:16 12/19/16 14:00 12/19/16 11:16 12/19/16 11:16 12/19/16 11:16 Intake & Output 12/18/16 12/19/16 12/20/16 06:59 06:59 06:59 Intake Total 925 1605 50 Output Total 1770 2595 400 Balance -845 -990 -350 Weight 118.6 kg 133 kg Exam: Since patient had a cholecystostomy tube placed yesterday, patient abdominal pains appears to have subsided. His abdomen is soft and nontender [place] incidentally, I did not see any definite evidence for phimosis at this time. Frank catheter is in place. Since get some fatty tissue and this appears to be around around the penis but no definite evidence of phimosis noted patient does not have any discomfort either. Results Laboratory Results: 12/18/16 08:23 12/19/16 07:27 12/19/16 12/19/16 04:15 07:27 Sodium Cancelled 149.9 H Potassium Cancelled 3.9 Chloride Cancelled 113 H Carbon Dioxide Cancelled 26 Anion Gap Cancelled 11 BUN Cancelled 19 Creatinine Cancelled 0.70 Est GFR ( Amer) Cancelled > 60 Est GFR (Non-Af Amer) Cancelled > 60 Glucose Cancelled 178 H Calcium Cancelled 8.5 Phosphorus Cancelled 2.8 Total Bilirubin Cancelled 0.7 AST Cancelled 35 ALT Cancelled 75 H Alkaline Phosphatase Cancelled 205 H Total Protein Cancelled 5.3 L Albumin Cancelled 2.5 L Prealbumin Cancelled 12/18/16 09:15 Nasophary (Mrsa Only) MRSA Surveillance Culture - Final NO MRSA RECOVERED Impressions: Chest X-Ray 12/13/16 12:06 IMPRESSION: Patchy right basilar airspace disease worrisome for pneumonia KUB X-Ray 12/15/16 20:37 IMPRESSION: NONOBSTRUCTIVE BOWEL GAS PATTERN WITH STABLE GAS DISTENSION OF BOTH SMALL AND LARGE BOWEL LOOPS MAY REPRESENT ILEUS. Abdomen/Pelvis CT 12/16/16 00:00 IMPRESSION: Distended gallbladder with stones and pericholecystic fluid. Findings are worrisome for cholecystitis. Findings discussed with Dr Ng Enlarging nodule lateral right lung base. Hepatobiliary Scan Nuclear Medicine 12/16/16 00:00 IMPRESSION: No visualization of the gallbladder on immediate or delayed hepatobiliary imaging Guidance Fluoroscopy 12/17/16 00:00 IMPRESSION: SUCCESSFUL PLACEMENT OF A 5 FR DUAL LUMEN 48 CM PICC IN THE LEFT BASILIC VEIN. Interventional Vascular Procedure 12/17/16 00:00 IMPRESSION: SUCCESSFUL PLACEMENT OF A 5 FR DUAL LUMEN 48 CM PICC IN THE LEFT BASILIC VEIN. PICC Line Insertion 12/17/16 09:00 IMPRESSION: SUCCESSFUL PLACEMENT OF A 5 FR DUAL LUMEN 48 CM PICC IN THE LEFT BASILIC VEIN. Cholecystostomy 12/18/16 08:00 IMPRESSION: CT GUIDED CHOLECYSTOSTOMY TUBE PLACEMENT UNDER CT GUIDANCE, WITH CONSCIOUS SEDATION. NO IMMEDIATE COMPLICATIONS. Assessment & Plan - Time Time Spent with patient: 15-24 minutes - Plan Summary Plan Summary: #1 leave the cholecystostomy tube indefinitely. If patient's medical condition improves then we will reconsider for cholecystectomy
[2016-12-20] MEDS: HYDROMORPHONE HCL INJ/PF 2 MG/ML AMPULE IV SCH ×3 (06:12→17:31)
[2016-12-20] MEDS ORDERED: AMINO ACIDS 5%/D25W 1,000 ML IV PRN (09:09)
--- NOTE | 2016-12-20 09:14 | PDOC PROGRESS REPORT ---
Subjective Progress Note for:: 12/20/16 Subjective:: less RUQ pain. Physical Exam Vital Signs: Temp Pulse Resp BP Pulse Ox 99.1 F 78 19 110/67 98 12/20/16 07:23 12/20/16 07:23 12/20/16 07:23 12/20/16 07:23 12/20/16 07:23 Intake & Output 12/19/16 12/20/16 12/21/16 07:59 07:59 07:59 Intake Total 1605 1595 Output Total 2595 2009 Balance -990 -415 Weight 293 lb 3.437 oz 264 lb 5.348 oz General appearance: PRESENT: no acute distress Respiratory exam: PRESENT: clear to auscultation dina Cardiovascular exam: ABSENT: diastolic murmur, irregular rhythm, systolic murmur GI/Abdominal exam: ABSENT: distended, mass, organolmegaly, tenderness Extremities exam: ABSENT: pedal edema Neurological exam: ABSENT: oriented to situation Psychiatric exam: ABSENT: appropriate affect Results Laboratory Results: 12/18/16 08:23 12/19/16 07:27 12/18/16 09:15 Nasophary ([facility] Only) MRSA Surveillance Culture - Final NO MRSA RECOVERED Abnormal - 24 hr 12/19/16 12/19/16 12/19/16 11: 18:43 23:43 POC Glucose 133 H 161 H 120 H 12/20/16 06:37 POC Glucose 120 H Impressions: Chest X-Ray 12/13/16 12:06 IMPRESSION: Patchy right basilar airspace disease worrisome for pneumonia KUB X-Ray 12/15/16 20:37 IMPRESSION: NONOBSTRUCTIVE BOWEL GAS PATTERN WITH STABLE GAS DISTENSION OF BOTH SMALL AND LARGE BOWEL LOOPS MAY REPRESENT ILEUS. Abdomen/Pelvis CT 12/16/16 00:00 IMPRESSION: Distended gallbladder with stones and pericholecystic fluid. Findings are worrisome for cholecystitis. Findings discussed with Dr Ng Enlarging nodule lateral right lung base. Hepatobiliary Scan Nuclear Medicine 12/16/16 00:00 IMPRESSION: No visualization of the gallbladder on immediate or delayed hepatobiliary imaging Guidance Fluoroscopy 12/17/16 00:00 IMPRESSION: SUCCESSFUL PLACEMENT OF A 5 FR DUAL LUMEN 48 CM PICC IN THE LEFT BASILIC VEIN. Interventional Vascular Procedure 12/17/16 00:00 IMPRESSION: SUCCESSFUL PLACEMENT OF A 5 FR DUAL LUMEN 48 CM PICC IN THE LEFT BASILIC VEIN. PICC Line Insertion 12/17/16 09:00 IMPRESSION: SUCCESSFUL PLACEMENT OF A 5 FR DUAL LUMEN 48 CM PICC IN THE LEFT BASILIC VEIN. Cholecystostomy 12/18/16 08:00 IMPRESSION: CT GUIDED CHOLECYSTOSTOMY TUBE PLACEMENT UNDER CT GUIDANCE, WITH CONSCIOUS SEDATION. NO IMMEDIATE COMPLICATIONS. Assessment & Plan - Diagnosis (1) Acute cholecystitis Is this a current diagnosis for this admission?: Yes Plan: drain working. Increase tpn to 75/h. 3 gram negatives growing. 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 Chronic kidney disease stage: stage 3 (moderate) Qualified Code(s): E11.22 - Type 2 diabetes mellitus with diabetic chronic kidney disease; N18.3 - Chronic kidney disease, stage 3 (moderate); N18.3 - Chronic kidney disease, stage 3 (moderate); Z79.4 - intermission coordinator (current) use of insulin; Z79.4 - intermission coordinator (current) use of insulin; Z79.4 - skilled nursing (current) use of insulin; Z79.4 - skilled nursing (current) use of insulin Is this a current diagnosis for this admission?: Yes (3) Chronic combined systolic and diastolic heart failure Is this a current diagnosis for this admission?: Yes (4) Sepsis Qualifiers: Sepsis type: methicillin susceptible Staphylococcus aureus Qualified Code(s ): A41.01 - Sepsis due to Methicillin susceptible Staphylococcus aureus Is this a current diagnosis for this admission?: Yes (5) Acquired phimosis Is this a current diagnosis for this admission?: Yes (6) Abdominal pain, suprapubic Is this a current diagnosis for this admission?: Yes (7) Other secondary chronic gout, multiple sites, without tophus (tophi) Is this a current diagnosis for this admission?: Yes - Inpatient Certification Medical Necessity: Significant Comorbidiites Make Outpatient Treatment Too Risky , Need Close Monitoring Due to Risk of Patient Decompensation, Need For IV Fluids, Need For Continuous Telemetry Monitoring, Need for Pain Control, Need for IV Antibiotics, Risk of Complication if Not Cared For in Hospital, Risk of Diagnosis Which Will Require Inpatient Eval/Care/Monitoring
[2016-12-20] MEDS: CEFTRIAXONE 2 GM/D5W RTU 2 GM/50 ML RTUPB IV SCH (09:48)
[2016-12-20] MEDS: NORMAL SALINE 10 ML SDV (SCHEDULED) IV SCH ×2 (09:49→21:04)
[2016-12-21] MEDS: HYDROMORPHONE HCL INJ/PF 2 MG/ML AMPULE IV SCH ×5 (00:17→23:56)
--- NOTE | 2016-12-21 06:35 | PDOC PROGRESS REPORT ---
Subjective Progress Note for:: 12/21/16 Subjective:: less RUQ pain. Wants ice chips and to try liquids Physical Exam Vital Signs: Temp Pulse Resp BP Pulse Ox 97.8 F 83 18 120/71 99 12/21/16 03:37 12/21/16 03:37 12/21/16 03:37 12/21/16 03:37 12/21/16 03:37 Intake & Output 12/19/16 12/20/16 12/21/16 07:59 07:59 07:59 Intake Total 1605 1595 1640 Output Total 2595 2009 260 Balance -990 -415 -960 Weight 293 lb 3.437 oz 264 lb 5.348 oz 261 lb 3.964 oz General appearance: PRESENT: no acute distress Respiratory exam: PRESENT: clear to auscultation dina Cardiovascular exam: ABSENT: diastolic murmur, irregular rhythm, systolic murmur GI/Abdominal exam: PRESENT: tenderness - minimal RUQ. ABSENT: mass, organolmegaly Extremities exam: ABSENT: pedal edema Neurological exam: PRESENT: oriented to situation Psychiatric exam: PRESENT: appropriate affect Results Laboratory Results: 12/18/16 08:23 12/19/16 07:27 Impressions: Chest X-Ray 12/13/16 12:06 IMPRESSION: Patchy right basilar airspace disease worrisome for pneumonia KUB X-Ray 12/15/16 20:37 IMPRESSION: NONOBSTRUCTIVE BOWEL GAS PATTERN WITH STABLE GAS DISTENSION OF BOTH SMALL AND LARGE BOWEL LOOPS MAY REPRESENT ILEUS. Abdomen/Pelvis CT 12/16/16 00:00 IMPRESSION: Distended gallbladder with stones and pericholecystic fluid. Findings are worrisome for cholecystitis. Findings discussed with Dr Ng Enlarging nodule lateral right lung base. Hepatobiliary Scan Nuclear Medicine 12/16/16 00:00 IMPRESSION: No visualization of the gallbladder on immediate or delayed hepatobiliary imaging Guidance Fluoroscopy 12/17/16 00:00 IMPRESSION: SUCCESSFUL PLACEMENT OF A 5 FR DUAL LUMEN 48 CM PICC IN THE LEFT BASILIC VEIN. Interventional Vascular Procedure 12/17/16 00:00 IMPRESSION: SUCCESSFUL PLACEMENT OF A 5 FR DUAL LUMEN 48 CM PICC IN THE LEFT BASILIC VEIN. PICC Line Insertion 12/17/16 09:00 IMPRESSION: SUCCESSFUL PLACEMENT OF A 5 FR DUAL LUMEN 48 CM PICC IN THE LEFT BASILIC VEIN. Cholecystostomy 12/18/16 08:00 IMPRESSION: CT GUIDED CHOLECYSTOSTOMY TUBE PLACEMENT UNDER CT GUIDANCE, WITH CONSCIOUS SEDATION. NO IMMEDIATE COMPLICATIONS. Assessment & Plan - Diagnosis (1) Acute cholecystitis Is this a current diagnosis for this admission?: Yes Plan: drain grew kleb proteus sensitive to ceftri and gram+ chains. Increase tpn to goal 85/k. Try clear liquids. (2) Type 2 diabetes mellitus with diabetic chronic kidney disease Qualifiers: Diabetes mellitus senior care insulin use: with intermission coordinator use Chronic kidney disease stage: stage 3 (moderate) Qualified Code(s): E11.22 - Type 2 diabetes mellitus with diabetic chronic kidney disease; N18.3 - Chronic kidney disease, stage 3 (moderate); N18.3 - Chronic kidney disease, stage 3 (moderate); Z79.4 - assistant terminal manager (current) use of insulin; Z79.4 - USP (current) use of insulin; Z79.4 - USP (current) use of insulin; Z79.4 - assistant terminal manager (current) use of insulin Is this a current diagnosis for this admission?: Yes (3) Chronic combined systolic and diastolic heart failure Is this a current diagnosis for this admission?: Yes (4) Sepsis Qualifiers: Sepsis type: methicillin susceptible Staphylococcus aureus Qualified Code(s ): A41.01 - Sepsis due to Methicillin susceptible Staphylococcus aureus Is this a current diagnosis for this admission?: Yes (5) Acquired phimosis Is this a current diagnosis for this admission?: Yes (6) Abdominal pain, suprapubic Is this a current diagnosis for this admission?: Yes (7) Other secondary chronic gout, multiple sites, without tophus (tophi) Is this a current diagnosis for this admission?: Yes
[2016-12-21 07:10] LABS: ANION GAP 7 (5-19); BLOOD UREA NITROGEN 19 mg/dL (7-20); CALCIUM 8.4 mg/dL (8.4-10.2); CARBON DIOXIDE 26 mmol/L (22-30); CHLORIDE 112 mmol/L (98-107); GLUCOSE 165 mg/dL (75-110); POTASSIUM 5.6 mmol/L (3.6-5.0); SODIUM 145.4 mmol/L (137-145)
[2016-12-21] MEDS: NORMAL SALINE 10 ML SDV (SCHEDULED) IV SCH ×2 (09:04→21:19)
[2016-12-21] MEDS: CEFTRIAXONE 2 GM/D5W RTU 2 GM/50 ML RTUPB IV SCH (09:04)
--- NOTE | 2016-12-21 10:33 | PDOC PROGRESS REPORT ---
Subjective Progress Note for:: 12/21/16 Subjective:: abdominal pains Physical Exam Vital Signs: Temp Pulse Resp BP Pulse Ox 98.0 F 73 23 H 119/65 97 12/21/16 07:51 12/21/16 07:51 12/21/16 07:51 12/21/16 07:51 12/21/16 07:51 Intake & Output 12/20/16 12/21/16 12/22/16 06:59 06:59 06:59 Intake Total 1595 1640 Output Total 2009 2749 Balance -415 -1110 Weight 119.9 kg 118.5 kg Exam: Abdomen is soft with minimal tenderness at the RUQ. Drain in place. Frank catheter in place and no evidence of Phimosis Results Laboratory Results: 12/18/16 08:23 12/21/16 06:49 12/21/16 06:49 Sodium 145.4 H Potassium 5.6 H Chloride 112 H Carbon Dioxide 26 Anion Gap 7 BUN 19 Creatinine 0.71 Est GFR ( Amer) > 60 Est GFR (Non-Af Amer) > 60 Glucose 165 H Calcium 8.4 Impressions: Chest X-Ray 12/13/16 12:06 IMPRESSION: Patchy right basilar airspace disease worrisome for pneumonia KUB X-Ray 12/15/16 20:37 IMPRESSION: NONOBSTRUCTIVE BOWEL GAS PATTERN WITH STABLE GAS DISTENSION OF BOTH SMALL AND LARGE BOWEL LOOPS MAY REPRESENT ILEUS. Abdomen/Pelvis CT 12/16/16 00:00 IMPRESSION: Distended gallbladder with stones and pericholecystic fluid. Findings are worrisome for cholecystitis. Findings discussed with Dr Ng Enlarging nodule lateral right lung base. Hepatobiliary Scan Nuclear Medicine 12/16/16 00:00 IMPRESSION: No visualization of the gallbladder on immediate or delayed hepatobiliary imaging Guidance Fluoroscopy 12/17/16 00:00 IMPRESSION: SUCCESSFUL PLACEMENT OF A 5 FR DUAL LUMEN 48 CM PICC IN THE LEFT BASILIC VEIN. Interventional Vascular Procedure 12/17/16 00:00 IMPRESSION: SUCCESSFUL PLACEMENT OF A 5 FR DUAL LUMEN 48 CM PICC IN THE LEFT BASILIC VEIN. PICC Line Insertion 12/17/16 09:00 IMPRESSION: SUCCESSFUL PLACEMENT OF A 5 FR DUAL LUMEN 48 CM PICC IN THE LEFT BASILIC VEIN. Cholecystostomy 12/18/16 08:00 IMPRESSION: CT GUIDED CHOLECYSTOSTOMY TUBE PLACEMENT UNDER CT GUIDANCE, WITH CONSCIOUS SEDATION. NO IMMEDIATE COMPLICATIONS. Assessment & Plan - Time Time Spent with patient: 15-24 minutes - Plan Summary Plan Summary: OK to start diet F/U prn
[2016-12-21] MEDS: AMINO ACIDS 5%/D25W 1,000 ML IV PRN (12:22)
[2016-12-21] MEDS: ACETAMINOPHEN 325 MG TABLET PO PRN (19:27)
[2016-12-22] MEDS: AMINO ACIDS 5%/D25W 1,000 ML IV PRN ×2 (01:54→15:45)
[2016-12-22] MEDS: INSULIN REG, HUMAN 100 UNIT/ML 3 ML VIAL (PYX) SUBCUT PRN ×3 (02:38→18:09)
[2016-12-22] MEDS: HYDROMORPHONE HCL INJ/PF 2 MG/ML AMPULE IV SCH ×3 (05:22→17:48)
[2016-12-22 06:37] LABS: ABSOLUTE EOSINOPHILS # (AUTO) 0.3 10^3/uL (0.0-0.6); ABSOLUTE MONOCYTES (AUTO) 0.9 10^3/uL (0.1-1.4); ABSOLUTE NEUT (AUTO) 9.5 10^3/uL (1.7-8.2); BASOPHILS % (AUTO) 0.2 % (0-2); EOSINOPHILS % (AUTO) 2.4 % (0-6); HEMATOCRIT 36.6 % (37.9-51.0); HEMOGLOBIN 11.6 g/dL (13.5-17.0); LYMPHOCYTES % (AUTO) 8.9 % (13-45); MEAN CORPUSCULAR HEMOGLOBIN 28.8 pg (27.0-33.4); MEAN CORPUSCULAR HGB CONC 31.8 g/dL (32.0-36.0); MEAN CORPUSCULAR VOLUME 91 fl (80-97); PLATELET COUNT 300 10^3/uL (150-450); RED BLOOD COUNT 4.04 10^6/uL (4.35-5.55); RED CELL DISTRIBUTION WIDTH 17.1 % (11.5-14.0); SEGMENTED NEUTROPHILS % (AUTO) 80.5 % (42-78); TOTAL CELLS COUNTED % (AUTO) 100 %; WHITE BLOOD COUNT 11.8 10^3/uL (4.0-10.5)
[2016-12-22 06:53] LABS: ALANINE AMINOTRANSFERASE 309 U/L (21-72); ALBUMIN 2.6 g/dL (3.5-5.0); ALKALINE PHOSPHATASE 354 U/L (38-126); ANION GAP 8 (5-19); ASPARTATE AMINO TRANSFERASE 165 U/L (17-59); BILIRUBIN,DIRECT 0.4 mg/dL (0.0-0.4); BILIRUBIN,TOTAL 0.7 mg/dL (0.2-1.3); BLOOD UREA NITROGEN 19 mg/dL (7-20); CALCIUM 8.5 mg/dL (8.4-10.2); CARBON DIOXIDE 25 mmol/L (22-30); CHLORIDE 109 mmol/L (98-107); GLUCOSE 180 mg/dL (75-110); MAGNESIUM 2.5 mg/dL (1.6-2.3); PHOSPHORUS 3.4 mg/dL (2.5-4.5); POTASSIUM 5.4 mmol/L (3.6-5.0); SODIUM 141.5 mmol/L (137-145); TOTAL PROTEIN 5.7 g/dL (6.3-8.2)
[2016-12-22 06:56] LABS: INTERNATIONAL RATION (INR) 1.22; PROTHROMBIN TIME 16.2 SEC (11.4-15.4)
[2016-12-22 06:59] LABS: PREALBUMIN 8.9 mg/dL (17.6-36.0)
[2016-12-22] MEDS: CEFTRIAXONE 2 GM/D5W RTU 2 GM/50 ML RTUPB IV SCH (09:00)
[2016-12-22] MEDS: NORMAL SALINE 10 ML SDV (SCHEDULED) IV SCH ×2 (09:00→21:46)
[2016-12-22] MEDS: FAT EMULSIONS 250 ML IV SCH (10:03)
--- NOTE | 2016-12-22 10:03 | PDOC PROGRESS REPORT ---
Subjective Progress Note for:: 12/22/16 Subjective:: diarrhea *4 after clear liquids Physical Exam Vital Signs: Temp Pulse Resp BP Pulse Ox 98.6 F 70 20 108/62 100 12/22/16 08:27 12/22/16 08:27 12/22/16 08:27 12/22/16 08:27 12/22/16 08:27 Intake & Output 12/21/16 12/22/16 12/23/16 07:59 07:59 07:59 Intake Total 1640 1885 Output Total 2850 1850 Balance -1210 35 Weight 261 lb 3.964 oz 259 lb 11.272 oz General appearance: PRESENT: no acute distress Respiratory exam: PRESENT: clear to auscultation dina Cardiovascular exam: ABSENT: diastolic murmur, irregular rhythm, systolic murmur GI/Abdominal exam: ABSENT: mass, organolmegaly, tenderness Extremities exam: ABSENT: pedal edema Neurological exam: PRESENT: oriented to situation Psychiatric exam: PRESENT: appropriate affect Results Laboratory Results: 12/22/16 06:13 12/22/16 06:13 12/22/16 12/22/16 06:13 06:13 WBC 11.8 H RBC 4.04 L Hgb 11.6 L Hct 36.6 L MCV 91 MCH 28.8 MCHC 31.8 L RDW 17.1 H Plt Count 300 Seg Neutrophils % 80.5 H Lymphocytes % 8.9 L Monocytes % 8.0 Eosinophils % 2.4 Basophils % 0.2 Absolute Neutrophils 9.5 H Absolute Lymphocytes 1.0 Absolute Monocytes 0.9 Absolute Eosinophils 0.3 Absolute Basophils 0.0 Sodium 141.5 Potassium 5.4 H Chloride 109 H Carbon Dioxide 25 Anion Gap 8 BUN 19 Creatinine 0.77 Est GFR ( Amer) > 60 Est GFR (Non-Af Amer) > 60 Glucose 180 H Calcium 8.5 Phosphorus 3.4 Magnesium 2.5 H Total Bilirubin 0.7 AST 165 H ALT 309 H Alkaline Phosphatase 354 H Total Protein 5.7 L Albumin 2.6 L Prealbumin 8.9 L Impressions: Chest X-Ray 12/13/16 12:06 IMPRESSION: Patchy right basilar airspace disease worrisome for pneumonia KUB X-Ray 12/15/16 20:37 IMPRESSION: NONOBSTRUCTIVE BOWEL GAS PATTERN WITH STABLE GAS DISTENSION OF BOTH SMALL AND LARGE BOWEL LOOPS MAY REPRESENT ILEUS. Abdomen/Pelvis CT 12/16/16 00:00 IMPRESSION: Distended gallbladder with stones and pericholecystic fluid. Findings are worrisome for cholecystitis. Findings discussed with Dr Ng Enlarging nodule lateral right lung base. Hepatobiliary Scan Nuclear Medicine 12/16/16 00:00 IMPRESSION: No visualization of the gallbladder on immediate or delayed hepatobiliary imaging Guidance Fluoroscopy 12/17/16 00:00 IMPRESSION: SUCCESSFUL PLACEMENT OF A 5 FR DUAL LUMEN 48 CM PICC IN THE LEFT BASILIC VEIN. Interventional Vascular Procedure 12/17/16 00:00 IMPRESSION: SUCCESSFUL PLACEMENT OF A 5 FR DUAL LUMEN 48 CM PICC IN THE LEFT BASILIC VEIN. PICC Line Insertion 12/17/16 09:00 IMPRESSION: SUCCESSFUL PLACEMENT OF A 5 FR DUAL LUMEN 48 CM PICC IN THE LEFT BASILIC VEIN. Cholecystostomy 12/18/16 08:00 IMPRESSION: CT GUIDED CHOLECYSTOSTOMY TUBE PLACEMENT UNDER CT GUIDANCE, WITH CONSCIOUS SEDATION. NO IMMEDIATE COMPLICATIONS. Assessment & Plan - Diagnosis (1) Acute cholecystitis Is this a current diagnosis for this admission?: Yes Plan: growing B frag now too. Consider unasyn. Check Cdiff. Increase tpn Na to 40 (2) Type 2 diabetes mellitus with diabetic chronic kidney disease Qualifiers: Diabetes mellitus snf insulin use: with snf use Chronic kidney disease stage: stage 3 (moderate) Qualified Code(s): E11.22 - Type 2 diabetes mellitus with diabetic chronic kidney disease; N18.3 - Chronic kidney disease, stage 3 (moderate); N18.3 - Chronic kidney disease, stage 3 (moderate); Z79.4 - snf (current) use of insulin; Z79.4 - long term care social worker (current) use of insulin; Z79.4 - snf (current) use of insulin; Z79.4 - snf (current) use of insulin Is this a current diagnosis for this admission?: Yes (3) Chronic combined systolic and diastolic heart failure Is this a current diagnosis for this admission?: Yes (4) Sepsis Qualifiers: Sepsis type: methicillin susceptible Staphylococcus aureus Qualified Code(s ): A41.01 - Sepsis due to Methicillin susceptible Staphylococcus aureus Is this a current diagnosis for this admission?: Yes (5) Acquired phimosis Is this a current diagnosis for this admission?: Yes (6) Abdominal pain, suprapubic Is this a current diagnosis for this admission?: Yes (7) Other secondary chronic gout, multiple sites, without tophus (tophi) Is this a current diagnosis for this admission?: Yes - Inpatient Certification Medical Necessity: Significant Comorbidiites Make Outpatient Treatment Too Risky , Need Close Monitoring Due to Risk of Patient Decompensation, Need For IV Fluids, Need For Continuous Telemetry Monitoring, Need for IV Antibiotics, Risk of Complication if Not Cared For in Hospital, Risk of Diagnosis Which Will Require Inpatient Eval/Care/Monitoring
[2016-12-22] MEDS: ACETAMINOPHEN 325 MG TABLET PO PRN (21:51)
[2016-12-23] MEDS: HYDROMORPHONE HCL INJ/PF 2 MG/ML AMPULE IV SCH (00:44)
[2016-12-23] MEDS: AMINO ACIDS 5%/D25W 1,000 ML IV PRN ×2 (05:11→18:08)
--- NOTE | 2016-12-23 07:35 | PDOC PROGRESS REPORT ---
Subjective Progress Note for:: 12/23/16 Subjective:: 1 loose stool. Afraid to take liquids for fear of diarrhea. Physical Exam Vital Signs: Temp Pulse Resp BP Pulse Ox 98.1 F 67 20 140/77 H 98 12/23/16 03:42 12/23/16 07:00 12/23/16 03:42 12/23/16 03:42 12/23/16 03:42 Intake & Output 12/21/16 12/22/16 12/23/16 07:59 07:59 07:59 Intake Total 1640 1885 3290 Output Total 2850 1850 1952 Balance -1210 35 1338 Weight 261 lb 3.964 oz 259 lb 11.272 oz 258 lb 9.636 oz General appearance: PRESENT: no acute distress Respiratory exam: PRESENT: clear to auscultation dina Cardiovascular exam: ABSENT: diastolic murmur, irregular rhythm, systolic murmur GI/Abdominal exam: PRESENT: normal bowel sounds. ABSENT: mass, organolmegaly, tenderness Extremities exam: ABSENT: pedal edema Neurological exam: PRESENT: oriented to situation Psychiatric exam: PRESENT: appropriate affect Results Laboratory Results: 12/22/16 06:13 12/23/16 06:15 Abnormal - 24 hr 12/22/16 12/22/16 12:11 18:05 POC Glucose 180 H 178 H 12/18/16 12:00 Gall Bladder Fluid Gram Stain - Final 12/18/16 12:00 Gall Bladder Fluid Body Fluid Culture - Final Proteus Mirabilis Klebsiella Pneumoniae Enterococcus Faecalis(Group D) Bacteroides Fragilis Group Impressions: Chest X-Ray 12/13/16 12:06 IMPRESSION: Patchy right basilar airspace disease worrisome for pneumonia KUB X-Ray 12/15/16 20:37 IMPRESSION: NONOBSTRUCTIVE BOWEL GAS PATTERN WITH STABLE GAS DISTENSION OF BOTH SMALL AND LARGE BOWEL LOOPS MAY REPRESENT ILEUS. Abdomen/Pelvis CT 12/16/16 00:00 IMPRESSION: Distended gallbladder with stones and pericholecystic fluid. Findings are worrisome for cholecystitis. Findings discussed with Dr Ng Enlarging nodule lateral right lung base. Hepatobiliary Scan Nuclear Medicine 12/16/16 00:00 IMPRESSION: No visualization of the gallbladder on immediate or delayed hepatobiliary imaging Guidance Fluoroscopy 12/17/16 00:00 IMPRESSION: SUCCESSFUL PLACEMENT OF A 5 FR DUAL LUMEN 48 CM PICC IN THE LEFT BASILIC VEIN. Interventional Vascular Procedure 12/17/16 00:00 IMPRESSION: SUCCESSFUL PLACEMENT OF A 5 FR DUAL LUMEN 48 CM PICC IN THE LEFT BASILIC VEIN. PICC Line Insertion 12/17/16 09:00 IMPRESSION: SUCCESSFUL PLACEMENT OF A 5 FR DUAL LUMEN 48 CM PICC IN THE LEFT BASILIC VEIN. Cholecystostomy 12/18/16 08:00 IMPRESSION: CT GUIDED CHOLECYSTOSTOMY TUBE PLACEMENT UNDER CT GUIDANCE, WITH CONSCIOUS SEDATION. NO IMMEDIATE COMPLICATIONS. Assessment & Plan - Diagnosis (1) Acute cholecystitis Is this a current diagnosis for this admission?: Yes Plan: grew proteus kleb enterococcus fecalis B frag. Switch ceftri to unasyn (2) Type 2 diabetes mellitus with diabetic chronic kidney disease Qualifiers: Diabetes mellitus intermediate insulin use: with ad terminal makeup operator use Chronic kidney disease stage: stage 3 (moderate) Qualified Code(s): E11.22 - Type 2 diabetes mellitus with diabetic chronic kidney disease; N18.3 - Chronic kidney disease, stage 3 (moderate); N18.3 - Chronic kidney disease, stage 3 (moderate); Z79.4 - halfway (current) use of insulin; Z79.4 - halfway (current) use of insulin; Z79.4 - halfway (current) use of insulin; Z79.4 - adjunct faculty for medical terminology (current) use of insulin Is this a current diagnosis for this admission?: Yes (3) Chronic combined systolic and diastolic heart failure Is this a current diagnosis for this admission?: Yes (4) Sepsis Qualifiers: Sepsis type: methicillin susceptible Staphylococcus aureus Qualified Code(s ): A41.01 - Sepsis due to Methicillin susceptible Staphylococcus aureus Is this a current diagnosis for this admission?: Yes (5) Acquired phimosis Is this a current diagnosis for this admission?: Yes (6) Abdominal pain, suprapubic Is this a current diagnosis for this admission?: Yes (7) Other secondary chronic gout, multiple sites, without tophus (tophi) Is this a current diagnosis for this admission?: Yes - Inpatient Certification Medical Necessity: Significant Comorbidiites Make Outpatient Treatment Too Risky , Need Close Monitoring Due to Risk of Patient Decompensation, Need For IV Fluids, Need For Continuous Telemetry Monitoring, Need for IV Antibiotics, Risk of Complication if Not Cared For in Hospital, Risk of Diagnosis Which Will Require Inpatient Eval/Care/Monitoring
[2016-12-23 08:05] LABS: ALANINE AMINOTRANSFERASE 205 U/L (21-72); ALBUMIN 2.8 g/dL (3.5-5.0); ALKALINE PHOSPHATASE 331 U/L (38-126); ANION GAP 9 (5-19); ASPARTATE AMINO TRANSFERASE 69 U/L (17-59); BILIRUBIN,DIRECT 0.5 mg/dL (0.0-0.4); BILIRUBIN,TOTAL 0.6 mg/dL (0.2-1.3); BLOOD UREA NITROGEN 21 mg/dL (7-20); CALCIUM 8.4 mg/dL (8.4-10.2); CARBON DIOXIDE 26 mmol/L (22-30); CHLORIDE 105 mmol/L (98-107); GLUCOSE 211 mg/dL (75-110); POTASSIUM 5.8 mmol/L (3.6-5.0); SODIUM 139.5 mmol/L (137-145); TOTAL PROTEIN 5.9 g/dL (6.3-8.2)
[2016-12-23] MEDS: ACETAMINOPHEN 325 MG TABLET PO PRN ×3 (09:05→22:39)
[2016-12-23] MEDS: INSULIN REG, HUMAN 100 UNIT/ML 3 ML VIAL (PYX) SUBCUT PRN ×3 (09:05→23:51)
[2016-12-23] MEDS: NORMAL SALINE 10 ML SDV (SCHEDULED) IV SCH ×2 (10:07→21:13)
[2016-12-23] MEDS: AMPICILLIN SODIUM/SULBACTAM NA 3 GM in NORMAL SALINE 100 ML IV SCH ×3 (11:42→23:02)
[2016-12-23] MEDS: HYDROMORPHONE HCL 2 MG TABLET PO PRN (18:42)
[2016-12-24] MEDS: HYDROMORPHONE HCL 2 MG TABLET PO PRN ×3 (02:33→18:34)
[2016-12-24] MEDS: AMPICILLIN SODIUM/SULBACTAM NA 3 GM in NORMAL SALINE 100 ML IV SCH ×4 (05:22→23:55)
--- NOTE | 2016-12-24 06:45 | PDOC PROGRESS REPORT ---
Subjective Progress Note for:: 12/24/16 Subjective:: pain knees & shoulders. Now back on po dilaudid at 1mg tid. Cant walk after 12d in bed. Depressed Physical Exam Vital Signs: Temp Pulse Resp BP Pulse Ox 97.8 F 81 20 113/72 98 12/24/16 03:46 12/24/16 03:46 12/24/16 03:46 12/24/16 03:46 12/24/16 03:46 Intake & Output 12/22/16 12/23/16 12/24/16 07:59 07:59 07:59 Intake Total 1885 3290 2951 Output Total 1850 1952 2275 Balance 35 1338 676 Weight 259 lb 11.272 oz 258 lb 9.636 oz 259 lb 4.218 oz General appearance: PRESENT: no acute distress Respiratory exam: PRESENT: clear to auscultation dina Cardiovascular exam: ABSENT: diastolic murmur, irregular rhythm, systolic murmur GI/Abdominal exam: ABSENT: mass, organolmegaly, tenderness Extremities exam: ABSENT: pedal edema Neurological exam: PRESENT: oriented to situation Psychiatric exam: PRESENT: depressed Results Laboratory Results: 12/22/16 06:13 12/23/16 07:31 Abnormal - 24 hr 12/22/16 12/23/16 12/23/16 23:44 06:26 07:31 Potassium 5.8 H BUN 21 H Glucose 211 H POC Glucose 165 H 159 H Direct Bilirubin 0.5 H AST 69 H ALT 205 H Alkaline Phosphatase 331 H Total Protein 5.9 L Albumin 2.8 L 12/23/16 12/23/16 12/23/16 11:44 15:52 18:29 Potassium BUN Glucose POC Glucose 209 H 168 H 125 H Direct Bilirubin AST ALT Alkaline Phosphatase Total Protein Albumin 12/23/16 23:48 Potassium BUN Glucose POC Glucose 197 H Direct Bilirubin AST ALT Alkaline Phosphatase Total Protein Albumin Impressions: Chest X-Ray 12/13/16 12:06 IMPRESSION: Patchy right basilar airspace disease worrisome for pneumonia KUB X-Ray 12/15/16 20:37 IMPRESSION: NONOBSTRUCTIVE BOWEL GAS PATTERN WITH STABLE GAS DISTENSION OF BOTH SMALL AND LARGE BOWEL LOOPS MAY REPRESENT ILEUS. Abdomen/Pelvis CT 12/16/16 00:00 IMPRESSION: Distended gallbladder with stones and pericholecystic fluid. Findings are worrisome for cholecystitis. Findings discussed with Dr Ng Enlarging nodule lateral right lung base. Hepatobiliary Scan Nuclear Medicine 12/16/16 00:00 IMPRESSION: No visualization of the gallbladder on immediate or delayed hepatobiliary imaging Guidance Fluoroscopy 12/17/16 00:00 IMPRESSION: SUCCESSFUL PLACEMENT OF A 5 FR DUAL LUMEN 48 CM PICC IN THE LEFT BASILIC VEIN. Interventional Vascular Procedure 12/17/16 00:00 IMPRESSION: SUCCESSFUL PLACEMENT OF A 5 FR DUAL LUMEN 48 CM PICC IN THE LEFT BASILIC VEIN. PICC Line Insertion 12/17/16 09:00 IMPRESSION: SUCCESSFUL PLACEMENT OF A 5 FR DUAL LUMEN 48 CM PICC IN THE LEFT BASILIC VEIN. Cholecystostomy 12/18/16 08:00 IMPRESSION: CT GUIDED CHOLECYSTOSTOMY TUBE PLACEMENT UNDER CT GUIDANCE, WITH CONSCIOUS SEDATION. NO IMMEDIATE COMPLICATIONS. Assessment & Plan - Diagnosis (1) Acute cholecystitis Is this a current diagnosis for this admission?: Yes Plan: still draining. Continue unasyn (2) Type 2 diabetes mellitus with diabetic chronic kidney disease Qualifiers: Diabetes mellitus terminal gauger supervisor insulin use: with terminal gauger supervisor use Chronic kidney disease stage: stage 3 (moderate) Qualified Code(s): E11.22 - Type 2 diabetes mellitus with diabetic chronic kidney disease; N18.3 - Chronic kidney disease, stage 3 (moderate); N18.3 - Chronic kidney disease, stage 3 (moderate); Z79.4 - half-way (current) use of insulin; Z79.4 - half-way (current) use of insulin; Z79.4 - terminal gauger (current) use of insulin; Z79.4 - terminal gauger (current) use of insulin Is this a current diagnosis for this admission?: Yes (3) Chronic combined systolic and diastolic heart failure Is this a current diagnosis for this admission?: Yes (4) Sepsis Qualifiers: Sepsis type: methicillin susceptible Staphylococcus aureus Qualified Code(s ): A41.01 - Sepsis due to Methicillin susceptible Staphylococcus aureus Is this a current diagnosis for this admission?: Yes (5) Abdominal pain, suprapubic Is this a current diagnosis for this admission?: Yes (6) Other secondary chronic gout, multiple sites, without tophus (tophi) Is this a current diagnosis for this admission?: Yes (7) Primary osteoarthritis of both knees Is this a current diagnosis for this admission?: Yes Plan: couldnt side step. Continue PT - Inpatient Certification Medical Necessity: Significant Comorbidiites Make Outpatient Treatment Too Risky , Need Close Monitoring Due to Risk of Patient Decompensation, Need For IV Fluids, Need for Pain Control, Need for IV Antibiotics, Risk of Complication if Not Cared For in Hospital, Risk of Diagnosis Which Will Require Inpatient Eval/ Care/Monitoring
[2016-12-24] MEDS: AMINO ACIDS 5%/D25W 1,000 ML IV PRN ×2 (06:47→18:35)
[2016-12-24] MEDS: INSULIN REG, HUMAN 100 UNIT/ML 3 ML VIAL (PYX) SUBCUT PRN ×3 (06:47→18:35)
[2016-12-24] MEDS: NORMAL SALINE 10 ML SDV (SCHEDULED) IV SCH ×2 (10:08→21:01)
[2016-12-24 13:14] LABS: ANION GAP 11 (5-19); BLOOD UREA NITROGEN 22 mg/dL (7-20); CALCIUM 8.4 mg/dL (8.4-10.2); CARBON DIOXIDE 26 mmol/L (22-30); CHLORIDE 104 mmol/L (98-107); GLUCOSE 196 mg/dL (75-110); POTASSIUM 5.3 mmol/L (3.6-5.0); SODIUM 140.5 mmol/L (137-145)
[2016-12-24] MEDS: ACETAMINOPHEN 325 MG TABLET PO PRN ×2 (14:21→21:03)
[2016-12-25] MEDS: INSULIN REG, HUMAN 100 UNIT/ML 3 ML VIAL (PYX) SUBCUT PRN ×3 (00:06→12:44)
[2016-12-25] MEDS: HYDROMORPHONE HCL 2 MG TABLET PO PRN ×2 (02:55→16:50)
[2016-12-25] MEDS: AMPICILLIN SODIUM/SULBACTAM NA 3 GM in NORMAL SALINE 100 ML IV SCH ×4 (05:41→23:17)
--- NOTE | 2016-12-25 08:24 | PDOC PROGRESS REPORT ---
Subjective Progress Note for:: 12/25/16 Subjective:: not hungry Physical Exam Vital Signs: Temp Pulse Resp BP Pulse Ox 97.9 F 67 22 H 117/61 100 12/25/16 07:29 12/25/16 07:29 12/25/16 07:29 12/25/16 07:29 12/25/16 07:29 Intake & Output 12/24/16 12/25/16 12/26/16 07:59 07:59 07:59 Intake Total 2951 2764 Output Total 2965 2100 Balance -14 664 Weight 259 lb 4.218 oz 257 lb 0.944 oz General appearance: PRESENT: no acute distress Respiratory exam: PRESENT: clear to auscultation dina Cardiovascular exam: ABSENT: diastolic murmur, irregular rhythm, tachycardia GI/Abdominal exam: ABSENT: mass, organolmegaly, tenderness Extremities exam: ABSENT: pedal edema Neurological exam: PRESENT: oriented to situation Psychiatric exam: PRESENT: appropriate affect Results Laboratory Results: 12/22/16 06:13 12/24/16 12:10 Sodium 140.5 Potassium 5.3 H Chloride 104 Carbon Dioxide 26 Anion Gap 11 BUN 22 H Creatinine 0.69 Est GFR ( Amer) > 60 Est GFR (Non-Af Amer) > 60 Glucose 196 H Calcium 8.4 Impressions: Chest X-Ray 12/13/16 12:06 IMPRESSION: Patchy right basilar airspace disease worrisome for pneumonia KUB X-Ray 12/15/16 20:37 IMPRESSION: NONOBSTRUCTIVE BOWEL GAS PATTERN WITH STABLE GAS DISTENSION OF BOTH SMALL AND LARGE BOWEL LOOPS MAY REPRESENT ILEUS. Abdomen/Pelvis CT 12/16/16 00:00 IMPRESSION: Distended gallbladder with stones and pericholecystic fluid. Findings are worrisome for cholecystitis. Findings discussed with Dr Ng Enlarging nodule lateral right lung base. Hepatobiliary Scan Nuclear Medicine 12/16/16 00:00 IMPRESSION: No visualization of the gallbladder on immediate or delayed hepatobiliary imaging Guidance Fluoroscopy 12/17/16 00:00 IMPRESSION: SUCCESSFUL PLACEMENT OF A 5 FR DUAL LUMEN 48 CM PICC IN THE LEFT BASILIC VEIN. Interventional Vascular Procedure 12/17/16 00:00 IMPRESSION: SUCCESSFUL PLACEMENT OF A 5 FR DUAL LUMEN 48 CM PICC IN THE LEFT BASILIC VEIN. PICC Line Insertion 12/17/16 09:00 IMPRESSION: SUCCESSFUL PLACEMENT OF A 5 FR DUAL LUMEN 48 CM PICC IN THE LEFT BASILIC VEIN. Cholecystostomy 12/18/16 08:00 IMPRESSION: CT GUIDED CHOLECYSTOSTOMY TUBE PLACEMENT UNDER CT GUIDANCE, WITH CONSCIOUS SEDATION. NO IMMEDIATE COMPLICATIONS. Assessment & Plan - Diagnosis (1) Acute cholecystitis Is this a current diagnosis for this admission?: Yes Plan: po around 600. Off tpn today. Try full liquids (2) Type 2 diabetes mellitus with diabetic chronic kidney disease Qualifiers: Diabetes mellitus laborer marine terminal insulin use: with laborer marine terminal use Chronic kidney disease stage: stage 3 (moderate) Qualified Code(s): E11.22 - Type 2 diabetes mellitus with diabetic chronic kidney disease; N18.3 - Chronic kidney disease, stage 3 (moderate); N18.3 - Chronic kidney disease, stage 3 (moderate); Z79.4 - nursing home (current) use of insulin; Z79.4 - nursing home (current) use of insulin; Z79.4 - nursing home (current) use of insulin; Z79.4 - laborer marine terminal (current) use of insulin Is this a current diagnosis for this admission?: Yes (3) Chronic combined systolic and diastolic heart failure Is this a current diagnosis for this admission?: Yes (4) Sepsis Qualifiers: Sepsis type: methicillin susceptible Staphylococcus aureus Qualified Code(s ): A41.01 - Sepsis due to Methicillin susceptible Staphylococcus aureus Is this a current diagnosis for this admission?: Yes (5) Abdominal pain, suprapubic Is this a current diagnosis for this admission?: Yes (6) Other secondary chronic gout, multiple sites, without tophus (tophi) Is this a current diagnosis for this admission?: Yes (7) Primary osteoarthritis of both knees Is this a current diagnosis for this admission?: Yes - Inpatient Certification Medical Necessity: Significant Comorbidiites Make Outpatient Treatment Too Risky , Need Close Monitoring Due to Risk of Patient Decompensation, Need for Pain Control, Need for IV Antibiotics, Risk of Complication if Not Cared For in Hospital, Risk of Diagnosis Which Will Require Inpatient Eval/Care/Monitoring
[2016-12-25 08:28] LABS: ALANINE AMINOTRANSFERASE 118 U/L (21-72); ALBUMIN 2.8 g/dL (3.5-5.0); ALKALINE PHOSPHATASE 267 U/L (38-126); ANION GAP 10 (5-19); ASPARTATE AMINO TRANSFERASE 39 U/L (17-59); BILIRUBIN,DIRECT 0.5 mg/dL (0.0-0.4); BILIRUBIN,TOTAL 0.5 mg/dL (0.2-1.3); BLOOD UREA NITROGEN 22 mg/dL (7-20); CALCIUM 8.4 mg/dL (8.4-10.2); CARBON DIOXIDE 26 mmol/L (22-30); CHLORIDE 105 mmol/L (98-107); GLUCOSE 173 mg/dL (75-110); PHOSPHORUS 3.6 mg/dL (2.5-4.5); POTASSIUM 5.3 mmol/L (3.6-5.0); SODIUM 141.3 mmol/L (137-145); TOTAL PROTEIN 6.2 g/dL (6.3-8.2)
[2016-12-25 08:40] LABS: PREALBUMIN 14.8 mg/dL (17.6-36.0)
[2016-12-25] MEDS: NORMAL SALINE 10 ML SDV (SCHEDULED) IV SCH ×2 (09:16→21:29)
[2016-12-25] MEDS: ACETAMINOPHEN 325 MG TABLET PO PRN ×2 (12:13→22:30)
[2016-12-26] MEDS: HYDROMORPHONE HCL 2 MG TABLET PO PRN ×3 (02:19→20:09)
[2016-12-26] MEDS: AMPICILLIN SODIUM/SULBACTAM NA 3 GM in NORMAL SALINE 100 ML IV SCH ×3 (05:14→18:03)
[2016-12-26 06:45] LABS: ANION GAP 11 (5-19); BLOOD UREA NITROGEN 23 mg/dL (7-20); CALCIUM 8.2 mg/dL (8.4-10.2); CARBON DIOXIDE 24 mmol/L (22-30); CHLORIDE 107 mmol/L (98-107); GLUCOSE 81 mg/dL (75-110); POTASSIUM 4.9 mmol/L (3.6-5.0); SODIUM 142.1 mmol/L (137-145)
--- NOTE | 2016-12-26 07:02 | PDOC PROGRESS REPORT ---
Subjective Progress Note for:: 12/26/16 Subjective:: hungry for real food. 3 loose stools. Wants to keep soto because cant get up or use urinal. Cant make L hip move when on feet like last rehab. Physical Exam Vital Signs: Temp Pulse Resp BP Pulse Ox 98.1 F 80 16 98/67 L 100 12/26/16 03:48 12/26/16 03:48 12/26/16 03:48 12/26/16 03:48 12/26/16 03:48 Intake & Output 12/24/16 12/25/16 12/26/16 07:59 07:59 07:59 Intake Total 2951 2764 1724 Output Total 2965 2100 2181 Balance -14 664 -457 Weight 259 lb 4.218 oz 257 lb 0.944 oz 254 lb 3.088 oz General appearance: PRESENT: no acute distress Respiratory exam: PRESENT: clear to auscultation dina Cardiovascular exam: ABSENT: diastolic murmur, irregular rhythm, systolic murmur GI/Abdominal exam: ABSENT: mass, organolmegaly, tenderness Extremities exam: ABSENT: pedal edema Neurological exam: PRESENT: oriented to situation Psychiatric exam: PRESENT: appropriate affect Results Laboratory Results: 12/22/16 06:13 12/26/16 05:25 12/25/16 12/26/16 07:25 05:25 Sodium 141.3 142.1 Potassium 5.3 H 4.9 Chloride 105 107 Carbon Dioxide 26 24 Anion Gap 10 11 BUN 22 H 23 H Creatinine 0.78 0.92 Est GFR ( Amer) > 60 > 60 Est GFR (Non-Af Amer) > 60 > 60 Glucose 173 H 81 Calcium 8.4 8.2 L Phosphorus 3.6 Total Bilirubin 0.5 AST 39 ALT 118 H Alkaline Phosphatase 267 H Total Protein 6.2 L Albumin 2.8 L Prealbumin 14.8 L Impressions: Chest X-Ray 12/13/16 12:06 IMPRESSION: Patchy right basilar airspace disease worrisome for pneumonia KUB X-Ray 12/15/16 20:37 IMPRESSION: NONOBSTRUCTIVE BOWEL GAS PATTERN WITH STABLE GAS DISTENSION OF BOTH SMALL AND LARGE BOWEL LOOPS MAY REPRESENT ILEUS. Abdomen/Pelvis CT 12/16/16 00:00 IMPRESSION: Distended gallbladder with stones and pericholecystic fluid. Findings are worrisome for cholecystitis. Findings discussed with Dr Ng Enlarging nodule lateral right lung base. Hepatobiliary Scan Nuclear Medicine 12/16/16 00:00 IMPRESSION: No visualization of the gallbladder on immediate or delayed hepatobiliary imaging Guidance Fluoroscopy 12/17/16 00:00 IMPRESSION: SUCCESSFUL PLACEMENT OF A 5 FR DUAL LUMEN 48 CM PICC IN THE LEFT BASILIC VEIN. Interventional Vascular Procedure 12/17/16 00:00 IMPRESSION: SUCCESSFUL PLACEMENT OF A 5 FR DUAL LUMEN 48 CM PICC IN THE LEFT BASILIC VEIN. PICC Line Insertion 12/17/16 09:00 IMPRESSION: SUCCESSFUL PLACEMENT OF A 5 FR DUAL LUMEN 48 CM PICC IN THE LEFT BASILIC VEIN. Cholecystostomy 12/18/16 08:00 IMPRESSION: CT GUIDED CHOLECYSTOSTOMY TUBE PLACEMENT UNDER CT GUIDANCE, WITH CONSCIOUS SEDATION. NO IMMEDIATE COMPLICATIONS. Assessment & Plan - Diagnosis (1) Acute cholecystitis Is this a current diagnosis for this admission?: Yes Plan: still draining. Continue unasyn. Advance diet. (2) Type 2 diabetes mellitus with diabetic chronic kidney disease Qualifiers: Diabetes mellitus ecommerce merchandising manager insulin use: with jail use Chronic kidney disease stage: stage 3 (moderate) Qualified Code(s): E11.22 - Type 2 diabetes mellitus with diabetic chronic kidney disease; N18.3 - Chronic kidney disease, stage 3 (moderate); N18.3 - Chronic kidney disease, stage 3 (moderate); Z79.4 - custodial (current) use of insulin; Z79.4 - custodial (current) use of insulin; Z79.4 - custodial (current) use of insulin; Z79.4 - custodial (current) use of insulin Is this a current diagnosis for this admission?: Yes (3) Chronic combined systolic and diastolic heart failure Is this a current diagnosis for this admission?: Yes (4) Sepsis Qualifiers: Sepsis type: methicillin susceptible Staphylococcus aureus Qualified Code(s ): A41.01 - Sepsis due to Methicillin susceptible Staphylococcus aureus Is this a current diagnosis for this admission?: Yes (5) Abdominal pain, suprapubic Is this a current diagnosis for this admission?: Yes (6) Other secondary chronic gout, multiple sites, without tophus (tophi) Is this a current diagnosis for this admission?: Yes (7) Primary osteoarthritis of both knees Is this a current diagnosis for this admission?: Yes Plan: needs lengthy rehab - Inpatient Certification Medical Necessity: Significant Comorbidiites Make Outpatient Treatment Too Risky , Need Close Monitoring Due to Risk of Patient Decompensation, Need for IV Antibiotics, Risk of Complication if Not Cared For in Hospital, Risk of Diagnosis Which Will Require Inpatient Eval/Care/Monitoring
[2016-12-26] MEDS: ACETAMINOPHEN 325 MG TABLET PO PRN (14:47)
[2016-12-26] MEDS: NORMAL SALINE 10 ML SDV (SCHEDULED) IV SCH ×2 (14:48→21:58)
[2016-12-27] MEDS: AMPICILLIN SODIUM/SULBACTAM NA 3 GM in NORMAL SALINE 100 ML IV SCH ×5 (00:51→23:42)
[2016-12-27] MEDS: HYDROMORPHONE HCL 2 MG TABLET PO PRN ×3 (05:02→21:54)
[2016-12-27 05:38] LABS: ANION GAP 11 (5-19); BLOOD UREA NITROGEN 24 mg/dL (7-20); CARBON DIOXIDE 22 mmol/L (22-30); CHLORIDE 110 mmol/L (98-107); GLUCOSE 99 mg/dL (75-110); POTASSIUM 4.5 mmol/L (3.6-5.0); SODIUM 143.1 mmol/L (137-145)
--- NOTE | 2016-12-27 08:00 | PDOC PROGRESS REPORT ---
Subjective Progress Note for:: 12/27/16 Subjective:: enjoying real food. Wants continue soto a while longer Physical Exam Vital Signs: Temp Pulse Resp BP Pulse Ox 98.6 F 74 20 114/68 97 12/27/16 03:33 12/27/16 03:33 12/27/16 03:33 12/27/16 03:33 12/27/16 03:33 Intake & Output 12/25/16 12/26/16 12/27/16 07:59 07:59 07:59 Intake Total 2764 1724 1115 Output Total 2100 2211 2670 Balance 204 -322 -1658 Weight 257 lb 0.944 oz 254 lb 3.088 oz 255 lb 11.779 oz General appearance: PRESENT: no acute distress Respiratory exam: PRESENT: clear to auscultation dina Cardiovascular exam: ABSENT: diastolic murmur, irregular rhythm, systolic murmur GI/Abdominal exam: ABSENT: mass, organolmegaly, tenderness Extremities exam: ABSENT: pedal edema Neurological exam: PRESENT: oriented to situation Psychiatric exam: PRESENT: appropriate affect Additional comments: Abnormal - 24 hr 12/27/16 05:00 Chloride 110 H BUN 24 H Calcium 8.0 L Results Laboratory Results: 12/22/16 06:13 12/27/16 05:00 12/27/16 05:00 Sodium 143.1 Potassium 4.5 Chloride 110 H Carbon Dioxide 22 Anion Gap 11 BUN 24 H Creatinine 0.97 Est GFR ( Amer) > 60 Est GFR (Non-Af Amer) > 60 Glucose 99 Calcium 8.0 L Impressions: Chest X-Ray 12/13/16 12:06 IMPRESSION: Patchy right basilar airspace disease worrisome for pneumonia KUB X-Ray 12/15/16 20:37 IMPRESSION: NONOBSTRUCTIVE BOWEL GAS PATTERN WITH STABLE GAS DISTENSION OF BOTH SMALL AND LARGE BOWEL LOOPS MAY REPRESENT ILEUS. Abdomen/Pelvis CT 12/16/16 00:00 IMPRESSION: Distended gallbladder with stones and pericholecystic fluid. Findings are worrisome for cholecystitis. Findings discussed with Dr Ng Enlarging nodule lateral right lung base. Hepatobiliary Scan Nuclear Medicine 12/16/16 00:00 IMPRESSION: No visualization of the gallbladder on immediate or delayed hepatobiliary imaging Guidance Fluoroscopy 12/17/16 00:00 IMPRESSION: SUCCESSFUL PLACEMENT OF A 5 FR DUAL LUMEN 48 CM PICC IN THE LEFT BASILIC VEIN. Interventional Vascular Procedure 12/17/16 00:00 IMPRESSION: SUCCESSFUL PLACEMENT OF A 5 FR DUAL LUMEN 48 CM PICC IN THE LEFT BASILIC VEIN. PICC Line Insertion 12/17/16 09:00 IMPRESSION: SUCCESSFUL PLACEMENT OF A 5 FR DUAL LUMEN 48 CM PICC IN THE LEFT BASILIC VEIN. Cholecystostomy 12/18/16 08:00 IMPRESSION: CT GUIDED CHOLECYSTOSTOMY TUBE PLACEMENT UNDER CT GUIDANCE, WITH CONSCIOUS SEDATION. NO IMMEDIATE COMPLICATIONS. Assessment & Plan - Diagnosis (1) Acute cholecystitis Is this a current diagnosis for this admission?: Yes Plan: draining. Continue unasyn (2) Type 2 diabetes mellitus with diabetic chronic kidney disease Qualifiers: Diabetes mellitus [facility] insulin use: with [facility] use Chronic kidney disease stage: stage 3 (moderate) Qualified Code(s): E11.22 - Type 2 diabetes mellitus with diabetic chronic kidney disease; N18.3 - Chronic kidney disease, stage 3 (moderate); N18.3 - Chronic kidney disease, stage 3 (moderate); Z79.4 - long-term (current) use of insulin; Z79.4 - long-term (current) use of insulin; Z79.4 - terminal system operator (current) use of insulin; Z79.4 - terminal system operator (current) use of insulin Is this a current diagnosis for this admission?: Yes Plan: no hyperglycemia (3) Chronic combined systolic and diastolic heart failure Is this a current diagnosis for this admission?: Yes (4) Sepsis Qualifiers: Sepsis type: methicillin susceptible Staphylococcus aureus Qualified Code(s ): A41.01 - Sepsis due to Methicillin susceptible Staphylococcus aureus Is this a current diagnosis for this admission?: Yes (5) Abdominal pain, suprapubic Is this a current diagnosis for this admission?: Yes (6) Other secondary chronic gout, multiple sites, without tophus (tophi) Is this a current diagnosis for this admission?: Yes (7) Primary osteoarthritis of both knees Is this a current diagnosis for this admission?: Yes Plan: SNF pending - Inpatient Certification Medical Necessity: Significant Comorbidiites Make Outpatient Treatment Too Risky , Need Close Monitoring Due to Risk of Patient Decompensation, Need for Pain Control, Need for IV Antibiotics, Risk of Complication if Not Cared For in Hospital, Risk of Diagnosis Which Will Require Inpatient Eval/Care/Monitoring
[2016-12-27] MEDS: NORMAL SALINE 10 ML SDV (SCHEDULED) IV SCH ×2 (09:55→21:54)
[2016-12-27] MEDS: ACETAMINOPHEN 325 MG TABLET PO PRN (17:09)
[2016-12-28] MEDS: AMPICILLIN SODIUM/SULBACTAM NA 3 GM in NORMAL SALINE 100 ML IV SCH ×3 (05:16→17:24)
[2016-12-28] MEDS: HYDROMORPHONE HCL 2 MG TABLET PO PRN ×2 (06:02→14:20)
--- NOTE | 2016-12-28 07:53 | PDOC PROGRESS REPORT ---
Subjective Progress Note for:: 12/28/16 Subjective:: wants [facility] tomorrow Physical Exam Vital Signs: Temp Pulse Resp BP Pulse Ox 98.0 F 66 16 108/63 100 12/28/16 04:42 12/28/16 04:42 12/28/16 04:42 12/28/16 04:42 12/28/16 04:42 Intake & Output 12/26/16 12/27/16 12/28/16 07:59 07:59 07:59 Intake Total 1724 1115 2385 Output Total 2211 2670 2380 Balance -487 -1555 5 Weight 254 lb 3.088 oz 255 lb 11.779 oz 250 lb 7.122 oz General appearance: PRESENT: no acute distress Respiratory exam: PRESENT: clear to auscultation dina Cardiovascular exam: ABSENT: diastolic murmur, irregular rhythm, systolic murmur GI/Abdominal exam: ABSENT: mass, organolmegaly, tenderness Extremities exam: ABSENT: pedal edema Neurological exam: PRESENT: oriented to situation Psychiatric exam: PRESENT: appropriate affect Results Laboratory Results: 12/22/16 06:13 12/27/16 05:00 Impressions: Chest X-Ray 12/13/16 12:06 IMPRESSION: Patchy right basilar airspace disease worrisome for pneumonia KUB X-Ray 12/15/16 20:37 IMPRESSION: NONOBSTRUCTIVE BOWEL GAS PATTERN WITH STABLE GAS DISTENSION OF BOTH SMALL AND LARGE BOWEL LOOPS MAY REPRESENT ILEUS. Abdomen/Pelvis CT 12/16/16 00:00 IMPRESSION: Distended gallbladder with stones and pericholecystic fluid. Findings are worrisome for cholecystitis. Findings discussed with Dr Ng Enlarging nodule lateral right lung base. Hepatobiliary Scan Nuclear Medicine 12/16/16 00:00 IMPRESSION: No visualization of the gallbladder on immediate or delayed hepatobiliary imaging Guidance Fluoroscopy 12/17/16 00:00 IMPRESSION: SUCCESSFUL PLACEMENT OF A 5 FR DUAL LUMEN 48 CM PICC IN THE LEFT BASILIC VEIN. Interventional Vascular Procedure 12/17/16 00:00 IMPRESSION: SUCCESSFUL PLACEMENT OF A 5 FR DUAL LUMEN 48 CM PICC IN THE LEFT BASILIC VEIN. PICC Line Insertion 12/17/16 09:00 IMPRESSION: SUCCESSFUL PLACEMENT OF A 5 FR DUAL LUMEN 48 CM PICC IN THE LEFT BASILIC VEIN. Cholecystostomy 12/18/16 08:00 IMPRESSION: CT GUIDED CHOLECYSTOSTOMY TUBE PLACEMENT UNDER CT GUIDANCE, WITH CONSCIOUS SEDATION. NO IMMEDIATE COMPLICATIONS. Assessment & Plan - Diagnosis (1) Acute cholecystitis Is this a current diagnosis for this admission?: Yes Plan: draining. Finish unasyn in a day or 2 (2) Primary osteoarthritis of both knees Is this a current diagnosis for this admission?: Yes Plan: to [facility] tomorrow for rehab (3) Type 2 diabetes mellitus with diabetic chronic kidney disease Qualifiers: Diabetes mellitus [facility] insulin use: with moth exterminator use Chronic kidney disease stage: stage 3 (moderate) Qualified Code(s): E11.22 - Type 2 diabetes mellitus with diabetic chronic kidney disease; N18.3 - Chronic kidney disease, stage 3 (moderate); N18.3 - Chronic kidney disease, stage 3 (moderate); Z79.4 - [facility] (current) use of insulin; Z79.4 - terminal clerk (current) use of insulin; Z79.4 - terminal clerk (current) use of insulin; Z79.4 - terminal clerk (current) use of insulin Is this a current diagnosis for this admission?: Yes (4) Chronic combined systolic and diastolic heart failure Is this a current diagnosis for this admission?: Yes (5) Sepsis Qualifiers: Sepsis type: methicillin susceptible Staphylococcus aureus Qualified Code(s ): A41.01 - Sepsis due to Methicillin susceptible Staphylococcus aureus Is this a current diagnosis for this admission?: Yes Plan: No hesitancy at home. Frank out. PICC out on discharge (6) Abdominal pain, suprapubic Is this a current diagnosis for this admission?: Yes (7) Other secondary chronic gout, multiple sites, without tophus (tophi) Is this a current diagnosis for this admission?: Yes - Inpatient Certification Medical Necessity: Significant Comorbidiites Make Outpatient Treatment Too Risky , Need Close Monitoring Due to Risk of Patient Decompensation, Need for Pain Control, Need for IV Antibiotics, Risk of Complication if Not Cared For in Hospital, Risk of Diagnosis Which Will Require Inpatient Eval/Care/Monitoring
[2016-12-28] MEDS: NORMAL SALINE 10 ML SDV (SCHEDULED) IV SCH ×2 (11:33→21:41)
[2016-12-28] MEDS: ACETAMINOPHEN 325 MG TABLET PO PRN (16:00)
[2016-12-29] MEDS: AMPICILLIN SODIUM/SULBACTAM NA 3 GM in NORMAL SALINE 100 ML IV SCH ×3 (00:29→12:47)
[2016-12-29] MEDS: HYDROMORPHONE HCL 2 MG TABLET PO PRN (04:14)
[2016-12-29 04:34] LABS: ABSOLUTE BASOPHILS # (AUTO) 0.1 10^3/uL (0.0-0.2); ABSOLUTE EOSINOPHILS # (AUTO) 0.4 10^3/uL (0.0-0.6); ABSOLUTE LYMPHOCYTES (AUTO) 1.3 10^3/uL (0.5-4.7); ABSOLUTE MONOCYTES (AUTO) 0.6 10^3/uL (0.1-1.4); ABSOLUTE NEUT (AUTO) 7.8 10^3/uL (1.7-8.2); BASOPHILS % (AUTO) 1.1 % (0-2); HEMATOCRIT 34.2 % (37.9-51.0); HEMOGLOBIN 11.2 g/dL (13.5-17.0); LYMPHOCYTES % (AUTO) 12.3 % (13-45); MEAN CORPUSCULAR HEMOGLOBIN 29.3 pg (27.0-33.4); MEAN CORPUSCULAR HGB CONC 32.8 g/dL (32.0-36.0); MEAN CORPUSCULAR VOLUME 89 fl (80-97); MONOCYTES % (AUTO) 5.9 % (3-13); PLATELET COUNT 314 10^3/uL (150-450); RED BLOOD COUNT 3.84 10^6/uL (4.35-5.55); RED CELL DISTRIBUTION WIDTH 16.7 % (11.5-14.0); SEGMENTED NEUTROPHILS % (AUTO) 76.7 % (42-78); TOTAL CELLS COUNTED % (AUTO) 100 %; WHITE BLOOD COUNT 10.2 10^3/uL (4.0-10.5)
[2016-12-29 04:47] LABS: ALANINE AMINOTRANSFERASE 82 U/L (21-72); ALBUMIN 2.8 g/dL (3.5-5.0); ALKALINE PHOSPHATASE 223 U/L (38-126); ANION GAP 12 (5-19); ASPARTATE AMINO TRANSFERASE 30 U/L (17-59); BILIRUBIN,DIRECT 0.3 mg/dL (0.0-0.4); BILIRUBIN,TOTAL 0.4 mg/dL (0.2-1.3); BLOOD UREA NITROGEN 16 mg/dL (7-20); CALCIUM 8.4 mg/dL (8.4-10.2); CARBON DIOXIDE 22 mmol/L (22-30); CHLORIDE 109 mmol/L (98-107); GLUCOSE 82 mg/dL (75-110); MAGNESIUM 2.3 mg/dL (1.6-2.3); PHOSPHORUS 3.5 mg/dL (2.5-4.5); POTASSIUM 4.5 mmol/L (3.6-5.0); SODIUM 143.1 mmol/L (137-145); TOTAL PROTEIN 5.9 g/dL (6.3-8.2)
[2016-12-29 04:54] LABS: PREALBUMIN 16.9 mg/dL (17.6-36.0)
--- NOTE | 2016-12-29 07:48 | PDOC DISCHARGE SUMMARY ---
General - Admit/Disc Date/PCP Admission Date/Primary Care Provider: 12/13/16 15:55 BLANCHE NG MD Discharge Date: 12/29/16 - Discharge Diagnosis (1) Sepsis Is this a current diagnosis for this admission?: Yes (2) Acute cholecystitis Is this a current diagnosis for this admission?: Yes (3) Chronic combined systolic and diastolic heart failure Is this a current diagnosis for this admission?: Yes (4) Primary osteoarthritis of both knees Is this a current diagnosis for this admission?: Yes (5) Type 2 diabetes mellitus with diabetic chronic kidney disease Is this a current diagnosis for this admission?: Yes (6) Abdominal pain, suprapubic Is this a current diagnosis for this admission?: Yes (7) Other secondary chronic gout, multiple sites, without tophus (tophi) Is this a current diagnosis for this admission?: Yes - Additional Information Resuscitation Status: Full Code Discharge Diet: Diabetic Discharge Activity: Supervised Activity Home Medications: Gabapentin [Neurontin 300 mg Capsule] 300 mg PO Q12HP 12/13/16 Omeprazole 20 mg PO DAILY 12/13/16 Allopurinol [Zyloprim 300 mg Tablet] 300 mg PO DAILY 12/14/16 Atorvastatin Calcium [Lipitor 10 mg Tablet] 10 mg PO QHS 12/14/16 Hydromorphone HCl [Dilaudid 2 mg Tablet] 2 mg PO Q8HP PRN #90 tablet 12/28/16 History of Present Illness Patient complains of: slid off chair and could not get up History of Present Illness: AISHA PABLO is a 71 year old male wheel chair bound because of djd R knee for which he has refused surgery many times. [facility] was called to help him up to chair. BP 70s caused them to bring him in. After 2L NS and levophed 12mcg his pressure has come from [address] Saeed placed soto for phimosis and he has pyuria. Ceftri was started. Hospital Course Hospital Course: urine and blood grew MSSA. He required taj for shock. He had a week of ceftri then 6d unasyn for 4 bugs in acute cholecystitis. Hida was postitive but surgeons felt risk was too high for cholecystectomy. Percutaneous drain was placed. He had about a week of tpn for vomiting. He was barely able to walk on admission because of severe R knee djd. He can not walk now because of deconditioning. PT says he can take 3 side steps. He finally admits he needs SNF. Sugars under 100 off tpn and insulin. Soto was placed for shock and kept because he could not void lying down. It was cultured and pulled yesterday. Physical Exam Vital Signs: Temp Pulse Resp BP Pulse Ox 97.9 F 66 20 120/67 100 12/29/16 04:11 12/29/16 04:11 12/29/16 04:11 12/29/16 04:11 12/29/16 04:11 Intake & Output 12/27/16 12/28/16 12/29/16 07:59 07:59 07:59 Intake Total 1115 2385 1520 Output Total 2670 2380 1750 Balance -1555 5 -230 Weight 255 lb 11.779 oz 250 lb 7.122 oz General appearance: PRESENT: no acute distress Respiratory exam: PRESENT: clear to auscultation dina Cardiovascular exam: ABSENT: diastolic murmur, irregular rhythm, systolic murmur GI/Abdominal exam: ABSENT: mass, organolmegaly, tenderness Extremities exam: ABSENT: pedal edema Neurological exam: PRESENT: oriented to situation Psychiatric exam: PRESENT: appropriate affect Results Laboratory Results: 12/29/16 04:00 Labs- Last Values WBC 10.2 10^3/uL (4.0-10.5) 12/29/16 04:00 RBC 3.84 10^6/uL (4.35-5.55) L 12/29/16 04:00 Hgb 11.2 g/dL (13.5-17.0) L 12/29/16 04:00 Hct 34.2 % (37.9-51.0) L 12/29/16 04:00 MCV 89 fl (80-97) 12/29/16 04:00 MCH 29.3 pg (27.0-33.4) 12/29/16 04:00 MCHC 32.8 g/dL (32.0-36.0) 12/29/16 04:00 RDW 16.7 % (11.5-14.0) H 12/29/16 04:00 Plt Count 314 10^3/uL (150-450) 12/29/16 04:00 Total Counted 100 12/14/16 04:30 Seg Neutrophils % 76.7 % (42-78) 12/29/16 04:00 Seg Neuts % (Manual) 60 % (42-78) 12/14/16 04:30 Band Neutrophils % 28 % (3-5) H 12/14/16 04:30 Lymphocytes % 12.3 % (13-45) L 12/29/16 04:00 Lymphocytes % (Manual) 3 % (13-45) L 12/14/16 04:30 Monocytes % 5.9 % (3-13) 12/29/16 04:00 Monocytes % (Manual) 9 % (3-13) 12/14/16 04:30 Eosinophils % 4.0 % (0-6) 12/29/16 04:00 Eosinophils % (Manual) 0 % (0-6) 12/14/16 04:30 Basophils % 1.1 % (0-2) 12/29/16 04:00 Basophils % (Manual) 0 % (0-2) 12/14/16 04:30 Metamyelocytes % 2 % (0) H 12/13/16 11:55 Absolute Neutrophils 7.8 10^3/uL (1.7-8.2) 12/29/16 04:00 Abs Neuts (Manual) 29.7 10^3/uL (1.7-8.2) H 12/14/16 04:30 Absolute Lymphocytes 1.3 10^3/uL (0.5-4.7) 12/29/16 04:00 Abs Lymphs (Manual) 1.0 10^3/uL (0.5-4.7) 12/14/16 04:30 Absolute Monocytes 0.6 10^3/uL (0.1-1.4) 12/29/16 04:00 Abs Monocytes (Manual) 3.0 10^3/uL (0.1-1.4) H 12/14/16 04:30 Absolute Eosinophils 0.4 10^3/uL (0.0-0.6) 12/29/16 04:00 Absolute Eos (Manual) 0.0 10^3/uL (0.0-0.6) 12/14/16 04:30 Absolute Basophils 0.1 10^3/uL (0.0-0.2) 12/29/16 04:00 Abs Basophils (Manual) 0.0 10^3/uL (0.0-0.2) 12/14/16 04:30 Toxic Granulation SLIGHT 12/14/16 04:30 Platelet Estimate Cancelled 12/18/16 04:29 Clumped Platelets PRESENT 12/13/16 11:55 Platelet Comment ADEQUATE 12/14/16 04:30 Polychromasia SLIGHT 12/14/16 04:30 Hypochromasia SLIGHT 12/13/16 11:55 Poikilocytosis SLIGHT 12/14/16 04:30 Anisocytosis 1+ 12/14/16 04:30 Ovalocytes SLIGHT 12/14/16 04:30 Schistocytes SLIGHT 12/14/16 04:30 PT 16.2 SEC (11.4-15.4) H 12/22/16 06:13 INR 1.22 12/22/16 06:13 APTT 37.9 SEC (23.5-35.8) H 12/17/16 09:13 VBG pH 7.46 (7.30-7.42) H 12/13/16 11:55 VBG pCO2 28.1 mmHg (35-63) L 12/13/16 11:55 VBG HCO3 19.6 mmol/L (20-32) L 12/13/16 11:55 VBG Base Excess -2.9 mmol/L 12/13/16 11:55 Sodium 143.1 mmol/L (137-145) 12/29/16 04:00 Potassium 4.5 mmol/L (3.6-5.0) 12/29/16 04:00 Chloride 109 mmol/L (98-107) H 12/29/16 04:00 Carbon Dioxide 22 mmol/L (22-30) 12/29/16 04:00 Anion Gap 12 (5-19) 12/29/16 04:00 BUN 16 mg/dL (7-20) 12/29/16 04:00 Creatinine 1.02 mg/dL (0.52-1.25) 12/29/16 04:00 Est GFR ( Amer) > 60 (>60) 12/29/16 04:00 Est GFR (Non-Af Amer) > 60 (>60) 12/29/16 04:00 Glucose 82 mg/dL (75-110) 12/29/16 04:00 POC Glucose 91 mg/dL (70-110) 12/28/16 22:02 Lactic Acid 2.3 mmol/L (0.7-2.1) H 12/13/16 15:38 Calcium 8.4 mg/dL (8.4-10.2) 12/29/16 04:00 Phosphorus 3.5 mg/dL (2.5-4.5) 12/29/16 04:00 Magnesium 2.3 mg/dL (1.6-2.3) 12/29/16 04:00 Total Bilirubin 0.4 mg/dL (0.2-1.3) 12/29/16 04:00 Direct Bilirubin 0.3 mg/dL (0.0-0.4) 12/29/16 04:00 Indirect Bilirubin Not Reportable 12/29/16 04:00 Neonat Total Bilirubin Not Reportable 12/29/16 04:00 AST 30 U/L (17-59) 12/29/16 04:00 ALT 82 U/L (21-72) H 12/29/16 04:00 Alkaline Phosphatase 223 U/L (38-126) H 12/29/16 04:00 CK-MB (CK-2) 0.77 ng/mL (<4.55) 12/13/16 11:55 Troponin I 0.168 ng/mL 12/13/16 11:55 Total Protein 5.9 g/dL (6.3-8.2) L 12/29/16 04:00 Albumin 2.8 g/dL (3.5-5.0) L 12/29/16 04:00 Prealbumin 16.9 mg/dL (17.6-36.0) L 12/29/16 04:00 Triglycerides 97 mg/dL (<150) 12/22/16 22:45 Lipase 181.8 U/L (23-300) 12/13/16 11:55 Urine Color DARK YELLOW 12/13/16 14:07 Urine Appearance CLOUDY 12/13/16 14:07 Urine pH 5.0 (5.0-9.0) 12/13/16 14:07 Ur Specific [place] 1.014 12/13/16 14:07 Urine Protein 30 mg/dL (NEGATIVE) H 12/13/16 14:07 Urine Glucose (UA) NEGATIVE mg/dL (NEGATIVE) 12/13/16 14:07 Urine Ketones NEGATIVE mg/dL (NEGATIVE) 12/13/16 14:07 Urine Blood LARGE (NEGATIVE) H 12/13/16 14:07 Urine Nitrite NEGATIVE (NEGATIVE) 12/13/16 14:07 Urine Bilirubin NEGATIVE (NEGATIVE) 12/13/16 14:07 Urine Urobilinogen 4.0 mg/dL (<2.0) H 12/13/16 14:07 Ur Leukocyte Esterase LARGE (NEGATIVE) H 12/13/16 14:07 Urine WBC (Auto) 37 /HPF 12/13/16 14:07 Urine RBC (Auto) 4 /HPF 12/13/16 14:07 Urine Bacteria (Auto) 1+ /HPF 12/13/16 14:07 Urine WBC Clumps MOD /HPF 12/13/16 14:07 Squamous Epi Cells Auto 1 /HPF 12/13/16 14:07 Amorphous Sediment Auto TRACE /HPF 12/13/16 14:07 Urine Mucus (Auto) OCC /LPF 12/13/16 14:07 Urine Ascorbic Acid NEGATIVE (NEGATIVE) 12/13/16 14:07 Time Trough Drawn 2200 12/16/16 22:00 Vancomycin Trough 7.6 ug/mL (5.0-20.0) 12/16/16 22:00 C. difficile Tox (PCR) NEGATIVE (NEGATIVE) 12/22/16 10:00 Slides for Path Review PATHOLOGIST REVIEWED 12/14/16 04:30 Impressions: Chest X-Ray 12/13/16 12:06 IMPRESSION: Patchy right basilar airspace disease worrisome for pneumonia KUB X-Ray 12/15/16 20:37 IMPRESSION: NONOBSTRUCTIVE BOWEL GAS PATTERN WITH STABLE GAS DISTENSION OF BOTH SMALL AND LARGE BOWEL LOOPS MAY REPRESENT ILEUS. Abdomen/Pelvis CT 12/16/16 00:00 IMPRESSION: Distended gallbladder with stones and pericholecystic fluid. Findings are worrisome for cholecystitis. Findings discussed with Dr Ng Enlarging nodule lateral right lung base. Hepatobiliary Scan Nuclear Medicine 12/16/16 00:00 IMPRESSION: No visualization of the gallbladder on immediate or delayed hepatobiliary imaging Guidance Fluoroscopy 12/17/16 00:00 IMPRESSION: SUCCESSFUL PLACEMENT OF A 5 FR DUAL LUMEN 48 CM PICC IN THE LEFT BASILIC VEIN. Interventional Vascular Procedure 12/17/16 00:00 IMPRESSION: SUCCESSFUL PLACEMENT OF A 5 FR DUAL LUMEN 48 CM PICC IN THE LEFT BASILIC VEIN. PICC Line Insertion 12/17/16 09:00 IMPRESSION: SUCCESSFUL PLACEMENT OF A 5 FR DUAL LUMEN 48 CM PICC IN THE LEFT BASILIC VEIN. Cholecystostomy 12/18/16 08:00 IMPRESSION: CT GUIDED CHOLECYSTOSTOMY TUBE PLACEMENT UNDER CT GUIDANCE, WITH CONSCIOUS SEDATION. NO IMMEDIATE COMPLICATIONS. Qualifiers PATEINT BEING DISCHARGED WITH ANY OF THE FOLLOWING DIAGNOSIS?: No Plan Discharge Plan: [facility]. Medicaid is pending.
[2016-12-29] MEDS: NORMAL SALINE 10 ML SDV (SCHEDULED) IV SCH (10:58)
[2016-12-29 12:00] VITALS: BP 101/64
--- NOTE | 2017-03-11 15:32 | DISCHARGE SUMMARY E ---
Discharge Summary NAME: AISHA PABLO : 1945 AGE: 71Y ADMITTED: 12/13/2016 DISCHARGED: 12/29/2016 ADDENDUM: [facility] wanted me to document the patient's BMI, which was 37, so he is obese. DICTATING PHYSICIAN: BLANCHE BROWER M.D. [id number] PHY#: [id number] ID: [id number] JOB#: [id number] ACCT: [id number] cc:BLANCHE BROWER M.D. >
== END 2016-12-29 13:16 | DRG 872 ==
LOC: ER 11:52 → UNDOADMIN 14:50 → EH 14:50 → ICU 17:05 → 3S 12-18 02:46
PROVIDERS: ADMIT Family Medicine; ATTEND Family Medicine
PROC: 02HV33Z Insertion of Infusion Device into Superior Vena Cava, Percutaneous Approach (ICD-10-PCS; principal; 2016-12-17)
PROC: B518ZZA Fluoroscopy of Superior Vena Cava, Guidance (ICD-10-PCS; 2016-12-17)
PROC: 3E0436Z Introduction of Nutritional Substance into Central Vein, Percutaneous Approach (ICD-10-PCS; 2016-12-17)
PROC: B548ZZA Ultrasonography of Superior Vena Cava, Guidance (ICD-10-PCS; 2016-12-17)
PROC: 0F9430Z Drainage of Gallbladder with Drainage Device, Percutaneous Approach (ICD-10-PCS; 2016-12-18)
DX: A41.01 Sepsis due to Methicillin susceptible Staphylococcus aureus (principal); K81.0 Acute cholecystitis; I50.42 Chronic combined systolic (congestive) and diastolic (congestive) heart failure; I13.0 Hypertensive heart and chronic kidney disease with heart failure and stage 1 through stage 4 chronic kidney disease, or unspecified chronic kidney disease; Z68.41 Body mass index [BMI] 40.0-44.9, adult; E87.0 Hyperosmolality and hypernatremia; M17.0 Bilateral primary osteoarthritis of knee; E11.22 Type 2 diabetes mellitus with diabetic chronic kidney disease; M1A.49X0 Other secondary chronic gout, multiple sites, without tophus (tophi); I48.91 Unspecified atrial fibrillation; E78.5 Hyperlipidemia, unspecified; G47.30 Sleep apnea, unspecified; J30.9 Allergic rhinitis, unspecified; E11.40 Type 2 diabetes mellitus with diabetic neuropathy, unspecified; K21.9 Gastro-esophageal reflux disease without esophagitis; D63.1 Anemia in chronic kidney disease; N47.1 Phimosis; N18.3 Chronic kidney disease, stage 3 (moderate); B96.4 Proteus (mirabilis) (morganii) as the cause of diseases classified elsewhere; B96.1 Klebsiella pneumoniae [K. pneumoniae] as the cause of diseases classified elsewhere; B96.6 Bacteroides fragilis [B. fragilis] as the cause of diseases classified elsewhere; B95.2 Enterococcus as the cause of diseases classified elsewhere; I45.10 Unspecified right bundle-branch block; Z99.3 Dependence on wheelchair; Z79.899 Other long term (current) drug therapy; Z79.4 Long term (current) use of insulin; Z87.891 Personal history of nicotine dependence; Z83.3 Family history of diabetes mellitus; Z82.49 Family history of ischemic heart disease and other diseases of the circulatory system; Z68.37 Body mass index [BMI] 37.0-37.9, adult
CPT/HCPCS: 36415; 36569; 47490; 51702; 71010; 74000; 74177; 76937; 77001; 78226; 80048; 80053; 80076; 80202; 81001; 82553; 82803; 82962; 83605; 83690; 83735; 84100; 84134; 84478; 84484; 85025; 85027; 85610; 85730; 87040; 87070; 87075; 87077; 87086; 87088; 87186; 87205; 87493; 93005; 93010; 96365; 96367; 99291; 99292; A9537; C1729; C1769; C1894; G8978-GP; G8979-GP; G8987-GO; G8988-GO; J0295; J0696; J1170; J1335; J1642; J1650; J1815; J2250; J2270; J2370; J3010; J3370; J3480; J3490; J7030; J7060; Q9969; S0028

== ENCOUNTER 2017-04-30 14:18 | Emergency (ER) | payer MEDICARE, OTHER ==
[2017-04-30] MEDS ORDERED: LIDOCAINE 1% INJ-PF (10 MG/ML) 30 ML SDV INJ ONE (15:00)
--- NOTE | 2017-04-30 15:01 | ER Document Report ---
ED Medical Screen (RME) - General Chief Complaint: Abscess Stated Complaint: LEG PAIN Time Seen by Provider: 04/30/17 14:55 Mode of Arrival: Wheelchair Information source: Patient Notes: 71-year-old male presents with abscess left inner thigh of 1 week duration No previous abscess I have greeted and performed a rapid initial assessment of this patient. A comprehensive ED assessment and evaluation of the patient, analysis of test results and completion of the medical decision making process will be conducted by additional ED providers. PHYSICAL EXAMINATION: GENERAL: Well-appearing, well-nourished and in no acute distress. HEAD: Atraumatic, normocephalic. EYES: Pupils equal round extraocular movements intact, conjunctiva are normal. ENT: Nares patent NECK: Normal range of motion LUNGS: No respiratory distress Musculoskeletal: Normal range of motion NEUROLOGICAL: Normal speech, normal gait. PSYCH: Normal mood, normal affect. SKIN: 3x3 cm abscess left inner thigh TRAVEL OUTSIDE OF THE [place] IN LAST 30 DAYS: No - Related Data Allergies/Adverse Reactions: No Known Allergies Allergy (Verified 03/27/16 18:42) Past Medical History - Social History Chew tobacco use (# tins/day): No Frequency of alcohol use: None Drug Abuse: None - Past Medical History Cardiac Medical History: Reports: Hx Atrial Fibrillation, Hx Congestive Heart Failure, Hx Hypercholesterolemia, Hx Hypertension Pulmonary Medical History: Reports: Hx Sleep Apnea Neurological Medical History: Denies: Hx Seizures Endocrine Medical History: Reports: Hx Diabetes Mellitus Type 1, Hx Diabetes Mellitus Type 2 - 1997 Renal/ Medical History: Denies: Hx Peritoneal Dialysis GI Medical History: Reports: Hx Diverticulitis, Hx Gastroesophageal Reflux Disease Musculoskeltal Medical History: Reports Hx Arthritis - severe djd RK. [place] say surgury too risky. Psychiatric Medical History: Denies: Hx Depression Past Surgical History: Reports: Hx Abdominal Surgery - diverticulitis and lost about 10 inches of colon and second time unsure wha, Hx Herniorrhaphy - Hernia repair with mesh insertion., Other - diverticulitis, ventral hernia, Rcolectomy , cataracts, ERCP - Immunizations Hx Diphtheria, Pertussis, Tetanus Vaccination: Yes History of Influenza Vaccine for 11/2016 - 04/2017 Season: Yes Influenza Administration Date for 11/2016 - 04/2017 Season: 12/10/16 Physical Exam - Vital signs Vitals: Temp Pulse Resp BP Pulse Ox 98.0 F 88 16 130/69 H 98 04/30/17 14:37 04/30/17 14:37 04/30/17 14:37 04/30/17 14:37 04/30/17 14:37 Course - Vital Signs Vital signs: Temp Pulse Resp BP Pulse Ox 98.0 F 88 16 130/69 H 98 04/30/17 14:37 04/30/17 14:37 04/30/17 14:37 04/30/17 14:37 04/30/17 14:37 Doctor's Discharge - Discharge Referrals: BLANCHE BROWER MD [Primary Care Provider] - Follow up as needed
--- NOTE | 2017-04-30 17:12 | ER Document Report ---
HPI - HPI Pain Level: 4 Notes: Patient is a 71-year-old male with a history of congestive heart failure and type 2 diabetes who presents to the ED complaining of an abscess/infection to his left proximal leg 1 week. Patient states this started as a small pimple that he was picking at and it has since got worse. He has no history of MRSA. Patient states that he has noticed some purulent drainage. The pain does not radiate. Patient states that he is still ambulatory. No other concerns or complaints at this time. He is eating and drinking I difficulties. He is urinating normally and having normal bowel movements. Denies any drug allergies otherwise. Denies any headache, fever, neck pain, URI, sore throat, chest pain, palpitations, syncope, cough, shortness of breath, wheeze, dyspnea, abdominal pain, nausea/vomiting/diarrhea, urinary retention, dysuria, hematuria , loss of control of bowel or bladder, numbness/tingling, saddle anesthesia, muscle paralysis/weakness. - ROS Systems Reviewed and Negative: Yes All other systems reviewed and negative - REPRODUCTIVE Reproductive: DENIES: : - DERM Skin Color: Normal Past Medical History - General Information source: Patient - Social History Smoking Status: Former Smoker Chew tobacco use (# tins/day): No Frequency of alcohol use: None Drug Abuse: None Family History: DM, Hypertension Patient has suicidal ideation: No Patient has homicidal ideation: No - Past Medical History Cardiac Medical History: Reports: Hx Atrial Fibrillation, Hx Congestive Heart Failure, Hx Hypercholesterolemia, Hx Hypertension Pulmonary Medical History: Reports: Hx Sleep Apnea Neurological Medical History: Denies: Hx Seizures Endocrine Medical History: Reports: Hx Diabetes Mellitus Type 1, Hx Diabetes Mellitus Type 2 - 1997 Renal/ Medical History: Denies: Hx Peritoneal Dialysis GI Medical History: Reports: Hx Diverticulitis, Hx Gastroesophageal Reflux Disease Musculoskeltal Medical History: Reports Hx Arthritis - severe djd RK. [place] say surgury too risky. Psychiatric Medical History: Denies: Hx Depression Past Surgical History: Reports: Hx Abdominal Surgery - diverticulitis and lost about 10 inches of colon and second time unsure wha, Hx Herniorrhaphy - Hernia repair with mesh insertion., Other - diverticulitis, ventral hernia, Rcolectomy , cataracts, ERCP - Immunizations Hx Diphtheria, Pertussis, Tetanus Vaccination: Yes Hx Pneumococcal Vaccination: 02/09/15 Vertical Provider Document - CONSTITUTIONAL Agree With Documented VS: Yes Notes: PHYSICAL EXAMINATION: GENERAL: Well-appearing, well-nourished and in no acute distress. LUNGS: Breath sounds clear to auscultation bilaterally and equal. No wheezes rales or rhonchi. HEART: Regular rate and rhythm without murmurs, rubs, gallops. Musculoskeletal: Left leg: FROM to passive/active. Strength 5+/5. Extremities: 2-3+ pitting edema b/l LE, normal per patient. Peripheral pulses 1+. Capillary refill less than 3 seconds. NEUROLOGICAL: normal speech, normal gait. Normal sensory, motor exams PSYCH: Normal mood, normal affect. SKIN: There is an approx 3cmx2.5-3cm abscess to the left anteroprox leg. + fluid pocket and surrounding erythema/induration. No streaks. - INFECTION CONTROL TRAVEL OUTSIDE OF THE [place] IN LAST 30 DAYS: No Course - Re-evaluation Re-evalutation: 04/30/17 17:52 Patient is an afebrile, well-hydrated, 71-year-old male who presents to the ED with an abscess to his left leg. Vitals are acceptable. PE is otherwise unremarkable. Incision and drainage was performed successfully without any complications. Wound culture was obtained. Packing was placed. No labs or imaging warranted at this time based on H&P. Low suspicion for any sepsis, dehydration, necrotizing fasciitis, osteomyelitis, or other systemic emergent condition at this time. Wound dressing was placed and wound instructions thoroughly reviewed with the patient. I will be sending him home with Keflex, Bactrim, and a [place] dispense pack. Recheck in 2-3 days with ED/PCM. Return to the ED with any worsening/concerning symptoms otherwise as reviewed discharge. Patient is in agreement. - Vital Signs Vital signs: Temp Pulse Resp BP Pulse Ox 98.0 F 88 16 130/69 H 98 04/30/17 14:37 04/30/17 14:37 04/30/17 14:37 04/30/17 14:37 04/30/17 14:37 Procedures - Incision and Drainage Left Leg Time completed: 17:40 Type: Simple Anesthetic type: 1% Lidocaine mL's of anesthetic: 10 I&D procedure: Iodoform packing placed, Sterile dressing applied, Other - chlorhexadine/saline Incision Method: Incision made by scalpel Amount/type of drainage: moderate purulent Notes: 04/30/17 17:11 pt tolerated proc well, no complications wound cx obtained Discharge - Discharge Clinical Impression: Abscess Condition: Stable Disposition: HOME, SELF-CARE Instructions: Abscess ([facility]), Cephalexin ([facility]), Post Incision and Drainage, Trimethoprim-Sulfa ([facility]) Additional Instructions: Do not shower or bathe for 24 hours. After 24 hours she may shower but no submersion of the wound under water. Keep the original dressing on the wound for 24 hours unless the drainage soaks through. Change the dressing daily thereafter and use a small amount of triple antibiotic ointment over the open wound. Return to the ED and/or your PCM in 2-3 days for recheck and continue direction for wound packing. Monitor for any signs of worsening pain or redness , streaks, and/or fever. Return to the ED if noticing any of the above symptoms or as needed. Take medications as directed. Prescriptions: Cephalexin Monohydrate [Keflex 500 mg Capsule] 500 mg PO BID #20 capsule Sulfamethoxazole/Trimethoprim [Bactrim Ds Tablet] 1 each PO BID #20 tablet Forms: Elevated Blood Pressure Referrals: BLANCHE BROWER MD [Primary Care Provider] - 05/04/17
[2017-04-30] MEDS ORDERED: HYDROCODONE/ACETAMINOPHEN 5-325 MG (6 TAB/ER DISP) PO PRN (17:54)
[2017-04-30 18:31] VITALS: BP 128/95
== END 2017-04-30 18:31 | disposition home or self-care (01) ==
LOC: ER 14:18
PROC: 0H9LXZZ Drainage of Left Lower Leg Skin, External Approach (ICD-10-PCS; principal; 2017-04-30)
DX: L02.416 Cutaneous abscess of left lower limb (principal); I50.9 Heart failure, unspecified; E11.9 Type 2 diabetes mellitus without complications; Z87.891 Personal history of nicotine dependence
CPT/HCPCS: 99283; 87070; 87205; 87075; 87077; 87186; 10060; J3490

== ENCOUNTER 2017-05-03 07:43 | Emergency (ER) | payer MEDICARE, MEDICAID, OTHER ==
--- NOTE | 2017-05-03 07:58 | ER Document Report ---
ED General - General Chief Complaint: Wound Recheck Stated Complaint: WOUND RECHECK Time Seen by Provider: 05/03/17 07:57 Mode of Arrival: Wheelchair Information source: Patient, Relative - friend TRAVEL OUTSIDE OF THE [place] IN LAST 30 DAYS: No - HPI Notes: 31-year-old male with a past medical history of CHF and type 2 diabetes presents today for wound recheck and repacking to his left upper thigh from an abscess that was lanced on 04/30/17. Patient states he is taking oral Keflex and Bactrim without issues. Denies any worsening erythema or pain around the wound. Denies any fevers or chills. Denies any numbness or tingling down bilateral equally. Pain is 0 out of 10. Nothing makes it worse, nothing makes better. She reports he is a well-controlled diabetic states his A1c is roughly ranged between 5.5 to 6.0. Denies fevers, chills, chest pain,palpitations, shortness of breath, dyspnea, weakness, bowel or bladder dysfunction, saddle anesthesia, numbness or tingling in bilateral upper or lower extremities equally , muscle paralysis, weakness in bilateral upper or lower extremities equally or rash. - Related Data Allergies/Adverse Reactions: No Known Allergies Allergy (Verified 03/27/16 18:42) Past Medical History - General Information source: Patient - Social History Smoking Status: Unknown if Ever Smoked Family History: DM, Hypertension - Past Medical History Cardiac Medical History: Reports: Hx Atrial Fibrillation, Hx Congestive Heart Failure, Hx Hypercholesterolemia, Hx Hypertension Pulmonary Medical History: Reports: Hx Sleep Apnea Neurological Medical History: Denies: Hx Seizures Endocrine Medical History: Reports: Hx Diabetes Mellitus Type 1, Hx Diabetes Mellitus Type 2 - 1997 Renal/ Medical History: Denies: Hx Peritoneal Dialysis GI Medical History: Reports: Hx Diverticulitis, Hx Gastroesophageal Reflux Disease Musculoskeltal Medical History: Reports Hx Arthritis - severe djd RK. [place] say surgury too risky. Psychiatric Medical History: Denies: Hx Depression Past Surgical History: Reports: Hx Abdominal Surgery - diverticulitis and lost about 10 inches of colon and second time unsure wha, Hx Herniorrhaphy - Hernia repair with mesh insertion., Other - diverticulitis, ventral hernia, Rcolectomy , cataracts, ERCP - Immunizations Hx Diphtheria, Pertussis, Tetanus Vaccination: Yes Hx Pneumococcal Vaccination: 02/09/15 Review of Systems - Review of Systems Notes: REVIEW OF SYSTEMS: CONSTITUTIONAL : Denies fever, chills, or sweats. Denies recent illness. EENT: Denies eye, ear, throat, or mouth pain or symptoms. Denies nasal or sinus congestion or discharge. Denies throat, tongue, or mouth swelling or difficulty swallowing. CARDIOVASCULAR: Denies chest pain. Denies palpitations or racing or irregular heart beat. Denies ankle edema. RESPIRATORY: Denies cough, cold, or chest congestion. Denies shortness of breath, difficulty breathing, or wheezing. GASTROINTESTINAL: Denies abdominal pain or distention. Denies nausea, vomiting , or diarrhea. Denies blood in vomitus, stools, or per rectum. Denies black, tarry stools. Denies constipation. GENITOURINARY: Denies difficulty urinating, painful urination, burning, frequency, blood in urine, or discharge. MUSCULOSKELETAL: Denies back or neck pain or stiffness. Denies joint pain or swelling. SKIN: Denies rash, lesions or sores. HEMATOLOGIC : Denies easy bruising or bleeding. LYMPHATIC: Denies swollen, enlarged glands. NEUROLOGICAL: Denies confusion or altered mental status. Denies passing out or loss of consciousness. Denies dizziness or lightheadedness. Denies headache. Denies weakness or paralysis or loss of use of either side. Denies problems with gait or speech. Denies sensory loss, numbness, or tingling. Denies seizures. PSYCHIATRIC: Denies anxiety or stress. Denies depression, suicidal ideation, or homicidal ideation. ALL OTHER SYSTEMS REVIEWED AND NEGATIVE. Dictation was performed using [employer] voice recognition software PHYSICAL EXAMINATION: GENERAL: Well-appearing, well-nourished and in no acute distress. HEAD: Atraumatic, normocephalic. EYES: Pupils equal round and reactive to light, extraocular movements intact, sclera anicteric, conjunctiva are normal. ENT: Nares patent, oropharynx clear without exudates. Moist mucous membranes. NECK: Normal range of motion, supple without lymphadenopathy LUNGS: Breath sounds clear to auscultation bilaterally and equal. No wheezes rales or rhonchi. HEART: Regular rate and rhythm without murmurs ABDOMEN: Soft, nontender, nondistended abdomen. No guarding, no rebound. No masses appreciated. Musculoskeletal: Normal range of motion, no pitting or edema. No cyanosis. left upper thigh with a well healing wound approx 2cm deep, 3cm in length and 1cm wide. Purulent drainage. Packing remains intact. No surrounding erythema or induration. No streaking noted. NEUROLOGICAL: Cranial nerves grossly intact. Normal speech, normal gait. Normal sensory, motor exams PSYCH: Normal mood, normal affect. SKIN: Warm, Dry, normal turgor, no rashes or lesions noted. Physical Exam - Vital signs Vitals: Temp Pulse Resp BP Pulse Ox 97.5 F 91 16 143/81 H 100 05/03/17 07:51 05/03/17 07:51 05/03/17 07:51 05/03/17 07:51 05/03/17 07:51 Course - Re-evaluation Re-evalutation: 05/03/17 08:16 71-year-old man resents today for wound repacking. States that he is feeling well. Take antibiotic as directed. Wound culture came back and show the patient had a staph aureus infection. Verbal consent given for wound packing change. One fourth iodoform removed approximately 5 cm. No purulent drainage noted from wound on exploration. No foreign body noted. High-pressure irrigation with normal saline, 200 mL's. One fourth I did some packing soaked with lidocaine 1% placed in wound, approximately 5 mL's in sterile fashion. Sterile dressing applied. Patient tolerated when packing without any incident. Discussed with patient and friend to return in 3 days for wound repacking. To continue taking antibiotics as directed. Return to the emergency room sooner if symptoms become worse. Patient and friend verbalized understanding of this plan of care and agree with plan of care. Patient was discharged home. After performing a Medical Screening Examination, I estimate there is LOW risk for OPEN FRACTURE, COMPARTMENT SYNDROME, TENDON RUPTURE, ACUTE NEUROVASCULAR INJURY, or RETAINED FOREIGN BODY, thus I consider the discharge disposition reasonable. Also, there is no evidence or peritonitis, sepsis, or toxicity. I have reevaluated this patient multiple times and no significant life threatening changes are noted. The patient and I have discussed the diagnosis and risks, and we agree with discharging home with close follow-up with the understanding that symptoms and presentations can change. We also discussed returning to the Emergency Department immediately if new or worsening symptoms occur. We have discussed the symptoms which are most concerning (e.g., changing or worsening pain, fever, numbness, weakness, cool or painful digits) that necessitate immediate return. - Vital Signs Vital signs: Temp Pulse Resp BP Pulse Ox 97.5 F 91 16 143/81 H 100 05/03/17 07:51 05/03/17 07:51 05/03/17 07:51 05/03/17 07:51 05/03/17 07:51 Discharge - Discharge Clinical Impression: Dressing change or removal, nonsurgical wound Condition: Good Additional Instructions: [facility] [address] [place] [id number] Wound Care After I&D 1. If an antibiotic is prescribed please try to take on a regular schedule as this may help resolve your infection faster. 2. Pain will usually be very well managed with [id number] medications such as Tylenol, Advil, or Aleve. If a narcotic prescription is used you cannot take this and drive or operate dangerous machinery while on this medication. 3. If bleeding occurs postoperatively apply firm pressure over the site for 10 minutes and it will usually stop. If it persists call the office and return during office hours or go to the emergency room in the evenings or weekends. 4. You may shower the next day. It is usually best to remove the outer dressing before the shower. Then gently pull out the gauze packing inside the abscess cavity. Do not moisten prior to removal. Wash any soap out of the wound daily. 5. After your shower and the packing has been removed you should gently clean the abscess cavity with 2-3 Q-tips and a solution of saline and peroxide that was sent home with you. If you did not receive this solution, you can mix peroxide and water as the peroxide will clean even tap water of any bacteria. Insert the Q-tip into the solution and then gently into the abscess cavity to keep the skin edges apart, gently swabbing using a total of 2- 3 Q-tips. This helps to keep the skin open to allow the abscess to heal from the inside out. If the skin heals too fast the abscess will reoccur as the skin closes over an open hole. Repack with damp gauze with saline and peroxide. No wet part should touch the skin edge. Cover the site with a gauze dressing and tape at first after daily wound care. When the drainage is less you may switch over to band aids if more convenient. 6. When only the skin edges are left to heal you may clean the surface with the solution on a cotton ball. 7. Schedule a follow up to monitor healing. In some cases an excision of the area may be needed in the future to decrease risk of recurrence. 8. If any problems or questions call during office hours [phone]. If at night or on the weekend you may call [facility] [phone] and ask for the surgicalist information technology audit manager. Return in days for wound repacking. Continue taking antibiotics as directed. Monitor wound for any symptoms of worsening erythema, induration and swelling. Take [id number] Tylenol for pain. Return immediately for any new or worsening symptoms. Follow up with primary care provider, call tomorrow to make followup appointment.
[2017-05-03] MEDS ORDERED: LIDOCAINE 1% INJ (10 MG/ML) 10 ML MDV INJ ONE (08:04)
[2017-05-03 08:41] VITALS: BP 136/80
== END 2017-05-03 08:43 | disposition home or self-care (01) ==
LOC: ER 07:43
DX: Z48.01 Encounter for change or removal of surgical wound dressing (principal); L02.416 Cutaneous abscess of left lower limb; E11.9 Type 2 diabetes mellitus without complications; I10 Essential (primary) hypertension
CPT/HCPCS: 99282; A6266

== ENCOUNTER 2017-05-07 07:36 | Emergency (ER) | payer MEDICARE, MEDICAID, OTHER ==
[2017-05-07] MEDS ORDERED: LIDOCAINE 1% INJ-PF (10 MG/ML) 30 ML SDV INJ ONE (08:15)
--- NOTE | 2017-05-07 08:16 | ER Document Report ---
ED General - General Chief Complaint: Wound Recheck Stated Complaint: WOUND CHECK Time Seen by Provider: 05/07/17 08:14 Mode of Arrival: Ambulatory Information source: Patient, Relative - friend TRAVEL OUTSIDE OF THE [place] IN LAST 30 DAYS: No - HPI Notes: 71-year-old male with history of CHF and type 2 diabetes presents today for a wound reevaluation of an abscess that was drained on the 04/30 was packed by this provider 3 days ago for a wound reevaluation. Patient is still taking Bactrim and Keflex without any issues. Denies any fevers or chills. Denies any numbness or tingling down bilateral lower extremities. Eating and drinking without issues. Denies any pain. Denies fevers, chills, chest pain, palpitations, shortness of breath, dyspnea, nausea, vomiting, diarrhea, abdominal pain, hematuria,blurred vision, double vision, loss of vision, speech changes, LH, dizziness, syncope, headaches, weakness, bowel or bladder dysfunction, saddle anesthesia, numbness or tingling in bilateral upper or lower extremities equally, muscle paralysis, weakness in bilateral upper or lower extremities equally or rash. Denies IV drug use. - Related Data Allergies/Adverse Reactions: No Known Allergies Allergy (Verified 05/07/17 07:40) Past Medical History - General Information source: Patient, Relative - friend - Social History Smoking Status: Unknown if Ever Smoked Family History: DM, Hypertension - Past Medical History Cardiac Medical History: Reports: Hx Atrial Fibrillation, Hx Congestive Heart Failure, Hx Hypercholesterolemia, Hx Hypertension Pulmonary Medical History: Reports: Hx Sleep Apnea Neurological Medical History: Denies: Hx Seizures Endocrine Medical History: Reports: Hx Diabetes Mellitus Type 1, Hx Diabetes Mellitus Type 2 - 1997 Renal/ Medical History: Denies: Hx Peritoneal Dialysis GI Medical History: Reports: Hx Diverticulitis, Hx Gastroesophageal Reflux Disease Musculoskeltal Medical History: Reports Hx Arthritis - severe djd RK. [place] say surgury too risky. Psychiatric Medical History: Denies: Hx Depression Past Surgical History: Reports: Hx Abdominal Surgery - diverticulitis and lost about 10 inches of colon and second time unsure wha, Hx Herniorrhaphy - Hernia repair with mesh insertion., Other - diverticulitis, ventral hernia, Rcolectomy , cataracts, ERCP - Immunizations Hx Diphtheria, Pertussis, Tetanus Vaccination: Yes Hx Pneumococcal Vaccination: 02/09/15 Review of Systems - Review of Systems Notes: ALL OTHER SYSTEMS REVIEWED AND NEGATIVE. Dictation was performed using [employer] voice recognition software PHYSICAL EXAMINATION: GENERAL: Well-appearing, well-nourished and in no acute distress. HEAD: Atraumatic, normocephalic. EYES: Pupils equal round and reactive to light, extraocular movements intact, sclera anicteric, conjunctiva are normal. ENT: Nares patent, oropharynx clear without exudates. Moist mucous membranes. NECK: Normal range of motion, supple without lymphadenopathy LUNGS: Breath sounds clear to auscultation bilaterally and equal. No wheezes rales or rhonchi. HEART: Regular rate and rhythm without murmurs ABDOMEN: Soft, nontender, nondistended abdomen. No guarding, no rebound. No masses appreciated. Musculoskeletal: Normal range of motion, no pitting or edema. No cyanosis. NEUROLOGICAL: Cranial nerves grossly intact. Normal speech, normal gait. Normal sensory, motor exams PSYCH: Normal mood, normal affect. SKIN: Warm, Dry, normal turgor, no rashes or lesions noted. Upper anterior thigh with a well-healing wound. No surrounding erythema, induration or fluctuance. No packing noted. Wound depth is approximately 0.2 cm, approximately 0.5cm in width and 2cm in length. Constitutional: No symptoms reported EENT: No symptoms reported Cardiovascular: No symptoms reported Respiratory: No symptoms reported Gastrointestinal: No symptoms reported Genitourinary: No symptoms reported Male Genitourinary: No symptoms reported Musculoskeletal: No symptoms reported Skin: See HPI Hematologic/Lymphatic: No symptoms reported Neurological/Psychological: No symptoms reported Physical Exam - Vital signs Vitals: Temp Pulse Resp BP Pulse Ox 98.2 F 70 18 127/66 H 96 05/07/17 07:45 05/07/17 07:45 05/07/17 07:45 05/07/17 07:45 05/07/17 07:45 Course - Re-evaluation Re-evalutation: 05/07/17 08:52 On reevaluation, wound appears to be well healing, no packing is needed. 500 mL high-pressure irrigation applied the wound, no foreign body noted on expiration of wound. Wound edges are approximately 0.5 cm across and 0.3 cm in depth, will not require any packing. No drainage, induration or fluctuance noted. Sterile dressing applied. No surrounding erythema noted. advised patient that he will not need to return to the ER for any more packing that should have his wound reevaluated by his primary care provider on Thursday. Continue taking oral antibiotics as directed, monitor for any signs and symptoms of infection such as erythema, induration, fluctuance, pain. All questions and concerns answered by this provider. Patient and friend verbalized understanding of plan of care and agree with plan of care. Patient was discharged home. - Vital Signs Vital signs: Temp Pulse Resp BP Pulse Ox 98.2 F 70 18 127/66 H 96 05/07/17 07:45 05/07/17 07:45 05/07/17 07:45 05/07/17 07:45 05/07/17 07:45 Discharge - Discharge Clinical Impression: Encounter for evaluation of wound Condition: Good Disposition: HOME, SELF-CARE Instructions: Dressing Instructions for Open Wounds ([facility]) Additional Instructions: Follow-up with her primary care provider on Thursday for wound check. You do not require any more wound packing. Continue taking oral antibiotics as directed. Monitor for any signs and symptoms of infection such as redness, swelling, drainage. Wash with soap and water twice a day. Return to the emergency room if symptoms become worse. Return immediately for any new or worsening symptoms. Follow up with primary care provider, call tomorrow to make followup appointment. Referrals: BLANCHE BROWER MD [Primary Care Provider] - Follow up as needed
[2017-05-07 09:29] VITALS: BP 115/67
== END 2017-05-07 09:29 | disposition home or self-care (01) ==
LOC: ER 07:36
DX: Z48.817 Encounter for surgical aftercare following surgery on the skin and subcutaneous tissue (principal); L02.419 Cutaneous abscess of limb, unspecified; E11.9 Type 2 diabetes mellitus without complications; I10 Essential (primary) hypertension
CPT/HCPCS: 99282; A6266

== ENCOUNTER 2018-04-07 07:13 | Inpatient (IN) | payer MEDICARE, MEDICAID ==
--- NOTE | 2018-04-07 07:58 | RADIOLOGY REPORT (SQ) ---
EXAM DESCRIPTION: XR CHEST 1 VIEW COMPLETED DATE/TME: 04/07/2018 07:28 CLINICAL HISTORY: 72 years Male, SOB COMPARISON: 12/13/16 NUMBER OF VIEWS/TECHNIQUE: 1/AP FINDINGS: Low right lung volume, moderate opacity-effusion of the right lower 60% hemithorax, moderate interstitial markings. moderately enlarged cardiac silhouette, and intact bony thorax. IMPRESSION: Moderate mixed interstitial and airpace opacities. Differential diagnosis includes CHF/pulmonary edema, multifocal pneumonia, and chronic interstitial lung disease. Recommend CR/CT surveillance including at 7-12 weeks following initiation of any clinically warranted therapy.
[2018-04-07 07:59] LABS: ABSOLUTE BASOPHILS # (AUTO) 0.1 10^3/uL (0.0-0.2); ABSOLUTE LYMPHOCYTES (AUTO) 0.7 10^3/uL (0.5-4.7); ABSOLUTE MONOCYTES (AUTO) 0.6 10^3/uL (0.1-1.4); ABSOLUTE NEUT (AUTO) 9.1 10^3/uL (1.7-8.2); BASOPHILS % (AUTO) 0.5 % (0-2); EOSINOPHILS % (AUTO) 0.3 % (0-6); HEMATOCRIT 40.4 % (37.9-51.0); HEMOGLOBIN 12.8 g/dL (13.5-17.0); LYMPHOCYTES % (AUTO) 6.7 % (13-45); MEAN CORPUSCULAR HEMOGLOBIN 26.3 pg (27.0-33.4); MEAN CORPUSCULAR HGB CONC 31.7 g/dL (32.0-36.0); MEAN CORPUSCULAR VOLUME 83 fl (80-97); MONOCYTES % (AUTO) 5.3 % (3-13); PLATELET COUNT 270 10^3/uL (150-450); RED BLOOD COUNT 4.87 10^6/uL (4.35-5.55); RED CELL DISTRIBUTION WIDTH 17.6 % (11.5-14.0); SEGMENTED NEUTROPHILS % (AUTO) 87.2 % (42-78); TOTAL CELLS COUNTED % (AUTO) 100 %; WHITE BLOOD COUNT 10.4 10^3/uL (4.0-10.5)
[2018-04-07 08:00] LABS: ARTERIAL BLOOD BASE EXCESS 11.2 mmol/L; ARTERIAL BLOOD H2CO3 3.84 mmol/L (1.05-1.35); ARTERIAL BLOOD HCO3 44.9 mmol/L (20-24); ARTERIAL BLOOD O2 SATURATION 87.8 % (94-98); ARTERIAL BLOOD PO2 71.7 mmHg (80-100); ARTERIAL BLOOD TOTAL CO2 48.9 mmol/L (23-27)
[2018-04-07 08:02] LABS: ARTERIAL BLOOD FIO2 4L
[2018-04-07 08:03] LABS: ARTERIAL BLOOD PCO2 127.5 mmHg (35-45); ARTERIAL BLOOD PH 7.17 (7.35-7.45)
[2018-04-07 08:12] LABS: ALANINE AMINOTRANSFERASE 24 U/L (21-72); ALBUMIN 4.1 g/dL (3.5-5.0); ALKALINE PHOSPHATASE 140 U/L (38-126); ANION GAP 10 (5-19); ASPARTATE AMINO TRANSFERASE 23 U/L (17-59); BILIRUBIN,DIRECT 0.3 mg/dL (0.0-0.4); BILIRUBIN,TOTAL 0.7 mg/dL (0.2-1.3); BLOOD UREA NITROGEN 21 mg/dL (7-20); CALCIUM 9.5 mg/dL (8.4-10.2); CARBON DIOXIDE 37 mmol/L (22-30); CHLORIDE 96 mmol/L (98-107); CREATINE KINASE 32 U/L (55-170); GLUCOSE 168 mg/dL (75-110); POTASSIUM 3.7 mmol/L (3.6-5.0); SODIUM 143.3 mmol/L (137-145)
[2018-04-07] MEDS ORDERED: SUCCINYLCHOLINE CHLORIDE INJ 200 MG/10 ML VIAL ONE (08:12)
[2018-04-07 08:27] LABS: CREATINE KINASE MB 0.71 ng/mL (<4.55); TROPONIN I 0.015 ng/mL
[2018-04-07] MEDS ORDERED: LEVOFLOXACIN 750 MG/D5W RTU 750 MG/150 ML RTUPB IV ONE (08:31)
[2018-04-07] MEDS ORDERED: PROPOFOL INJ 200 MG/20 ML VIAL IV ONE (08:31)
[2018-04-07] MEDS ORDERED: MIDAZOLAM HCL 50 MG/100 ML RTUINJ ONE (08:32)
[2018-04-07] MEDS ORDERED: FENTANYL CITRATE INJ/PF 100 MCG/2 ML AMPUL IV ONE (08:46)
[2018-04-07] MEDS ORDERED: FENTANYL CITRATE INJ/PF 100 MCG/2 ML AMPUL ONE (08:46)
[2018-04-07] MEDS ORDERED: PROPOFOL 1,000 MG/100 ML INFUS..BTL IV ONE (08:46)
[2018-04-07] MEDS: PROPOFOL 1,000 MG/100 ML INFUS..BTL IV PRN ×5 (08:50→20:38)
[2018-04-07] MEDS ORDERED: DEXTROSE 5%-WATER 250 ML with NOREPINEPHRINE BITARTRATE 4 MG IV PRN ×4 (09:03→18:07)
[2018-04-07] MEDS ORDERED: NOREPINEPHRINE BITARTRATE INJ/PF 4 MG/4 ML SDV IV ONE (09:05)
[2018-04-07] MEDS: MIDAZOLAM HCL 50 MG/100 ML RTUINJ IV PRN ×3 (09:13→19:39)
--- NOTE | 2018-04-07 09:15 | ER Document Report ---
Entered by GUS JONES SCRIBE 04/07/18 0740 Acting as scribe for:JIMBO VILLARREAL MD ED General - General Stated Complaint: SHORTNESS OF BREATH Time Seen by Provider: 04/07/18 07:16 Primary Care Provider: BLANCHE NG MD [Primary Care Provider] - Follow up as needed Mode of Arrival: Medic Information source: Patient Notes: Patient is a 72 year old CHF, Hyperlipidemia, GERD, obstructive sleep apnea, pancreatic stent, presents to the emergency department via EMS complaining of shortness of breath onset a 3-4 weeks ago worsening today. Patient states he was given a Zpak and an inhaler 2 ago by his PCP, Dr. Ng. He states he has ran out his inhaler and felt it did not help much. He also complains of a productive cough with clear sputum. Patient states he has a CPAP at home but reports not using it. He states he did not receive much sleep last night. En route to the ED, EMS administered a breathing treatment. TRAVEL OUTSIDE OF THE [place] IN LAST 30 DAYS: No - Related Data Allergies/Adverse Reactions: No Known Allergies Allergy (Verified 04/07/18 07:35) Past Medical History - General Information source: Patient - Social History Smoking Status: Former Smoker Cigarette use (# per day): No Chew tobacco use (# tins/day): No Smoking Education Provided: No Frequency of alcohol use: None Family History: DM, Hypertension - Past Medical History Cardiac Medical History: Reports: Hx Atrial Fibrillation, Hx Congestive Heart Failure, Hx Hypercholesterolemia, Hx Hypertension Pulmonary Medical History: Reports: Hx Sleep Apnea Endocrine Medical History: Reports: Hx Diabetes Mellitus Type 2 - 1997 GI Medical History: Reports: Hx Diverticulitis, Hx Gastroesophageal Reflux Disease Musculoskeletal Medical History: Reports Hx Arthritis - severe djd RK. [place] say surgury too risky. 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, Other - diverticulitis, ventral hernia, Rcolectomy, cataracts, ERCP - Immunizations Hx Diphtheria, Pertussis, Tetanus Vaccination: Yes Hx Pneumococcal Vaccination: 02/09/15 Review of Systems - Review of Systems Constitutional: No symptoms reported EENT: No symptoms reported Cardiovascular: No symptoms reported Respiratory: See HPI, Cough, Short of breath Gastrointestinal: No symptoms reported Genitourinary: No symptoms reported Male Genitourinary: No symptoms reported Musculoskeletal: No symptoms reported Skin: No symptoms reported Hematologic/Lymphatic: No symptoms reported Neurological/Psychological: No symptoms reported -: Yes All other systems reviewed and negative Physical Exam - Vital signs Vitals: Temp 97.7 F 04/07/18 07:35 - Notes Notes: GENERAL: Frequently falls asleep during exam. Follows commands. HEAD: Normocephalic, atraumatic. EYES: Pupils equal, round, and reactive to light. Extraocular movements intact. ENT: Oral mucosa moist, tongue midline. NECK: Full range of motion. Supple. Trachea midline. LUNGS: Diffuse wheezes and rhonchi, actively receiving breathing treatment. Breath sounds seem to be decreased in the right lower lung field region. 90% oxygen saturation on 4L of nasal cannula. HEART: Regular with occasional PACs. No murmurs, gallops, or rubs. ABDOMEN: Soft, obese, non-tender. Non-distended. Bowel sounds present in all 4 quadrants. No guarding, rigidity, or rebound. EXTREMITIES: Moves all 4 extremities spontaneously. Radial pulses 2/4 bilater ally. Chronic peripheral edema, currently wearing compression socks. NEUROLOGICAL: Alert and oriented x3. Normal speech. PSYCH: Normal affect, normal mood. SKIN: Warm, dry. No rashes or lesions noted. : Severe phimosis. There is only the appearance of a pinhole for the urine to come out, so Frank catheter was not possible. Course - Re-evaluation Re-evalutation: 04/07/18 09:20 After the patient was intubated and the sedatives were wearing off, we tried Versed drip to control his agitation. This causes blood pressure to go into the 70s. The Versed was stopped and his pressure came up to the 120 range. Dipper Van drip was increased to control his agitation, and blood pressures fell again into the 70s, so a norepinephrine drip was started along with 1 L normal saline had been bolused in. - Vital Signs Vital signs: Temp Pulse Resp BP Pulse Ox 97.7 F 12 106/71 93 04/07/18 07:35 04/07/18 10:19 04/07/18 10:19 04/07/18 10:19 - Laboratory Result Diagrams: 04/07/18 07:40 04/07/18 07:40 Laboratory results interpreted by me: 04/07/18 04/07/18 04/07/18 07:40 07:40 07:50 Hgb 12.8 L MCH 26.3 L MCHC 31.7 L RDW 17.6 H Seg Neutrophils % 87.2 H Lymphocytes % 6.7 L Absolute Neutrophils 9.1 H Carbonic Acid 3.84 H ABG pH 7.17 L* ABG pCO2 127.5 H* ABG pO2 71.7 L ABG HCO3 44.9 H ABG Total CO2 48.9 H ABG O2 Saturation 87.8 L Chloride 96 L Carbon Dioxide 37 H BUN 21 H Glucose 168 H Alkaline Phosphatase 140 H Creatine Kinase 32 L - Diagnostic Test Radiology reviewed: Image reviewed, Reports reviewed - CXR--Large right pleural effusion/opacity feeling 60% of the right hemithorax. - EKG Interpretation by Me EKG shows normal: Sinus rhythm, [place], Intervals, QRS Complexes, ST-T Waves Rate: Tachycardia - 102 Rhythm: PVC's [place]/QRS: RBBB - Consults Dr. Ng Time consulted: 08:32 Consulted provider: will see as inpatient Critical Care Note - Critical Care Note Total time excluding time spent on procedures (mins): 35 Discharge - Discharge Clinical Impression: Pleural effusion Acute respiratory failure Qualifiers: Respiratory failure complication: hypoxia and hypercapnia Qualified Code(s): J96.01 - Acute respiratory failure with hypoxia; J96.02 - Acute respiratory failure with hypercapnia Chronic congestive heart failure Qualifiers: Heart failure type: combined systolic and diastolic Qualified Code(s): I50.42 - Chronic combined systolic (congestive) and diastolic (congestive) heart failure Condition: Serious Disposition: ADMITTED INPATIENT Admitting Provider: Berenice Unit Admitted: ICU Referrals: BLANCHE NG MD [Primary Care Provider] - Follow up as needed I personally performed the services described in the documentation, reviewed and edited the documentation which was dictated to the scribe in my presence, and it accurately records my words and actions.
[2018-04-07] MEDS ORDERED: NORMAL SALINE 1000 ML 1,000 ML IV ONE (09:16)
--- NOTE | 2018-04-07 09:34 | EKG REPORT ---
SEVERITY:- ABNORMAL ECG - SINUS TACHYCARDIA VENTRICULAR PREMATURE COMPLEX RIGHT BUNDLE BRANCH BLOCK : Confirmed by: Jay Ruggiero 07-Apr-2018 09:33:52
--- NOTE | 2018-04-07 09:38 | RADIOLOGY REPORT (SQ) ---
EXAM DESCRIPTION: CHEST SINGLE VIEW COMPLETED DATE/TIME: 04/07/2018 9:13 am REASON FOR STUDY: post intubation and OG placement COMPARISON: 04/07/2018 EXAM PARAMETERS: NUMBER OF VIEWS: One view. TECHNIQUE: Single frontal radiographic view of the chest acquired. RADIATION DOSE: NA LIMITATIONS: None. FINDINGS: LUNGS AND PLEURA: Persistent moderate to large right basilar effusion with associated basi lar consolidation, mildly improved aeration compared to prior exam. Left basilar interstitial opacit ies. No pneumothorax. MEDIASTINUM AND HILAR STRUCTURES: Partially obscured and stable. HEART AND VASCULAR STRUCTURES: Enlarged, stable. BONES: Decreased mineralization. HARDWARE: Interval intubation with endotracheal tube tip overlying midthoracic trachea. Enteric tube tip overlying gastric body. OTHER: No other significant finding. IMPRESSION: Intubation with endotracheal tube tip overlying midthoracic trachea. Persistent moderate to large right basilar pleural effusion and associated atelectasis. Interstitial edema with enlarged cardiac silhouette, stable. TECHNICAL DOCUMENTATION: JOB ID: [id number] [email or web address]- All Rights Reserved Reading location - IP/workstation name: [email or web address]
[2018-04-07] MEDS ORDERED: DEXTROSE 50%-WATER 25 GM/50 ML DISP.SYRIN IV PRN ×2 (12:04)
[2018-04-07] MEDS ORDERED: GLUCAGON,HUMAN RECOMB 1 MG INJ SUBCUT PRN (12:04)
[2018-04-07] MEDS ORDERED: DEXTROSE 40% GEL 15 GM TUBE NG PRN ×2 (12:04)
[2018-04-07] MEDS ORDERED: PHARMACY COMMUNICATION ORDER MC NR (12:15)
[2018-04-07] MEDS ORDERED: ENOXAPARIN SODIUM INJ 40 MG/0.4 ML DISP.SYRIN SUBCUT SCH (12:30)
[2018-04-07] MEDS: FAMOTIDINE INJ/PF 20 MG/2 ML SDV IV SCH ×2 (13:39→21:10)
[2018-04-07] MEDS: IPRATROPIUM/ALBUTEROL 0.5-2.5 MG/3 ML AMPUL NEB SCH ×3 (13:39→20:21)
[2018-04-07 14:40] LABS: INTERNATIONAL RATION (INR) 1.09; PROTHROMBIN TIME 14.7 SEC (11.4-15.4)
[2018-04-07] MEDS ORDERED: LIDOCAINE 1% INJ-PF (10 MG/ML) 30 ML SDV ONE (17:02)
[2018-04-07] MEDS ORDERED: AMPICILLIN SOD/SULBACTAM 3 GM VIAL IV ONE (17:54)
[2018-04-07] MEDS: METHYLPREDNISOLONE INJ 40 MG/1 ML SDV IV SCH (18:04)
[2018-04-07] MEDS: INSULIN REG, HUMAN 100 UNIT/ML 3 ML VIAL (PYX) SUBCUT SCH ×2 (18:06→23:29)
[2018-04-07 18:08] LABS: ARTERIAL BLOOD BASE EXCESS 9.7 mmol/L; ARTERIAL BLOOD H2CO3 0.88 mmol/L (1.05-1.35); ARTERIAL BLOOD HCO3 30.5 mmol/L (20-24); ARTERIAL BLOOD O2 SATURATION 97.3 % (94-98); ARTERIAL BLOOD PCO2 29.4 mmHg (35-45); ARTERIAL BLOOD PO2 76.6 mmHg (80-100); ARTERIAL BLOOD TOTAL CO2 31.4 mmol/L (23-27)
[2018-04-07 18:12] LABS: ARTERIAL BLOOD FIO2 60%
[2018-04-07 18:13] LABS: ARTERIAL BLOOD PH 7.63 (7.35-7.45)
--- NOTE | 2018-04-07 18:28 | RADIOLOGY REPORT (SQ) ---
EXAM DESCRIPTION: CHEST SINGLE VIEW COMPLETED DATE/TIME: 04/07/2018 6:09 pm REASON FOR STUDY: Post Right sided Thoracentesis COMPARISON: 04/07/2018 EXAM PARAMETERS: NUMBER OF VIEWS: One view TECHNIQUE: Single frontal radiograph of the chest. RADIATION DOSE: N/A LIMITATIONS: None. FINDINGS: TEMPORARY SUPPORT DEVICES:ETT in expected location. NG tube courses below the stiven-diaphr agm in to the stomach. LUNGS AND PLEURA: Mild bilateral basilar opacities. Marked reduction in the right pleural effusion. N o masses. No pneumothorax. MEDIASTINUM AND HILAR STRUCTURES: No masses. Contour normal. HEART AND VASCULAR STRUCTURES: Heart normal in size. normal vascularity. Aorta normal for age. BONES: No acute findings. OTHER: No other significant finding. IMPRESSION: Marked reduction in the right pleural effusion. No pneumothorax. SUPPORT DEVICE(S) IN EXPECTED LOCATIONS. TECHNICAL DOCUMENTATION: JOB ID: [id number] [employer]- All Rights Reserved Reading location - IP/workstation name: [email or web address]
[2018-04-07] MEDS ORDERED: AMPICILLIN SODIUM/SULBACTAM NA 3 GM in NORMAL SALINE 100 ML IV ONE (19:00)
[2018-04-07 19:03] LABS: FLUID TYPE PLEURAL
[2018-04-07 19:04] LABS: FLUID APPEARANCE SLIGHTLY HAZY; FLUID COLOR YELLOW; FLUID SOURCE LUNG
[2018-04-07 19:05] LABS: FLUID VISCOSITY LIQUID
[2018-04-07 19:06] LABS: APPEARANCE,URINE SLIGHTLY-CLOUDY; BILIRUBIN,URINE NEGATIVE (NEGATIVE); COLOR,URINE YELLOW; GLUCOSE, URINE NEGATIVE (NEGATIVE); KETONES,URINE 20 mg/dL (NEGATIVE); LEUKOCYTE ESTERASE,URINE MODERATE (NEGATIVE); NITRITE,URINE NEGATIVE (NEGATIVE); PROTEIN,URINE 100 mg/dL (NEGATIVE); URINE SPECIFIC GRAVITY 1.023
[2018-04-07 20:26] LABS: ARTERIAL BLOOD BASE EXCESS 9.8 mmol/L; ARTERIAL BLOOD H2CO3 1.05 mmol/L (1.05-1.35); ARTERIAL BLOOD O2 SATURATION 97.8 % (94-98); ARTERIAL BLOOD PCO2 34.8 mmHg (35-45); ARTERIAL BLOOD PH 7.58 (7.35-7.45); ARTERIAL BLOOD PO2 88.7 mmHg (80-100); ARTERIAL BLOOD TOTAL CO2 33.1 mmol/L (23-27)
[2018-04-07 20:31] LABS: ARTERIAL BLOOD FIO2 45%
[2018-04-07] MEDS: 1/2 NORMAL SALINE 1,000 ML IV PRN (23:29)
[2018-04-08] MEDS: PROPOFOL 1,000 MG/100 ML INFUS..BTL IV PRN ×9 (00:12→23:59)
[2018-04-08] MEDS: IPRATROPIUM/ALBUTEROL 0.5-2.5 MG/3 ML AMPUL NEB SCH ×6 (00:14→20:11)
[2018-04-08] MEDS: MIDAZOLAM HCL 50 MG/100 ML RTUINJ IV PRN ×2 (01:32→16:07)
[2018-04-08 03:55] LABS: ARTERIAL BLOOD H2CO3 0.99 mmol/L (1.05-1.35); ARTERIAL BLOOD HCO3 28.2 mmol/L (20-24); ARTERIAL BLOOD O2 SATURATION 97.4 % (94-98); ARTERIAL BLOOD PCO2 32.8 mmHg (35-45); ARTERIAL BLOOD PH 7.55 (7.35-7.45); ARTERIAL BLOOD TOTAL CO2 29.3 mmol/L (23-27)
[2018-04-08 03:57] LABS: ARTERIAL BLOOD FIO2 45%
[2018-04-08] MEDS: INSULIN REG, HUMAN 100 UNIT/ML 3 ML VIAL (PYX) SUBCUT SCH ×3 (05:10→17:03)
[2018-04-08] MEDS: METHYLPREDNISOLONE INJ 40 MG/1 ML SDV IV SCH ×2 (05:11→17:54)
[2018-04-08 05:12] LABS: HEMATOCRIT 36.7 % (37.9-51.0); HEMOGLOBIN 11.4 g/dL (13.5-17.0); MEAN CORPUSCULAR HEMOGLOBIN 25.5 pg (27.0-33.4); MEAN CORPUSCULAR HGB CONC 31.2 g/dL (32.0-36.0); MEAN CORPUSCULAR VOLUME 82 fl (80-97); PLATELET COUNT 224 10^3/uL (150-450); RED BLOOD COUNT 4.49 10^6/uL (4.35-5.55); RED CELL DISTRIBUTION WIDTH 17.4 % (11.5-14.0); WHITE BLOOD COUNT 11.7 10^3/uL (4.0-10.5)
[2018-04-08 05:19] LABS: ANION GAP 11 (5-19); BLOOD UREA NITROGEN 21 mg/dL (7-20); CALCIUM 9.2 mg/dL (8.4-10.2); CARBON DIOXIDE 32 mmol/L (22-30); CHLORIDE 98 mmol/L (98-107); GLUCOSE 132 mg/dL (75-110); POTASSIUM 3.1 mmol/L (3.6-5.0); SODIUM 140.7 mmol/L (137-145)
[2018-04-08 05:54] LABS: ABSOLUTE LYMPHOCYTES# (MANUAL) 0.1 10^3/uL (0.5-4.7); ABSOLUTE MONOCYTES # (MANUAL) 0.9 10^3/uL (0.1-1.4); ABSOLUTE NEUTROPHILS# (MANUAL) 10.6 10^3/uL (1.7-8.2); ANISOCYTOSIS SLIGHT; BAND NEUTROPHILS % (MANUAL) 1 % (3-5); BASOPHILS % (MANUAL) 0 % (0-2); EOSINOPHILS % (MANUAL) 0 % (0-6); LYMPHOCYTES % (MANUAL) 1 % (13-45); MONOCYTES % (MANUAL) 8 % (3-13); SEGMENTED NEUTROPHILS % (MAN) 90 % (42-78); TOTAL CELLS COUNTED 100
[2018-04-08 05:55] LABS: PLATELET COMMENT ADEQUATE; POLYCHROMASIA 1+
--- NOTE | 2018-04-08 07:14 | PDOC PROGRESS REPORT ---
Subjective Progress Note for:: 04/08/18 Subjective:: sedated Reason For Visit: RESPIRATORY FAILURE,R EFFUSION Physical Exam Vital Signs: Temp Pulse Resp BP Pulse Ox 97.7 F 86 16 105/56 L 99 04/08/18 04:00 04/08/18 04:18 04/08/18 06:09 04/08/18 06:09 04/08/18 06:09 Intake & Output 04/06/18 04/07/18 04/08/18 07:59 07:59 07:59 Intake Total 2175 Output Total 2720 Balance -545 Weight 260 lb 274 lb 7.608 oz General appearance: PRESENT: obese Respiratory exam: PRESENT: clear to auscultation dina Cardiovascular exam: ABSENT: diastolic murmur, irregular rhythm, systolic murmur GI/Abdominal exam: ABSENT: mass, organolmegaly, tenderness Extremities exam: PRESENT: pedal edema - 3+ Neurological exam: ABSENT: awake Results Laboratory Results: Abnormal - 24 hr 04/07/18 04/07/18 04/07/18 07:40 07:40 07:50 WBC Hgb 12.8 L Hct MCH 26.3 L MCHC 31.7 L RDW 17.6 H Seg Neutrophils % 87.2 H Seg Neuts % (Manual) Band Neutrophils % Lymphocytes % 6.7 L Lymphocytes % (Manual) Absolute Neutrophils 9.1 H Abs Neuts (Manual) Abs Lymphs (Manual) Carbonic Acid 3.84 H ABG pH 7.17 L* ABG pCO2 127.5 H* ABG pO2 71.7 L ABG HCO3 44.9 H ABG Total CO2 48.9 H ABG O2 Saturation 87.8 L Potassium Chloride 96 L Carbon Dioxide 37 H BUN 21 H Glucose 168 H POC Glucose Alkaline Phosphatase 140 H Creatine Kinase 32 L Urine Protein Urine Ketones Urine Blood Urine Urobilinogen Ur Leukocyte Esterase 04/07/18 04/07/18 04/07/18 17:42 18:06 18:37 WBC Hgb Hct MCH MCHC RDW Seg Neutrophils % Seg Neuts % (Manual) Band Neutrophils % Lymphocytes % Lymphocytes % (Manual) Absolute Neutrophils Abs Neuts (Manual) Abs Lymphs (Manual) Carbonic Acid 0.88 L ABG pH 7.63 H* ABG pCO2 29.4 L ABG pO2 76.6 L ABG HCO3 30.5 H ABG Total CO2 31.4 H ABG O2 Saturation Potassium Chloride Carbon Dioxide BUN Glucose POC Glucose 133 H Alkaline Phosphatase Creatine Kinase Urine Protein 100 H Urine Ketones 20 H Urine Blood LARGE H Urine Urobilinogen 4.0 H Ur Leukocyte Esterase MODERATE H 04/07/18 04/07/18 04/08/18 20:15 23:08 03:42 WBC Hgb Hct MCH MCHC RDW Seg Neutrophils % Seg Neuts % (Manual) Band Neutrophils % Lymphocytes % Lymphocytes % (Manual) Absolute Neutrophils Abs Neuts (Manual) Abs Lymphs (Manual) Carbonic Acid 0.99 L ABG pH 7.58 H 7.55 H ABG pCO2 34.8 L 32.8 L ABG pO2 ABG HCO3 32.0 H 28.2 H ABG Total CO2 33.1 H 29.3 H ABG O2 Saturation Potassium Chloride Carbon Dioxide BUN Glucose POC Glucose 140 H Alkaline Phosphatase Creatine Kinase Urine Protein Urine Ketones Urine Blood Urine Urobilinogen Ur Leukocyte Esterase 04/08/18 04/08/18 04/08/18 04:25 04:25 05:05 WBC 11.7 H Hgb 11.4 L Hct 36.7 L MCH 25.5 L MCHC 31.2 L RDW 17.4 H Seg Neutrophils % Seg Neuts % (Manual) 90 H Band Neutrophils % 1 L Lymphocytes % Lymphocytes % (Manual) 1 L Absolute Neutrophils Abs Neuts (Manual) 10.6 H Abs Lymphs (Manual) 0.1 L Carbonic Acid ABG pH ABG pCO2 ABG pO2 ABG HCO3 ABG Total CO2 ABG O2 Saturation Potassium 3.1 L Chloride Carbon Dioxide 32 H BUN 21 H Glucose 132 H POC Glucose 162 H Alkaline Phosphatase Creatine Kinase Urine Protein Urine Ketones Urine Blood Urine Urobilinogen Ur Leukocyte Esterase Impressions: Chest X-Ray 04/07/18 17:23 IMPRESSION: Marked reduction in the right pleural effusion. No pneumothorax. SUPPORT DEVICE(S) IN EXPECTED LOCATIONS. Assessment & Plan - Diagnosis (1) Pleural effusion Is this a current diagnosis for this admission?: Yes Plan: better R lung aeration after chest tube removed 2L transudate with [id number] lymphs 82%. Cultures pending routine AFB fungal. On unasyn levaquin. (2) Acute respiratory failure Qualifiers: Respiratory failure complication: hypoxia and hypercapnia Qualified Code(s): J96.01 - Acute respiratory failure with hypoxia; J96.02 - Acute respiratory failure with hypercapnia Is this a current diagnosis for this admission?: Yes Plan: sat ok on 45%. pCO2 down from 128 to 33. Will be slow wean. (3) Chronic combined systolic and diastolic heart failure Is this a current diagnosis for this admission?: Yes Plan: Bnp was normal this time. (4) GERD (gastroesophageal reflux disease) Qualifiers: Esophagitis presence: without esophagitis Qualified Code(s): K21.9 - Gastro-esophageal reflux disease without esophagitis Is this a current diagnosis for this admission?: Yes Plan: famotidine (5) Urinary tract infection Qualifiers: Urinary tract infection type: acute cystitis Hematuria presence: without hematuria Qualified Code(s): N30.00 - Acute cystitis without hematuria Is this a current diagnosis for this admission?: Yes Plan: pyuria. Culture pending on levaquin. - Inpatient Certification Medical Necessity: Failure to Improve With Outpatient Therapy, Significant Comorbidiites Make Outpatient Treatment Too Risky, Need Close Monitoring Due to Risk of Patient Decompensation, Need For IV Fluids, Need For Continuous Telemetry Monitoring, Need for Nebulizer Therapy and Monitoring of Response, Need for IV Antibiotics, Risk of Complication if Not Cared For in Hospital, Risk of Diagnosis Which Will Require Inpatient Eval/Care/Monitoring
[2018-04-08] MEDS: LEVOFLOXACIN 750 MG/D5W RTU 750 MG/150 ML RTUPB IV SCH (08:54)
[2018-04-08] MEDS: FAMOTIDINE INJ/PF 20 MG/2 ML SDV IV SCH ×2 (09:02→21:12)
[2018-04-08] MEDS: POTASSIUM CHLORIDE 20 MEQ/15 ML UDCUP NG SCH ×2 (09:17→21:12)
[2018-04-08] MEDS: ENOXAPARIN SODIUM INJ 40 MG/0.4 ML DISP.SYRIN SUBCUT SCH (09:17)
--- NOTE | 2018-04-08 09:39 | Operative Report ---
Bedside Procedure - History of Present Illness History of Present Illness: large R pleural effusion Indication for Procedure: dyspnea Date: 04/07/18 Surgeon: GABE ESPINOSA - Thoracentesis Right Time completed: 17:55 Consent obtained: Yes Thoracentesis pre-procedure: Betadine prep applied Anesthetic type: 2% Lidocaine mL's of anesthetic: 8 Number of attempts: 1 Ultrasound guided: No Complications: No
--- NOTE | 2018-04-08 12:08 | PDOC PROGRESS REPORT ---
Subjective Progress Note for:: 04/08/18 Subjective:: Intubated and sedated Reason For Visit: RESPIRATORY FAILURE,R EFFUSION Physical Exam Vital Signs: Temp Pulse Resp BP Pulse Ox 96.8 F L 89 16 110/60 99 04/08/18 08:00 04/08/18 08:13 04/08/18 08:13 04/08/18 08:00 04/08/18 08:13 Intake & Output 04/07/18 04/08/18 04/09/18 06:59 06:59 06:59 Intake Total 2175 35 Output Total 2720 40 Balance -545 -5 Weight 124.5 kg General appearance: PRESENT: no acute distress, disheveled, morbidly obese. ABSENT: cooperative Head exam: PRESENT: atraumatic, normocephalic Eye exam: PRESENT: conjunctiva pale. ABSENT: EOMI, nystagmus, scleral icterus Mouth exam: PRESENT: dry mucosa, neck supple, tongue midline, other - ET tube in place Teeth exam: PRESENT: poor dentation Neck exam: ABSENT: carotid bruit, full ROM, JVD, lymphadenopathy, meningismus, tenderness, thyromegaly, tracheal deviation, tracheostomy, other Respiratory exam: PRESENT: decreased breath sounds, prolonged expiratory phas, rales, rhonchi, unlabored. ABSENT: retraction, stridor Cardiovascular exam: PRESENT: RRR, +S1, +S2 Pulses: PRESENT: normal radial pulses GI/Abdominal exam: PRESENT: soft. ABSENT: tenderness Gentrourinary exam: PRESENT: indwelling catheter Extremities exam: ABSENT: calf tenderness, clubbing, joint swelling Musculoskeletal exam: ABSENT: deformity, dislocation Neurological exam: ABSENT: awake Skin exam: PRESENT: dry, warm Results Laboratory Results: 04/08/18 04:25 04/08/18 04:25 04/07/18 04/07/18 04/07/18 13:25 17:22 17:42 WBC RBC Hgb Hct MCV MCH MCHC RDW Plt Count Seg Neutrophils % Lymphocytes % Monocytes % Eosinophils % Basophils % Absolute Neutrophils Absolute Lymphocytes Absolute Monocytes Absolute Eosinophils Absolute Basophils Carbonic Acid 0.88 L HCO3/H2CO3 Ratio 34:1 ABG pH 7.63 H* ABG pCO2 29.4 L ABG pO2 76.6 L ABG HCO3 30.5 H ABG O2 Saturation 97.3 ABG Base Excess 9.7 FiO2 60% Sodium Potassium Chloride Carbon Dioxide Anion Gap BUN Creatinine Est GFR ( Amer) Est GFR (Non-Af Amer) Glucose Calcium Phosphorus Magnesium Triglycerides 72 Urine Color Urine Appearance Urine pH Ur Specific [place] Urine Protein Urine Glucose (UA) Urine Ketones Urine Blood Urine Nitrite Ur Leukocyte Esterase Urine WBC (Auto) Urine RBC (Auto) Fluid Type PLEURAL Fluid Source LUNG Fluid Color YELLOW Fluid Appearance SLIGHTLY HAZY Fluid Viscosity LIQUID Fluid WBC 275 Fluid RBC 1245 04/07/18 04/07/18 04/08/18 18:37 20:15 03:42 WBC RBC Hgb Hct MCV MCH MCHC RDW Plt Count Seg Neutrophils % Lymphocytes % Monocytes % Eosinophils % Basophils % Absolute Neutrophils Absolute Lymphocytes Absolute Monocytes Absolute Eosinophils Absolute Basophils Carbonic Acid 1.05 0.99 L HCO3/H2CO3 Ratio 30:1 28:1 ABG pH 7.58 H 7.55 H ABG pCO2 34.8 L 32.8 L ABG pO2 88.7 83.0 ABG HCO3 32.0 H 28.2 H ABG O2 Saturation 97.8 97.4 ABG Base Excess 9.8 6.0 FiO2 45% 45% Sodium Potassium Chloride Carbon Dioxide Anion Gap BUN Creatinine Est GFR ( Amer) Est GFR (Non-Af Amer) Glucose Calcium Phosphorus Magnesium Triglycerides Urine Color YELLOW Urine Appearance SLIGHTLY-CLOUDY Urine pH 6.0 Ur Specific [place] 1.023 Urine Protein 100 H Urine Glucose (UA) NEGATIVE Urine Ketones 20 H Urine Blood LARGE H Urine Nitrite NEGATIVE Ur Leukocyte Esterase MODERATE H Urine WBC (Auto) 27 Urine RBC (Auto) 99 Fluid Type Fluid Source Fluid Color Fluid Appearance Fluid Viscosity Fluid WBC Fluid RBC 04/08/18 04/08/18 04:25 04:25 WBC 11.7 H RBC 4.49 Hgb 11.4 L Hct 36.7 L MCV 82 MCH 25.5 L MCHC 31.2 L RDW 17.4 H Plt Count 224 Seg Neutrophils % Not Reportable Lymphocytes % Not Reportable Monocytes % Not Reportable Eosinophils % Not Reportable Basophils % Not Reportable Absolute Neutrophils Not Reportable Absolute Lymphocytes Not Reportable Absolute Monocytes Not Reportable Absolute Eosinophils Not Reportable Absolute Basophils Not Reportable Carbonic Acid HCO3/H2CO3 Ratio ABG pH ABG pCO2 ABG pO2 ABG HCO3 ABG O2 Saturation ABG Base Excess FiO2 Sodium 140.7 Potassium 3.1 L Chloride 98 Carbon Dioxide 32 H Anion Gap 11 BUN 21 H Creatinine 0.83 Est GFR ( Amer) > 60 Est GFR (Non-Af Amer) > 60 Glucose 132 H Calcium 9.2 Phosphorus 3.0 Magnesium 2.2 Triglycerides Urine Color Urine Appearance Urine pH Ur Specific [place] Urine Protein Urine Glucose (UA) Urine Ketones Urine Blood Urine Nitrite Ur Leukocyte Esterase Urine WBC (Auto) Urine RBC (Auto) Fluid Type Fluid Source Fluid Color Fluid Appearance Fluid Viscosity Fluid WBC Fluid RBC 04/07/18 04/07/18 04/07/18 07:40 07:40 13:25 Creatine Kinase 32 L CK-MB (CK-2) 0.71 Troponin I 0.015 0.023 NT-Pro-B Natriuret Pep 696 04/07/18 04/08/18 18:24 00:22 Creatine Kinase CK-MB (CK-2) Troponin I 0.018 < 0.012 NT-Pro-B Natriuret Pep Impressions: Chest X-Ray 04/07/18 17:23 IMPRESSION: Marked reduction in the right pleural effusion. No pneumothorax. SUPPORT DEVICE(S) IN EXPECTED LOCATIONS. Assessment & Plan - Diagnosis (1) Acute respiratory failure Qualifiers: Respiratory failure complication: hypoxia and hypercapnia Qualified Code(s): J96.01 - Acute respiratory failure with hypoxia; J96.02 - Acute respiratory failure with hypercapnia Is this a current diagnosis for this admission?: Yes Plan: Stable at this time (2) Chronic congestive heart failure Qualifiers: Heart failure type: combined systolic and diastolic Qualified Code(s): I50.42 - Chronic combined systolic (congestive) and diastolic (congestive) heart failure Is this a current diagnosis for this admission?: Yes Plan: Diuresis inotropic agents (3) Pleural effusion Is this a current diagnosis for this admission?: Yes Plan: Status post right thoracentesis 2200 cc (4) Acquired phimosis Is this a current diagnosis for this admission?: Yes Plan: Clear yellow urine draining from Frank catheter - Time Total Critical Time (Minutes): 45
--- NOTE | 2018-04-08 13:00 | RADIOLOGY REPORT (SQ) ---
EXAM DESCRIPTION: CHEST SINGLE VIEW COMPLETED DATE/TIME: 04/08/2018 12:47 pm REASON FOR STUDY: R effusion-PT INTUBATED COMPARISON: Chest films 04/07/2018, 12/13/2016 EXAM PARAMETERS: NUMBER OF VIEWS: One view. TECHNIQUE: Single frontal radiographic view of the chest acquired. RADIATION DOSE: NA LIMITATIONS: None. FINDINGS: LUNGS AND PLEURA: Trace right pleural effusion with right lower lobe airspace disease, ate lectasis versus pneumonia. Patchy left basilar airspace disease atelectasis versus pneumonia. No pneumothorax MEDIASTINUM AND HILAR STRUCTURES: No masses. Contour normal. HEART AND VASCULAR STRUCTURES: Stable mild cardiomegaly BONES: No acute findings. HARDWARE: Endotracheal tube tip 5 cm above the brandon. Nasogastric tube tip and side port in the sto mach. OTHER: No other significant finding. IMPRESSION: Endotracheal and nasogastric tubes in good positioning. Trace right pleural effusion with bibasilar airspace disease right greater than left atelectasis vers us pneumonia. TECHNICAL DOCUMENTATION: JOB ID: [id number] [employer]- All Rights Reserved Reading location - IP/workstation name: [email or web address]
[2018-04-08] MEDS: 1/2 NORMAL SALINE 1,000 ML IV PRN (16:55)
[2018-04-09] MEDS: INSULIN REG, HUMAN 100 UNIT/ML 3 ML VIAL (PYX) SUBCUT SCH ×4 (00:16→18:39)
[2018-04-09] MEDS: IPRATROPIUM/ALBUTEROL 0.5-2.5 MG/3 ML AMPUL NEB SCH ×6 (00:20→21:01)
[2018-04-09] MEDS: PROPOFOL 1,000 MG/100 ML INFUS..BTL IV PRN ×2 (03:11→05:50)
[2018-04-09 03:44] LABS: ARTERIAL BLOOD FIO2 35%; ARTERIAL BLOOD H2CO3 1.24 mmol/L (1.05-1.35); ARTERIAL BLOOD HCO3 32.7 mmol/L (20-24); ARTERIAL BLOOD O2 SATURATION 95.1 % (94-98); ARTERIAL BLOOD PCO2 41.2 mmHg (35-45); ARTERIAL BLOOD PH 7.52 (7.35-7.45); ARTERIAL BLOOD PO2 67.8 mmHg (80-100)
[2018-04-09 04:42] LABS: HEMATOCRIT 38.4 % (37.9-51.0); HEMOGLOBIN 12.2 g/dL (13.5-17.0); MEAN CORPUSCULAR HEMOGLOBIN 25.8 pg (27.0-33.4); MEAN CORPUSCULAR HGB CONC 31.9 g/dL (32.0-36.0); MEAN CORPUSCULAR VOLUME 81 fl (80-97); PLATELET COUNT 188 10^3/uL (150-450); RED BLOOD COUNT 4.74 10^6/uL (4.35-5.55); RED CELL DISTRIBUTION WIDTH 17.7 % (11.5-14.0); WHITE BLOOD COUNT 14.1 10^3/uL (4.0-10.5)
[2018-04-09 04:48] LABS: ANION GAP 8 (5-19); BLOOD UREA NITROGEN 23 mg/dL (7-20); CALCIUM 8.8 mg/dL (8.4-10.2); CARBON DIOXIDE 33 mmol/L (22-30); CHLORIDE 97 mmol/L (98-107); GLUCOSE 145 mg/dL (75-110); PHOSPHORUS 3.8 mg/dL (2.5-4.5); POTASSIUM 3.8 mmol/L (3.6-5.0); SODIUM 138.3 mmol/L (137-145)
[2018-04-09 05:30] LABS: ABSOLUTE LYMPHOCYTES# (MANUAL) 0.4 10^3/uL (0.5-4.7); ABSOLUTE MONOCYTES # (MANUAL) 0.8 10^3/uL (0.1-1.4); ABSOLUTE NEUTROPHILS# (MANUAL) 12.8 10^3/uL (1.7-8.2); ANISOCYTOSIS 1+; BAND NEUTROPHILS % (MANUAL) 2 % (3-5); BASOPHILS % (MANUAL) 0 % (0-2); EOSINOPHILS % (MANUAL) 0 % (0-6); HYPOCHROMASIA SLIGHT; LYMPHOCYTES % (MANUAL) 3 % (13-45); MONOCYTES % (MANUAL) 6 % (3-13); PLATELET COMMENT ADEQUATE; SEGMENTED NEUTROPHILS % (MAN) 89 % (42-78); TOTAL CELLS COUNTED 100
[2018-04-09] MEDS: METHYLPREDNISOLONE INJ 40 MG/1 ML SDV IV SCH ×2 (05:45→19:07)
[2018-04-09] MEDS: 1/2 NORMAL SALINE 1,000 ML IV PRN ×2 (05:50→21:47)
--- NOTE | 2018-04-09 06:58 | PDOC PROGRESS REPORT ---
Subjective Progress Note for:: 04/09/18 Subjective:: sedated Reason For Visit: RESPIRATORY FAILURE,R EFFUSION Physical Exam Vital Signs: Temp Pulse Resp BP Pulse Ox 96.8 F L 83 13 114/68 98 04/09/18 04:00 04/09/18 04:23 04/09/18 06:10 04/09/18 06:10 04/09/18 06:10 Intake & Output 04/07/18 04/08/18 04/09/18 07:59 07:59 07:59 Intake Total 2175 2255 Output Total 2720 1290 Balance -545 965 Weight 260 lb 274 lb 7.608 oz 274 lb 14.663 oz General appearance: PRESENT: obese Respiratory exam: PRESENT: clear to auscultation dina Cardiovascular exam: ABSENT: diastolic murmur, irregular rhythm, systolic murmur GI/Abdominal exam: ABSENT: mass, organolmegaly Extremities exam: PRESENT: pedal edema - 2+ Skin exam: PRESENT: erythema - distal legs Results Laboratory Results: 04/09/18 04:08 04/09/18 04:08 04/09/18 04/09/18 04/09/18 03:30 04:08 04:08 WBC 14.1 H RBC 4.74 Hgb 12.2 L Hct 38.4 MCV 81 MCH 25.8 L MCHC 31.9 L RDW 17.7 H Plt Count 188 Seg Neutrophils % Not Reportable Lymphocytes % Not Reportable Monocytes % Not Reportable Eosinophils % Not Reportable Basophils % Not Reportable Absolute Neutrophils Not Reportable Absolute Lymphocytes Not Reportable Absolute Monocytes Not Reportable Absolute Eosinophils Not Reportable Absolute Basophils Not Reportable Carbonic Acid 1.24 HCO3/H2CO3 Ratio 26:1 ABG pH 7.52 H ABG pCO2 41.2 ABG pO2 67.8 L ABG HCO3 32.7 H ABG O2 Saturation 95.1 ABG Base Excess 9.0 FiO2 35% Sodium 138.3 Potassium 3.8 Chloride 97 L Carbon Dioxide 33 H Anion Gap 8 BUN 23 H Creatinine 0.88 Est GFR ( Amer) > 60 Est GFR (Non-Af Amer) > 60 Glucose 145 H Calcium 8.8 Phosphorus 3.8 Magnesium 2.4 H Impressions: Chest X-Ray 04/08/18 12:15 IMPRESSION: Endotracheal and nasogastric tubes in good positioning. Trace right pleural effusion with bibasilar airspace disease right greater than left atelectasis versus pneumonia. Assessment & Plan - Diagnosis (1) Pleural effusion Is this a current diagnosis for this admission?: Yes Plan: afb & culture negative so far. Basal atalectasis vs infiltrate. Continue antibiotics. Resume furosemide now that bp ok off pressor. (2) Acute respiratory failure Qualifiers: Respiratory failure complication: hypoxia and hypercapnia Qualified Code(s): J96.01 - Acute respiratory failure with hypoxia; J96.02 - Acute respiratory failure with hypercapnia Is this a current diagnosis for this admission?: Yes (3) Chronic combined systolic and diastolic heart failure Is this a current diagnosis for this admission?: Yes (4) GERD (gastroesophageal reflux disease) Qualifiers: Esophagitis presence: without esophagitis Qualified Code(s): K21.9 - G marleen-esophageal reflux disease without esophagitis Is this a current diagnosis for this admission?: Yes (5) Urinary tract infection Qualifiers: Urinary tract infection type: acute cystitis Hematuria presence: without hematuria Qualified Code(s): N30.00 - Acute cystitis without hematuria Is this a current diagnosis for this admission?: Yes (6) Varicose veins of lower extremity with inflammation Qualifiers: Laterality: bilateral Qualified Code(s): I83.11 - Varicose veins of right lower extremity with inflammation; I83.12 - Varicose veins of left lower extremity with inflammation Is this a current diagnosis for this admission?: Yes Plan: triamcinolone - Inpatient Certification Medical Necessity: Failure to Improve With Outpatient Therapy, Significant Comorbidiites Make Outpatient Treatment Too Risky, Need Close Monitoring Due to Risk of Patient Decompensation, Need For IV Fluids, Need For Continuous Telemetry Monitoring, Need for Nebulizer Therapy and Monitoring of Response, Need for IV Antibiotics, Risk of Complication if Not Cared For in Hospital, Risk of Diagnosis Which Will Require Inpatient Eval/Care/Monitoring
[2018-04-09] MEDS: LEVOFLOXACIN 750 MG/D5W RTU 750 MG/150 ML RTUPB IV SCH (08:38)
--- NOTE | 2018-04-09 08:42 | RADIOLOGY REPORT (SQ) ---
EXAM DESCRIPTION: CHEST SINGLE VIEW COMPLETED DATE/TIME: 04/09/2018 8:30 am REASON FOR STUDY: R effusion- pt intubated COMPARISON: Chest films 04/07/2018, 04/08/2018 EXAM PARAMETERS: NUMBER OF VIEWS: One view. TECHNIQUE: Single frontal radiographic view of the chest acquired. RADIATION DOSE: NA LIMITATIONS: Morbidly obese patient FINDINGS: LUNGS AND PLEURA: There is still a persistent small right pleural effusion in the lateral costophrenic sulcus, with right basilar airspace disease atelectasis versus pneumonia. Minimal left basilar airspace disease atelectasis versus pneumonia. Trace left pleural effusion coul d not be excluded. No right or left pneumothorax MEDIASTINUM AND HILAR STRUCTURES: No masses. Contour normal. HEART AND VASCULAR STRUCTURES: Moderate cardiomegaly BONES: No acute findings. HARDWARE: Endotracheal tube tip 3 cm above the brandon. Nasogastric tube tip and side port in the sto mach. OTHER: No other significant finding. IMPRESSION: Small persistent right pleural effusion Bibasilar consolidation right greater than left TECHNICAL DOCUMENTATION: JOB ID: [id number] [employer]- All Rights Reserved Reading location - IP/workstation name: [email or web address]
[2018-04-09] MEDS: ENOXAPARIN SODIUM INJ 40 MG/0.4 ML DISP.SYRIN SUBCUT SCH (09:55)
[2018-04-09] MEDS: FUROSEMIDE INJ/PF 40 MG/4 ML SDV IV SCH (09:59)
[2018-04-09] MEDS: FAMOTIDINE INJ/PF 20 MG/2 ML SDV IV SCH ×2 (10:01→21:46)
[2018-04-09] MEDS: TRIAMCINOLONE ACETONIDE 0.1% CREAM 15 GM TOP SCH ×2 (10:03→18:38)
[2018-04-09] MEDS: POTASSIUM CHLORIDE 20 MEQ/15 ML UDCUP NG SCH ×2 (10:03→21:47)
--- NOTE | 2018-04-09 10:53 | PDOC PROGRESS REPORT ---
Subjective Progress Note for:: 04/09/18 Subjective:: Intubated and sedated Reason For Visit: RESPIRATORY FAILURE,R EFFUSION Physical Exam Vital Signs: Temp Pulse Resp BP Pulse Ox 96.8 F L 83 13 114/68 98 04/09/18 04:00 04/09/18 04:23 04/09/18 06:10 04/09/18 06:10 04/09/18 06:10 Intake & Output 04/08/18 04/09/18 04/10/18 06:59 06:59 06:59 Intake Total 2175 2255 1 Output Total 2720 1290 Balance -545 965 1 Weight 124.5 kg 124.7 kg Results Laboratory Results: 04/09/18 04:08 04/09/18 04:08 04/09/18 04/09/18 04/09/18 03:30 04:08 04:08 WBC 14.1 H RBC 4.74 Hgb 12.2 L Hct 38.4 MCV 81 MCH 25.8 L MCHC 31.9 L RDW 17.7 H Plt Count 188 Seg Neutrophils % Not Reportable Lymphocytes % Not Reportable Monocytes % Not Reportable Eosinophils % Not Reportable Basophils % Not Reportable Absolute Neutrophils Not Reportable Absolute Lymphocytes Not Reportable Absolute Monocytes Not Reportable Absolute Eosinophils Not Reportable Absolute Basophils Not Reportable Carbonic Acid 1.24 HCO3/H2CO3 Ratio 26:1 ABG pH 7.52 H ABG pCO2 41.2 ABG pO2 67.8 L ABG HCO3 32.7 H ABG O2 Saturation 95.1 ABG Base Excess 9.0 FiO2 35% Sodium 138.3 Potassium 3.8 Chloride 97 L Carbon Dioxide 33 H Anion Gap 8 BUN 23 H Creatinine 0.88 Est GFR ( Amer) > 60 Est GFR (Non-Af Amer) > 60 Glucose 145 H Calcium 8.8 Phosphorus 3.8 Magnesium 2.4 H 04/07/18 04/07/18 04/07/18 07:40 07:40 13:25 Creatine Kinase 32 L CK-MB (CK-2) 0.71 Troponin I 0.015 0.023 NT-Pro-B Natriuret Pep 696 04/07/18 04/08/18 18:24 00:22 Creatine Kinase CK-MB (CK-2) Troponin I 0.018 < 0.012 NT-Pro-B Natriuret Pep Impressions: Chest X-Ray 04/09/18 00:00 IMPRESSION: Small persistent right pleural effusion Bibasilar consolidation right greater than left Assessment & Plan - Diagnosis (1) Acute respiratory failure Qualifiers: Respiratory failure complication: hypoxia and hypercapnia Qualified Code(s): J96.01 - Acute respiratory failure with hypoxia; J96.02 - Acute respiratory failure with hypercapnia Is this a current diagnosis for this admission?: Yes Plan: Respiratory rate, airway pressures,. minute ventilation, and if to suggest patient would do well post extubation will proceed with extubation. To BiPAP (2) Chronic congestive heart failure Qualifiers: Heart failure type: combined systolic and diastolic Qualified Code(s): I 50.42 - Chronic combined systolic (congestive) and diastolic (congestive) heart failure Is this a current diagnosis for this admission?: Yes Plan: Diuresis and inotropic agents. As needed (3) Pleural effusion Is this a current diagnosis for this admission?: Yes Plan: Proceed with Right thoracentesis (4) Acquired phimosis Is this a current diagnosis for this admission?: Yes Plan: Clear yellow urine draining from Frank catheter - Time Total Critical Time (Minutes): 55
--- NOTE | 2018-04-09 10:53 | PDOC CONSULTATION ---
Consultation Consult Date: 04/07/18 Attending physician:: BLANCHE BROWER Consult reason:: resp failure History of Present Illness Admission Date/PCP: 04/07/18 10:57 BLANCHE BROWER MD History of Present Illness: AISHA PABLO is a 72 year old male, presents to the emergency room by [facility] complaining of increasing shortness of breath had been getting worse over the last 3-4 weeks despite a visit to his primary care for the physician who treated him with MDI as well as antibiotic he was subsequently intubated in the emergency room and is currently in the ICU intubated and sedated he carries a diagnosis of congestive heart failure, hyperlipidemia, obstructive sleep apnea, type of chronic pancreatic disease states well-defined Past Medical History Cardiac Medical History: Reports: Atrial Fibrillation, Congestive Heart Failure - combined, Hyperlipidema, Hypertension Pulmonary Medical History: Reports: Chronic Obstructive Pulmonary Disease (COPD), Sleep Apnea - refused cpap, Other - obesityLung 1994 fvc55% fev1=52 [id number] [id number] [id number] EENT Medical History: Reports: None Neurological Medical History: Reports: Other - diabetic neuropathy paroxysmal vertigo Denies: Seizures Endocrine Medical History: Reports: Diabetes Mellitus Type 1, Diabetes Mellitus Type 2 - 1997, Obesity Renal/ Medical History: Reports: Other - phimosis Malignancy Medical History: Reports: None GI Medical History: Reports: Diverticulitis, Gastroesophageal Reflux Disease, Other - bleed from R tic Musculoskeltal Medical History: Reports: Arthritis - severe djd RK. [place] say surgury too risky. Skin Medical History: Reports: Other - stasis ulcers Psychiatric Medical History: Reports: None Denies: Depression Traumatic Medical History: Reports: None Hematology: Reports: Anemia - iron. July Infectious Medical History: Reports: None Past Surgical History Past Surgical History: Reports: Herniorrhaphy - ventral hernia repair with mesh insertion., Other - diverticulitis, ventral hernia, Rcolectomy, cataracts, ERCP dorsal slit Social History Information Source: [facility] Records Lives with: Alone Smoking Status: Former Smoker Number of Years Smokin Last Time Smoked: 1995 Frequency of Alcohol Use: None Hx Recreational Drug Use: No Drugs: None Hx Prescription Drug Abuse: No - Advance Directive Resuscitation Status: Do Not Resuscitate Family History Family History: DM, Hypertension Parental Family History Reviewed: No Children Family History Reviewed: No Sibling(s) Family History Reviewed.: No Medication/Allergy Home Medications: Albuterol Sulfate [Proair Hfa Inhalation Aerosol 8.5 gm Mdi] 2 puff IH QIDP PRN 04/07/18 Allopurinol [Zyloprim 300 mg Tablet] 300 mg PO DAILY 04/07/18 Atorvastatin Calcium [Lipitor 10 mg Tablet] 10 mg PO QHS 04/07/18 Furosemide [Lasix 40 mg Tablet] 40 mg PO BID 04/07/18 Gabapentin [Neurontin 300 mg Capsule] 300 mg PO BID 04/07/18 Hydromorphone HCl [Dilaudid 2 mg Tablet] 2 mg PO Q8 04/07/18 Omeprazole 20 mg PO Q6AM 04/07/18 Allergies/Adverse Reactions: No Known Allergies Allergy (Verified 04/07/18 07:35) Review of Systems ROS unobtainable: Due to endotracheal tube Physical Exam Vital Signs: Temp Pulse Resp BP Pulse Ox 96.8 F L 89 16 110/60 99 04/08/18 08:00 04/08/18 08:13 04/08/18 08:13 04/08/18 08:00 04/08/18 08:13 Intake & Output 04/07/18 04/08/18 04/09/18 06:59 06:59 06:59 Intake Total 2175 35 Output Total 2720 40 Balance -545 -5 Weight 124.5 kg General appearance: PRESENT: no acute distress, disheveled, morbidly obese. ABSENT: cooperative Head exam: PRESENT: atraumatic, normocephalic Eye exam: PRESENT: conjunctiva pale. ABSENT: EOMI, nystagmus, periorbital swelling, scleral icterus Mouth exam: PRESENT: dry mucosa, neck supple, tongue midline, other - T-tube in place Teeth exam: PRESENT: poor dentation Neck exam: ABSENT: carotid bruit, JVD, lymphadenopathy, thyromegaly, tracheal deviation, tracheostomy Respiratory exam: PRESENT: decreased breath sounds, prolonged expiratory phas, rales, rhonchi, unlabored, wheezes. ABSENT: retraction, stridor Cardiovascular exam: PRESENT: irregular rhythm Pulses: PRESENT: normal radial pulses GI/Abdominal exam: PRESENT: soft. ABSENT: tenderness Extremities exam: PRESENT: pedal edema. ABSENT: calf tenderness, clubbing, joint swelling Musculoskeletal exam: ABSENT: deformity, dislocation Neurological exam: ABSENT: awake Skin exam: PRESENT: dry, warm Results Laboratory Results: 04/08/18 04:25 04/08/18 04:25 04/07/18 04/07/18 04/07/18 13:25 17:22 17:42 WBC RBC Hgb Hct MCV MCH MCHC RDW Plt Count Seg Neutrophils % Lymphocytes % Monocytes % Eosinophils % Basophils % Absolute Neutrophils Absolute Lymphocytes Absolute Monocytes Absolute Eosinophils Absolute Basophils Carbonic Acid 0.88 L HCO3/H2CO3 Ratio 34:1 ABG pH 7.63 H* ABG pCO2 29.4 L ABG pO2 76.6 L ABG HCO3 30.5 H ABG O2 Saturation 97.3 ABG Base Excess 9.7 FiO2 60% Sodium Potassium Chloride Carbon Dioxide Anion Gap BUN Creatinine Est GFR ( Amer) Est GFR (Non-Af Amer) Glucose Calcium Phosphorus Magnesium Triglycerides 72 Urine Color Urine Appearance Urine pH Ur Specific [place] Urine Protein Urine Glucose (UA) Urine Ketones Urine Blood Urine Nitrite Ur Leukocyte Esterase Urine WBC (Auto) Urine RBC (Auto) Fluid Type PLEURAL Fluid Source LUNG Fluid Color YELLOW Fluid Appearance SLIGHTLY HAZY Fluid Viscosity LIQUID Fluid WBC 275 Fluid RBC 1245 04/07/18 04/07/18 04/08/18 18:37 20:15 03:42 WBC RBC Hgb Hct MCV MCH MCHC RDW Plt Count Seg Neutrophils % Lymphocytes % Monocytes % Eosinophils % Basophils % Absolute Neutrophils Absolute Lymphocytes Absolute Monocytes Absolute Eosinophils Absolute Basophils Carbonic Acid 1.05 0.99 L HCO3/H2CO3 Ratio 30:1 28:1 ABG pH 7.58 H 7.55 H ABG pCO2 34.8 L 32.8 L ABG pO2 88.7 83.0 ABG HCO3 32.0 H 28.2 H ABG O2 Saturation 97.8 97.4 ABG Base Excess 9.8 6.0 FiO2 45% 45% Sodium Potassium Chloride Carbon Dioxide Anion Gap BUN Creatinine Est GFR ( Amer) Est GFR (Non-Af Amer) Glucose Calcium Phosphorus Magnesium Triglycerides Urine Color YELLOW Urine Appearance SLIGHTLY-CLOUDY Urine pH 6.0 Ur Specific [place] 1.023 Urine Protein 100 H Urine Glucose (UA) NEGATIVE Urine Ketones 20 H Urine Blood LARGE H Urine Nitrite NEGATIVE Ur Leukocyte Esterase MODERATE H Urine WBC (Auto) 27 Urine RBC (Auto) 99 Fluid Type Fluid Source Fluid Color Fluid Appearance Fluid Viscosity Fluid WBC Fluid RBC 04/08/18 04/08/18 04:25 04:25 WBC 11.7 H RBC 4.49 Hgb 11.4 L Hct 36.7 L MCV 82 MCH 25.5 L MCHC 31.2 L RDW 17.4 H Plt Count 224 Seg Neutrophils % Not Reportable Lymphocytes % Not Reportable Monocytes % Not Reportable Eosinophils % Not Reportable Basophils % Not Reportable Absolute Neutrophils Not Reportable Absolute Lymphocytes Not Reportable Absolute Monocytes Not Reportable Absolute Eosinophils Not Reportable Absolute Basophils Not Reportable Carbonic Acid HCO3/H2CO3 Ratio ABG pH ABG pCO2 ABG pO2 ABG HCO3 ABG O2 Saturation ABG Base Excess FiO2 Sodium 140.7 Potassium 3.1 L Chloride 98 Carbon Dioxide 32 H Anion Gap 11 BUN 21 H Creatinine 0.83 Est GFR ( Amer) > 60 Est GFR (Non-Af Amer) > 60 Glucose 132 H Calcium 9.2 Phosphorus 3.0 Magnesium 2.2 Triglycerides Urine Color Urine Appearance Urine pH Ur Specific [place] Urine Protein Urine Glucose (UA) Urine Ketones Urine Blood Urine Nitrite Ur Leukocyte Esterase Urine WBC (Auto) Urine RBC (Auto) Fluid Type Fluid Source Fluid Color Fluid Appearance Fluid Viscosity Fluid WBC Fluid RBC 04/07/18 04/07/18 04/07/18 07:40 07:40 13:25 Creatine Kinase 32 L CK-MB (CK-2) 0.71 Troponin I 0.015 0.023 NT-Pro-B Natriuret Pep 696 04/07/18 04/08/18 18:24 00:22 Creatine Kinase CK-MB (CK-2) Troponin I 0.018 < 0.012 NT-Pro-B Natriuret Pep Impressions: Chest X-Ray 04/07/18 17:23 IMPRESSION: Marked reduction in the right pleural effusion. No pneumothorax. SUPPORT DEVICE(S) IN EXPECTED LOCATIONS. Assessment & Plan - Diagnosis (1) Acute respiratory failure Qualifiers: Respiratory failure complication: hypoxia and hypercapnia Qualified Code(s): J96.01 - Acute respiratory failure with hypoxia; J96.02 - Acute respi ratory failure with hypercapnia Is this a current diagnosis for this admission?: Yes Plan: Large right-sided pleural effusion obviously affecting peak airway pressures in the mid to high 30s (2) Chronic congestive heart failure Qualifiers: Heart failure type: combined systolic and diastolic Qualified Code(s): I50.42 - Chronic combined systolic (congestive) and diastolic (congestive) heart failure Is this a current diagnosis for this admission?: Yes Plan: Diuresis and inotropic agents. As needed (3) Pleural effusion Is this a current diagnosis for this admission?: Yes Plan: Proceed with Right thoracentesis (4) Acquired phimosis Is this a current diagnosis for this admission?: Yes Plan: Clear yellow urine draining from Frank catheter - Time Total Critical Time (Minutes): 55
[2018-04-09] MEDS ORDERED: MIDAZOLAM 2 MG/2 ML INJ ONE (16:05)
[2018-04-09] MEDS: MIDAZOLAM 2 MG/2 ML INJ IV PRN ×2 (16:05→21:46)
[2018-04-09] MEDS ORDERED: RISPERIDONE MICROSPHERES INJ 12.5 MG/2 ML KIT IM ONE (16:45)
[2018-04-09 16:58] LABS: ARTERIAL BLOOD BASE EXCESS 10.4 mmol/L; ARTERIAL BLOOD H2CO3 1.58 mmol/L (1.05-1.35); ARTERIAL BLOOD O2 SATURATION 96.1 % (94-98); ARTERIAL BLOOD PCO2 52.4 mmHg (35-45); ARTERIAL BLOOD PH 7.46 (7.35-7.45); ARTERIAL BLOOD PO2 79.6 mmHg (80-100); ARTERIAL BLOOD TOTAL CO2 37.6 mmol/L (23-27)
[2018-04-09 17:00] LABS: ARTERIAL BLOOD FIO2 4L
[2018-04-09] MEDS ORDERED: MIDAZOLAM 2 MG/2 ML INJ IV ONE (19:15)
[2018-04-09] MEDS ORDERED: HYDRALAZINE HCL INJ/PF 20 MG/1 ML SDV IV PRN (22:07)
[2018-04-09] MEDS ORDERED: FENTANYL CITRATE INJ/PF 100 MCG/2 ML AMPUL ONE (22:16)
[2018-04-09] MEDS ORDERED: FENTANYL CITRATE INJ/PF 100 MCG/2 ML AMPUL IV ONE (22:30)
[2018-04-09] MEDS ORDERED: HALOPERIDOL LACTATE INJ 5 MG/1 ML VIAL ONE (23:40)
[2018-04-09] MEDS ORDERED: HALOPERIDOL LACTATE INJ 5 MG/1 ML VIAL IM ONE (23:45)
[2018-04-10] MEDS: IPRATROPIUM/ALBUTEROL 0.5-2.5 MG/3 ML AMPUL NEB SCH ×6 (00:04→20:30)
[2018-04-10] MEDS: INSULIN REG, HUMAN 100 UNIT/ML 3 ML VIAL (PYX) SUBCUT SCH ×2 (00:33→05:11)
[2018-04-10] MEDS: MIDAZOLAM 2 MG/2 ML INJ IV PRN (02:56)
[2018-04-10 04:47] LABS: ARTERIAL BLOOD BASE EXCESS 6.1 mmol/L; ARTERIAL BLOOD H2CO3 1.21 mmol/L (1.05-1.35); ARTERIAL BLOOD HCO3 29.9 mmol/L (20-24); ARTERIAL BLOOD O2 SATURATION 98.7 % (94-98); ARTERIAL BLOOD PCO2 40.2 mmHg (35-45); ARTERIAL BLOOD PH 7.49 (7.35-7.45); ARTERIAL BLOOD PO2 123.4 mmHg (80-100); ARTERIAL BLOOD TOTAL CO2 31.2 mmol/L (23-27)
[2018-04-10 04:49] LABS: ARTERIAL BLOOD FIO2 28%
[2018-04-10 06:20] LABS: HEMATOCRIT 40.7 % (37.9-51.0); HEMOGLOBIN 12.9 g/dL (13.5-17.0); MEAN CORPUSCULAR HEMOGLOBIN 25.6 pg (27.0-33.4); MEAN CORPUSCULAR HGB CONC 31.8 g/dL (32.0-36.0); MEAN CORPUSCULAR VOLUME 81 fl (80-97); PLATELET COUNT 290 10^3/uL (150-450); RED BLOOD COUNT 5.05 10^6/uL (4.35-5.55); RED CELL DISTRIBUTION WIDTH 17.6 % (11.5-14.0); WHITE BLOOD COUNT 18.9 10^3/uL (4.0-10.5)
[2018-04-10 06:28] LABS: BLOOD UREA NITROGEN 27 mg/dL (7-20); CALCIUM 9.4 mg/dL (8.4-10.2); GLUCOSE 118 mg/dL (75-110)
[2018-04-10 06:29] LABS: ANION GAP 10 (5-19); CARBON DIOXIDE 27 mmol/L (22-30); CHLORIDE 106 mmol/L (98-107); POTASSIUM 4.1 mmol/L (3.6-5.0)
[2018-04-10 06:50] LABS: ABSOLUTE LYMPHOCYTES# (MANUAL) 0.6 10^3/uL (0.5-4.7); ABSOLUTE MONOCYTES # (MANUAL) 0.4 10^3/uL (0.1-1.4); BASOPHILS % (MANUAL) 0 % (0-2); EOSINOPHILS % (MANUAL) 0 % (0-6); LYMPHOCYTES % (MANUAL) 3 % (13-45); MONOCYTES % (MANUAL) 2 % (3-13); SEGMENTED NEUTROPHILS % (MAN) 95 % (42-78); TOTAL CELLS COUNTED 100
[2018-04-10 06:51] LABS: ANISOCYTOSIS 1+; PLATELET COMMENT ADEQUATE; POLYCHROMASIA 1+
--- NOTE | 2018-04-10 07:06 | RADIOLOGY REPORT (SQ) ---
EXAM DESCRIPTION: XR CHEST 1 VIEW COMPLETED DATE/TME: 04/10/2018 06:00 CLINICAL HISTORY: 72 years Male, R EFFUSION COMPARISON: One day prior. NUMBER OF VIEWS/TECHNIQUE: 1/AP FINDINGS: Moderate right lower thoracic effusion/opacity. Mildly enlarged cardiac silhouette. No pneumothorax. Stable bony thorax. IMPRESSION: Interval extubation.
--- NOTE | 2018-04-10 07:09 | PDOC PROGRESS REPORT ---
Subjective Progress Note for:: 04/10/18 Subjective:: no pain Reason For Visit: RESPIRATORY FAILURE,R EFFUSION Physical Exam Vital Signs: Temp Pulse Resp BP Pulse Ox 98.4 F 96 23 H 155/97 H 100 04/09/18 16:00 04/10/18 04:00 04/10/18 04:00 04/10/18 01:40 04/10/18 04:00 Intake & Output 04/08/18 04/09/18 04/10/18 07:59 07:59 07:59 Intake Total 2175 2255 1151 Output Total 2720 1290 4480 Balance -545 893 -9938 Weight 274 lb 7.608 oz 274 lb 14.663 oz 274 lb 14.663 oz General appearance: PRESENT: no acute distress Respiratory exam: PRESENT: clear to auscultation dina Cardiovascular exam: ABSENT: diastolic murmur, irregular rhythm, systolic murmur GI/Abdominal exam: ABSENT: mass, organolmegaly, tenderness Extremities exam: PRESENT: pedal edema - trace Neurological exam: PRESENT: alert. ABSENT: oriented to situation Psychiatric exam: PRESENT: agitated - during night Skin exam: PRESENT: erythema - less on legs Results Laboratory Results: 04/10/18 06:08 04/10/18 06:08 04/07/18 04/07/18 04/07/18 17:22 17:22 17:22 WBC RBC Hgb Hct MCV MCH MCHC RDW Plt Count Seg Neutrophils % Lymphocytes % Monocytes % Eosinophils % Basophils % Absolute Neutrophils Absolute Lymphocytes Absolute Monocytes Absolute Eosinophils Absolute Basophils Carbonic Acid HCO3/H2CO3 Ratio ABG pH ABG pCO2 ABG pO2 ABG HCO3 ABG O2 Saturation ABG Base Excess FiO2 Sodium Potassium Chloride Carbon Dioxide Anion Gap BUN Creatinine Est GFR ( Amer) Est GFR (Non-Af Amer) Glucose Calcium Magnesium Fluid pH 8.1 Fluid Glucose 146 Fluid Total Protein Fluid LDH Fluid Amylase 52 Abnormal - 24 hr 04/09/18 04/09/18 04/10/18 11:50 16:43 00:27 WBC Hgb MCH MCHC RDW Seg Neuts % (Manual) Lymphocytes % (Manual) Monocytes % (Manual) Abs Neuts (Manual) Carbonic Acid 1.58 H ABG pH 7.46 H ABG pCO2 52.4 H ABG pO2 79.6 L ABG HCO3 36.0 H ABG Total CO2 37.6 H ABG O2 Saturation BUN Glucose POC Glucose 124 H 127 H Magnesium 04/10/18 04/10/18 04/10/18 04:36 06:08 06:08 WBC 18.9 H Hgb 12.9 L MCH 25.6 L MCHC 31.8 L RDW 17.6 H Seg Neuts % (Manual) 95 H Lymphocytes % (Manual) 3 L Monocytes % (Manual) 2 L Abs Neuts (Manual) 18.0 H Carbonic Acid ABG pH 7.49 H ABG pCO2 ABG pO2 123.4 H ABG HCO3 29.9 H ABG Total CO2 31.2 H ABG O2 Saturation 98.7 H BUN 27 H Glucose 118 H POC Glucose Magnesium 2.5 H 04/07/18 17:22 Pleural Fluid - Right Pleural Effusion AFB Smear Concentration - Final 04/07/18 17:22 Pleural Fluid - Right Pleural Effusion Acid Fast Bacilli Smear - Final 04/07/18 14:50 Sputum Gram Stain - Final 04/07/18 14:50 Sputum Sputum Culture - Final NORMAL JORGE 04/07/18 18:37 Catheterized Urine Urine Culture - Final NO GROWTH 2 DAYS Assessment & Plan - Diagnosis (1) Pleural effusion Is this a current diagnosis for this admission?: Yes Plan: chest tube out. Basal infiltrates. No wheeze. Stop solumedrol. (2) Acute respiratory failure Qualifiers: Respiratory failure complication: hypoxia and hypercapnia Qualified Code(s): J96.01 - Acute respiratory failure with hypoxia; J96.02 - Acute respiratory failure with hypercapnia Is this a current diagnosis for this admission?: Yes Plan: extubated on bipap nights. To floor on liquids after swallow eval. (3) Chronic combined systolic and diastolic heart failure Is this a current diagnosis for this admission?: Yes Plan: diuresed (4) GERD (gastroesophageal reflux disease) Qualifiers: Esophagitis presence: without esophagitis Qualified Code(s): K21.9 - Gastro-esophageal reflux disease without esophagitis Is this a current diagnosis for this admission?: Yes (5) Urinary tract infection Qualifiers: Urinary tract infection type: acute cystitis Hematuria presence: without hematuria Qualified Code(s): N30.00 - Acute cystitis without hematuria Is this a current diagnosis for this admission?: Yes Plan: afebrile on levaquin (6) Varicose veins of lower extremity with inflammation Qualifiers: Laterality: bilateral Qualified Code(s): I83.11 - Varicose veins of right lower extremity with inflammation; I83.12 - Varicose veins of left lower extremity with inflammation Is this a current diagnosis for this admission?: Yes (7) Delirium due to general medical condition Is this a current diagnosis for this admission?: Yes Plan: agustina chapa. Joseph donnelly - Inpatient Certification Medical Necessity: Need Close Monitoring Due to Risk of Patient Decompensation, Need For IV Fluids, Need For Continuous Telemetry Monitoring, Need for Nebulizer Therapy and Monitoring of Response, Need for IV Antibiotics, Risk of Complication if Not Cared For in Hospital, Risk of Diagnosis Which Will Require Inpatient Eval/Care/Monitoring
[2018-04-10] MEDS: LEVOFLOXACIN 750 MG/D5W RTU 750 MG/150 ML RTUPB IV SCH (08:23)
[2018-04-10] MEDS: TRIAMCINOLONE ACETONIDE 0.1% CREAM 15 GM TOP SCH ×2 (09:56→18:31)
[2018-04-10] MEDS: FAMOTIDINE INJ/PF 20 MG/2 ML SDV IV SCH ×2 (09:57→21:05)
[2018-04-10] MEDS: ENOXAPARIN SODIUM INJ 40 MG/0.4 ML DISP.SYRIN SUBCUT SCH (09:57)
[2018-04-10] MEDS: FUROSEMIDE INJ/PF 40 MG/4 ML SDV IV SCH (09:57)
[2018-04-10] MEDS: POTASSIUM CHLORIDE 20 MEQ/15 ML UDCUP NG SCH ×3 (09:57→21:11)
[2018-04-10] MEDS ORDERED: HALOPERIDOL 5 MG TABLET PO SCH (10:00)
[2018-04-10] MEDS ORDERED: OLANZAPINE 5 MG TABLET PO SCH (22:00)
[2018-04-11] MEDS: IPRATROPIUM/ALBUTEROL 0.5-2.5 MG/3 ML AMPUL NEB SCH ×6 (00:05→20:33)
--- NOTE | 2018-04-11 07:27 | PDOC PROGRESS REPORT ---
Subjective Progress Note for:: 04/11/18 Subjective:: no pain. Just got to sleep after zyprexa 15mg last night. Reason For Visit: RESPIRATORY FAILURE,R EFFUSION Physical Exam Vital Signs: Temp Pulse Resp BP Pulse Ox 98.4 F 101 H 18 128/75 H 97 04/11/18 03:51 04/11/18 04:41 04/11/18 04:41 04/11/18 03:51 04/11/18 04:41 Intake & Output 04/09/18 04/10/18 04/11/18 07:59 07:59 07:59 Intake Total 2255 1151 1150 Output Total 1290 4750 3225 Balance 290 -8569 -1726 Weight 274 lb 14.663 oz 265 lb 14.04 oz 254 lb 10.142 oz General appearance: PRESENT: no acute distress Respiratory exam: PRESENT: clear to auscultation dina Cardiovascular exam: ABSENT: diastolic murmur, irregular rhythm, systolic murmur GI/Abdominal exam: ABSENT: mass, organolmegaly, tenderness Extremities exam: ABSENT: pedal edema Neurological exam: ABSENT: oriented to situation Psychiatric exam: PRESENT: appropriate affect Results Laboratory Results: 04/10/18 06:08 04/10/18 06:08 Impressions: Chest X-Ray 04/10/18 06:00 IMPRESSION: Interval extubation. Assessment & Plan - Diagnosis (1) Pleural effusion Is this a current diagnosis for this admission?: Yes Plan: R base clearer on xr (2) Acute respiratory failure Qualifiers: Respiratory failure complication: hypoxia and hypercapnia Qualified Code(s): J96.01 - Acute respiratory failure with hypoxia; J96.02 - Acute respiratory failure with hypercapnia Is this a current diagnosis for this admission?: Yes (3) Chronic combined systolic and diastolic heart failure Is this a current diagnosis for this admission?: Yes Plan: bun clombing. Poor intake. Hold furosemide. (4) GERD (gastroesophageal reflux disease) Qualifiers: Esophagitis presence: without esophagitis Qualified Code(s): K21.9 - Gastro-esophageal reflux disease without esophagitis Is this a current diagnosis for this admission?: Yes (5) Urinary tract infection Qualifiers: Urinary tract infection type: acute cystitis Hematuria presence: without hematuria Qualified Code(s): N30.00 - Acute cystitis without hematuria Is this a current diagnosis for this admission?: Yes Plan: consider pulling soto tomorrow (6) Varicose veins of lower extremity with inflammation Qualifiers: Laterality: bilateral Qualified Code(s): I83.11 - Varicose veins of right lower extremity with inflammation; I83.12 - Varicose veins of left lower extremity with inflammation Is this a current diagnosis for this admission?: Yes (7) Delirium due to general medical condition Is this a current diagnosis for this admission?: Yes - Inpatient Certification Medical Necessity: Failure to Improve With Outpatient Therapy, Significant Comorbidiites Make Outpatient Treatment Too Risky, Need Close Monitoring Due to Risk of Patient Decompensation, Need For Continuous Telemetry Monitoring, Need for Nebulizer Therapy and Monitoring of Response, Need for IV Antibiotics, Risk of Complication if Not Cared For in Hospital, Risk of Diagnosis Which Will Require Inpatient Eval/Care/Monitoring
--- NOTE | 2018-04-11 08:29 | RADIOLOGY REPORT (SQ) ---
EXAM DESCRIPTION: CHEST SINGLE VIEW COMPLETED DATE/TIME: 04/11/2018 7:58 am REASON FOR STUDY: R EFFUSION COMPARISON: 04/10/2018. EXAM PARAMETERS: NUMBER OF VIEWS: One view. TECHNIQUE: Single frontal radiographic view of the chest acquired. RADIATION DOSE: NA LIMITATIONS: None. FINDINGS: LUNGS AND PLEURA: Basilar densities and right pleural effusion unchanged. MEDIASTINUM AND HILAR STRUCTURES: No masses. Contour normal. HEART AND VASCULAR STRUCTURES: Cardiomegaly unchanged. BONES: No acute findings. HARDWARE: None in the chest. OTHER: No other significant finding. IMPRESSION: NO CHANGE IN APPEARANCE OF THE CHEST. TECHNICAL DOCUMENTATION: JOB ID: [id number] [employer]- All Rights Reserved Reading location - IP/workstation name: [email or web address]
[2018-04-11] MEDS: LEVOFLOXACIN 750 MG/D5W RTU 750 MG/150 ML RTUPB IV SCH (09:05)
[2018-04-11] MEDS: TRIAMCINOLONE ACETONIDE 0.1% CREAM 15 GM TOP SCH ×2 (10:08→18:27)
[2018-04-11] MEDS: FAMOTIDINE INJ/PF 20 MG/2 ML SDV IV SCH ×2 (10:09→21:08)
[2018-04-11] MEDS: ENOXAPARIN SODIUM INJ 40 MG/0.4 ML DISP.SYRIN SUBCUT SCH (10:09)
[2018-04-12] MEDS: IPRATROPIUM/ALBUTEROL 0.5-2.5 MG/3 ML AMPUL NEB SCH ×6 (00:14→21:01)
--- NOTE | 2018-04-12 07:02 | EKG REPORT ---
SEVERITY:- ABNORMAL ECG - SINUS TACHYCARDIA WITH APCs NONSPECIFIC INTRAVENTRICULAR CONDUCTION DELAY : Confirmed by: Jay Ruggiero 12-Apr-2018 07:01:38
--- NOTE | 2018-04-12 07:24 | PDOC PROGRESS REPORT ---
Subjective Progress Note for:: 04/12/18 Subjective:: no pain or dyspnea Reason For Visit: RESPIRATORY FAILURE,R EFFUSION Physical Exam Vital Signs: Temp Pulse Resp BP Pulse Ox 97.4 F 120 H 16 133/87 H 94 04/12/18 03:40 04/12/18 04:30 04/12/18 04:30 04/12/18 03:40 04/12/18 04:30 Intake & Output 04/10/18 04/11/18 04/12/18 07:59 07:59 07:59 Intake Total 1151 1150 300 Output Total 4750 3225 850 Balance -3599 -2075 -550 Weight 265 lb 14.04 oz 254 lb 10.142 oz 252 lb 13.923 oz General appearance: PRESENT: no acute distress Respiratory exam: PRESENT: clear to auscultation dina Cardiovascular exam: PRESENT: irregular rhythm. ABSENT: diastolic murmur, systolic murmur GI/Abdominal exam: PRESENT: tenderness. ABSENT: mass, organolmegaly Extremities exam: ABSENT: pedal edema Neurological exam: PRESENT: oriented to person, oriented to place, oriented to time. ABSENT: oriented to situation Psychiatric exam: PRESENT: appropriate affect Results Laboratory Results: 04/10/18 06:08 04/10/18 06:08 04/07/18 17:22 Pleural Fluid Gram Stain - Final 04/07/18 17:22 Pleural Fluid Body Fluid Culture - Final NO AEROBIC OR ANAEROBIC ORGANISMS RECOVERED Impressions: Chest X-Ray 04/11/18 06:00 IMPRESSION: NO CHANGE IN APPEARANCE OF THE CHEST. Assessment & Plan - Diagnosis (1) Pleural effusion Is this a current diagnosis for this admission?: Yes (2) Acute respiratory failure Qualifiers: Respiratory failure complication: hypoxia and hypercapnia Qualified Code(s): J96.01 - Acute respiratory failure with hypoxia; J96.02 - Acute respiratory failure with hypercapnia Is this a current diagnosis for this admission?: Yes (3) Chronic combined systolic and diastolic heart failure Is this a current diagnosis for this admission?: Yes Plan: intake still too poor for furosemide (4) GERD (gastroesophageal reflux disease) Qualifiers: Esophagitis presence: without esophagitis Qualified Code(s): K21.9 - Gastro-esophageal reflux disease without esophagitis Is this a current diagnosis for this admission?: Yes (5) Urinary tract infection Qualifiers: Urinary tract infection type: acute cystitis Hematuria presence: without hematuria Qualified Code(s): N30.00 - Acute cystitis without hematuria Is this a current diagnosis for this admission?: Yes (6) Varicose veins of lower extremity with inflammation Qualifiers: Laterality: bilateral Qualified Code(s): I83.11 - Varicose veins of right lower extremity with inflammation; I83.12 - Varicose veins of left lower e xtremity with inflammation Is this a current diagnosis for this admission?: Yes (7) Delirium due to general medical condition Is this a current diagnosis for this admission?: Yes Plan: much less agitated last night. (8) Physical deconditioning Is this a current diagnosis for this admission?: Yes Plan: Cant transfer or roll over. Keep soto longer. PT. Will need rehab (9) PAC (premature atrial contraction) Is this a current diagnosis for this admission?: Yes Plan: ekg no afib - Inpatient Certification Medical Necessity: Failure to Improve With Outpatient Therapy, Significant Comorbidiites Make Outpatient Treatment Too Risky, Need Close Monitoring Due to Risk of Patient Decompensation, Need For Continuous Telemetry Monitoring, Need for Nebulizer Therapy and Monitoring of Response
[2018-04-12] MEDS: LEVOFLOXACIN 750 MG/D5W RTU 750 MG/150 ML RTUPB IV SCH (08:35)
--- NOTE | 2018-04-12 08:59 | RADIOLOGY REPORT (SQ) ---
EXAM DESCRIPTION: CHEST SINGLE VIEW COMPLETED DATE/TIME: 04/12/2018 8:35 am REASON FOR STUDY: R EFFUSION COMPARISON: None. EXAM PARAMETERS: NUMBER OF VIEWS: One view. TECHNIQUE: Single frontal radiographic view of the chest acquired. RADIATION DOSE: NA LIMITATIONS: None. FINDINGS: LUNGS AND PLEURA: Grossly stable mild far right effusion and associated basilar atelectasi s. No new airspace disease. Trace right apical pneumothorax likely. Unremarkable left hemithorax. MEDIASTINUM AND HILAR STRUCTURES: No discrete masses. HEART AND VASCULAR STRUCTURES: Enlarged with central vascular prominence, unchanged. BONES: No acute findings. Degenerative changes at the shoulders. HARDWARE: None in the chest. OTHER: No other significant finding. IMPRESSION: Persistent mild right pleural effusion with associated basilar atelectasis. Apparent trace right apical pneumothorax. Pertinent positive or negative findings of the imaging study reported as a CRITICAL EXAM to THANH penn at08:52 on 04/12/2018. Category of Critical Exam: Trace right apical pneumothorax TECHNICAL DOCUMENTATION: JOB ID: [id number] [employer]- All Rights Reserved Reading location - IP/workstation name: [email or web address]
[2018-04-12] MEDS: FAMOTIDINE INJ/PF 20 MG/2 ML SDV IV SCH ×2 (10:40→21:15)
[2018-04-12] MEDS: ENOXAPARIN SODIUM INJ 40 MG/0.4 ML DISP.SYRIN SUBCUT SCH (10:40)
[2018-04-12] MEDS: TRIAMCINOLONE ACETONIDE 0.1% CREAM 15 GM TOP SCH ×2 (10:40→17:36)
--- NOTE | 2018-04-12 12:47 | PDOC H&P ---
History of Present Illness Admission Date/PCP: 04/07/18 10:57 BLANCHE BROWER MD Patient complains of: dyspnea History of Present Illness: AISHA PABLO is a 72 year old male who presented 4feb with 1w nasal congestion cough sputum wheeze without fever. Wheeze was mild. Azithromycin and albuterol failed. He called 911 early today. In ER he was intubated with big R effusion. Past Medical History Cardiac Medical History: Reports: Atrial Fibrillation, Congestive Heart Failure - combined, Hyperlipidema, Hypertension Pulmonary Medical History: Reports: Sleep Apnea - refused cpap, Other - obesityL rodney 1994 fvc55% fev1=52 ratio77 rv119 [id number] EENT Medical History: Reports: None Neurological Medical History: Reports: Other - diabetic neuropathy paroxysmal vertigo Denies: Seizures Endocrine Medical History: Reports: Diabetes Mellitus Type 2 - 1997, Obesity Renal/ Medical History: Reports: Other - phimosis Malignancy Medical History: Reports: None GI Medical History: Reports: Gastroesophageal Reflux Disease, Other - bleed from R tic Musculoskeltal Medical History: Reports: Arthritis - severe djd RK. [place] say surgury too risky. Skin Medical History: Reports: Other - stasis ulcers Psychiatric Medical History: Reports: None Traumatic Medical History: Reports: None Hematology: Reports: Anemia - iron. July Infectious Medical History: Reports: None Past Surgical History Past Surgical History: Reports: Herniorrhaphy - ventral hernia repair with mesh insertion., Other - diverticulitis, ventral hernia, Rcolectomy, cataracts, ERCP dorsal slit Social History Information Source: Dr. Rehman Lives with: Alone Smoking Status: Former Smoker Number of Years Smokin Last Time Smoked: 1995 Frequency of Alcohol Use: None Hx Recreational Drug Use: No Drugs: None Hx Prescription Drug Abuse: No - Advance Directive Resuscitation Status: Do Not Resuscitate Family History Family History: DM, Hypertension Parental Family History Reviewed: Yes Children Family History Reviewed: Yes Sibling(s) Family History Reviewed.: Yes Medication/Allergy Home Medications: Albuterol Sulfate [Proair Hfa Inhalation Aerosol 8.5 gm Mdi] 2 puff IH QIDP PRN 04/07/18 Allopurinol [Zyloprim 300 mg Tablet] 300 mg PO DAILY 04/07/18 Atorvastatin Calcium [Lipitor 10 mg Tablet] 10 mg PO QHS 04/07/18 Furosemide [Lasix 40 mg Tablet] 40 mg PO BID 04/07/18 Gabapentin [Neurontin 300 mg Capsule] 300 mg PO BID 04/07/18 Hydromorphone HCl [Dilaudid 2 mg Tablet] 2 mg PO Q8 04/07/18 Omeprazole 20 mg PO Q6AM 04/07/18 Allergies/Adverse Reactions: No Known Allergies Allergy (Verified 04/07/18 07:35) Review of Systems ROS unobtainable: Due to endotracheal tube Physical Exam Vital Signs: Temp Pulse Resp BP Pulse Ox 97.7 F 12 113/73 94 04/07/18 07:35 04/07/18 12:01 04/07/18 12:01 04/07/18 12:01 Intake & Output 04/06/18 04/07/18 04/08/18 07:59 07:59 07:59 Intake Total 1234 Balance 1234 Weight 260 lb General appearance: PRESENT: morbidly obese Mouth exam: PRESENT: moist, neck supple Neck exam: ABSENT: lymphadenopathy, tenderness, thyromegaly, tracheal deviation Respiratory exam: PRESENT: decreased breath sounds - R base, wheezes Cardiovascular exam: ABSENT: diastolic murmur, irregular rhythm, systolic murmur GI/Abdominal exam: ABSENT: mass, organolmegaly Extremities exam: PRESENT: pedal edema - 3+ Neurological exam: ABSENT: alert Results Laboratory Results: 04/07/18 07:40 04/07/18 07:40 04/07/18 04/07/18 04/07/18 07:40 07:40 07:40 WBC 10.4 RBC 4.87 Hgb 12.8 L Hct 40.4 MCV 83 MCH 26.3 L MCHC 31.7 L RDW 17.6 H Plt Count 270 Seg Neutrophils % 87.2 H Lymphocytes % 6.7 L Monocytes % 5.3 Eosinophils % 0.3 Basophils % 0.5 Absolute Neutrophils 9.1 H Absolute Lymphocytes 0.7 Absolute Monocytes 0.6 Absolute Eosinophils 0.0 Absolute Basophils 0.1 Carbonic Acid HCO3/H2CO3 Ratio ABG pH ABG pCO2 ABG pO2 ABG HCO3 ABG O2 Saturation ABG Base Excess FiO2 Sodium 143.3 Potassium 3.7 Chloride 96 L Carbon Dioxide 37 H Anion Gap 10 BUN 21 H Creatinine 0.84 Est GFR ( Amer) > 60 Est GFR (Non-Af Amer) > 60 Glucose 168 H Lactic Acid 0.7 Calcium 9.5 Magnesium 2.3 Total Bilirubin 0.7 AST 23 ALT 24 Alkaline Phosphatase 140 H Total Protein 7.0 Albumin 4.1 04/07/18 07:50 WBC RBC Hgb Hct MCV MCH MCHC RDW Plt Count Seg Neutrophils % Lymphocytes % Monocytes % Eosinophils % Basophils % Absolute Neutrophils Absolute Lymphocytes Absolute Monocytes Absolute Eosinophils Absolute Basophils Carbonic Acid 3.84 H HCO3/H2CO3 Ratio 11:1 ABG pH 7.17 L* ABG pCO2 127.5 H* ABG pO2 71.7 L ABG HCO3 44.9 H ABG O2 Saturation 87.8 L ABG Base Excess 11.2 FiO2 4L Sodium Potassium Chloride Carbon Dioxide Anion Gap BUN Creatinine Est GFR ( Amer) Est GFR (Non-Af Amer) Glucose Lactic Acid Calcium Magnesium Total Bilirubin AST ALT Alkaline Phosphatase Total Protein Albumin 04/07/18 04/07/18 07:40 07:40 Creatine Kinase 32 L CK-MB (CK-2) 0.71 Troponin I 0.015 NT-Pro-B Natriuret Pep 696 Impressions: Chest X-Ray 04/07/18 07:28 IMPRESSION: Moderate mixed interstitial and airpace opacities. Differential diagnosis includes CHF/pulmonary edema, multifocal pneumonia, and chronic interstitial lung disease. Recommend CR/CT surveillance including at 7-12 weeks following initiation of any clinically warranted therapy. Assessment & Plan - Diagnosis (1) Acute respiratory failure Qualifiers: Respiratory failure complication: hypoxia and hypercapnia Qualified Code(s): J96.01 - Acute respiratory failure with hypoxia; J96.02 - Acute r espiratory failure with hypercapnia Is this a current diagnosis for this admission?: Yes Plan: ct R thoracentesis (2) Chronic combined systolic and diastolic heart failure Is this a current diagnosis for this admission?: Yes - Inpatient Certification Based on my medical assessment, after consideration of the patient's comorbidities, presenting symptoms, or acuity I expect that the services needed warrant INPATIENT care.: Yes I certify that my determination is in accordance with my understanding of Medicare's requirements for reasonable and necessary INPATIENT services [42 CFR 412.3e].: Yes Medical Necessity: Failure to Improve With Outpatient Therapy, Significant Comorbidiites Make Outpatient Treatment Too Risky, Need Close Monitoring Due to Risk of Patient Decompensation, Need For IV Fluids, Need For Continuous Telemetry Monitoring, Need for Nebulizer Therapy and Monitoring of Response, Need for Neurological Checks, Need for IV Antibiotics, Risk of Complication if Not Cared For in Hospital, Risk of Diagnosis Which Will Require Inpatient Eval/Care/Monitoring
--- NOTE | 2018-04-12 15:39 | RADIOLOGY REPORT (SQ) ---
EXAM DESCRIPTION: CT CHEST WITHOUT COMPLETED DATE/TIME: 04/12/2018 2:57 pm REASON FOR STUDY: r lung nodule COMPARISON: None. TECHNIQUE: CT scan performed of the chest without intravenous contrast. Images reviewed with lung, soft tissue and bone windows. Reconstructed coronal and sagittal MPR images reviewed. All images st ored on PACS. All CT scanners at this facility use dose modulation, iterative reconstruction, and/or weight based d osing when appropriate to reduce radiation dose to as low as reasonably achievable (ALARA). [facility]: Dose Right [facility]: CareDose [facility]: Dose Right [facility]: Teradose 4D [facility]: [employer] RADIATION DOSE: mGy. LIMITATIONS: Patient motion. FINDINGS: LUNGS AND PLEURA: Bilateral pleural effusions, right greater than left with volume on the right estimated 750 cc. Right lower lobe is essentially collapsed. Consolidation in the lateral seg ment of the middle lobe. Accessory azygos lobe. No pneumothorax. No obvious underlying lung nodule . HILAR AND MEDIASTINAL STRUCTURES: No identified masses or abnormal nodes. No obvious aneurysm. HEART AND VASCULAR STRUCTURES: Small pericardial effusion. UPPER ABDOMEN: See separate report of the CT of the abdomen. THYROID AND OTHER SOFT TISSUES: No masses. No adenopathy. BONES: Nothing acute. HARDWARE: None in the chest. OTHER: No other significant findings. IMPRESSION: Pleural effusions, right greater than left. Compressive atelectasis right lower lobe an d lateral segment middle lobe. No pneumothorax. TECHNICAL DOCUMENTATION: JOB ID: [id number] Quality ID # [id number]: Final reports with documentation of one or more dose reduction techniques (e.g., Au tomated exposure control, adjustment of the mA and/or kV according to patient size, use of iterative reconstruction technique) 2010 [employer]- All Rights Reserved Reading location - IP/workstation name: [email or web address]
--- NOTE | 2018-04-12 15:57 | RADIOLOGY REPORT (SQ) ---
EXAM DESCRIPTION: CT ABD/PELVIS NO ORAL OR IV COMPLETED DATE/TIME: 04/12/2018 2:57 pm REASON FOR STUDY: metastatic disease COMPARISON: 12/16/2016 TECHNIQUE: CT scan of the abdomen and pelvis performed without intravenous or oral contrast. Images reviewed with lung, soft tissue, and bone windows. Reconstructed coronal and sagittal MPR images revi ewed. All images stored on PACS. All CT scanners at this facility use dose modulation, iterative reconstruction, and/or weight based d osing when appropriate to reduce radiation dose to as low as reasonably achievable (ALARA). [facility]: Dose Right [facility]: CareDose [facility]: Dose Right [facility]: Teradose 4D [facility]: Smart Formotus RADIATION DOSE: CT Rad equipment meets quality standard of care and radiation dose reduction techniq ues were employed. CTDIvol: 26.7 - 29.6 mGy. DLP: 2342 mGy-cm.mGy. LIMITATIONS: Motion. Positioning. FINDINGS: LOWER CHEST: Nodule seen on prior abdominal CT is obscured by right pleural effusion on cu rrent study. See separate report of the CT of the chest. NON-CONTRASTED LIVER, SPLEEN, ADRENALS: Left adrenal mass containing fat measuring just over 4 cm unc hanged. PANCREAS: No masses. No peripancreatic inflammatory changes. GALLBLADDER: Gallstones. No inflammatory changes to suggest cholecystitis. RIGHT KIDNEY AND URETER: No suspicious masses. Assessment limited by lack of IV contrast. No signif icant calcifications. No hydronephrosis or hydroureter. LEFT KIDNEY AND URETER: No suspicious masses. Assessment limited by lack of IV contrast. No signifi cant calcifications. No hydronephrosis or hydroureter. AORTA AND RETROPERITONEUM: No aneurysm. No retroperitoneal masses or adenopathy. BOWEL AND PERITONEAL CAVITY: Moderate gastric distention. Gas fluid levels within mildly dilated loo ps of small bowel without clear transition. Gas and fecal material in nondilated colon. No ascites or free air. APPENDIX: Normal. PELVIS, BLADDER, AND ABDOMINAL WALL:Frank catheter in urinary bladder. BONES: Nothing acute. OTHER: No other significant finding. IMPRESSION: 1. Ileus or partial small bowel obstruction. 2. Cholelithiasis. 3. Stable benign left adrenal nodule. COMMENT: Quality ID # [id number]: Final reports with documentation of one or more dose reduction techniques (e.g., Automated exposure control, adjustment of the mA and/or kV according to patient size, use of iterative reconstruction technique) TECHNICAL DOCUMENTATION: JOB ID: [id number] [employer] All Rights Reserved Reading location - IP/workstation name: [email or web address]
--- NOTE | 2018-04-12 18:49 | PDOC CONSULTATION ---
Consultation Consult Date: 04/12/18 Attending physician:: GABE CHRISTENSEN Consult reason:: Newly noted adenocarcinoma of pleural fluid History of Present Illness Admission Date/PCP: 04/07/18 10:57 BLANCHE BROWER MD Patient complains of: Newly noted adenocarcinoma History of Present Illness: AISHA PABLO is a 72 year old male who was admitted with respiratory distress. Today his [id number] is at bedside who I could get some history from, the patient also is responding appropriately. Notes that he was having 1-2 weeks of increasing dyspnea on exertion, but he lives independently, uses a walker, and actually did drive his [id number] to a colonoscopy and EGD about 1 week ago. Upon presentation he was in overt respiratory distress and was intubated, he was found to have bilateral pleural effusions, and he had a thoracentesis of the right chest, fluid was sent for cytology and Dr. Christensen called me and let me know that he was told by Dr. Lassiter of pathology that this was adenocarcinoma. Further stains are pending to note site of origin. The patient notes that he has been walker bound because of severe left hip pain, looks like he has severe degenerative disease in the left hip. Thus far he apparently has not been a candidate for hip surgery. He had a CT of the chest abdomen pelvis done today, which indicates bilateral pleural effusions right greater than left, right middle lobe collapse/consolidation, CT of the abdomen pelvis did indicate some concern of partial small bowel obstruction but no other sites of disease. Of note he does have a [id number] history of tobacco, quit about 15 years ago. Past Medical History Cardiac Medical History: Reports: Atrial Fibrillation, Congestive Heart Failure - combined, Hyperlipidema, Hypertension Pulmonary Medical History: Reports: Chronic Obstructive Pulmonary Disease (COPD), Sleep Apnea - refused cpap, Other - obesityLung 1994 fvc55% fev1=52 [id number] rv119 [id number] EENT Medical History: Reports: None Neurological Medical History: Reports: Other - diabetic neuropathy paroxysmal vertigo Denies: Seizures Endocrine Medical History: Reports: Diabetes Mellitus Type 1, Diabetes Mellitus Type 2 - 1997, Obesity Renal/ Medical History: Reports: Other - phimosis Malignancy Medical History: Reports: None GI Medical History: Reports: Diverticulitis, Gastroesophageal Reflux Disease, Other - bleed from R tic Musculoskeltal Medical History: Reports: Arthritis - severe djd RK. CO say surgury too risky. Skin Medical History: Reports: Other - stasis ulcers Psychiatric Medical History: Reports: None Denies: Depression Traumatic Medical History: Reports: None Hematology: Reports: Anemia - iron. July Infectious Medical History: Reports: None Past Surgical History Past Surgical History: Reports: Herniorrhaphy - ventral hernia repair with mesh insertion., Other - diverticulitis, ventral hernia, Rcolectomy, cataracts, ERCP dorsal slit Social History Information Source: Patient Lives with: Alone Smoking Status: Former Smoker Number of Years Smokin Last Time Smoked: 1995 Frequency of Alcohol Use: None Hx Recreational Drug Use: No Drugs: None Hx Prescription Drug Abuse: No - Advance Directive Resuscitation Status: Do Not Resuscitate Family History Family History: DM, Hypertension Parental Family History Reviewed: Yes Children Family History Reviewed: Yes Sibling(s) Family History Reviewed.: Yes Medication/Allergy Home Medications: Albuterol Sulfate [Proair Hfa Inhalation Aerosol 8.5 gm Mdi] 2 puff IH QIDP PRN 04/07/18 Allopurinol [Zyloprim 300 mg Tablet] 300 mg PO DAILY 04/07/18 Atorvastatin Calcium [Lipitor 10 mg Tablet] 10 mg PO QHS 04/07/18 Furosemide [Lasix 40 mg Tablet] 40 mg PO BID 04/07/18 Gabapentin [Neurontin 300 mg Capsule] 300 mg PO BID 04/07/18 Hydromorphone HCl [Dilaudid 2 mg Tablet] 2 mg PO Q8 04/07/18 Omeprazole 20 mg PO Q6AM 04/07/18 Allergies/Adverse Reactions: No Known Allergies Allergy (Verified 04/07/18 07:35) Review of Systems Constitutional: ABSENT: chills, fever(s), headache(s), weight gain, weight loss Eyes: ABSENT: visual disturbances Ears: ABSENT: hearing changes Cardiovascular: ABSENT: chest pain, dyspnea on exertion, edema, orthropnea, p alpitations Respiratory: ABSENT: cough, hemoptysis Gastrointestinal: ABSENT: abdominal pain, constipation, diarrhea, hematemesis, hematochezia, nausea, vomiting Genitourinary: ABSENT: dysuria, hematuria Musculoskeletal: ABSENT: joint swelling Integumentary: ABSENT: rash, wounds Neurological: ABSENT: abnormal gait, abnormal speech, confusion, dizziness, focal weakness, syncope Psychiatric: ABSENT: anxiety, depression, homidical ideation, suicidal ideation Endocrine: ABSENT: cold intolerance, heat intolerance, polydipsia, polyuria Hematologic/Lymphatic: ABSENT: easy bleeding, easy bruising Physical Exam Vital Signs: Temp Pulse Resp BP Pulse Ox 98.4 F 115 H 18 114/70 93 04/12/18 15:17 04/12/18 16:50 04/12/18 16:50 04/12/18 15:17 04/12/18 16:50 Intake & Output 04/11/18 04/12/18 04/13/18 06:59 06:59 06:59 Intake Total 1150 300 225 Output Total 3225 850 350 Balance -2075 -550 -125 Weight 115.5 kg 114.7 kg General appearance: PRESENT: no acute distress, well-developed, well-nourished Head exam: PRESENT: atraumatic, normocephalic Eye exam: PRESENT: conjunctiva pink, EOMI, PERRLA. ABSENT: scleral icterus Ear exam: PRESENT: normal external ear exam Mouth exam: PRESENT: moist, tongue midline Neck exam: ABSENT: carotid bruit, JVD, lymphadenopathy, thyromegaly Respiratory exam: PRESENT: clear to auscultation dina. ABSENT: rales, rhonchi, wheezes Cardiovascular exam: PRESENT: RRR. ABSENT: diastolic murmur, rubs, systolic murmur Pulses: PRESENT: normal dorsalis pedis pul Vascular exam: PRESENT: normal capillary refill GI/Abdominal exam: PRESENT: normal bowel sounds, soft. ABSENT: distended, guarding, mass, organolmegaly, rebound, tenderness Rectal exam: PRESENT: deferred Extremities exam: PRESENT: full ROM. ABSENT: calf tenderness, clubbing, pedal edema Neurological exam: PRESENT: alert, awake, oriented to person, oriented to place, oriented to time, oriented to situation, CN II-XII grossly intact. ABSENT: motor sensory deficit Psychiatric exam: PRESENT: appropriate affect, normal mood. ABSENT: homicidal ideation, suicidal ideation Skin exam: PRESENT: dry, intact, warm. ABSENT: cyanosis, rash Results Laboratory Results: 04/10/18 06:08 04/10/18 06:08 04/07/18 07:40 Blood Blood Culture - Final NO GROWTH IN 5 DAYS 04/07/18 07:40 Blood Blood Culture - Final NO GROWTH IN 5 DAYS 02/04/07/18 04/07/18 07:40 07:40 13:25 Creatine Kinase 32 L CK-MB (CK-2) 0.71 Troponin I 0.015 0.023 NT-Pro-B Natriuret Pep 696 04/07/18 04/08/18 18:24 00:22 Creatine Kinase CK-MB (CK-2) Troponin I 0.018 < 0.012 NT-Pro-B Natriuret Pep Impressions: Abdomen/Pelvis CT 04/12/18 00:00 IMPRESSION: 1. Ileus or partial small bowel obstruction. 2. Cholelithiasis. 3. Stable benign left adrenal nodule. Chest CT 04/12/18 00:00 IMPRESSION: Pleural effusions, right greater than left. Compressive atelectasis right lower lobe and lateral segment middle lobe. No pneumothorax. Chest X-Ray 04/12/18 06:00 IMPRESSION: Persistent mild right pleural effusion with associated basilar atelectasis. Apparent trace right apical pneumothorax. Pertinent positive or negative findings of the imaging study reported as a CRI TICAL EXAM to THANH Read at08:52 on 04/12/2018. 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 It is possible that the adenocarcinoma could be arising from bowel because there is some sort of partial small bowel obstruction but this may be related to the recent intubation. He has a strong smoking history so a primary right middle lobe lesion with spread to the pleura would be the most plausible possibility. We are awaiting further stains on pathology to delineate site of origin. (2) Malignant pleural effusion Is this a current diagnosis for this admission?: Yes Plan: He has reaccumulated fluid, he may benefit from a Pleurx catheter placement. Await final pathology before he make decision on this. - Time Time Spent: Greater than 70 Minutes - Inpatient Certification Based on my medical assessment, after consideration of the patient's comorbidit ies, presenting symptoms, or acuity I expect that the services needed warrant INPATIENT care.: Yes I certify that my determination is in accordance with my understanding of Me buffy's requirements for reasonable and necessary INPATIENT services [42 CFR 412.3e].: Yes Medical Necessity: Need for Surgery, Risk of Complication if Not Cared For in Hospital
[2018-04-13] MEDS: IPRATROPIUM/ALBUTEROL 0.5-2.5 MG/3 ML AMPUL NEB SCH ×6 (00:22→21:05)
--- NOTE | 2018-04-13 08:02 | PDOC PROGRESS REPORT ---
Subjective Progress Note for:: 04/13/18 Subjective:: no pain Reason For Visit: RESPIRATORY FAILURE,R EFFUSION Physical Exam Vital Signs: Temp Pulse Resp BP Pulse Ox 98.5 F 103 H 16 120/71 92 04/13/18 03:17 04/13/18 07:00 04/13/18 04:30 04/13/18 03:17 04/13/18 04:30 Intake & Output 04/11/18 04/12/18 04/13/18 07:59 07:59 07:59 Intake Total 1150 300 225 Output Total 3225 850 750 Balance -2075 -550 -525 Weight 254 lb 10.142 oz 252 lb 13.923 oz 251 lb 15.814 oz General appearance: PRESENT: no acute distress Respiratory exam: PRESENT: clear to auscultation dina Cardiovascular exam: ABSENT: diastolic murmur, irregular rhythm, systolic murmur GI/Abdominal exam: ABSENT: mass, organolmegaly, tenderness Extremities exam: ABSENT: pedal edema Neurological exam: ABSENT: alert - lethargic Psychiatric exam: PRESENT: appropriate affect Results Laboratory Results: 04/10/18 06:08 04/10/18 06:08 04/07/18 07:40 Blood Blood Culture - Final NO GROWTH IN 5 DAYS 04/07/18 07:40 Blood Blood Culture - Final NO GROWTH IN 5 DAYS Impressions: Abdomen/Pelvis CT 04/12/18 00:00 IMPRESSION: 1. Ileus or partial small bowel obstruction. 2. Cholelithiasis. 3. Stable benign left adrenal nodule. Chest CT 04/12/18 00:00 IMPRESSION: Pleural effusions, right greater than left. Compressive atelectasis right lower lobe and lateral segment middle lobe. No pneumothorax. Assessment & Plan - Diagnosis (1) Malignant neoplasm of middle lobe, bronchus or lung Is this a current diagnosis for this admission?: Yes Plan: cytology=adenocarcinoma. CT chest & abdomen did not find primary, but he did smoke 60pkYr. Awaiting special stains and possible pleurx. CT showed ileus. Bites only yesterday. (2) Acute respiratory failure Qualifiers: Respiratory failure complication: hypoxia and hypercapnia Qualified Code(s): J96.01 - Acute respiratory failure with hypoxia; J96.02 - Acute respiratory failure with hypercapnia Is this a current diagnosis for this admission?: Yes Plan: required max assist to sit on side of bed. Will need SNF rehab at least. Suspect this cancer has weakened him way beyond usual problems. (3) Chronic combined systolic and diastolic heart failure Is this a current diagnosis for this admission?: Yes - Inpatient Certification Medical Necessity: Failure to Improve With Outpatient Therapy, Significant Comorbidiites Make Outpatient Treatment Too Risky, Need Close Monitoring Due to Risk of Patient Decompensation, Need For Continuous Telemetry Monitoring, Need for Nebulizer Therapy and Monitoring of Response, Risk of Complication if Not Cared For in Hospital, Risk of Diagnosis Which Will Require Inpatient Eval/Care/Monitoring
--- NOTE | 2018-04-13 08:47 | PDOC PROGRESS REPORT ---
Subjective Progress Note for:: 04/13/18 Subjective:: Seems to be appropriate O2 saturation on 2 L but not able to do much. Does wake up and will respond but still very lethargic. Reason For Visit: RESPIRATORY FAILURE,R EFFUSION Physical Exam Vital Signs: Temp Pulse Resp BP Pulse Ox 98.5 F 103 H 16 120/71 92 04/13/18 03:17 04/13/18 07:00 04/13/18 04:30 04/13/18 03:17 04/13/18 04:30 Intake & Output 04/12/18 04/13/18 04/14/18 06:59 06:59 06:59 Intake Total 300 225 Output Total 850 750 Balance -550 -525 Weight 114.7 kg 114.3 kg General appearance: PRESENT: no acute distress, well-developed, well-nourished Head exam: PRESENT: atraumatic, normocephalic Eye exam: PRESENT: conjunctiva pink, EOMI, PERRLA. ABSENT: scleral icterus Ear exam: PRESENT: normal external ear exam Mouth exam: PRESENT: moist, tongue midline Neck exam: ABSENT: carotid bruit, JVD, lymphadenopathy, thyromegaly Respiratory exam: PRESENT: clear to auscultation dina. ABSENT: rales, rhonchi, wheezes Cardiovascular exam: PRESENT: RRR. ABSENT: diastolic murmur, rubs, systolic murmur Pulses: PRESENT: normal dorsalis pedis pul Vascular exam: PRESENT: normal capillary refill GI/Abdominal exam: PRESENT: normal bowel sounds, soft. ABSENT: distended, guarding, mass, organolmegaly, rebound, tenderness Rectal exam: PRESENT: deferred Extremities exam: PRESENT: full ROM. ABSENT: calf tenderness, clubbing, pedal edema Neurological exam: PRESENT: alert, awake, oriented to person, oriented to place, oriented to time, oriented to situation, CN II-XII grossly intact. ABSENT: motor sensory deficit Psychiatric exam: PRESENT: appropriate affect, normal mood. ABSENT: homicidal ideation, suicidal ideation Skin exam: PRESENT: dry, intact, warm. ABSENT: cyanosis, rash Results Laboratory Results: 04/10/18 06:08 04/10/18 06:08 04/07/18 07:40 Blood Blood Culture - Final NO GROWTH IN 5 DAYS 04/07/18 07:40 Blood Blood Culture - Final NO GROWTH IN 5 DAYS 04/07/18 04/07/18 04/07/18 07:40 07:40 13:25 Creatine Kinase 32 L CK-MB (CK-2) 0.71 Troponin I 0.015 0.023 NT-Pro-B Natriuret Pep 696 04/07/18 04/08/18 18:24 00:22 Creatine Kinase CK-MB (CK-2) Troponin I 0.018 < 0.012 NT-Pro-B Natriuret Pep Impressions: Abdomen/Pelvis CT 04/12/18 00:00 IMPRESSION: 1. Ileus or partial small bowel obstruction. 2. Cholelithiasis. 3. Stable benign left adrenal nodule. Chest CT 04/12/18 00:00 IMPRESSION: Pleural effusions, right greater than left. Compressive atelectasis right lower lobe and lateral segment middle lobe. No pneumothorax. 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 (3) Altered mental status Qualifiers: Altered mental status type: somnolence Qualified Code(s): R40.0 - Somnolence Is this a current diagnosis for this admission?: Yes Plan: Very somnolent, could still be some effect of previous sedation with intubation but would be concerned that there may be something related to the carcinoma ongoing there, told nursing to get him up and at least set him up in the bed and see how he eats today. If he still very lethargic unable to at least be fed then we should consider MRI of the brain by tomorrow. - Time Time Spent with patient: 35 or more minutes
--- NOTE | 2018-04-13 09:00 | RADIOLOGY REPORT (SQ) ---
EXAM DESCRIPTION: CHEST SINGLE VIEW COMPLETED DATE/TIME: 04/13/2018 7:57 am REASON FOR STUDY: R EFFUSION COMPARISON: 04/12/2018 EXAM PARAMETERS: NUMBER OF VIEWS: One view. TECHNIQUE: Single frontal radiographic view of the chest acquired. RADIATION DOSE: NA LIMITATIONS: None. FINDINGS: LUNGS AND PLEURA: Persistent increasing right pleural effusion and airspace disease in th e right lung. The previously identified very small right apical pneumothorax is difficult to discern on the current study. Small left pleural effusion and left base atelectasis suggested. MEDIASTINUM AND HILAR STRUCTURES: No masses. Contour normal. HEART AND VASCULAR STRUCTURES: Stable appearance. BONES: No acute findings. HARDWARE: None in the chest. OTHER: No other significant finding. IMPRESSION: 1. Since the previous examination dated 04/12/2014, persistent increasing right pleural e ffusion and airspace disease. 2. New small left pleural effusion and left base atelectasis suggested. 3. Previously demonstrated trace right apical pneumothorax is barely discernible on the current stud y. TECHNICAL DOCUMENTATION: JOB ID: [id number] [employer]- All Rights Reserved Reading location - IP/workstation name: [email or web address]
[2018-04-13] MEDS: LEVOFLOXACIN 750 MG/D5W RTU 750 MG/150 ML RTUPB IV SCH (09:47)
[2018-04-13] MEDS: FAMOTIDINE INJ/PF 20 MG/2 ML SDV IV SCH ×2 (09:47→21:15)
[2018-04-13] MEDS: ENOXAPARIN SODIUM INJ 40 MG/0.4 ML DISP.SYRIN SUBCUT SCH (09:47)
[2018-04-13] MEDS: TRIAMCINOLONE ACETONIDE 0.1% CREAM 15 GM TOP SCH ×2 (09:47→19:52)
[2018-04-13] MEDS: BENZOCAINE/MENTHOL SORE THROAT LOZENGE BUCCAL PRN ×2 (10:24→15:22)
[2018-04-14] MEDS: IPRATROPIUM/ALBUTEROL 0.5-2.5 MG/3 ML AMPUL NEB SCH ×6 (00:12→20:05)
--- NOTE | 2018-04-14 07:50 | PDOC PROGRESS REPORT ---
Subjective Progress Note for:: 04/14/18 Subjective:: dyspnea increasing again Reason For Visit: RESPIRATORY FAILURE,R EFFUSION Physical Exam Vital Signs: Temp Pulse Resp BP Pulse Ox 98.1 F 127 H 16 149/76 H 93 04/14/18 03:29 04/14/18 07:00 04/14/18 04:40 04/14/18 03:29 04/14/18 04:40 Intake & Output 04/12/18 04/13/18 04/14/18 07:59 07:59 07:59 Intake Total 300 225 837 Output Total 691 795 6832 Balance -550 -525 -463 Weight 252 lb 13.923 oz 251 lb 15.814 oz 250 lb 14.177 oz General appearance: PRESENT: no acute distress Respiratory exam: PRESENT: decreased breath sounds - R Cardiovascular exam: PRESENT: irregular rhythm - skips. ABSENT: diastolic murmur, systolic murmur GI/Abdominal exam: PRESENT: tenderness - mild diffuse. ABSENT: mass, organolmegaly Extremities exam: ABSENT: pedal edema Neurological exam: PRESENT: oriented to situation Psychiatric exam: PRESENT: depressed Results Laboratory Results: 04/10/18 06:08 04/10/18 06:08 Impressions: Abdomen/Pelvis CT 04/12/18 00:00 IMPRESSION: 1. Ileus or partial small bowel obstruction. 2. Cholelithiasis. 3. Stable benign left adrenal nodule. Chest CT 04/12/18 00:00 IMPRESSION: Pleural effusions, right greater than left. Compressive atelectasis right lower lobe and lateral segment middle lobe. No pneumothorax. Assessment & Plan - Diagnosis (1) Malignant neoplasm of middle lobe, bronchus or lung Is this a current diagnosis for this admission?: Yes Plan: pleurx. Permanent SNF till dies, probably less than 6m from now. (2) Acute respiratory failure Qualifiers: Respiratory failure complication: hypoxia and hypercapnia Qualified Code(s): J96.01 - Acute respiratory failure with hypoxia; J96.02 - Acute respiratory failure with hypercapnia Is this a current diagnosis for this admission?: Yes (3) Chronic combined systolic and diastolic heart failure Is this a current diagnosis for this admission?: Yes - Inpatient Certification Medical Necessity: Failure to Improve With Outpatient Therapy, Need Close Monitoring Due to Risk of Patient Decompensation, Need For Continuous Telemetry Monitoring, Need for Nebulizer Therapy and Monitoring of Response, Risk of Complication if Not Cared For in Hospital, Risk of Diagnosis Which Will Require Inpatient Eval/Care/Monitoring
[2018-04-14] MEDS: LEVOFLOXACIN 750 MG/D5W RTU 750 MG/150 ML RTUPB IV SCH (07:55)
--- NOTE | 2018-04-14 08:17 | RADIOLOGY REPORT (SQ) ---
EXAM DESCRIPTION: CHEST SINGLE VIEW COMPLETED DATE/TIME: 04/14/2018 7:56 am REASON FOR STUDY: R EFFUSION COMPARISON: CT chest 04/12/2018 Chest films 04/07/2018, 04/10/2018, 04/12/2018, 04/13/2018 EXAM PARAMETERS: NUMBER OF VIEWS: One view. TECHNIQUE: Single frontal radiographic view of the chest acquired. RADIATION DOSE: NA LIMITATIONS: None. FINDINGS: LUNGS AND PLEURA: Right lower lobe collapse and consolidation with small to moderate right pleural effusion is unchanged compared to yesterday. Left lung grossly clear. No gross left pleural effusion. No right or left pneumothorax. MEDIASTINUM AND HILAR STRUCTURES: No masses. Contour normal. HEART AND VASCULAR STRUCTURES: Stable cardiomegaly BONES: No acute findings. HARDWARE: None in the chest. OTHER: No other significant finding. IMPRESSION: No change from yesterday TECHNICAL DOCUMENTATION: JOB ID: [id number] [employer]- All Rights Reserved Reading location - IP/workstation name: [email or web address]
[2018-04-14] MEDS ORDERED: NORMAL SALINE 1000 ML 1,000 ML IV PRN (08:32)
--- NOTE | 2018-04-14 09:14 | PDOC PROGRESS REPORT ---
Subjective Progress Note for:: 04/14/18 Subjective:: Patient now has final diagnosis, adenocarcinoma, favor lung primary, TTF-1 positive. He is planned for Pleurx catheter placement. I have ordered MRI of the brain today to ensure that there is no disease in the brain. Had a long discussion with the patient and [id number], spent greater than 45 minutes in discussion and coordination of care today. Reason For Visit: RESPIRATORY FAILURE,R EFFUSION Physical Exam Vital Signs: Temp Pulse Resp BP Pulse Ox 98.4 F 127 H 20 124/65 92 04/14/18 07:24 04/14/18 07:24 04/14/18 07:24 04/14/18 07:24 04/14/18 07:24 Intake & Output 04/13/18 04/14/18 04/15/18 06:59 06:59 06:59 Intake Total 225 837 Output Total 750 1300 Balance -525 -463 Weight 114.3 kg 113.8 kg General appearance: PRESENT: no acute distress, well-developed, well-nourished Head exam: PRESENT: atraumatic, normocephalic Eye exam: PRESENT: conjunctiva pink, EOMI, PERRLA. ABSENT: scleral icterus Ear exam: PRESENT: normal external ear exam Mouth exam: PRESENT: moist, tongue midline Neck exam: ABSENT: carotid bruit, JVD, lymphadenopathy, thyromegaly Respiratory exam: PRESENT: clear to auscultation dina. ABSENT: rales, rhonchi, wheezes Cardiovascular exam: PRESENT: RRR. ABSENT: diastolic murmur, rubs, systolic murmur Pulses: PRESENT: normal dorsalis pedis pul Vascular exam: PRESENT: normal capillary refill GI/Abdominal exam: PRESENT: normal bowel sounds, soft. ABSENT: distended, guarding, mass, organolmegaly, rebound, tenderness Rectal exam: PRESENT: deferred Extremities exam: PRESENT: full ROM. ABSENT: calf tenderness, clubbing, pedal edema Neurological exam: PRESENT: alert, awake, oriented to person, oriented to place, oriented to time, oriented to situation, CN II-XII grossly intact. ABSENT: motor sensory deficit Psychiatric exam: PRESENT: appropriate affect, normal mood. ABSENT: homicidal ideation, suicidal ideation Skin exam: PRESENT: dry, intact, warm. ABSENT: cyanosis, rash Results Laboratory Results: 04/10/18 06:08 04/10/18 06:08 04/07/18 04/07/18 04/07/18 07:40 07:40 13:25 Creatine Kinase 32 L CK-MB (CK-2) 0.71 Troponin I 0.015 0.023 NT-Pro-B Natriuret Pep 696 04/07/18 04/08/18 18:24 00:22 Creatine Kinase CK-MB (CK-2) Troponin I 0.018 < 0.012 NT-Pro-B Natriuret Pep Impressions: Abdomen/Pelvis CT 04/12/18 00:00 IMPRESSION: 1. Ileus or partial small bowel obstruction. 2. Cholelithiasis. 3. Stable benign left adrenal nodule. Chest CT 04/12/18 00:00 IMPRESSION: Pleural effusions, right greater than left. Compressive atelectas is right lower lobe and lateral segment middle lobe. No pneumothorax. 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 Agree with trying to get him to rehab. We would delay any chemotherapy until he gets out of rehab. (2) Malignant pleural effusion Is this a current diagnosis for this admission?: Yes Plan: For Pleurx catheter placement (3) Altered mental status Qualifiers: Altered mental status type: somnolence Qualified Code(s): R40.0 - Ramón nolence Is this a current diagnosis for this admission?: Yes Plan: Plan for MRI of the brain - Time Time Spent with patient: 35 or more minutes - Inpatient Certification Based on my medical assessment, after consideration of the patient's comorbidities, presenting symptoms, or acuity I expect that the services needed warrant INPATIENT care.: Yes I certify that my determination is in accordance with my understanding of Medicare's requirements for reasonable and necessary INPATIENT services [42 CFR 412.3e].: Yes Medical Necessity: Risk of Complication if Not Cared For in Hospital
[2018-04-14] MEDS: FAMOTIDINE INJ/PF 20 MG/2 ML SDV IV SCH ×2 (09:35→21:13)
[2018-04-14] MEDS: TRIAMCINOLONE ACETONIDE 0.1% CREAM 15 GM TOP SCH ×2 (09:35→17:28)
[2018-04-14] MEDS: ENOXAPARIN SODIUM INJ 40 MG/0.4 ML DISP.SYRIN SUBCUT SCH (09:36)
--- NOTE | 2018-04-14 11:37 | PDOC PROGRESS REPORT ---
Subjective Progress Note for:: 04/14/18 Subjective:: patient awake, responds to questions, unable to assess his competency; his brother has power of state's attorney Reason For Visit: RESPIRATORY FAILURE,R EFFUSION Physical Exam Vital Signs: Temp Pulse Resp BP Pulse Ox 98.4 F 104 H 18 124/65 93 04/14/18 07:24 04/14/18 09:19 04/14/18 09:19 04/14/18 07:24 04/14/18 09:19 Intake & Output 04/13/18 04/14/18 04/15/18 06:59 06:59 06:59 Intake Total 225 837 150 Output Total 750 1300 Balance -525 -463 150 Weight 114.3 kg 113.8 kg General appearance: PRESENT: no acute distress Head exam: PRESENT: atraumatic Teeth exam: PRESENT: poor dentation Neck exam: PRESENT: full ROM Respiratory exam: PRESENT: clear to auscultation dina Cardiovascular exam: PRESENT: RRR GI/Abdominal exam: PRESENT: firm - obese, not tender Extremities exam: PRESENT: other - decreased ROM Neurological exam: PRESENT: alert, awake Psychiatric exam: PRESENT: depressed Skin exam: PRESENT: warm Results Laboratory Results: 04/10/18 06:08 04/10/18 06:08 04/07/18 04/07/18 04/07/18 07:40 07:40 13:25 Creatine Kinase 32 L CK-MB (CK-2) 0.71 Troponin I 0.015 0.023 NT-Pro-B Natriuret Pep 696 04/07/18 04/08/18 18:24 00:22 Creatine Kinase CK-MB (CK-2) Troponin I 0.018 < 0.012 NT-Pro-B Natriuret Pep Impressions: Abdomen/Pelvis CT 04/12/18 00:00 IMPRESSION: 1. Ileus or partial small bowel obstruction. 2. Cholelithiasis. 3. Stable benign left adrenal nodule. Chest CT 04/12/18 00:00 IMPRESSION: Pleural effusions, right greater than left. Compressive atelectasis right lower lobe and lateral segment middle lobe. No pneumothorax. Chest X-Ray 04/14/18 06:00 IMPRESSION: No change from yesterday Assessment & Plan - Diagnosis (1) Malignant pleural effusion Is this a current diagnosis for this admission?: Yes - Plan Summary Plan Summary: A/ Right primary lung tumor Right malignant pleural effusion patient incompetent to make his own decisions, his brother owns the POA P/ Placement of right PleurX catheter. Procedure, risks, benefits discussed with the brother, he understands, and decides to proceed.
[2018-04-14] MEDS ORDERED: DIPHENHYDRAMINE HCL 50 MG/ML VIAL ONE (12:04)
[2018-04-14] MEDS ORDERED: MIDAZOLAM 2 MG/2 ML INJ ONE (12:04)
[2018-04-14] MEDS ORDERED: FENTANYL CITRATE INJ/PF 100 MCG/2 ML AMPUL ONE (12:04)
[2018-04-14] MEDS ORDERED: NALOXONE HCL INJ/PF 0.4 MG/1 ML SDV ONE (12:05)
[2018-04-14] MEDS ORDERED: EPINEPHRINE INJ 1 MG/10 ML DISP.SYRIN ONE (12:05)
[2018-04-14] MEDS ORDERED: GLUCAGON,HUMAN RECOMB 1 MG INJ ONE (12:05)
[2018-04-14] MEDS ORDERED: FLUMAZENIL INJ 0.5 MG/5 ML VIAL ONE (12:05)
[2018-04-14] MEDS ORDERED: LIDOCAINE 1% INJ-PF (10 MG/ML) 30 ML SDV ONE (13:00)
--- NOTE | 2018-04-14 13:45 | Operative Report ---
Nonrecallable Operative Report DATE OF SURGERY: 04/14/18 PREOPERATIVE DIAGNOSIS: 1) Right malignant chronic pleural effusion. 2) Right lung tumor POSTOPERATIVE DIAGNOSIS: same OPERATION: Placement of right PleurX catheter SURGEON: CATHLEEN LUCIO ANESTHESIA: Local - 25 mL 1% Lidocaine TISSUE REMOVED OR ALTERED: 1 L right pleural fluid COMPLICATIONS: none ESTIMATED BLOOD LOSS: < 5 mL INTRAOPERATIVE FINDINGS: right pleural effusion PROCEDURE: see dictation
--- NOTE | 2018-04-14 14:23 | RADIOLOGY REPORT (SQ) ---
EXAM DESCRIPTION: CHEST SINGLE VIEW COMPLETED DATE/TIME: 04/14/2018 2:13 pm REASON FOR STUDY: S/P PLEUR CATH COMPARISON: AP chest 04/14/2018, 04/13/2018 CT chest 04/12/2018 EXAM PARAMETERS: NUMBER OF VIEWS: One view. TECHNIQUE: Single frontal radiographic view of the chest acquired. RADIATION DOSE: NA LIMITATIONS: None. FINDINGS: LUNGS AND PLEURA: Faintly radiopaque PleurX catheter is present over the right lower later al chest, partially obscured by dense consolidation at the right lung base atelectasis versus pneumon ia. No right pneumothorax. Left chest unremarkable. No pleural effusion or pneumothorax. MEDIASTINUM AND HILAR STRUCTURES: No masses. Contour normal. HEART AND VASCULAR STRUCTURES: Stable marked cardiomegaly BONES: No acute findings. HARDWARE: Faintly radiopaque PleurX catheter over the right lower chest OTHER: Findings discussed with Dr. Beth IMPRESSION: Right PleurX catheter over the right lower chest, partially obscured by consolidation at the right lung base. No pneumothorax. TECHNICAL DOCUMENTATION: JOB ID: [id number] [employer]- All Rights Reserved Reading location - IP/workstation name: [email or web address]
--- NOTE | 2018-04-14 15:43 | Progress Note ---
Provider Note Provider Note: S/p Placement of Right PleurX catheter. CXray shows no postop complication A/P Can Use Right PleurX catheter I will sign off. Please, call us with questions.
--- NOTE | 2018-04-14 16:00 | RADIOLOGY REPORT (SQ) ---
EXAM DESCRIPTION: MRI HEAD WITHOUT COMPLETED DATE/TIME: 04/14/2018 3:10 pm REASON FOR STUDY: Lung cancer eval brain mets COMPARISON: CT chest abdomen pelvis 04/12/2018 TECHNIQUE: Multiplanar imaging includes non-contrasted sagittal T1, axial T2, FLAIR, and diffusion w ith ADC map sequences. Images stored on PACS. LIMITATIONS: Limited study, patient unable to comply with scanning FINDINGS: Patient was unable to participate with MR scanning. An axial T2 sequence was obtained without motion artifact. There is a round well-circumscribed lesio n in the right cerebellar hemisphere 9 mm in diameter on axial image 8 which is certainly worrisome f or a metastatic lesion. FLAIR and T2 weighted images show extensive hemispheric small vessel chronic ischemic change in the d eep periventricular white matter. Diffusion-weighted images demonstrate no gross evidence of acute ischemic change. Post cataract surgery. Trace fluid in the left mastoid air cells. Paranasal sinuses are clear. IMPRESSION: Limited diagnostic quality exam due to patient cooperation. Chronic white matter disease. No acute infarcts. 9 mm diameter round well-circumscribed fluid signal lesion in the right cerebellar hemisphere, could represent a metastatic lesion. Follow-up scanning with IV contrast recommended. EVIDENCE OF ACUTE STROKE: NO. TECHNICAL DOCUMENTATION: JOB ID: [id number] [email or web address]- All Rights Reserved Reading location - IP/workstation name: [email or web address]
[2018-04-15] MEDS: IPRATROPIUM/ALBUTEROL 0.5-2.5 MG/3 ML AMPUL NEB SCH ×2 (00:31→04:07)
--- NOTE | 2018-04-15 07:39 | PDOC PROGRESS REPORT ---
Subjective Progress Note for:: 04/15/18 Subjective:: somnolent. Spoke with friends last pm. Reason For Visit: RESPIRATORY FAILURE,R EFFUSION Physical Exam Vital Signs: Temp Pulse Resp BP Pulse Ox 97.6 F 97 16 115/60 94 04/15/18 03:35 04/15/18 04:12 04/15/18 04:12 04/15/18 03:35 04/15/18 04:12 Intake & Output 04/13/18 04/14/18 04/15/18 07:59 07:59 07:59 Intake Total 514 373 6780 Output Total 750 1300 1200 Balance -525 -463 400 Weight 251 lb 15.814 oz 250 lb 14.177 oz 246 lb 14.684 oz General appearance: PRESENT: no acute distress Respiratory exam: PRESENT: clear to auscultation dina Cardiovascular exam: ABSENT: diastolic murmur, irregular rhythm, systolic murmur GI/Abdominal exam: ABSENT: mass, organolmegaly, tenderness Extremities exam: ABSENT: pedal edema Neurological exam: ABSENT: alert Results Laboratory Results: 04/10/18 06:08 04/10/18 06:08 04/07/18 17:22 Pleural Fluid Fungal Smear - Final 04/07/18 17:22 Pleural Fluid Fungal Smear - Final Impressions: Abdomen/Pelvis CT 04/12/18 00:00 IMPRESSION: 1. Ileus or partial small bowel obstruction. 2. Cholelithiasis. 3. Stable benign left adrenal nodule. Chest CT 04/12/18 00:00 IMPRESSION: Pleural effusions, right greater than left. Compressive atelectasis right lower lobe and lateral segment middle lobe. No pneumothorax. Head MRI 04/14/18 00:00 IMPRESSION: Limited diagnostic quality exam due to patient cooperation. Chronic white matter disease. No acute infarcts. 9 mm diameter round well-circumscribed fluid signal lesion in the right cerebellar hemisphere, could represent a metastatic lesion. Follow-up scanning with IV contrast recommended. EVIDENCE OF ACUTE STROKE: NO. Chest X-Ray 04/14/18 13:39 IMPRESSION: Right PleurX catheter over the right lower chest, partially obscured by consolidation at the right lung base. No pneumothorax. Assessment & Plan - Diagnosis (1) Malignant neoplasm of middle lobe, bronchus or lung Is this a current diagnosis for this admission?: Yes Plan: mri R cerebellar ?met 9mm. Could not hold still. SNF rehab ?permanent pending. Masha Alamo questioning pleurx drain supplies. (2) Acute respiratory failure Qualifiers: Respiratory failure complication: hypoxia and hypercapnia Qualified Code(s): J96.01 - Acute respiratory failure with hypoxia; J96.02 - Acute resp iratory failure with hypercapnia Is this a current diagnosis for this admission?: Yes (3) Chronic combined systolic and diastolic heart failure Is this a current diagnosis for this admission?: Yes Plan: intake too poor for furosemide (4) Acquired phimosis Is this a current diagnosis for this admission?: Yes Plan: leave soto in because of immobility and hard cath and terminal condition (5) Other secondary chronic gout, multiple sites, without tophus (tophi) Is this a current diagnosis for this admission?: Yes (6) Type 2 diabetes mellitus with diabetic chronic kidney disease Qualifiers: Diabetes mellitus regional intermodal truck driver insulin use: with regional intermodal truck driver use Chronic kidney disease stage: stage 3 (moderate) Qualified Code(s): E11.22 - Type 2 diabetes mellitus with diabetic chronic kidney disease; N18.3 - Chronic kidney disease, stage 3 (moderate); N18.3 - Chronic kidney disease, stage 3 (moderate); Z79.4 - keno terminal operator (current) use of insulin; Z79.4 - keno terminal operator (current) use of insulin; Z79.4 - custodial (current) use of insulin; Z79.4 - keno terminal operator (current) use of insulin Is this a current diagnosis for this admission?: Yes Plan: has not needed significant insulin this admission - Plan Summary Plan Summary: pleurx drain bottle tomorrow and twice weekly. To M[facility] Alamo when able.
--- NOTE | 2018-04-15 08:21 | PDOC PROGRESS REPORT ---
Subjective Progress Note for:: 04/15/18 Subjective:: Patient had both Pleurx catheter placement with 1000 cc out and MRI of the brain, but patient was only able to go through the noncontrasted phase, he was very agitated and could not tolerate the contrasted phase. On the noncontrasted phase there was a small 7 mm metastasis noted. He seems more lethargic this morning. He was arousable but more difficult to arouse than previous mornings. Reason For Visit: RESPIRATORY FAILURE,R EFFUSION Physical Exam Vital Signs: Temp Pulse Resp BP Pulse Ox 97.6 F 100 16 115/60 94 04/15/18 03:35 04/15/18 07:00 04/15/18 04:12 04/15/18 03:35 04/15/18 04:12 Intake & Output 04/14/18 04/15/18 04/16/18 06:59 06:59 06:59 Intake Total 837 1600 Output Total 1300 1200 Balance -463 400 Weight 113.8 kg 112 kg General appearance: PRESENT: no acute distress, well-developed, well-nourished Head exam: PRESENT: atraumatic, normocephalic Eye exam: PRESENT: conjunctiva pink, EOMI, PERRLA. ABSENT: scleral icterus Ear exam: PRESENT: normal external ear exam Mouth exam: PRESENT: moist, tongue midline Neck exam: ABSENT: carotid bruit, JVD, lymphadenopathy, thyromegaly Respiratory exam: PRESENT: clear to auscultation dina. ABSENT: rales, rhonchi, wheezes Cardiovascular exam: PRESENT: RRR. ABSENT: diastolic murmur, rubs, systolic murmur Pulses: PRESENT: normal dorsalis pedis pul Vascular exam: PRESENT: normal capillary refill GI/Abdominal exam: PRESENT: normal bowel sounds, soft. ABSENT: distended, guarding, mass, organolmegaly, rebound, tenderness Rectal exam: PRESENT: deferred Extremities exam: PRESENT: full ROM. ABSENT: calf tenderness, clubbing, pedal edema Neurological exam: PRESENT: alert, awake, oriented to person, oriented to place, oriented to time, oriented to situation, CN II-XII grossly intact. ABSENT: motor sensory deficit Psychiatric exam: PRESENT: appropriate affect, normal mood. ABSENT: homicidal ideation, suicidal ideation Skin exam: PRESENT: dry, intact, warm. ABSENT: cyanosis, rash Results Laboratory Results: 04/10/18 06:08 04/10/18 06:08 04/07/18 17:22 Pleural Fluid Fungal Smear - Final 04/07/18 17:22 Pleural Fluid Fungal Smear - Final 04/07/18 04/07/18 04/07/18 07:40 07:40 13:25 Creatine Kinase 32 L CK-MB (CK-2) 0.71 Troponin I 0.015 0.023 NT-Pro-B Natriuret Pep 696 04/07/18 04/08/18 18:24 00:22 Creatine Kinase CK-MB (CK-2) Troponin I 0.018 < 0.012 NT-Pro-B Natriuret Pep Impressions: Abdomen/Pelvis CT 04/12/18 00:00 IMPRESSION: 1. Ileus or partial small bowel obstruction. 2. Cholelithiasis. 3. Stable benign left adrenal nodule. Chest CT 04/12/18 00:00 IMPRESSION: Pleural effusions, right greater than left. Compressive atelectasis right lower lobe and lateral segment middle lobe. No pneumothorax. Head MRI 04/14/18 00:00 IMPRESSION: Limited diagnostic quality exam due to patient cooperation. Chronic white matter disease. No acute infarcts. 9 mm diameter round well-circumscribed fluid signal lesion in the right cerebellar hemisphere, could represent a metastatic lesion. Follow-up scanning with IV contrast recommended. EVIDENCE OF ACUTE STROKE: NO. 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 I believe he is taken a turn for the worse. (2) Malignant pleural effusion Is this a current diagnosis for this admission?: Yes Plan: Plan for fluid removal every 3 days. (3) Altered mental status Qualifiers: Altered mental status type: somnolence Qualified Code(s): R40.0 - Somnolence Is this a current diagnosis for this admission?: Yes Plan: Seems worsened today. - Time Time Spent with patient: 35 or more minutes - Inpatient Certification Based on my medical assessment, after consideration of the patient's comorbi dities, presenting symptoms, or acuity I expect that the services needed warrant INPATIENT care.: Yes I certify that my determination is in accordance with my understanding of Medicare's requirements for reasonable and necessary INPATIENT services [42 CFR 412.3e].: Yes Medical Necessity: Risk of Complication if Not Cared For in Hospital
--- NOTE | 2018-04-15 09:44 | RADIOLOGY REPORT (SQ) ---
EXAM DESCRIPTION: CHEST SINGLE VIEW COMPLETED DATE/TIME: 04/15/2018 8:00 am REASON FOR STUDY: R EFFUSION COMPARISON: Previous day. NUMBER OF VIEWS: One view. TECHNIQUE: Single frontal radiographic image of the chest acquired. LIMITATIONS: None. FINDINGS: LUNGS AND PLEURA: Right pleural effusion and associated airspace disease not significantly changed. Trace left pleural effusion. MEDIASTINUM AND HEART: Stable heart size and mediastinal structures. BONY STRUCTURES: No acute findings. HARDWARE: None. OTHER: Unchanged position of right PleurX catheter. IMPRESSION: Right pleural effusion. No significant change. TECHNICAL DOCUMENTATION: JOB ID: [id number] Reading location - IP/workstation name: [email or web address]
[2018-04-15] MEDS: LUBIPROSTONE 24 MCG CAPSULE PO SCH ×2 (09:45→17:03)
[2018-04-15 12:05] VITALS: BP 124/73
--- NOTE | 2018-04-15 12:47 | OPERATIVE REPORT E ---
Operative Report NAME: AISHA PABLO : 1945 AGE: 72Y DATE OF SURGERY: 04/14/2018 ROOM: 327 PREOPERATIVE DIAGNOSES: 1. Right malignant pleural effusion. 2. Right lung tumor. POSTOPERATIVE DIAGNOSES: 1. Right malignant pleural effusion. 2. Right lung tumor. PROCEDURE: Placement of right Pleurx catheter. SURGEON: CATHLEEN LUCIO M.D. COMPLICATIONS: None. ANESTHESIA: 25 mL of 1% lidocaine without epinephrine. FLUIDS: 150 mL. INDICATION AND FINDINGS: This is a 72-year-old male, bedridden, with confusion, who has been found to have a right lung mass as well as a right malignant pleural effusion. I was requested to place a right Pleurx catheter for the management of the malignant right pleural effusion. The procedure, risks, benefits, and complications were explained to the family (the brother). He understood and decided to proceed. DESCRIPTION OF PROCEDURE: The procedure was done at bedside. In the endoscopy suite, the patient was placed in a semi-Anderson's position. The right breast was elevated. The chest was then palpated and an area about 4 fingerbreadths above the edge of the right ribcage along the midclavicular line was identified and a second area 5 cm lateral to this toward the anterior axillary line on the right was marked as well. The area was then prepped and draped in the usual fashion. The 2 previously marked areas, the 1 located 4 fingerbreadths along the right midclavicular line and a second point located 3 fingerbreadths lateral to this were infiltrated with lidocaine and the skin in between was infiltrated as well. Two stab wounds were made and a 16-gauge needle with catheter was inserted through the skin, the chest wall, into the pleural cavity and clear pleural fluid was obtained. The needle with introducer was removed. The catheter was left in place. Guidewire was inserted through the catheter into the right pleural cavity. The catheter was then removed. The Pleurx catheter was then threaded through from the medial to the lateral skin incision subcutaneously using a tissue tunneler. Through the lateral stab wound incision, an 16-Estonian dilator was inserted into the chest cavity and removed over the guidewire. Finally, an 18-Estonian tissue dilator with introducer were inserted through the lateral stab wound incision over the guidewire into the pleural cavity. The introducer and guidewire were removed. The catheter was inserted through the introducer completely into the pleural cavity, the introducer was peeled without difficulty. The finger was then utilized to palpate the catheter and to remove any kinking. When this was confirmed, the lateral stab wound was closed with subcutaneous single pursestring 4-0 Vicryl suture. The catheter was secured to the skin with a 2-0 silk suture. The catheter was then connected to a Pleurx vacuum bottle. About 1 L of clear fluid was drained. Following this, the catheter was disconnected and capped. Sterile dressing was applied over the catheter. The patient tolerated the procedure well. A chest x-ray was obtained to confirm position of the catheter. DICTATING PHYSICIAN: CATHLEEN LUCIO M.D. [id number] PHY#: [id number] ID: [id number] JOB#: [id number] ACCT: [id number] cc:CATHLEEN LUCIO M.D. > MTDD
[2018-04-15] MEDS: MORPHINE SULFATE 10 MG/ML INJ IV PRN ×2 (14:16→17:03)
[2018-04-15] MEDS: ATROPINE SULFATE 1% OPH SOLN 5 ML BOTTLE SL PRN ×2 (14:50→17:03)
--- NOTE | 2018-04-16 05:03 | Death Summary ---
Summary Date : 04/15/18 Time of :: 18:30 Autopsy: No Resuscitation Status: Do Not Resuscitate Primary Care Provider: jethro - Final Diagnosis (1) Malignant neoplasm of middle lobe, bronchus or lung Is this a current diagnosis for this admission?: Yes (2) Acute respiratory failure Is this a current diagnosis for this admission?: Yes (3) Chronic combined systolic and diastolic heart failure Is this a current diagnosis for this admission?: Yes (4) Acquired phimosis Is this a current diagnosis for this admission?: Yes (5) Other secondary chronic gout, multiple sites, without tophus (tophi) Is this a current diagnosis for this admission?: Yes (6) Type 2 diabetes mellitus with diabetic chronic kidney disease Is this a current diagnosis for this admission?: Yes Hospital Course:: 2300ml R pleural fluid was removed. He was weaned from the vent. He received a week of levaquin and a few days of unasyn. Cultures were negative. Cytology showed adenocarcinoma of lung. Pleurx removed another 1000ml. MRI without contrast showed a 9mm R cerebellar met. He became lethargic. Inpatient hospice was contacted. Paliative care suggested morphine and atropine. He about 18:30.
== END 2018-04-15 20:00 | DRG 208 ==
LOC: ER 07:13 → EH 10:57 → ICU 15:31 → 3S 04-10 11:15
PROVIDERS: ADMIT Family Medicine; ATTEND Family Medicine
PROC: 5A1945Z Respiratory Ventilation, 24-96 Consecutive Hours (ICD-10-PCS; principal; 2018-04-07)
PROC: 0BH17EZ Insertion of Endotracheal Airway into Trachea, Via Natural or Artificial Opening (ICD-10-PCS; 2018-04-07)
PROC: 0W993ZX Drainage of Right Pleural Cavity, Percutaneous Approach, Diagnostic (ICD-10-PCS; 2018-04-07)
PROC: 0B9N3ZZ Drainage of Right Pleura, Percutaneous Approach (ICD-10-PCS; 2018-04-14)
DX: C34.2 Malignant neoplasm of middle lobe, bronchus or lung (principal); J96.01 Acute respiratory failure with hypoxia; J96.02 Acute respiratory failure with hypercapnia; I50.42 Chronic combined systolic (congestive) and diastolic (congestive) heart failure; N39.0 Urinary tract infection, site not specified; J91.0 Malignant pleural effusion; I13.0 Hypertensive heart and chronic kidney disease with heart failure and stage 1 through stage 4 chronic kidney disease, or unspecified chronic kidney disease; Z66 Do not resuscitate; E78.5 Hyperlipidemia, unspecified; I83.12 Varicose veins of left lower extremity with inflammation; I83.11 Varicose veins of right lower extremity with inflammation; M10.49 Other secondary gout, multiple sites; K21.9 Gastro-esophageal reflux disease without esophagitis; E11.22 Type 2 diabetes mellitus with diabetic chronic kidney disease; N18.3 Chronic kidney disease, stage 3 (moderate); I49.1 Atrial premature depolarization; G47.33 Obstructive sleep apnea (adult) (pediatric); I48.91 Unspecified atrial fibrillation; M19.90 Unspecified osteoarthritis, unspecified site; R41.0 Disorientation, unspecified; N47.1 Phimosis; E66.01 Morbid (severe) obesity due to excess calories; Z60.2 Problems related to living alone; Z96.89 Presence of other specified functional implants; Z68.37 Body mass index [BMI] 37.0-37.9, adult; Z79.51 Long term (current) use of inhaled steroids; Z79.899 Other long term (current) drug therapy
CPT/HCPCS: 31500; 32554; 36415; 70551; 71045; 71250; 74176; 80048; 80053; 81001; 82150; 82550; 82553; 82803; 82945; 82962; 83036; 83605; 83615; 83735; 83880; 83986; 84100; 84157; 84478; 84484; 85025; 85610; 85730; 87015; 87040; 87070; 87075; 87086; 87101; 87116; 87205; 87206; 88305; 88313; 88341; 88342; 89050; 93005; 93010; 94002; 94003; 94660; 94799; 96361; 96365; 99291; C1758; J0171; J0295; J0330; J0360; J1200; J1610; J1630; J1650; J1815; J1940; J1956; J2250; J2270; J2310; J2704; J2794; J2920; J3010; J3490; J7030; J7060; J7620; S0028